=== PATIENT | male | born 1955 | race Caucasian/White ===

== ENCOUNTER 2018-09-11 16:32 | Inpatient (IN) ==
--- NOTE | 2018-09-11 20:21 | ED ---
HPI General Chief complaint: Weakness Stated complaint: weakness Time Seen by Provider: 09/11/18 19:46 Source: patient Mode of arrival: ambulatory Limitations: no limitations History of Present Illness HPI narrative: 63yo M with PMH of COPD and schizophrenia was brought in by his for worsening weakness. Pt has been having generalized weakness for 2 weeks but his bilateral legs is weaker than arms. Said today he is unable to get up. Pt also with decreased sensations bilateral legs from knees down for a few days. Also with neck pain and upper back pain. said he has been having intermittent low grade fever and night sweats. Went to [facility] when it first started and had negative CT brain, UA, CXR and labs. Pt denies any chest pain, sob, n/v, abdominal pain. Able to urinate normally. Had colonoscopy this past Saturday. Related Data Home Medications Medication Instructions Recorded Confirmed aripiprazole 20 mg PO DAILY 08/31/18 09/11/18 clonazepam 0.5 mg PO TID 08/31/18 09/11/18 donepezil [Aricept] 10 mg PO DAILY 08/31/18 09/11/18 duloxetine 60 mg PO DAILY 08/31/18 09/11/18 omeprazole 20 mg PO DAILY 08/31/18 09/11/18 propranolol 10 mg PO BID 08/31/18 09/11/18 quetiapine 600 mg PO QPM 08/31/18 09/11/18 trazodone 50 mg PO DAILY 08/31/18 09/11/18 clonazepam PO DAILY 09/12/18 simvastatin PO DAILY 09/12/18 Allergies Allergy/AdvReac Type Severity Reaction Status Date / Time No Known Allergies Allergy Verified 09/11/18 16:49 Review of Systems ROS: all other systems reviewed are negative [facility] Social History Social History Substance History: No History of Abuse Second Hand Smoke Exposure: No Smoking Status: Former smoker Tobacco Type: Cigarettes How Often Do You Have a Drink Containing Alcohol: Never Recent Travel in [place] within the Last 8 Weeks: No Recent Out of Country Travel within the Last 8 Weeks: No Immunization History Tetanus Immunization: Unsure Exam Narrative Exam Narrative: GENERAL: 63yo M in mild distress. SKIN: Focused skin assessment warm/dry. HEAD: Atraumatic. Normocephalic. EYES: Pupils equal and round. No scleral icterus. No injection or drainage. ENT: No nasal bleeding or discharge. Mucous membranes pink and moist. NECK: Diffuse ttp neck and sidebending to right. CARDIOVASCULAR: Regular rate and rhythm. No murmur appreciated. RESPIRATORY: No accessory muscle use. Clear to auscultation. Breath sounds equal bilaterally. BACK: +TTP mid upper thoracic spine. GASTROINTESTINAL: Abdomen soft, non-tender, nondistended. MUSCULOSKELETAL: No obvious deformities. No clubbing. No cyanosis. No edema. NEUROLOGICAL: Awake and alert. No obvious cranial nerve deficits. Equal sensation bilateral upper extremities. Pt has decreased sensation in bilateral lower extremity knees down although pt is able to feel my touch equally bilaterally. Muscle strength 4/5 bilateral lower extremity. 5/5 in bilateral upper extremity. Course Initial Documented Vital Signs Temperature 100.2 F H 09/11/18 16:44 Pulse Rate 94 H 09/11/18 16:44 Blood Pressure 137/64 09/11/18 16:44 Pulse Oximetry 96 09/11/18 16:44 Last Documented Vital Signs Temperature 98.7 F 09/12/18 00:00 Pulse Rate 86 09/12/18 00:00 Respiratory Rate 14 09/12/18 00:00 Blood Pressure 128/73 09/12/18 00:00 Pulse Oximetry 94 L 09/12/18 00:00 Critical Care Time Critical Care Time: Yes Total Critical Care Time: 45 Attestation: Aggregate critical care time was 45 minutes. Time to perform other separately billable procedures was not included in the critical care time. My time did not include minutes spent treating any other patients simultaneously or on activities that did not directly contribute to the patient's treatment. The services I provided to this patient were to treat and/or prevent clinically significant deterioration that could result in: cardiovascular collapse or . I provided critical care services requiring my management, as noted below: Chart data review, documentation time, medication orders and management, vital sign assessments/reviewing monitor data, ordering and reviewing lab tests, ordering and interpreting/reviewing x-rays and diagnostic studies, care of the patient and discussion of the patient with the admitting physicians. Medical Decision Making MDM Narrative Medical decision making narrative: 63yo M with intermittent fever, sweating and generalized weakness for 2 weeks. However, pt has worsening lower extremity weakness and numbness. Said his neck is also hurting a lot in the last few days. Pt's neck is very tender and side bend to the right. Since pt take psych medications, will give diphenhydramine to see if it is dystonic reaction. Pt has no neurologic complaint and could not even get up today so will do MRI cervical spine, thoracic spine and lumbar spine. Labs reviewed, no leukocytosis. H/H normal. BMP. Lactic acid 1.4. CT TS showed no fracture or subluxation of thoracic spine. MRI LS showed no acute compression fracture. MRI cspine showed acute discitis at C4/C5 with an anterior subligamentous abscess and elongated retropharyngeal abscess. Pt was empirically given vancomycin and zosyn. I discussed case with Dr. Pereira who recommends admission to medicine, vancomycin and NPO after midnight for possible surgery, with neurosurgery consult. Discussed with Dr. Penaloza and accepted to his service. Medical Screen Exam Complete: Yes Emergency Medical Condition: Yes Differential Diagnosis Differential Diagnosis: Osteomyelitis vs. cord compression vs. torticollis vs. dehydration Lab Data Result diagrams: 09/11/18 20:10 09/11/18 20:10 Lab Results 09/11/18 09/11/18 09/11/18 Range/Units 20:10 20:10 20:10 WBC 10.7 (4.0-11.0) th/mm3 RBC 4.29 L (4.50-5.90) mil/mm3 Hgb 13.6 (13.0-17.0) gm/dL Hct 41.1 (39.0-51.0) % MCV 95.9 (80.0-100.0) fL MCH 31.8 (27.0-34.0) pg MCHC 33.2 (32.0-36.0) % RDW 14.1 (11.6-17.2) % Plt Count 236 D (150-450) th/mm3 MPV 9.1 (7.0-11.0) fL Neut % (Auto) 82.0 H (16.0-70.0) % Lymph % (Auto) 6.6 L (9.0-44.0) % [place] % (Auto) 10.8 H (0.0-8.0) % Eos % (Auto) 0.2 (0.0-4.0) % Baso % (Auto) 0.4 (0.0-2.0) % Neut # (Auto) 8.8 H (1.8-7.7) th/mm3 Lymph # (Auto) 0.7 L (1.0-4.8) th/mm3 [place] # (Auto) 1.2 H (0.0-0.9) th/mm3 Eos # (Auto) 0.0 (0.0-0.4) th/mm3 Baso # (Auto) 0.0 (0.0-0.2) th/mm3 WBC Differential . Differential Comment Auto diff final PT 10.0 (9.8-11.6) sec INR 1.0 Ratio APTT 27.6 (23.4-31.7) sec Sodium 136 (136-145) meq/L Potassium 4.7 (3.5-5.1) meq/L Chloride 100 (98-107) meq/L Carbon Dioxide 29.8 (21.0-32.0) meq/L Anion Gap 6 (5-15) meq/L BUN 15 (7-18) mg/dL Creatinine 0.85 (0.60-1.30) mg/dL Estimated GFR Greater than 89 (>89) mL/min Random Glucose 115 H (74-106) mg/dL Lactic Acid (0.4-2.0) mmol/L Calcium 8.6 (8.5-10.1) mg/dL Magnesium 2.3 (1.5-2.5) mg/dL 09/11/18 Range/Units 20:25 WBC (4.0-11.0) th/mm3 RBC (4.50-5.90) mil/mm3 Hgb (13.0-17.0) gm/dL Hct (39.0-51.0) % MCV (80.0-100.0) fL MCH (27.0-34.0) pg MCHC (32.0-36.0) % RDW (11.6-17.2) % Plt Count (150-450) th/mm3 MPV (7.0-11.0) fL Neut % (Auto) (16.0-70.0) % Lymph % (Auto) (9.0-44.0) % [place] % (Auto) (0.0-8.0) % Eos % (Auto) (0.0-4.0) % Baso % (Auto) (0.0-2.0) % Neut # (Auto) (1.8-7.7) th/mm3 Lymph # (Auto) (1.0-4.8) th/mm3 [place] # (Auto) (0.0-0.9) th/mm3 Eos # (Auto) (0.0-0.4) th/mm3 Baso # (Auto) (0.0-0.2) th/mm3 WBC Differential Differential Comment PT (9.8-11.6) sec INR Ratio APTT (23.4-31.7) sec Sodium (136-145) meq/L Potassium (3.5-5.1) meq/L Chloride (98-107) meq/L Carbon Dioxide (21.0-32.0) meq/L Anion Gap (5-15) meq/L BUN (7-18) mg/dL Creatinine (0.60-1.30) mg/dL Estimated GFR (>89) mL/min Random Glucose (74-106) mg/dL Lactic Acid 1.4 (0.4-2.0) mmol/L Calcium (8.5-10.1) mg/dL Magnesium (1.5-2.5) mg/dL Imaging Data Radiologist's impression: Cervical Spine MRI 09/11/18 20:09 CONCLUSION: 1. MRI findings are worrisome for acute discitis at C4/C5 with a anterior subligamentous abscess and an elongated retropharyngeal abscess. A posttraumatic etiology would be conceivable and please correlate clinically. Otherwise, infection should be included high in the differential. 2. The findings at C4/C5, in conjunction with degenerative appearing retrolisthesis and degenerative changes contribute to moderate to severe spinal stenosis with cord compression and severe bilateral foraminal stenosis. No cord signal abnormality demonstrated. 3. Substantial but fairly typical-appearing degenerative changes at other levels as described above. Lumbar Spine MRI 09/11/18 20:09 CONCLUSION: 1. Moderate bilateral foraminal narrowing at L5-S1. 2. Grade I retrolisthesis of L5 in relation to S1. 3. Minimal bilateral foraminal narrowing at L2-3, L3-4 and L4-5. 4. Hemangiomas at L2 and L3. 5. Severe degenerative disc disease at L5-S1. Thoracic Spine MRI 09/11/18 20:09 CONCLUSION: 1. No fracture or subluxation of the thoracic spine. 2. Mild diffuse degenerative changes as described. These findings all appear chronic but there is a less age determinate Schmorl's node of the T8/T9 disc. Discharge Plan Discharge Disposition Patient Disposition: 30 Still Patient Discharge Details Diagnosis: Cervical discitis Physicians Team ED Provider: Pooja Hamilton Primary Care Provider: Zachery Paris Attending Provider: Alejandro Penaloza Other Providers: Kit Pereira ; Miguelina Hanson Status ED Status: Left Department Discharge Information Discharge Date/Time: 09/12/18 00:14
[2018-09-11 20:54] LABS: Baso % (Auto) 0.4 % (0.0-2.0); Eos % (Auto) 0.2 % (0.0-4.0); Hematocrit 41.1 % (39.0-51.0); Hemoglobin 13.6 gm/dL (13.0-17.0); Lymph # (Auto) 0.7 th/mm3 (1.0-4.8); Lymph % (Auto) 6.6 % (9.0-44.0); Mean Corpuscular HGB Conc 33.2 % (32.0-36.0); Mean Corpuscular Hemoglobin 31.8 pg (27.0-34.0); Mean Corpuscular Volume 95.9 fL (80.0-100.0); Mean Platelet Volume 9.1 fL (7.0-11.0); Mono # (Auto) 1.2 th/mm3 (0.0-0.9); Mono % (Auto) 10.8 % (0.0-8.0); Neut # (Auto) 8.8 th/mm3 (1.8-7.7); Platelet Count 236 th/mm3 (150-450); Red Blood Count 4.29 mil/mm3 (4.50-5.90); Red Cell Distribution Width 14.1 % (11.6-17.2); White Blood Count 10.7 th/mm3 (4.0-11.0)
[2018-09-11 21:05] LABS: Activated Partial Thrombo Time 27.6 sec (23.4-31.7)
[2018-09-11 21:25] LABS: Anion Gap 6 meq/L (5-15); Blood Urea Nitrogen 15 mg/dL (7-18); Calcium 8.6 mg/dL (8.5-10.1); Carbon Dioxide 29.8 meq/L (21.0-32.0); Chloride 100 meq/L (98-107); Glomerular Filtration Rate Greater Than 89 mL/min (>89); Glucose,Random 115 mg/dL (74-106); Magnesium 2.3 mg/dL (1.5-2.5); Potassium 4.7 meq/L (3.5-5.1); Sodium 136 meq/L (136-145)
--- NOTE | 2018-09-11 21:32 | MR ---
EXAM DATE: 09/11/2018 9:21 PM EST AGE/SEX: 63 years / Male INDICATIONS: Pain. CLINICAL DATA: This is the patient's initial encounter. Patient reports that signs and symptoms have been present for 1 week and indicates a pain score of Nonresponsive. MEDICAL/SURGICAL HISTORY: Hypertension. Tonsillectomy. Left hip replacment, Eye sx. COMPARISON: No prior exams available for comparison. TECHNIQUE: Multiplanar, multisequence MRI of the thoracic spine was performed. FINDINGS: There is no fracture or subluxation of the thoracic spine. Mild degenerative-related exaggeration of the thoracic kyphosis. All the thoracic intervertebral discs are mildly desiccated. No significant loss of height. No signif icant bulges or protrusions. A small Schmorl's node involves the inferior endplate of T8 which may be acute or subacute. There is mild bilateral costovertebral and facet osteoarthritis throughout. There is no foraminal or spinal stenosis of the thoracic spine. CONCLUSION: 1. No fracture or subluxation of the thoracic spine. 2. Mild diffuse degenerative changes as described. These findings all appear chronic but there is a less age determinate Schmorl's node of the T8/T9 disc. Electronically signed by: Kane Cooper MD 09/11/2018 9:31 PM EST
--- NOTE | 2018-09-11 21:40 | MR ---
EXAM DATE: 09/11/2018 9:30 PM EST AGE/SEX: 63 years / Male INDICATIONS: Pain. Bilateral numbness and pain for one week. CLINICAL DATA: This is the patient's initial encounter. Patient reports that signs and symptoms have been present for 1 week and indicates a pain score of Nonresponsive. MEDICAL/SURGICAL HISTORY: Hypertension. Tonsillectomy. Left hip sx, Eye sx. COMPARISON: No prior exams available for comparison. TECHNIQUE: Multiplanar, multisequence MRI of the lumbar spine was performed without contrast. Patie nt was scanned in a sitting position; neutral, flexion, and extension scans were performed in the sa gittal plane. FINDINGS: There is no acute compression fracture. Grade I retrolisthesis of L5 in relation to S1 is noted. Sign ificant disc space narrowing and loss of disc signal is noted at L5-S1 consistent with degenerative d isc disease. Hemangiomas are noted involving L2 and L3. T12-L1: The thecal sac has a normal diameter. No evidence of disc bulge or protrusion. The neural foramina are patent bilaterally. L1-L2: The thecal sac has a normal diameter. No evidence of disc bulge or protrusion. The neural foramina are patent bilaterally. L2-L3: Minimal diffuse disc osteophyte complex, facet joint hypertrophy and ligamentous laxity are noted resulting in minimal bilateral foraminal narrowing but no spinal stenosis. L3-L4: Minimal diffuse disc osteophyte complex, facet joint hypertrophy and ligamentous laxity are noted resulting in minimal bilateral foraminal narrowing but no spinal stenosis. L4-L5: Minimal diffuse disc osteophyte complex, facet joint hypertrophy and ligamentous laxity are noted resulting in minimal bilateral foraminal narrowing but no spinal stenosis. L5-S1: Diffuse disc osteophyte complex, grade I retrolisthesis of L5 in relation to S1 and facet david int hypertrophy bilaterally result in moderate bilateral foraminal narrowing. No spinal stenosis is n oted. CONCLUSION: 1. Moderate bilateral foraminal narrowing at L5-S1. 2. Grade I retrolisthesis of L5 in relation to S1. 3. Minimal bilateral foraminal narrowing at L2-3, L3-4 and L4-5. 4. Hemangiomas at L2 and L3. 5. Severe degenerative disc disease at L5-S1. Electronically signed by: Cliff Christian MD 09/11/2018 9:39 PM EST
[2018-09-11] MEDS ORDERED: Acetaminophen 325 MG Tablet PO ONE (21:48)
--- NOTE | 2018-09-11 22:03 | MR ---
EXAM DATE: 09/11/2018 9:49 PM EST AGE/SEX: 63 years / Male INDICATIONS: Pain. Bilateral numbness and pain for one week. CLINICAL DATA: This is the patient's initial encounter. Patient reports that signs and symptoms have been present for 1 week and indicates a pain score of Nonresponsive. MEDICAL/SURGICAL HISTORY: Hypertension. Tonsillectomy. Left hip sx, Eye sx. COMPARISON: No prior exams available for comparison. TECHNIQUE: Multiplanar, multisequence MRI examination of the cervical spine was performed without co ntrast. FINDINGS: 2 to 3 mm of degenerative-appearing retrolisthesis seen at C3/C4 and C4/C5. No fracture or acute appe aring malalignment. Vertebral bodies have normal height. Visualized portions of the posterior fossa a re grossly unremarkable. C2-C3: The disc is desiccated. Very small, broad central to right paracentral disc protrusion withou t significant foraminal or spinal stenosis. C3-C4: The disc is desiccated and has moderate loss of height. Grade 1 retrolisthesis. Small, broad/ diffuse posterior disc osteophyte complex and moderate bilateral uncovertebral and facet osteoarthrit is. There is moderate spinal stenosis with short segment cord compression. No cord signal abnormality . There is moderate to severe right and [id number] left foraminal stenosis. C4-C5: The disc has mild to moderate loss of height. There is fluid in the intervertebral disc space and extends into the preligamentous space as a anterior bilobed fluid collection measuring approxima tely 0.6 x 1.9 x 1.7 cm, series 9 image 15 and series 7 image 6. There is a millimeter thick fluid in the retropharyngeal space that extends from C1 to C7. Grade 1 retrolisthesis. Small, broad posterior disc osteophyte complex and moderate to severe bilateral uncovertebral and facet osteoarthritis pres ent. There is short segment moderate to severe spinal stenosis without cord compression. No cord sign al abnormality seen. There is severe, bilateral foraminal stenosis. Mild marrow edema of C4 and C5 ve rtebral bodies. C5-C6: The disc is desiccated and has mild loss of height. Very small, broad posterior disc osteophy te complex and severe right, moderate left uncovertebral and facet osteoarthritis present. There is m ild spinal stenosis without cord compression or cord signal abnormality. There is severe right and mi [id number] left foraminal stenosis. C6-C7: The disc is desiccated and has moderate to severe loss of height. There is a small, broad pos terior disc osteophyte complex and moderate bilateral uncovertebral and facet osteoarthritis. There i s mild spinal stenosis without cord compression or cord signal abnormality. There is moderate to kushal re bilateral foraminal stenosis. C7-T1: The disc is desiccated but otherwise within normal limits. Mild bilateral facet osteoarthriti s. No foraminal or spinal stenosis. CONCLUSION: 1. MRI findings are worrisome for acute discitis at C4/C5 with a anterior subligamentous abscess and an elongated retropharyngeal abscess. A posttraumatic etiology would be conceivable and please corre late clinically. Otherwise, infection should be included high in the differential. 2. The findings at C4/C5, in conjunction with degenerative appearing retrolisthesis and degenerative changes contribute to moderate to severe spinal stenosis with cord compression and severe bilateral foraminal stenosis. No cord signal abnormality demonstrated. 3. Substantial but fairly typical-appearing degenerative changes at other levels as described above. Electronically signed by: Kane Cooper MD 09/11/2018 10:02 PM EST
[2018-09-11] MEDS ORDERED: Piperacil/Tazo 4.5 GM Premix 4.5 GM/100 ML BAG IV.SIG ONE (22:17)
[2018-09-11] MEDS ORDERED: Morphine Inj 4 MG/ML Vial IV.PUSH ONE (22:37)
[2018-09-11] MEDS ORDERED: Vancomycin Consult Pharmacy OTHER PRN (22:37)
[2018-09-11] MEDS ORDERED: Bisacodyl 10 MG Supp RECTAL PRN (22:40)
[2018-09-11] MEDS ORDERED: Vancomycin Inj 1,000 MG in Sodium Chlor 0.9% Inj 250 ML IV.SIG SCH (23:00)
[2018-09-11] MEDS: Sod Chloride 0.9% Inj 1,000 ML IV.CONT SCH (23:34)
[2018-09-12] MEDS ORDERED: Vancomycin Inj 1,500 MG in Sodium Chlor 0.9% Inj 500 ML IV.SIG ONE ×2
[2018-09-12] MEDS: traZODone 50 MG Tablet PO SCH ×2 (01:00→21:41)
[2018-09-12 03:00] LABS: Amphetamine Screen,Urine Neg (Neg); Barbiturate Screen,Urine Neg (Neg); Cannabinoid Screen,Urine Neg (Neg); Cocaine Screen,Urine Neg (Neg)
[2018-09-12 03:01] LABS: Bilirubin,Urine Negative (Negative); Clarity,Urine Clear (Clear); Color,Urine Yellow (Yellw/Straw); Glucose,Urine (UA) Negative (Negative); Leukocyte Esterase,Urine Negative (Negative); Mucus,Urine Few /lpf (Occasional); Nitrite,Urine Negative (Negative); Specific Gravity,Urine 1.014 (1.002-1.035)
[2018-09-12 03:04] LABS: Opiate Screen,Urine Neg (Neg)
[2018-09-12] MEDS: Piperacil/Tazo 4.5 GM Premix 4.5 GM/100 ML BAG IV.SIG SCH ×2 (04:12→09:48)
--- NOTE | 2018-09-12 06:14 | P.HPIM ---
History of Present Illness Primary Care Physician: Zachery Paris MD History of Present Illness: 63-year-old male with a history of COPD, schizophrenia who was brought in by his sister (who is a nurse, and identifies herself as power of trade mark attorney) due to a 2-week history of progressively worsening intense posterior neck and back pain , low-grade fevers, diaphoresis, as well as progressively worsening bilateral lower extremity weakness, numbness and tingling in the feet, to the point where he was unable to walk yesterday 09/11.. A week ago patient was noted to have some blood in the urine, however no dysuria or urinary hesitancy, and this hematuria has resolved. Patient reportedly had a colonoscopy on Saturday. Uncertain if he had an EGD Inpatient Certification: I certify that the inpatient services were ordered in accordance with Medicare regulations governing the order. This includes certification that hospital inpatient services are reasonable and necessary and in the case of services not specified as inpatient-only under 42 CFR 419.22(n), that they are appropriately provided as inpatient services in accordance to with the 2-midnight benchmark under 43 CFR 412.3(e) Estimated Total Length of Stay (Days): 9 Plans for Post Hospital Care: Not yet determined Review of Systems All other systems reviewed negative except as stated in HPI PMFSH - History History Provided By: Patient, Family Member - Medical History Medical History: Medical History (Last Reviewed 09/12/18 @ 06:01 by Alejandro Penaloza MD) COPD (chronic obstructive pulmonary disease) Dementia History of fractured pelvis Schizo affective schizophrenia - Surgical History Surgical History: Surgical History (Last Reviewed 09/12/18 @ 06:01 by Alejandro Penaloza MD) History of eye surgery History of hip replacement - Family History Family History: Family History (Last Updated 09/12/18 @ 06:02 by Alejandro Penaloza MD) Father CAD (coronary artery disease) Mother Diabetes mellitus Mother Stroke - Tobacco History Second Hand Smoke Exposure: No Tobacco Use In Past 30 Days: No Smoking Status: Former smoker Tobacco Type: Cigarettes - Alcohol History How Often Do You Have a Drink Containing Alcohol: Never - Substance Use History Substance History: No History of Abuse - Travel History Recent Travel in the [place] Within the Last 8 Weeks: No Recent Travel Out of the Country Within the Last 8 Weeks: No - Immunization History Tetanus Immunization: Unsure Hx Influenza Vaccine This Season: No Medications and Allergies Active Medications: Active Medications Al Hydroxide/Mg Hydroxide (Milk Of Magnesia Liq) 30 ml PO Q12H PRN PRN Reason: Mild Constipation Aripiprazole (Abilify) 20 mg PO DAILY [facility] Bisacodyl (Dulcolax Supp) 10 mg RECTAL DAILY PRN PRN Reason: SEVERE CONSITIPATION Clonazepam (Klonopin) 0.5 mg PO TID [facility] Clonazepam (Klonopin) 2 mg PO HS [facility] Donepezil HCl (Aricept) 10 mg PO DAILY [facility] Duloxetine HCl (Cymbalta) 60 mg PO DAILY [facility] Piperacillin/Tazobactam/Dextrose (Zosyn 4.5 Gm Premix) 4.5 gm in 100 mls @ 200 mls/hr IV.SIG Q6H [facility] Last Infusion: 09/12/18 04:50 Dose: Infused Sodium Chloride (Ns Inj) 1,000 mls @ 100 mls/hr IV.CONT .Q10H [facility] Last Admin: 09/11/18 23:34 Dose: 100 mls/hr Influenza Virus Vaccine (Fluarix (Quad) Vaccine Inj) 0.5 ml IM .ONCE ONE Stop: 09/12/18 09:01 Lactulose (Lactulose Liq) 30 ml PO DAILY PRN PRN Reason: SEVERE CONSITIPATION Pantoprazole Sodium (Protonix) 20 mg PO DAILY [facility] Pharmacy Profile Note (Vancomycin Consult Pharmacy) 1 each OTHER UNSCH PRN PRN Reason: Pharmacy to dose Pravastatin Sodium (Pravachol) 40 mg PO [facility] Last Admin: 09/12/18 01:00 Dose: 40 mg Propranolol HCl (Inderal) 10 mg PO BID [facility] Quetiapine Fumarate (Seroquel) 150 mg PO BID [facility] Sennosides (Senokot) 17.2 mg PO Q12H PRN PRN Reason: Moderate Constipation Trazodone HCl (Desyrel) 50 mg PO [facility] Last Admin: 09/12/18 01:00 Dose: 50 mg Allergies Allergy/AdvReac Type Severity Reaction Status Date / Time No Known Allergies Allergy Verified 09/11/18 16:49 Home Medications Medication Instructions Recorded Confirmed Type aripiprazole 20 mg PO DAILY 08/31/18 09/11/18 History clonazepam 0.5 mg PO TID 08/31/18 09/11/18 History donepezil [Aricept] 10 mg PO DAILY 08/31/18 09/11/18 History duloxetine 60 mg PO DAILY 08/31/18 09/11/18 History omeprazole 20 mg PO DAILY 08/31/18 09/11/18 History propranolol 10 mg PO BID 08/31/18 09/11/18 History quetiapine 600 mg PO QPM 08/31/18 09/11/18 History trazodone 50 mg PO DAILY 08/31/18 09/11/18 History clonazepam PO DAILY 09/12/18 History simvastatin PO DAILY 09/12/18 History Exam Vital signs: Vital Signs 09/11/18 16:44 09/11/18 19:36 09/12/18 00:00 Temperature 100.2 F H 98.7 F Pulse Rate 94 H 98 H 86 Respiratory Rate 18 14 Blood Pressure 137/64 156/83 H 128/73 Pulse Oximetry 96 96 94 L 09/12/18 00:30 09/12/18 01:24 09/12/18 04:00 Temperature 98.4 F Pulse Rate 89 Respiratory Rate 18 18 16 Blood Pressure 142/79 H Pulse Oximetry 94 L Intake & Output 09/11/18 09/11/18 09/12/18 06:59 18:59 06:59 Intake Total 715 / 715 Balance 715 / 715 Weight 88.451 kg Intake: IV 715 / 715 Zosyn 4.5 GM Premix 4.5 gm In 200 / 200 100 ml @ 200 mls/hr IV.SIG Q6H [facility] Rx#:[id number] Vancomycin Inj 1,500 MG In NS 515 / 515 Inj 500 ML @ 250 mls/hr IV.SIG ONCE ONE Rx#:[id number] Narrative: GENERAL: Patient sleeping, somnolent, wakes up for exam. SKIN: Warm and dry. HEAD: Atraumatic. Normocephalic. EYES: Pupils equal and round. No scleral icterus. No injection or drainage. ENT: No nasal bleeding or discharge. Mucous membranes pink and moist. NECK: Trachea midline. No JVD. CARDIOVASCULAR: Regular rate and rhythm. RESPIRATORY: No accessory muscle use. Clear to auscultation. Breath sounds equal bilaterally. GASTROINTESTINAL: Abdomen soft, non-tender, nondistended. Hepatic and splenic margins not palpable. MUSCULOSKELETAL: Extremities without clubbing, cyanosis, or edema. No obvious deformities. NEUROLOGICAL: Awake and alert. No obvious cranial nerve deficits. Motor grossly within normal limits. Five out of 5 muscle strength in the arms. 4 out of 5 strength in bilateral legs. Sensation is intact normal speech. PSYCHIATRIC: Appropriate mood and affect; insight and judgment normal. Results - Labs CBC & Chem 7: 09/11/18 20:10 09/11/18 20:10 Labs: Short CBC 09/11/18 Range/Units 20:10 WBC 10.7 (4.0-11.0) th/mm3 Hgb 13.6 (13.0-17.0) gm/dL Hct 41.1 (39.0-51.0) % Plt Count 236 D (150-450) th/mm3 BMP 09/11/18 20:10 Sodium 136 Potassium 4.7 Chloride 100 Carbon Dioxide 29.8 BUN 15 Creatinine 0.85 Calcium 8.6 Urine 09/12/18 Range/Units 02:20 Urine Color Yellow (Yellw/Straw) Urine Clarity Clear (Clear) Urine pH 5.0 (5.0-8.5) Ur Specific [place] 1.014 (1.002-1.035) Urine Protein Negative (Neg-Trace) mg/dL Urine Glucose (UA) Negative (Negative) mg/dL - Imaging Impressions Cervical Spine MRI 09/11/18 20:09 CONCLUSION: 1. MRI findings are worrisome for acute discitis at C4/C5 with a anterior subligamentous abscess and an elongated retropharyngeal abscess. A posttraumatic etiology would be conceivable and please correlate clinically. Otherwise, infection should be included high in the differential. 2. The findings at C4/C5, in conjunction with degenerative appearing retrolisthesis and degenerative changes contribute to moderate to severe spinal stenosis with cord compression and severe bilateral foraminal stenosis. No cord signal abnormality demonstrated. 3. Substantial but fairly typical-appearing degenerative changes at other levels as described above. Lumbar Spine MRI 09/11/18 20:09 CONCLUSION: 1. Moderate bilateral foraminal narrowing at L5-S1. 2. Grade I retrolisthesis of L5 in relation to S1. 3. Minimal bilateral foraminal narrowing at L2-3, L3-4 and L4-5. 4. Hemangiomas at L2 and L3. 5. Severe degenerative disc disease at L5-S1. Thoracic Spine MRI 09/11/18 20:09 CONCLUSION: 1. No fracture or subluxation of the thoracic spine. 2. Mild diffuse degenerative changes as described. These findings all appear chronic but there is a less age determinate Schmorl's node of the T8/T9 disc. Caprini VTE Risk Assessment Caprini VTE Risk Assessment: Moderate/High Risk (score >= 2) Caprini Risk Assessment Model: Point Value = 1 Point Value = 2 Point Value = 3 Point Value = 5 Age 41-60 Minor surgery BMI > 25 kg/m2 Swollen legs Varicose veins or History of unexplained or recurrent spontaneous Oral contraceptives or hormone replacement Sepsis (< 1 month) Serious lung disease, including pneumonia (< 1 month) Abnormal pulmonary function Acute myocardial infarction Congestive heart failure (< 1 month) History of inflammatory bowel disease Medical patient at bed rest Age 61-74 Arthroscopic surgery Major open surgery (> 45 min) Laparoscopic surgery (> 45 min) Malignancy Confined to bed (> 72 hours) Immobilizing plaster cast Central venous access Age >= 75 History of VTE Family history of VTE Factor V Leiden Prothrombin [id number] Lupus anticoagulant Anticardiolipin antibodies Elevated serum homocysteine Heparin-induced thrombocytopenia Other congenital or acquired thrombophilia Stroke (< 1 month) Elective arthroplasty Hip, pelvis, or leg fracture Acute spinal cord injury (< 1 month) Prophylaxis Regimen: Total Risk Factor Score Risk Level Prophylaxis Regimen 0-1 Low Early ambulation 2 Moderate Order ONE of the following: *Sequential Compression Device (SCD) *Heparin 5000 units SQ BID 3-4 Higher Order ONE of the following medications: *Heparin 5000 units SQ TID *Enoxaparin/Lovenox 40 mg SQ daily (WT < 150 kg, CrCl > 30 mL/min) *Enoxaparin/Lovenox 30 mg SQ daily (WT < 150 kg, CrCl > 10-29 mL/min) *Enoxaparin/Lovenox 30 mg SQ BID (WT < 150 kg, CrCl > 30 mL/min) AND/OR *Sequential Compression Device (SCD) 5 or more Highest Order ONE of the following medications: *Heparin 5000 units SQ TID (Preferred with Epidurals) *Enoxaparin/Lovenox 40 mg SQ daily (WT < 150 kg, CrCl > 30 mL/min) *Enoxaparin/Lovenox 30 mg SQ daily (WT < 150 kg, CrCl > 10-29 mL/min) *Enoxaparin/Lovenox 30 mg SQ BID (WT < 150 kg, CrCl > 30 mL/min) AND *Sequential Compression Device (SCD) Assessment and Plan - Plan //Acute discitis at C4/C5, with anterior subligamentous abscess and elongated retropharyngeal abscess, // moderate to severe spinal stenosis at C4-C5, severe bilateral foraminal stenosis //Possible sepsis. -Temperature 100.2 on admission -Consult infectious disease. -Neurochecks, broad-spectrum antibiotics. Neurosurgery consulted. Appreciate assistance. //Dementia. Chronic. Continue home medication //Schizophrenia. Chronic. Continue home medication //Hyperlipidemia. Chronic. Continue home medication //GERD. Chronic. Continue home medication. //History of COPD without exacerbation. Duo nebs as needed. Discussed Condition With: Patient, nurse, ED physician, sister at bedside. H&P: Quality - VTE Deep Vein Thrombosis/Pulmonary Embolism Present on Admission: No
--- NOTE | 2018-09-12 08:51 | P.CONNS ---
History of Present Illness Service: neurosurgery Consult date: 09/12/18 Requesting Physician: Alejandro Penaloza Reason for Consult: epidural abscess Primary Care Provider: Zachery Paris MD Chief Complaint: weakness, difficulty swallowing History of Present Illness: This is [id number] male with a history of COPD, schizophrenia, who was brought in by his sister who is a nurse, and identifies herself as power of claims attorney with a 2-week history of progressively worsening intense posterior neck and back pain, low-grade fevers, diaphoresis, as well as progressively worsening bilateral lower extremity weakness, numbness and tingling in the feet. His arms are also weak. he has been was unable to walk yesterday. there is no history of intravenous drug use. he had very bad dentition, and his teeth had to be removed due to their poor condition. A week ago patient was noted to have some blood in the urine, however no dysuria or urinary hesitancy, and this hematuria has resolved. Patient reportedly had a colonoscopy on Saturday and a colon biopsy. MRI C spine showed discitis at C4/C5 with a anterior subligamentous abscess and an elongated retropharyngeal abscess and an epidural abscess and spinal cord ocmpression. neurosurgery consultation was requested Review of Systems unobtainable due to mental status PMFSH - History History Provided By: Patient, Family Member - Medical History Medical History: Medical History (Last Reviewed 09/12/18 @ 09:45 by Kit Pereira MD) COPD (chronic obstructive pulmonary disease) Dementia History of fractured pelvis Schizo affective schizophrenia - Surgical History Surgical History: Surgical History (Last Reviewed 09/12/18 @ 09:45 by Kit Pereira MD) History of eye surgery History of hip replacement - Family History Family History: Family History (Last Reviewed 09/12/18 @ 09:45 by Kit Pereira MD) Father CAD (coronary artery disease) Mother Diabetes mellitus Mother Stroke - Tobacco History Second Hand Smoke Exposure: No Tobacco Use In Past 30 Days: No Smoking Status: Former smoker Tobacco Type: Cigarettes - Alcohol History How Often Do You Have a Drink Containing Alcohol: Never - Substance Use History Substance History: No History of Abuse - Travel History Recent Travel in the [place] Within the Last 8 Weeks: No Recent Travel Out of the Country Within the Last 8 Weeks: No - Immunization History Tetanus Immunization: Unsure Hx Influenza Vaccine This Season: No Medications and Allergies Active Medications: Active Medications Al Hydroxide/Mg Hydroxide (Milk Of Magnesia Liq) 30 ml PO Q12H PRN PRN Reason: Mild Constipation Albuterol (Duoneb Neb (Prn)) 1 ampul NEB Q4HR NEB PRN PRN Reason: SHORTNESS OF BREATH/WHEEZING Aripiprazole (Abilify) 20 mg PO DAILY [facility] Bisacodyl (Dulcolax Supp) 10 mg RECTAL DAILY PRN PRN Reason: SEVERE CONSITIPATION Clonazepam (Klonopin) 0.5 mg PO TID [facility] Clonazepam (Klonopin) 2 mg PO HS [facility] Donepezil HCl (Aricept) 10 mg PO DAILY [facility] Duloxetine HCl (Cymbalta) 60 mg PO DAILY [facility] Piperacillin/Tazobactam/Dextrose (Zosyn 4.5 Gm Premix) 4.5 gm in 100 mls @ 200 mls/hr IV.SIG Q6H [facility] Last Infusion: 09/12/18 04:50 Dose: Infused Sodium Chloride (Ns Inj) 1,000 mls @ 100 mls/hr IV.CONT .Q10H [facility] Last Admin: 09/11/18 23:34 Dose: 100 mls/hr Vancomycin HCl 1,500 mg/ (Sodium Chloride) 515 mls @ 250 mls/hr IV.SIG Q12H [facility] Influenza Virus Vaccine (Fluarix (Quad) Vaccine Inj) 0.5 ml IM .ONCE ONE Stop: 09/12/18 09:01 Lactulose (Lactulose Liq) 30 ml PO DAILY PRN PRN Reason: SEVERE CONSITIPATION Pantoprazole Sodium (Protonix) 20 mg PO DAILY [facility] Pharmacy Profile Note (Vancomycin Consult Pharmacy) 1 each OTHER UNSCH PRN PRN Reason: Pharmacy to dose Pravastatin Sodium (Pravachol) 40 mg PO [facility] Last Admin: 09/12/18 01:00 Dose: 40 mg Propranolol HCl (Inderal) 10 mg PO BID [facility] Quetiapine Fumarate (Seroquel) 150 mg PO BID [facility] Sennosides (Senokot) 17.2 mg PO Q12H PRN PRN Reason: Moderate Constipation Trazodone HCl (Desyrel) 50 mg PO HS [facility] Last Admin: 09/12/18 01:00 Dose: 50 mg Allergies Allergy/AdvReac Type Severity Reaction Status Date / Time No Known Allergies Allergy Verified 09/11/18 16:49 Home Medications Medication Instructions Recorded Confirmed Type aripiprazole 20 mg PO DAILY 08/31/18 09/11/18 History clonazepam 0.5 mg PO TID 08/31/18 09/11/18 History donepezil [Aricept] 10 mg PO DAILY 08/31/18 09/11/18 History duloxetine 60 mg PO DAILY 08/31/18 09/11/18 History omeprazole 20 mg PO DAILY 08/31/18 09/11/18 History propranolol 10 mg PO BID 08/31/18 09/11/18 History quetiapine 600 mg PO QPM 08/31/18 09/11/18 History trazodone 50 mg PO DAILY 08/31/18 09/11/18 History clonazepam PO DAILY 09/12/18 History simvastatin PO DAILY 09/12/18 History Exam Vital signs: Vital Signs 09/11/18 16:44 09/11/18 19:36 09/12/18 00:00 Temperature 100.2 F H 98.7 F Pulse Rate 94 H 98 H 86 Respiratory Rate 18 14 Blood Pressure 137/64 156/83 H 128/73 Pulse Oximetry 96 96 94 L 09/12/18 00:30 09/12/18 01:24 09/12/18 04:00 Temperature 98.4 F Pulse Rate 89 Respiratory Rate 18 18 16 Blood Pressure 142/79 H Pulse Oximetry 94 L 09/12/18 07:25 Temperature 97.5 F L Pulse Rate 95 H Respiratory Rate 20 Blood Pressure 143/79 H Pulse Oximetry 97 Intake & Output 09/11/18 09/12/18 09/12/18 18:59 06:59 18:59 Intake Total 715 / 715 Balance 715 / 715 Weight 88.451 kg Intake: IV 715 / 715 Zosyn 4.5 GM Premix 4.5 gm In 200 / 200 100 ml @ 200 mls/hr IV.SIG Q6H [facility] Rx#:[id number] Vancomycin Inj 1,500 MG In NS 515 / 515 Inj 500 ML @ 250 mls/hr IV.SIG ONCE ONE Rx#:[id number] Other: # Voids 1 Narrative: GENERAL: Patient sleeping, somnolent, wakes up for exam. SKIN: Warm and dry. HEAD: Atraumatic. Normocephalic. EYES: Pupils equal and round. No scleral icterus. No injection or drainage. ENT: No nasal bleeding or discharge. Mucous membranes pink and moist. NECK: Trachea midline. No JVD. CARDIOVASCULAR: Regular rate and rhythm. RESPIRATORY: No accessory muscle use. Clear to auscultation. Breath sounds equal bilaterally. GASTROINTESTINAL: Abdomen soft, non-tender, nondistended. Hepatic and splenic margins not palpable. MUSCULOSKELETAL: Extremities without clubbing, cyanosis, or edema. No obvious deformities. NEUROLOGICAL: Awake and alert. No obvious cranial nerve deficits. Motor grossly within normal limits. Five out of 5 muscle strength in the arms. 4 out of 5 strength in bilateral legs. Sensation is intact normal speech. Results - Laboratory Findings CBC and BMP: 09/11/18 20:10 09/11/18 20:10 Abnormal lab findings: Abnormal Labs 09/11/18 09/11/18 09/12/18 20:10 20:10 02:20 RBC 4.29 L Neut % (Auto) 82.0 H Lymph % (Auto) 6.6 L [place] % (Auto) 10.8 H Neut # (Auto) 8.8 H Lymph # (Auto) 0.7 L [place] # (Auto) 1.2 H Random Glucose 115 H Urine Mucus Few H Assessment and Plan - Plan 63 year old male Acute discitis at C4/C5, with anterior subligamentous abscess and elongated retropharyngeal abscess, moderate to severe spinal stenosis at C4-C5, severe bilateral foraminal stenosis C4-5 instability and cord compression Possible sepsis. Discussed Condition With: Cervical Spine MRI 09/11/18 20:09 CONCLUSION: 1. MRI findings are worrisome for acute discitis at C4/C5 with a anterior subligamentous abscess and an elongated retropharyngeal abscess. A posttraumatic etiology would be conceivable and please correlate clinically. Otherwise, infection should be included high in the differential. 2. The findings at C4/C5, in conjunction with degenerative appearing retrolisthesis and degenerative changes contribute to moderate to severe spinal stenosis with cord compression and severe bilateral foraminal stenosis. No cord signal abnormality demonstrated. 3. Substantial but fairly typical-appearing degenerative changes at other levels as described above. Lumbar Spine MRI 09/11/18 20:09 CONCLUSION: 1. Moderate bilateral foraminal narrowing at L5-S1. 2. Grade I retrolisthesis of L5 in relation to S1. 3. Minimal bilateral foraminal narrowing at L2-3, L3-4 and L4-5. 4. Hemangiomas at L2 and L3. 5. Severe degenerative disc disease at L5-S1. Thoracic Spine MRI 09/11/18 20:09 CONCLUSION: 1. No fracture or subluxation of the thoracic spine. 2. Mild diffuse degenerative changes as described. These findings all appear chronic but there is a less age determinate Schmorl's node of the T8/T9 disc. Neuro: neuro checks in a serial fashion. Discitis, abscess, instability and cord compression. I recommend a surgical decompression with a C4-5 anterior cervical discectomy and interbody arthrodesis using peek cage versus autologous bone graft, simplicity plate ans screws Pulmonary: aggressive pulmonary toilette, nasotracheal suction, and breathing treatments with nebulizers. Daily PT and OT Renal: Continue to monitor closely urine output, BUN and creatinine Endocrine: Continue to Monitor serial Acu checks and SSI as needed in detail ID continue to monitor for signs of infection Continue Protonix for stress ulcer prophylaxis Continue Vadim hose and SCD's for DVT prophylaxis Caprini VTE Risk Assessment Caprini VTE Risk Assessment: Moderate/High Risk (score >= 2) Caprini Risk Assessment Model: Point Value = 1 Point Value = 2 Point Value = 3 Point Value = 5 Age 41-60 Minor surgery BMI > 25 kg/m2 Swollen legs Varicose veins or History of unexplained or recurrent spontaneous Oral contraceptives or hormone replacement Sepsis (< 1 month) Serious lung disease, including pneumonia (< 1 month) Abnormal pulmonary function Acute myocardial infarction Congestive heart failure (< 1 month) History of inflammatory bowel disease Medical patient at bed rest Age 61-74 Arthroscopic surgery Major open surgery (> 45 min) Laparoscopic surgery (> 45 min) Malignancy Confined to bed (> 72 hours) Immobilizing plaster cast Central venous access Age >= 75 History of VTE Family history of VTE Factor V Leiden Prothrombin [id number] Lupus anticoagulant Anticardiolipin antibodies Elevated serum homocysteine Heparin-induced thrombocytopenia Other congenital or acquired thrombophilia Stroke (< 1 month) Elective arthroplasty Hip, pelvis, or leg fracture Acute spinal cord injury (< 1 month) Prophylaxis Regimen: Total Risk Factor Score Risk Level Prophylaxis Regimen 0-1 Low Early ambulation 2 Moderate Order ONE of the following: *Sequential Compression Device (SCD) *Heparin 5000 units SQ BID 3-4 Higher Order ONE of the following medications: *Heparin 5000 units SQ TID *Enoxaparin/Lovenox 40 mg SQ daily (WT < 150 kg, CrCl > 30 mL/min) *Enoxaparin/Lovenox 30 mg SQ daily (WT < 150 kg, CrCl > 10-29 mL/min) *Enoxaparin/Lovenox 30 mg SQ BID (WT < 150 kg, CrCl > 30 mL/min) AND/OR *Sequential Compression Device (SCD) 5 or more Highest Order ONE of the following medications: *Heparin 5000 units SQ TID (Preferred with Epidurals) *Enoxaparin/Lovenox 40 mg SQ daily (WT < 150 kg, CrCl > 30 mL/min) *Enoxaparin/Lovenox 30 mg SQ daily (WT < 150 kg, CrCl > 10-29 mL/min) *Enoxaparin/Lovenox 30 mg SQ BID (WT < 150 kg, CrCl > 30 mL/min) AND *Sequential Compression Device (SCD) Further recommendations will be provided depending on the patient's clinical evaluation and follow up studies.
[2018-09-12] MEDS ORDERED: traZODone 50 MG Tablet PO SCH (09:00)
[2018-09-12] MEDS ORDERED: Pantoprazole Sodium 20 MG DR Tablet PO SCH (09:00)
[2018-09-12] MEDS ORDERED: Vancomycin Inj 1,500 MG in Sodium Chlor 0.9% Inj 500 ML IV.SIG SCH (09:00)
[2018-09-12] MEDS ORDERED: Influenza (Quadrivalent) Vaccine 0.5 ML Syringe IM ONE (09:00)
[2018-09-12] MEDS: Duloxetine 60 MG DR Capsule PO SCH (09:42)
[2018-09-12] MEDS: Propranolol 10 MG Tablet PO SCH ×2 (09:42→21:41)
[2018-09-12] MEDS: clonazePAM 0.5 MG Tablet PO SCH ×3 (09:42→21:28)
[2018-09-12] MEDS: QUEtiapine 100 MG Tablet PO SCH ×2 (09:46→21:40)
[2018-09-12 09:48] LABS: Baso % (Auto) 0.6 % (0.0-2.0); Eos # (Auto) 0.1 th/mm3 (0.0-0.4); Eos % (Auto) 0.8 % (0.0-4.0); Hemoglobin 12.9 gm/dL (13.0-17.0); Lymph # (Auto) 0.5 th/mm3 (1.0-4.8); Lymph % (Auto) 6.2 % (9.0-44.0); Mean Corpuscular Hemoglobin 32.8 pg (27.0-34.0); Mean Corpuscular Volume 96.5 fL (80.0-100.0); Mean Platelet Volume 8.3 fL (7.0-11.0); Mono % (Auto) 13.1 % (0.0-8.0); Neut # (Auto) 6.3 th/mm3 (1.8-7.7); Neut % (Auto) 79.3 % (16.0-70.0); Platelet Count 224 th/mm3 (150-450); Red Blood Count 3.94 mil/mm3 (4.50-5.90)
[2018-09-12 10:16] LABS: Glucose,Random 98 mg/dL (74-106)
[2018-09-12 10:20] LABS: Albumin 2.4 g/dL (3.4-5.0); Anion Gap 8 meq/L (5-15); Aspartate Aminotransferase 25 U/L (15-37); Blood Urea Nitrogen 15 mg/dL (7-18); Calcium 8.1 mg/dL (8.5-10.1); Carbon Dioxide 29.4 meq/L (21.0-32.0); Chloride 102 meq/L (98-107); Glomerular Filtration Rate 82 mL/min (>89); Sodium 139 meq/L (136-145)
[2018-09-12 10:22] LABS: Alanine Aminotransferase 38 U/L (12-78); Alkaline Phosphatase 75 U/L (45-117)
[2018-09-12 10:41] LABS: Potassium 4.4 meq/L (3.5-5.1)
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
[2018-09-12] MEDS: Sod Chloride 0.9% Inj 1,000 ML IV.CONT SCH (13:19)
[2018-09-12] MEDS ORDERED: ceFAZolin 2 GM Premix Inj 0 GM/0 ML PIGGYBACK IV.SIG ONE (14:16)
[2018-09-12] MEDS ORDERED: Thrombin Topical Soln 5,000 UNIT Vial TOPICAL ONE (14:16)
[2018-09-12] MEDS ORDERED: Gelatin Size 100 Topical Foam ONE (14:16)
[2018-09-12] MEDS ORDERED: Propofol Inj 500 MG/50 ML Vial ONE (15:36)
[2018-09-12] MEDS ORDERED: Lidocaine PF 1% Inj 5 ML Syringe OTHER ONE (15:41)
[2018-09-12] MEDS ORDERED: Chlorhexidine Gluconate 2% 1 Pack (2 Cloths) TOPICAL SCH (15:41)
[2018-09-12] MEDS ORDERED: Metoprolol Tartrate 25 MG Tablet PO SCH (15:41)
[2018-09-12] MEDS ORDERED: Phenylephrine/NS 1000 MCG/10ML Syringe IV.PUSH ONE (15:41)
[2018-09-12] MEDS ORDERED: Neostigmine Inj 5 MG/5 ML Syringe IV.PUSH ONE (15:41)
[2018-09-12] MEDS ORDERED: Glycopyrrolate Inj 1 MG/5 ML Syringe IV.PUSH ONE (15:41)
[2018-09-12] MEDS ORDERED: Sodium Chlor 0.9% Inj 500 ML IV.SIG SCH (16:00)
[2018-09-12] MEDS: Vancomycin Inj 1,250 MG in Sodium Chlor 0.9% Inj 250 ML IV.SIG SCH (16:14)
[2018-09-12] MEDS ORDERED: Bisacodyl 10 MG Supp RECTAL PRN (16:19)
--- NOTE | 2018-09-12 16:45 | ECG ---
Date Performed: 09/12/2018 Time Performed: 07:56:36 PTAGE: 63 years EKG: Sinus rhythm Since the previous tracing, no significant change noted NORMAL ECG NO PREVIOUS TRACING DOCTOR: Rashid Roque Interpretating Date/Time 09/12/2018 16:41:24
--- NOTE | 2018-09-12 16:45 | ECG ---
Date Performed: 09/11/2018 Time Performed: 19:51:28 PTAGE: 63 years EKG: Sinus rhythm Since the previous tracing, no significant change noted NORMAL ECG NO PREVIOUS TRACING DOCTOR: Rashid Roque Interpretating Date/Time 09/12/2018 16:41:16
[2018-09-12] MEDS ORDERED: Sugammadex Inj 200 MG/2 ML Vial IV.PUSH ONE (18:28)
[2018-09-12] MEDS ORDERED: fentaNYL Citrate Inj 100 MCG/2 ML Ampul ONE (18:43)
--- NOTE | 2018-09-12 18:49 | P.OP ---
Preoperative Diagnosis: Retropharingeal abscess, C4-5 discitis, epidural abscess Postoperative Diagnosis: Retropharingeal abscess, C4-5 discitis, epidural abscess Date of procedure: 09/12/18 Procedure: C4-5 anterior cervical discectomy with evacuation of epidural abscess, interbody arthrodesis using PEEK cage filled with autologous bone graft, Simplicity plate and screws Anesthesia: ELLEN Surgeon: Kit Pereira MD Master Yacht: Hussein Pathology: other (Cultures and pathology) Operation and Findings: INDICATIONS FOR THE PROCEDURE Mr Anderson is a 63 year old male who presented a with weakness and a cervical myelopathy. He was found to have a retropharingeal abscess with C4-5 discitis and severe stenosis at C4-5 with compression of the spinal cord. A surgical decompression and arthrodesis were indicated. The [id number] details of the procedure, indications, alternatives, risks and potential complications were fully discussed with the patient. The patient fully understood. All The questions were answered. No guarantees were given. The patient voiced requesting the procedure and provided informed consents. The patient was offered the alternative of delaying the procedure and continuing with nonsurgical management. DETAILS OF THE SURGICAL PROCEDURE After the induction of general anesthesia, endotracheal intubation was performed. A Guido catheter, bilateral MALIK hose, and sequential compression devices were placed and kept throughout the procedure. The patient was positioned supine on a Alan table with the head over a gel doughnut. All pressure points were carefully padded with egg crate mattress. The eyes were tapped shut after ointment was applied by the anesthesiologist to prevent corneal abrasion. A Fabrizio hugger was placed over the exposed lower body to maintain control of the core body temperature. The electrophysiological team placed the needles and electrodes in their proper location and baseline SSEP's and motor evoked potentials were registered. The anterior cervical region was prepped and draped in the usual sterile fashion. A localizing x-ray was performed with a C-arm. The surgical procedure was performed in several steps as follow: SURGICAL APPROACH A skin incision was made along the middle cervical crease with a #10 blade. The dissection was carried out through the platysma exposing the sternocleidomastoid muscle. The cervical spine was approached following the fascial layers of the neck just medial to the anterior border of the sternocleidomastoid and carotid sheath by a combination of sharp and dull dissection. The omohyoid muscle was identified and carefully dissected laterally and the deep cervical fascia was carefully opened. There was a retropharingeal abscess. The capsule was opened and cultures were sent for aerobic, anaerobic, AFB and fungus cultures. The longus colli muscles were retracted to each side of the midline. A marker was placed at the disc space C4- 5 and a cross-table lateral x-ray performed with a C-arm. SURGICAL DECOMPRESSION In order to decompress the anterior surface of the spinal cord it was necessary to preform a microsurgical resection of the disk. At this point in the procedure the operating microscope was draped in the usual sterile fashion and brought to the field. The rest of the surgical procedure was performed using microdissection technique with the exception of the closure. Under the operative microscopic, an anterior osteophytic spur was carefully removed using the leksell, and a self-retaining retractor was placed underneath the longus colli muscle. The annulus at C4-5 was incised with a #15 blade and microdiscectomy was then carefully carried out using angled curets and pituitary forceps. The patient had a posterior disk extrusion which was producing mass affect on the anterior surface of the dural sac and spinal cord compression. This was carefully drilled with a TPS drill and resected with a think foot plate 2mm kerrison under high magnification. The posterior longitudinal ligament was then elevated with an angled curet and incised with a 15 bladed knife. The disk was of abnormal consistency and cultures were sent for aerobic, anaerobic, AFB and fungus cultures. Pathology was sent as well. A careful resection of the posterior longitudinal ligament was carried out using a thin footplate 2 mm Kerrison. The decompression was then carried out laterally, and a bilateral foraminotomy was performed with a 2mm thin foot Kerrison. Then the vertebral bodies above and below the disk space were undercut using a 2 mm thin foot Kerrison. The epidural space was the systematically assessed with a nerve hook in search for disk fragments. An excellent decompression was achieved in both, the dural sac and bilateral exiting nerve roots. The incision was then irrigated with a large amount of antibiotic solution INTERBODY ARTHRODHESIS In order to avoid collapse of the disk space which would result in bilateral foraminal stenosis, and to increase the chances of a successful fusion, it was necessary to place an interbody cage filled with autologous bone. At this point of the procedure, the superior and inferior endplates were then evenly decorticated with a TPS drill. The use of a drill in combination with a curette allowed me to systematically remove the cartilaginous endplates, exposing healthy bone for the interbody arthrodesis. fourteen millimeters distraction pins were then placed at the vertebral bodies adjacent to the disk space, and gentle distraction was applied. The size of the interbody cage was then assessed using different size spacers, and a rasp was used to ensure no residual cartilage. A PEEK cage of the appropriate size was selected, and the interbody arthrodesis was then preformed by carefully impacting a PEEK cage filled with autologous bone graft to the disc space C4-5. An excellent position of the cage was achieved. This was was confirmed anatomically by feelling the space posterior to the implant and distance to the anterior surface of the dural sac. Radiological confirmation of the position was performed with a cross lateral xray performed with the C-arm. INTERNAL INSTRUMENTAL FIXATION Once that the interbody device was in an appropriate position, it was necessary to stabilize the spine with anterior instrumentation. Anterior instrumentation has demonstrated to increase the rate of fusion, accelerate the patient's recovery, and decrease the rate of failed interbody grafts. At this point of the procedure, the distance between the vertebral bodies was carefully measures, and a Simplicity plate was brought to the field and presented in front of the C4 and C5 vertebral bodies. Support Group Manager holes were then drilled using the TPS drill, and the plate was then secured to the spine using self-drilling, self-tapping screws. Initially, the inferior right screw was inserted, followed by placement of the contra lateral upper screw. The remaining screws were sequentially placed in a contra-lateral fashion. A proper purchase was achieved with all screws and the position of the cage, plate and screws, and alignment of the spine was assessed anatomically by direct visualization, and radiologically by performing a cross lateral xray of the cervical spine with the C-arm. CLOSURE The incision was irrigated with several liters of antibiotic solution. Hemostasis was achieved with a bipolar. The screws were locked to prevent backing out. A 7 mm Alan-Carter drain was left in the prevertebral space and externalized through a separate stab incision. The incision was then closed in layers. 3-0 Vicryl with interrupted sutures was used to close the platysma and subcutaneous tissue. The skin was closed with 4-0 running subcuticular Vicryl and Dermabond was applied to the skin. The drain was secured with a 3-0 nylon. At the end of the procedure the sponge, needle and instrument counts were all correct. The estimated blood loss was less than 50 cc. No blood transfusion was given. No intraoperative complications occurred. The patient received prophylactic antibiotics. The patient was then extubated and transferred to the recovery room in stable condition.
[2018-09-12] MEDS ORDERED: *morphine SULFATE 4 MG/ML PERIprocedure ONLY ONE (19:18)
--- NOTE | 2018-09-12 19:55 | XR ---
EXAM DATE: 09/12/2018 7:38 PM EST AGE/SEX: 63 years / Male INDICATIONS: Fusion C4,C5. CLINICAL DATA: This is the patient's subsequent encounter. Patient reports that signs and symptoms h ave been present for 3 days and indicates a pain score of Nonresponsive. MEDICAL/SURGICAL HISTORY: None. None. COMPARISON: No prior exams available for comparison. FINDINGS: 2 views in the operating room show discectomy and fusion procedure with interbody and anterior instru mentation at C4/C5. Alignment is normal. No acute complication demonstrated. CONCLUSION: Expected intraoperative appearance of discectomy and fusion procedure at C4/C5. Electronically signed by: Kane Cooper MD 09/12/2018 7:53 PM EST
[2018-09-12] MEDS: Morphine Sulfate Inj 2 MG/ML Vial IV.PUSH PRN (21:33)
[2018-09-12] MEDS: Senna/Docusate Sodium 8.6/50 MG Tablet PO SCH (21:40)
[2018-09-12] MEDS: clonazePAM 1 MG Tablet PO SCH (21:40)
[2018-09-12 22:06] LABS: Baso % (Auto) 0.4 % (0.0-2.0); Eos % (Auto) 0.1 % (0.0-4.0); Hematocrit 37.7 % (39.0-51.0); Hemoglobin 12.3 gm/dL (13.0-17.0); Lymph # (Auto) 0.3 th/mm3 (1.0-4.8); Lymph % (Auto) 3.8 % (9.0-44.0); Mean Corpuscular HGB Conc 32.7 % (32.0-36.0); Mean Corpuscular Hemoglobin 31.9 pg (27.0-34.0); Mean Corpuscular Volume 97.4 fL (80.0-100.0); Mean Platelet Volume 8.6 fL (7.0-11.0); Mono # (Auto) 0.2 th/mm3 (0.0-0.9); Mono % (Auto) 2.6 % (0.0-8.0); Neut % (Auto) 93.1 % (16.0-70.0); Platelet Count 205 th/mm3 (150-450); Red Blood Count 3.87 mil/mm3 (4.50-5.90); Red Cell Distribution Width 13.8 % (11.6-17.2); White Blood Count 7.6 th/mm3 (4.0-11.0)
[2018-09-13] MEDS: Vancomycin Inj 1,250 MG in Sodium Chlor 0.9% Inj 250 ML IV.SIG SCH ×2 (02:44→16:23)
[2018-09-13 05:20] LABS: Calcium 7.9 mg/dL (8.5-10.1); Carbon Dioxide 28.9 meq/L (21.0-32.0); Magnesium 2.2 mg/dL (1.5-2.5); Potassium 5.1 meq/L (3.5-5.1)
[2018-09-13] MEDS: Duloxetine 60 MG DR Capsule PO SCH (08:46)
[2018-09-13] MEDS: Propranolol 10 MG Tablet PO SCH ×2 (08:46→20:45)
[2018-09-13] MEDS: Senna/Docusate Sodium 8.6/50 MG Tablet PO SCH ×2 (08:46→20:46)
[2018-09-13] MEDS: clonazePAM 0.5 MG Tablet PO SCH ×3 (08:47→18:38)
[2018-09-13] MEDS: QUEtiapine 100 MG Tablet PO SCH ×2 (08:47→20:44)
--- NOTE | 2018-09-13 11:08 | P.PNNS ---
Subjective Interval history: Doing well. Trouble swallowing as expected with retropharyngeal abscess. Physical Exam Vital signs: Vital Signs 09/12/18 11:54 09/12/18 18:35 09/12/18 18:45 Temperature 97.7 F 98.5 F Pulse Rate 83 98 H 106 H Respiratory Rate 16 18 17 Blood Pressure 134/82 139/83 135/87 Pulse Oximetry 95 100 96 09/12/18 19:00 09/12/18 19:15 09/12/18 19:30 Temperature Pulse Rate 111 H 107 H 110 H Respiratory Rate 17 16 16 Blood Pressure 141/80 H 150/88 H 148/85 H Pulse Oximetry 97 97 97 09/12/18 19:45 09/12/18 19:50 09/12/18 20:00 Temperature 98.2 F 98.4 F Pulse Rate 109 H 103 H Respiratory Rate 16 18 Blood Pressure 143/86 H 125/84 Pulse Oximetry 96 95 94 L 09/12/18 23:00 09/13/18 00:00 09/13/18 01:00 Temperature 98.5 F Pulse Rate 92 H 91 H 95 H Respiratory Rate 13 21 18 Blood Pressure 149/79 H 144/79 H 142/78 H Pulse Oximetry 95 97 98 09/13/18 02:00 09/13/18 03:00 09/13/18 04:00 Temperature 98.6 F Pulse Rate 95 H 95 H 94 H Respiratory Rate 18 22 16 Blood Pressure 149/80 H 141/81 H 143/75 H Pulse Oximetry 96 96 97 09/13/18 05:00 09/13/18 06:00 09/13/18 07:00 Temperature Pulse Rate 96 H 93 H 92 H Respiratory Rate 22 22 20 Blood Pressure 143/75 H 129/76 Pulse Oximetry 102 H 96 97 09/13/18 07:10 09/13/18 08:00 09/13/18 08:10 Temperature 98.6 F Pulse Rate 93 H 94 H 85 Respiratory Rate 21 22 14 Blood Pressure 134/73 149/78 H Pulse Oximetry 95 96 97 09/13/18 09:00 Temperature Pulse Rate 93 H Respiratory Rate 22 Blood Pressure Pulse Oximetry 98 Intake & Output 09/12/18 09/13/18 09/13/18 18:59 06:59 18:59 Intake Total 0 / 205 1762.5 / 1762.5 Output Total 1500 / 1500 2465 / 2465 Balance 550 / 550 -702.5 / -702.5 Weight 89.1 kg Intake: IV 1050 / 1050 1662.5 / 1662.5 NS + KCl 20 mEq Inj 1,000 ML @ 1000 / 1000 100 mls/hr IV.CONT .Q10H JAZ Rx #:[id number] NS Inj 1,000 ML @ 100 mls/hr IV 500 / 500 .CONT .Q10H JAZ Rx#:[id number] Maxipime Inj 2,000 MG In NS Inj 100 / 100 200 / 200 100 ML @ 200 mls/hr IV.SIG Q8H JAZ Rx#:[id number] Zosyn 4.5 GM Premix 4.5 gm In 100 / 100 100 ml @ 200 mls/hr IV.SIG Q6H JAZ Rx#:[id number] Vancomycin Inj 1,250 MG In NS 250 / 250 262.5 / 262.5 Inj 250 ML @ 262.5 mls/hr IV. SIG Q12H JAZ Rx#:[id number] Flagyl 500 MG Inj 100 ML @ 100 100 / 100 200 / 200 mls/hr IV.SIG Q6H JAZ Rx#: [id number] Oral 100 / 100 Anesthesia Amount 1000 / 1000 Output: Estimated Blood Loss 50 / 50 50 / 50 Urine Amount (Catheter) 1450 / 1450 2400 / 2400 Indwelling Urethral Catheter 1450 / 1450 2400 / 2400 Wound Drainage Neck Other: Date of Last Bowel Movement 09/11/18 09/11/18 Weight On Admission 90.4 kg Narrative: GENERAL: Patient sleeping, somnolent, wakes up for exam. SKIN: Warm and dry. HEAD: Atraumatic. Normocephalic. EYES: Pupils equal and round. No scleral icterus. No injection or drainage. ENT: No nasal bleeding or discharge. Mucous membranes pink and moist. NECK: Trachea midline. No JVD. CARDIOVASCULAR: Regular rate and rhythm. RESPIRATORY: No accessory muscle use. Clear to auscultation. Breath sounds equal bilaterally. GASTROINTESTINAL: Abdomen soft, non-tender, nondistended. Hepatic and splenic margins not palpable. MUSCULOSKELETAL: Extremities without clubbing, cyanosis, or edema. No obvious deformities. NEUROLOGICAL: Awake and alert. No obvious cranial nerve deficits. Motor grossly within normal limits. Five out of 5 muscle strength in the arms. 4 out of 5 strength in bilateral legs. Sensation is intact normal speech. - Urinary Catheter Management Indwelling Urethral Catheter Cath placed during this visit: yes Reason for continuing: Hourly intake/output Insertion date: 09/12/18 Insertion time: 10:40 Assessment and Plan - Plan 63 year old male Acute discitis at C4/C5, with anterior subligamentous abscess and elongated retropharyngeal abscess, moderate to severe spinal stenosis at C4-C5, severe bilateral foraminal stenosis C4-5 instability and cord compression Possible sepsis. Discussed Condition With: Cervical Spine MRI 09/11/18 20:09 CONCLUSION: 1. MRI findings are worrisome for acute discitis at C4/C5 with a anterior subligamentous abscess and an elongated retropharyngeal abscess. A posttraumatic etiology would be conceivable and please correlate clinically. Otherwise, infection should be included high in the differential. 2. The findings at C4/C5, in conjunction with degenerative appearing retrolisthesis and degenerative changes contribute to moderate to severe spinal stenosis with cord compression and severe bilateral foraminal stenosis. No cord signal abnormality demonstrated. 3. Substantial but fairly typical-appearing degenerative changes at other levels as described above. Lumbar Spine MRI 09/11/18 20:09 CONCLUSION: 1. Moderate bilateral foraminal narrowing at L5-S1. 2. Grade I retrolisthesis of L5 in relation to S1. 3. Minimal bilateral foraminal narrowing at L2-3, L3-4 and L4-5. 4. Hemangiomas at L2 and L3. 5. Severe degenerative disc disease at L5-S1. Thoracic Spine MRI 09/11/18 20:09 CONCLUSION: 1. No fracture or subluxation of the thoracic spine. 2. Mild diffuse degenerative changes as described. These findings all appear chronic but there is a less age determinate Schmorl's node of the T8/T9 disc. Neuro: neuro checks in a serial fashion. Discitis, abscess, instability and cord compression. I recommend a surgical decompression with a C4-5 anterior cervical discectomy and interbody arthrodesis using peek cage versus autologous bone graft, simplicity plate ans screws Pulmonary: aggressive pulmonary toilette, nasotracheal suction, and breathing treatments with nebulizers. Daily PT and OT Renal: Continue to monitor closely urine output, BUN and creatinine Endocrine: Continue to Monitor serial Acu checks and SSI as needed in detail ID continue to monitor for signs of infection Continue Protonix for stress ulcer prophylaxis Continue Vadim hose and SCD's for DVT prophylaxis Caprini VTE Risk Assessment Caprini VTE Risk Assessment: Moderate/High Risk (score >= 2) Caprini Risk Assessment Model: Point Value = 1 Point Value = 2 Point Value = 3 Point Value = 5 Age 41-60 Minor surgery BMI > 25 kg/m2 Swollen legs Varicose veins or History of unexplained or recurrent spontaneous Oral contraceptives or hormone replacement Sepsis (< 1 month) Serious lung disease, including pneumonia (< 1 month) Abnormal pulmonary function Acute myocardial infarction Congestive heart failure (< 1 month) History of inflammatory bowel disease Medical patient at bed rest Age 61-74 Arthroscopic surgery Major open surgery (> 45 min) Laparoscopic surgery (> 45 min) Malignancy Confined to bed (> 72 hours) Immobilizing plaster cast Central venous access Age >= 75 History of VTE Family history of VTE Factor V Leiden Prothrombin [id number] Lupus anticoagulant Anticardiolipin antibodies Elevated serum homocysteine Heparin-induced thrombocytopenia Other congenital or acquired thrombophilia Stroke (< 1 month) Elective arthroplasty Hip, pelvis, or leg fracture Acute spinal cord injury (< 1 month) Prophylaxis Regimen: Total Risk Factor Score Risk Level Prophylaxis Regimen 0-1 Low Early ambulation 2 Moderate Order ONE of the following: *Sequential Compression Device (SCD) *Heparin 5000 units SQ BID 3-4 Higher Order ONE of the following medications: *Heparin 5000 units SQ TID *Enoxaparin/Lovenox 40 mg SQ daily (WT < 150 kg, CrCl > 30 mL/min) *Enoxaparin/Lovenox 30 mg SQ daily (WT < 150 kg, CrCl > 10-29 mL/min) *Enoxaparin/Lovenox 30 mg SQ BID (WT < 150 kg, CrCl > 30 mL/min) AND/OR *Sequential Compression Device (SCD) 5 or more Highest Order ONE of the following medications: *Heparin 5000 units SQ TID (Preferred with Epidurals) *Enoxaparin/Lovenox 40 mg SQ daily (WT < 150 kg, CrCl > 30 mL/min) *Enoxaparin/Lovenox 30 mg SQ daily (WT < 150 kg, CrCl > 10-29 mL/min) *Enoxaparin/Lovenox 30 mg SQ BID (WT < 150 kg, CrCl > 30 mL/min) AND *Sequential Compression Device (SCD) 09/13/18 postop care keep drain in get speech/swallow consult to assist with swallowing and advance slowly
--- NOTE | 2018-09-13 11:36 | P.PNIM ---
Subjective Interval history: no complaints. nurse reports patient was coughing after meal last night, and had rhonchi. concern for aspiration, aging box hand eval was ordered. Physical Exam Vital signs: Last Vital Signs Temp 98.6 F 09/13/18 08:00 Pulse 75 09/13/18 11:00 Resp 17 09/13/18 11:00 BP 114/71 09/13/18 10:10 Pulse Ox 93 L 09/13/18 11:00 Intake & Output 09/11/18 09/12/18 09/13/18 09/14/18 06:59 06:59 06:59 06:59 Intake Total 715 / 715 3812.5 / 3812.5 Output Total 3965 / 3965 Balance 715 / 715 -152.5 / -152.5 Weight 88.451 kg 89.1 kg Narrative: GENERAL: Patient sleeping, somnolent, wakes up for exam. SKIN: Warm and dry. HEENT: not pale, anicteric. NECK: collar in situ, drain noted. CARDIOVASCULAR: Regular rate and rhythm. RESPIRATORY: No accessory muscle use. scattered rhonchi, no rales. GASTROINTESTINAL: Abdomen soft, non-tender, nondistended. Hepatic and splenic margins not palpable. MUSCULOSKELETAL: Extremities without clubbing, cyanosis, or edema. No obvious deformities. NEUROLOGICAL: Awake and alert. No obvious cranial nerve deficits. Motor grossly within normal limits. Five out of 5 muscle strength in the arms. 4 out of 5 strength in bilateral legs. Sensation is intact normal speech. Urinary Catheter Management Indwelling Urethral Catheter: Cath placed during this visit: yes Urethral indwelling: Yes Reason for continuing: Acute urinary retention Insertion date: 09/12/18 Insertion time: 10:40 Results Labs CBC & Chem 7: 09/12/18 21:30 09/13/18 04:42 Labs: Microbiology 09/12/18 17:30 Abscess - Other Fungal Smear - Final No fungal elements seen 09/12/18 17:18 Abscess - Other Fungal Smear - Final No fungal elements seen 09/12/18 17:06 Abscess - Other Fungal Smear - Final No fungal elements seen 09/11/18 20:05 Blood - Peripheral Aerobic Blood Culture - Preliminary No growth in 2 days 09/11/18 20:05 Blood - Peripheral Anaerobic Blood Culture - Preliminary gram positive cocci 09/12/18 17:30 Abscess - Other Gram Stain - Final 09/12/18 17:18 Abscess - Other Gram Stain - Final 09/12/18 17:06 Abscess - Other Gram Stain - Final 09/11/18 20:10 Blood - Peripheral Aerobic Blood Culture - Preliminary gram positive cocci 09/11/18 20:10 Blood - Peripheral Anaerobic Blood Culture - Preliminary gram positive cocci Imaging Imaging: Impressions Cervical Spine X-Ray 09/12/18 00:00 CONCLUSION: Expected intraoperative appearance of discectomy and fusion procedure at C4/C5. Assessment and Plan Plan Acute problems: 1.Acute discitis at C4/C5, with anterior subligamentous abscess and elongated retropharyngeal abscess--s/p decompression surgery, has drain in situ, cervical collar in situ. blood cultures noted, growing G+ cocci continue IV Vanc/Cefepime/Flagyl for now. Appreciate neurosurg and ID recs. 2.Suspected aspiration--NPO except meds for now, keep aspiration precautions. TRAVEL INSURANCE AGENT eval. Stable chronic conditions: #Dementia-continue home medication #Schizophrenia.Continue home medication #Hyperlipidemia. Continue home medication #GERD. Chronic.Continue home medication. #COPD without exacerbation. Duo nebs as needed. Progress Note: Quality VTE Deep Vein Thrombosis/Pulmonary Embolism Present on Admission: No
[2018-09-13] MEDS ORDERED: Pharmacy Ordered Lab Info OTHER ONE (13:45)
[2018-09-13] MEDS: clonazePAM 1 MG Tablet PO SCH (20:45)
[2018-09-13] MEDS: traZODone 50 MG Tablet PO SCH (20:45)
[2018-09-14] MEDS ORDERED: Pharmacy Ordered Lab Info OTHER ONE (01:45)
[2018-09-14] MEDS: Vancomycin Inj 1,250 MG in Sodium Chlor 0.9% Inj 250 ML IV.SIG SCH ×2 (01:53→16:17)
--- NOTE | 2018-09-14 09:24 | XR ---
EXAM DATE: 09/14/2018 9:21 AM EST AGE/SEX: 63 years / Male INDICATIONS: Congestion CLINICAL DATA: This is the patient's subsequent encounter. Patient reports that signs and symptoms h ave been present for 2 weeks and indicates a pain score of Nonresponsive. MEDICAL/SURGICAL HISTORY: . Hypertension. . Tonsillectomy. Left hip sx, Eye sx. COMPARISON: [facility], CHEST 1V SINGLE AP, 08/31/2018. . FINDINGS: Left lower lobe consolidation. Cardiomegaly. Right lung is clear. Osseous structures are intact. CONCLUSION: Left lower lobe consolidation. Electronically signed by: Dre Taylor MD 09/14/2018 9:23 AM EST
[2018-09-14] MEDS: QUEtiapine 100 MG Tablet PO SCH ×2 (09:36→21:16)
[2018-09-14] MEDS: Propranolol 10 MG Tablet PO SCH ×2 (09:36→21:16)
[2018-09-14] MEDS: Duloxetine 60 MG DR Capsule PO SCH (09:36)
[2018-09-14] MEDS: clonazePAM 0.5 MG Tablet PO SCH (09:36)
[2018-09-14] MEDS: Senna/Docusate Sodium 8.6/50 MG Tablet PO SCH ×2 (09:37→21:16)
[2018-09-14] MEDS ORDERED: Etomidate Inj 40 MG/20 ML Vial IV.PUSH ONE ×2 (11:20→11:45)
[2018-09-14] MEDS ORDERED: Midazolam Inj 5 MG/ML 1 ML Vial ONE (11:21)
--- NOTE | 2018-09-14 11:28 | P.PNIM ---
Subjective Interval history: Notified by nursing of worsening respiratory status, requiring more oxygen. He is not able to clear his secretions. Patient evaluated in his room. He has a lot of gurgling sounds. He is alert sitting upright. Chest x-ray today shows left lower lobe consolidations. Physical Exam Vital signs: Vital Signs 09/13/18 12:00 09/13/18 12:10 09/13/18 13:00 Temperature 97.8 F Pulse Rate 82 81 88 Respiratory Rate 14 13 16 Blood Pressure 121/72 Pulse Oximetry 97 97 97 09/13/18 13:10 09/13/18 14:00 09/13/18 14:10 Temperature Pulse Rate 82 84 92 H Respiratory Rate 13 14 18 Blood Pressure 124/67 145/70 H Pulse Oximetry 97 97 98 09/13/18 15:00 09/13/18 15:10 09/13/18 16:00 Temperature Pulse Rate 86 88 84 Respiratory Rate 14 17 17 Blood Pressure 124/72 Pulse Oximetry 98 98 98 09/13/18 16:10 09/13/18 17:00 09/13/18 17:10 Temperature Pulse Rate 81 90 86 Respiratory Rate 18 21 17 Blood Pressure 128/73 131/79 Pulse Oximetry 99 99 99 09/13/18 18:00 09/13/18 18:10 09/13/18 19:00 Temperature Pulse Rate 81 85 95 H Respiratory Rate 10 L 10 L 21 Blood Pressure 129/74 118/77 Pulse Oximetry 99 99 99 09/13/18 19:10 09/13/18 20:00 09/13/18 20:10 Temperature Pulse Rate 90 89 86 Respiratory Rate 19 22 16 Blood Pressure 118/77 124/75 Pulse Oximetry 99 98 98 09/13/18 21:00 09/13/18 21:10 09/13/18 22:00 Temperature Pulse Rate 92 H 88 90 Respiratory Rate 17 16 15 Blood Pressure 127/68 Pulse Oximetry 98 97 94 L 09/13/18 22:10 09/13/18 23:00 09/13/18 23:10 Temperature Pulse Rate 100 H 95 H 92 H Respiratory Rate 20 22 19 Blood Pressure 124/62 121/60 Pulse Oximetry 95 95 95 09/14/18 00:00 09/14/18 00:10 09/14/18 01:00 Temperature Pulse Rate 87 90 88 Respiratory Rate 16 18 18 Blood Pressure 119/67 Pulse Oximetry 93 L 94 L 96 09/14/18 01:10 09/14/18 02:00 09/14/18 02:10 Temperature Pulse Rate 88 89 86 Respiratory Rate 20 17 16 Blood Pressure 110/73 108/70 Pulse Oximetry 96 96 95 09/14/18 03:00 09/14/18 03:10 09/14/18 04:00 Temperature Pulse Rate 92 H 96 H 90 Respiratory Rate 17 24 17 Blood Pressure 124/69 Pulse Oximetry 96 95 94 L 09/14/18 07:00 09/14/18 07:10 09/14/18 08:00 Temperature 97.8 F Pulse Rate 94 H 81 87 Respiratory Rate 20 13 16 Blood Pressure 128/67 Pulse Oximetry 96 95 96 09/14/18 08:10 09/14/18 09:00 Temperature Pulse Rate 92 H 93 H Respiratory Rate 19 21 Blood Pressure 127/79 Pulse Oximetry 96 96 Intake & Output 09/13/18 09/14/18 09/14/18 18:59 06:59 18:59 Intake Total 1462.5 / 1462.5 1762.5 / 1762.5 1000 / 1000 Output Total 1030 / 1030 855 / 855 Balance 432.5 / 432.5 907.5 / 907.5 1000 / 1000 Weight 87.5 kg Intake: IV 1462.5 / 1462.5 1762.5 / 1762.5 1000 / 1000 NS + KCl 20 mEq Inj 1,000 ML @ 1000 / 1000 1000 / 1000 1000 / 1000 100 mls/hr IV.CONT .Q10H JAZ Rx #:[id number] Maxipime Inj 2,000 MG In NS Inj 100 / 100 200 / 200 100 ML @ 200 mls/hr IV.SIG Q8H JAZ Rx#:[id number] Vancomycin Inj 1,250 MG In NS 262.5 / 262.5 262.5 / 262.5 Inj 250 ML @ 262.5 mls/hr IV. SIG Q12H JAZ Rx#:[id number] Flagyl 500 MG Inj 100 ML @ 100 100 / 100 300 / 300 mls/hr IV.SIG Q6H JAZ Rx#: [id number] Oral 0 / 0 0 / 0 Output: Urine 1000 / 1000 Urine Amount (Catheter) 850 / 850 Condom 850 / 850 Wound Drainage # 1 Left BONG Drain Other: Date of Last Bowel Movement 09/11/18 09/11/18 09/11/18 Narrative: GENERAL: Patient is awake, a lot of gurgling sounds and is obviously unable to clear his secretions. NECK: Cervical collar and a drain in place. CARDIOVASCULAR: Regular rate and rhythm. RESPIRATORY: Loud gurgling sounds. Tachypneic. Diffuse rales. GASTROINTESTINAL: Abdomen soft, non-tender, nondistended. MUSCULOSKELETAL: Extremities without clubbing, cyanosis, or edema. No obvious deformities. NEUROLOGICAL: Awake and alert. - Urinary Catheter Management Indwelling Urethral Catheter Cath placed during this visit: yes, but has since been removed by the nurse Urethral indwelling: Yes Reason for continuing: Acute urinary retention Insertion date: 09/12/18 Insertion time: 10:40 Removal date: 09/13/18 Removal time: 11:00 Condom Cath placed during this visit: no Results - Labs CBC & Chem 7: 09/12/18 21:30 09/13/18 04:42 Laboratory Results - last 24 hr 09/14/18 01:45 Random Vancomycin 12.5 Microbiology 09/11/18 20:05 Blood - Peripheral Aerobic Blood Culture - Preliminary No growth in 3 days 09/11/18 20:05 Blood - Peripheral Anaerobic Blood Culture - Preliminary gram positive cocci 09/12/18 17:30 Abscess - Other Gram Stain - Final 09/12/18 17:30 Abscess - Other Wound Culture - Final Group B beta Strep 09/12/18 17:18 Abscess - Other Gram Stain - Final 09/12/18 17:18 Abscess - Other Wound Culture - Final Group B beta Strep 09/12/18 17:06 Abscess - Other Gram Stain - Final 09/12/18 17:06 Abscess - Other Wound Culture - Preliminary No growth in 48 hours 09/12/18 17:18 Abscess - Other Fungal Smear - Final No fungal elements seen 09/11/18 20:10 Blood - Peripheral Aerobic Blood Culture - Preliminary Group B beta Strep 09/11/18 20:10 Blood - Peripheral Anaerobic Blood Culture - Preliminary gram positive cocci 09/12/18 17:30 Abscess - Other Fungal Smear - Final No fungal elements seen 09/12/18 17:06 Abscess - Other Fungal Smear - Final No fungal elements seen - Imaging Impressions Chest X-Ray 09/14/18 11:20 CONCLUSION: Left lower lobe consolidation. Assessment and Plan - Plan 63-year-old male admitted with acute discitis at C4/C5 and retropharyngeal abscess status post decompression by neurosurgery. Patient went into acute respiratory failure on 09/14/18. I discussed the case with Dr. Middleton who will evaluate the patient immediately. He may require intubation. Acute respiratory failure: He has been having issues with aspiration, has been made NPO. He is not able to clear his secretions and I am concerned he will not be able to protect his airway. S/P decompression of retropharyngeal abscess, still has neck swelling. - CHest x-ray this AM shows left lower lobe consolidation. - DW corporate controller Dr. Middleton. Consult placed to assume care. Acute discitis at C4/C5, with anterior subligamentous abscess and elongated retropharyngeal abscess--s/p decompression surgery, has drain in situ, cervical collar in situ. blood cultures noted, growing G+ cocci Appreciate ID and Neurosurgery input. continue IV Vanc/Cefepime/Flagyl for now. Suspected aspiration--NPO except meds for now, keep aspiration precautions. - Speech to continue to follow Stable chronic conditions: #Dementia-continue home medication #Schizophrenia.Continue home medication #Hyperlipidemia. Continue home medication #GERD. Chronic.Continue home medication. Discharge Planning: Transfer care to Web Site Administrator service.
[2018-09-14] MEDS: fentaNYL 10 mcg/mL Premix Drip 2,500 MCG/250 ML BAG IV.SIG PRN (11:30)
[2018-09-14] MEDS: Propofol 1000 mg/100 ml Inj 1,000 MG/100 ML BOTTLE IV.CONT PRN (11:30)
--- NOTE | 2018-09-14 11:43 | P.CONCC ---
History of Present Illness Service: Critical care Consult date: 09/14/18 Requesting Physician: Tsering Shin Reason for Consult: Acute hypoxemic respiratory failure, aspiration Primary Care Provider: Zachery Paris MD Chief Complaint: Severe hypoxia aspiration History of Present Illness: Patient is a 63-year-old male with past medical history significant for COPD, dementia, schizophrenia, who was admitted to the hospitalist service on 09/11/2018 with neck pain and extremity weakness and MRI showing acute discitis at C4/C5 with epidural abscess retropharyngeal abscess. Dr Pereira was consulted and on 09/12/18 underwent cervical decompression and evacuation of abscess (C4-5 anterior cervical discectomy with evacuation of epidural abscess, interbody arthrodesis using PEEK cage filled with autologous bone graft, Simplicity plate and screws). Patient was ready on IV cefepime Flagyl and vancomycin per ID Dr. Hanson. Patient was moved to the ICU by the hospitalist for concern of aspiration and increasing oxygen requirement. Today a.m. patient was noted to be on 50% Ventimask and chest x-ray showed a left lower lobe infiltrate. I was consulted emergently around 11:30 AM today as the patient was acutely desaturating, clearly aspirated. On my arrival to the bedside patient had an oxygen saturation of 75-76% on 100% nonrebreather. Significant gurgling sounds heard. Patient was more or less unresponsive struggling to breathe. I suctioned out a large amount of secretion from the oropharynx, which improved the saturation to 85%. Patient was emergently intubated with direct laryngoscopy and was placed on mechanical ventilation. Stat chest x-ray is pending. I will place him on scheduled Decadron for any airway edema. Stat MRI of the C-spine ordered with and without contrast to evaluate for retropharyngeal abscess expansion and also airway edema and C-spine injury. Discussed with Dr. Conway neurosurgery Review of Systems unobtainable due to mental condition PMFSH - History History Provided By: Patient, Family Member - Medical History Medical History: Medical History (Last Reviewed 09/14/18 @ 11:59 by Caryl Middleton MD) COPD (chronic obstructive pulmonary disease) Dementia History of fractured pelvis Schizo affective schizophrenia - Surgical History Surgical History: Surgical History (Last Reviewed 09/14/18 @ 11:59 by Caryl Middleton MD) History of eye surgery History of hip replacement - Family History Family History: Family History (Last Reviewed 09/12/18 @ 12:43 by Miguelina Hanson MD) Father CAD (coronary artery disease) Mother Diabetes mellitus Mother Stroke - Tobacco History Second Hand Smoke Exposure: No Tobacco Use In Past 30 Days: No Smoking Status: Former smoker Tobacco Type: Cigarettes - Alcohol History How Often Do You Have a Drink Containing Alcohol: Never - Substance Use History Substance History: No History of Abuse - Travel History Recent Travel in the [place] Within the Last 8 Weeks: No Recent Travel Out of the Country Within the Last 8 Weeks: No - Immunization History Tetanus Immunization: Unsure Hx Influenza Vaccine This Season: No Medications and Allergies Active Medications: Active Medications Hydrocodone Bitart/Acetaminophen ([place] 10/325) 2 tab PO Q4H PRN PRN Reason: PAIN SCALE 6 TO 10 Last Admin: 09/13/18 11:29 Dose: 2 tab Al Hydroxide/Mg Hydroxide (Milk Of [place] Liq) 30 ml PO Q12H PRN PRN Reason: Mild Constipation Albuterol (Duoneb Neb (Prn)) 1 ampul NEB Q4HR NEB PRN PRN Reason: SHORTNESS OF BREATH/WHEEZING Albuterol (Duoneb Neb (Shari)) 1 ampul NEB Q4HR NEB SHARI Aripiprazole (Abilify) 20 mg PO DAILY SHARI Last Admin: 09/14/18 09:36 Dose: 20 mg Bisacodyl (Dulcolax Supp) 10 mg RECTAL DAILY PRN PRN Reason: SEVERE CONSITIPATION Chlorhexidine Gluconate (Peridex 0.12% Oral Kit) 15 ml OROPHARYNG BID@0800, 2000 SHARI Clonazepam (Klonopin) 0.5 mg PO TID SHARI Last Admin: 09/14/18 09:36 Dose: 0.5 mg Clonazepam (Klonopin) 2 mg PO HS SHARI Last Admin: 09/13/18 20:45 Dose: 2 mg Donepezil HCl (Aricept) 10 mg PO DAILY SHARI Last Admin: 09/14/18 09:37 Dose: 10 mg Duloxetine HCl (Cymbalta) 60 mg PO DAILY SHARI Last Admin: 09/14/18 09:36 Dose: 60 mg Famotidine (Pepcid Pf Inj) 20 mg IV.PUSH Q12HR SHARI Hyoscyamine (Levsin) 0.125 mg PO Q4H PRN PRN Reason: SECRETIONS Vancomycin HCl 1,250 mg/ (Sodium Chloride) 262.5 mls @ 262.5 mls/hr IV.SIG Q12H [facility] Last Infusion: 09/14/18 02:56 Dose: Infused Metronidazole/Sodium Chloride (Flagyl 500 Mg Inj) 100 mls @ 100 mls/hr IV.SIG Q6H [facility] Last Admin: 09/14/18 10:22 Dose: 100 mls/hr Cefepime HCl 2,000 mg/ Sodium (Chloride) 100 mls @ 200 mls/hr IV.SIG Q8H [facility] Last Infusion: 09/14/18 04:50 Dose: Infused Potassium Chloride/Sodium Chloride (Ns + Kcl 20 Meq Inj) 1,000 mls @ 100 mls/ hr IV.CONT .Q10H [facility] Last Admin: 09/14/18 09:35 Dose: 100 mls/hr Lactulose (Lactulose Liq) 30 ml PO DAILY PRN PRN Reason: SEVERE CONSITIPATION Miscellaneous Medication () 1 each OROPHARYNG 0000,0400,1200,1600 [facility] Morphine Sulfate (Morphine Inj) 2 mg IV.PUSH Q2H PRN PRN Reason: Pain Scale 1 to 5 Last Admin: 09/12/18 21:33 Dose: 2 mg Pantoprazole Sodium (Protonix) 40 mg PO DAILY [facility] Last Admin: 09/14/18 09:36 Dose: 40 mg Pharmacy Profile Note (Vancomycin Consult Pharmacy) 1 each OTHER UNSCH PRN PRN Reason: Pharmacy to dose Pravastatin Sodium (Pravachol) 40 mg PO [facility] Last Admin: 09/13/18 20:45 Dose: 40 mg Propranolol HCl (Inderal) 10 mg PO BID [facility] Last Admin: 09/14/18 09:36 Dose: 10 mg Quetiapine Fumarate (Seroquel) 150 mg PO BID [facility] Last Admin: 09/14/18 09:36 Dose: 150 mg Senna/Docusate Sodium (Jodie-Colace) 1 tab PO BID [facility] Last Admin: 09/14/18 09:37 Dose: 1 tab Sennosides (Senokot) 17.2 mg PO Q12H PRN PRN Reason: Moderate Constipation Trazodone HCl (Desyrel) 50 mg PO [facility] Last Admin: 09/13/18 20:45 Dose: 50 mg Allergies Allergy/AdvReac Type Severity Reaction Status Date / Time No Known Allergies Allergy Verified 09/11/18 16:49 Home Medications Medication Instructions Recorded Confirmed Type aripiprazole 20 mg PO DAILY 08/31/18 09/11/18 History clonazepam 0.5 mg PO TID 08/31/18 09/11/18 History donepezil [Aricept] 10 mg PO DAILY 08/31/18 09/11/18 History duloxetine 60 mg PO DAILY 08/31/18 09/11/18 History omeprazole 20 mg PO DAILY 08/31/18 09/11/18 History propranolol 10 mg PO BID 08/31/18 09/11/18 History quetiapine 600 mg PO QPM 08/31/18 09/11/18 History trazodone 50 mg PO DAILY 08/31/18 09/11/18 History clonazepam PO DAILY 09/12/18 History simvastatin PO DAILY 09/12/18 History Physical Exam Vital signs: Vital Signs 09/13/18 12:00 09/13/18 12:10 09/13/18 13:00 Temperature 97.8 F Pulse Rate 82 81 88 Respiratory Rate 14 13 16 Blood Pressure 121/72 Pulse Oximetry 97 97 97 09/13/18 13:10 09/13/18 14:00 09/13/18 14:10 Temperature Pulse Rate 82 84 92 H Respiratory Rate 13 14 18 Blood Pressure 124/67 145/70 H Pulse Oximetry 97 97 98 09/13/18 15:00 09/13/18 15:10 09/13/18 16:00 Temperature Pulse Rate 86 88 84 Respiratory Rate 14 17 17 Blood Pressure 124/72 Pulse Oximetry 98 98 98 09/13/18 16:10 09/13/18 17:00 09/13/18 17:10 Temperature Pulse Rate 81 90 86 Respiratory Rate 18 21 17 Blood Pressure 128/73 131/79 Pulse Oximetry 99 99 99 09/13/18 18:00 09/13/18 18:10 09/13/18 19:00 Temperature Pulse Rate 81 85 95 H Respiratory Rate 10 L 10 L 21 Blood Pressure 129/74 118/77 Pulse Oximetry 99 99 99 09/13/18 19:10 09/13/18 20:00 09/13/18 20:10 Temperature Pulse Rate 90 89 86 Respiratory Rate 19 22 16 Blood Pressure 118/77 124/75 Pulse Oximetry 99 98 98 09/13/18 21:00 09/13/18 21:10 09/13/18 22:00 Temperature Pulse Rate 92 H 88 90 Respiratory Rate 17 16 15 Blood Pressure 127/68 Pulse Oximetry 98 97 94 L 09/13/18 22:10 09/13/18 23:00 09/13/18 23:10 Temperature Pulse Rate 100 H 95 H 92 H Respiratory Rate 20 22 19 Blood Pressure 124/62 121/60 Pulse Oximetry 95 95 95 09/14/18 00:00 09/14/18 00:10 09/14/18 01:00 Temperature Pulse Rate 87 90 88 Respiratory Rate 16 18 18 Blood Pressure 119/67 Pulse Oximetry 93 L 94 L 96 09/14/18 01:10 09/14/18 02:00 09/14/18 02:10 Temperature Pulse Rate 88 89 86 Respiratory Rate 20 17 16 Blood Pressure 110/73 108/70 Pulse Oximetry 96 96 95 09/14/18 03:00 09/14/18 03:10 09/14/18 04:00 Temperature Pulse Rate 92 H 96 H 90 Respiratory Rate 17 24 17 Blood Pressure 124/69 Pulse Oximetry 96 95 94 L 09/14/18 07:00 09/14/18 07:10 09/14/18 08:00 Temperature 97.8 F Pulse Rate 94 H 81 87 Respiratory Rate 20 13 16 Blood Pressure 128/67 Pulse Oximetry 96 95 96 09/14/18 08:10 09/14/18 09:00 Temperature Pulse Rate 92 H 93 H Respiratory Rate 19 21 Blood Pressure 127/79 Pulse Oximetry 96 96 Intake & Output 09/13/18 09/14/18 09/14/18 18:59 06:59 18:59 Intake Total 1462.5 / 1462.5 1762.5 / 1762.5 1000 / 1000 Output Total 1030 / 1030 855 / 855 Balance 432.5 / 432.5 907.5 / 907.5 1000 / 1000 Weight 87.5 kg Intake: IV 1462.5 / 1462.5 1762.5 / 1762.5 1000 / 1000 NS + KCl 20 mEq Inj 1,000 ML @ 1000 / 1000 1000 / 1000 1000 / 1000 100 mls/hr IV.CONT .Q10H [facility] Rx #:[id number] Maxipime Inj 2,000 MG In NS Inj 100 / 100 200 / 200 100 ML @ 200 mls/hr IV.SIG Q8H [facility] Rx#:[id number] Vancomycin Inj 1,250 MG In NS 262.5 / 262.5 262.5 / 262.5 Inj 250 ML @ 262.5 mls/hr IV. SIG Q12H [facility] Rx#:[id number] Flagyl 500 MG Inj 100 ML @ 100 100 / 100 300 / 300 mls/hr IV.SIG Q6H [facility] Rx#: [id number] Oral 0 / 0 0 / 0 Output: Urine 1000 / 1000 Urine Amount (Catheter) 850 / 850 Condom 850 / 850 Wound Drainage # 1 Left BONG Drain Other: Date of Last Bowel Movement 09/11/18 09/11/18 09/11/18 Narrative: GENERAL: 63-year-old male barely responsive gurgling breath sounds severely hypoxemic NECK: Cervical collar and a drain in place. CARDIOVASCULAR: Regular rate and rhythm. Normotensive RESPIRATORY: Loud gurgling sounds, not protecting airway. Tachypneic. Diffuse rales. Oxygen saturation 75% on 100% nonrebreather GASTROINTESTINAL: Abdomen soft, non-tender, nondistended. MUSCULOSKELETAL: Extremities without clubbing, cyanosis, or edema. No obvious deformities. NEUROLOGICAL: Patient is barely responsive involuntarily moving extremities - Urinary Catheter Management Indwelling Urethral Catheter Cath placed during this visit: yes, but has since been removed by the nurse Urethral indwelling: Yes Reason for continuing: Acute urinary retention Insertion date: 09/12/18 Insertion time: 10:40 Removal date: 09/13/18 Removal time: 11:00 Condom Cath placed during this visit: no Septic Shock Reassessment Septic shock perfusion: reassessment completed Assessment and Plan - Assessment and Plan Plan: ASSESSMENT: Acute hypoxemic respiratory failure Aspiration pneumonia Inability to protect airway Acute metabolic encephalopathy Severe sepsis Acute discitis at C4/C5, epidural and retropharyngeal abscess s/p decompression and stabilization. History of COPD Underlying dementia PLAN: NEURO: -Propofol, Versed and fentanyl for sedation and ventilator synchrony -Stat MRI of the C-spine to evaluate the retropharyngeal abscess evaluate for spinal cord edema and airway edema -Decadron 4 mg IV every 6 hours RESP: -Emergently intubated and placed on mechanical ventilation -PRVC/AC, Ventilator bundle -DuoNeb every 6 hours scheduled and as needed -Postintubation chest x-ray pending at this time -IV Decadron as above CV: -Normal saline IV fluids 1 L normal saline bolus and 75 ml per hour GI: -N.p.o., IV famotidine : -Monitor renal function closely. Place Guido catheter. ID: -Antibiotics vancomycin cefepime and Flagyl -Repeat blood and sputum culture -ID Dr. Hanson is following HEME: -Monitor CBC, coags ENDO: -Electrolyte replacement per protocol -Sliding scale insulin if needed PROPH: -Bilateral lower extremity SCDs. IV famotidine. Hold off chemical DVT prophylaxis until MRI is completed, and cleared by neurosurgery LINES: -Utilize peripheral IVs, central line if needed CC time 77 min Code Status: Full Discussed Condition With: Isacc
[2018-09-14] MEDS ORDERED: Midazolam Inj 5 MG/ML 1 ML Vial IV.PUSH ONE (11:45)
[2018-09-14] MEDS ORDERED: Midazolam 50 MG/50 ML Inj 50 MG/50 ML BAG IV.CONT PRN (12:08)
--- NOTE | 2018-09-14 12:14 | P.PCN ---
Date of procedure: 09/14/18 Pre-op diagnosis: Acute hypoxemic respiratory failure Post-op diagnosis: same Procedure: Endotracheal intubation Rapid Sequence Intubation was conducted. The patient received 20 mg etomidate IV , 10 mg of Versed IV, rocuronium 50 mg IV. Cricoid pressure was maintained from time induction agent was given to time of cuff balloon inflation. Large amount of secretions were pooling in the oropharynx. Using a direct laryngoscope MAC 4 blade a grade 1 view was obtained, and a size 8.0 endotracheal tube with stylet, the patient was intubated on the first attempt. The stylet was removed and cuff balloon was inflated. Appropriate endotracheal tube position was confirmed by direct visualization of vocal cord passage, fogging of the tube, CO2 colometric indicator and symmetric breath sounds. The tube was secured at 24 cm at the lips. Anesthesia: ELLEN Surgeon: Caryl Middleton Pathology: none sent Condition: critical Disposition: ICU
[2018-09-14 12:29] LABS: ABG Base Excess 6.3 mmol/L (-2-2); ABG PCO2 51 mmHg (38-42); ABG PO2 326 mmHg (61-120)
--- NOTE | 2018-09-14 12:45 | XR ---
EXAM DATE: 09/14/2018 12:34 PM EST AGE/SEX: 63 years / Male INDICATIONS: Respiratory status. CLINICAL DATA: This is the patient's subsequent encounter. Patient reports that signs and symptoms h ave been present for 3 days and indicates a pain score of Nonresponsive. MEDICAL/SURGICAL HISTORY: Non-responsive. Non-responsive. COMPARISON: [facility], CHEST 1V SINGLE AP, 09/14/2018. . FINDINGS: There is basilar airspace disease and small left effusion. Endotracheal tube in good position. NG ent ers stomach. No pneumothorax. CONCLUSION: Placement of endotracheal tube in good position. NG enters stomach. Basilar airspace disease and smal l left effusion. Electronically signed by: Lauri Escobar MD 09/14/2018 12:44 PM EST
[2018-09-14] MEDS ORDERED: Sod Chloride 0.9% Inj 1,000 ML IV.SIG SCH (13:30)
[2018-09-14] MEDS ORDERED: Gadobutrol PF 10 MMOL/10 ML Vial (for RAD) IV.SIG ONE (13:37)
--- NOTE | 2018-09-14 13:42 | P.PNNS ---
Subjective Interval history: Gurgly this morning, required intubation Physical Exam Vital signs: Vital Signs 09/13/18 14:00 09/13/18 14:10 09/13/18 15:00 Temperature Pulse Rate 84 92 H 86 Respiratory Rate 14 18 14 Blood Pressure 145/70 H Pulse Oximetry 97 98 98 09/13/18 15:10 09/13/18 16:00 09/13/18 16:10 Temperature Pulse Rate 88 84 81 Respiratory Rate 17 17 18 Blood Pressure 124/72 128/73 Pulse Oximetry 98 98 99 09/13/18 17:00 09/13/18 17:10 09/13/18 18:00 Temperature Pulse Rate 90 86 81 Respiratory Rate 21 17 10 L Blood Pressure 131/79 Pulse Oximetry 99 99 99 09/13/18 18:10 09/13/18 19:00 09/13/18 19:10 Temperature Pulse Rate 85 95 H 90 Respiratory Rate 10 L 21 19 Blood Pressure 129/74 118/77 118/77 Pulse Oximetry 99 99 99 09/13/18 20:00 09/13/18 20:10 09/13/18 21:00 Temperature Pulse Rate 89 86 92 H Respiratory Rate 22 16 17 Blood Pressure 124/75 Pulse Oximetry 98 98 98 09/13/18 21:10 09/13/18 22:00 09/13/18 22:10 Temperature Pulse Rate 88 90 100 H Respiratory Rate 16 15 20 Blood Pressure 127/68 124/62 Pulse Oximetry 97 94 L 95 09/13/18 23:00 09/13/18 23:10 09/14/18 00:00 Temperature Pulse Rate 95 H 92 H 87 Respiratory Rate 22 19 16 Blood Pressure 121/60 Pulse Oximetry 95 95 93 L 09/14/18 00:10 09/14/18 01:00 09/14/18 01:10 Temperature Pulse Rate 90 88 88 Respiratory Rate 18 18 20 Blood Pressure 119/67 110/73 Pulse Oximetry 94 L 96 96 09/14/18 02:00 09/14/18 02:10 09/14/18 03:00 Temperature Pulse Rate 89 86 92 H Respiratory Rate 17 16 17 Blood Pressure 108/70 Pulse Oximetry 96 95 96 09/14/18 03:10 09/14/18 04:00 09/14/18 07:00 Temperature Pulse Rate 96 H 90 94 H Respiratory Rate 24 17 20 Blood Pressure 124/69 Pulse Oximetry 95 94 L 96 09/14/18 07:10 09/14/18 08:00 09/14/18 08:10 Temperature 97.8 F Pulse Rate 81 87 92 H Respiratory Rate 13 16 19 Blood Pressure 128/67 127/79 Pulse Oximetry 95 96 96 09/14/18 09:00 09/14/18 12:45 09/14/18 13:24 Temperature Pulse Rate 93 H Respiratory Rate 21 12 Blood Pressure Pulse Oximetry 96 100 96 Intake & Output 09/13/18 09/14/18 09/14/18 18:59 06:59 18:59 Intake Total 1462.5 / 1462.5 1762.5 / 1762.5 1000 / 1000 Output Total 1030 / 1030 855 / 855 Balance 432.5 / 432.5 907.5 / 907.5 1000 / 1000 Weight 87.5 kg Intake: IV 1462.5 / 1462.5 1762.5 / 1762.5 1000 / 1000 NS + KCl 20 mEq Inj 1,000 ML @ 1000 / 1000 1000 / 1000 1000 / 1000 100 mls/hr IV.CONT .Q10H [facility] Rx #:[id number] Maxipime Inj 2,000 MG In NS Inj 100 / 100 200 / 200 100 ML @ 200 mls/hr IV.SIG Q8H [facility] Rx#:[id number] Vancomycin Inj 1,250 MG In NS 262.5 / 262.5 262.5 / 262.5 Inj 250 ML @ 262.5 mls/hr IV. SIG Q12H [facility] Rx#:[id number] Flagyl 500 MG Inj 100 ML @ 100 100 / 100 300 / 300 mls/hr IV.SIG Q6H [facility] Rx#: [id number] Oral 0 / 0 0 / 0 Output: Urine 1000 / 1000 Urine Amount (Catheter) 850 / 850 Condom 850 / 850 Wound Drainage 5 # 1 Left BONG Drain Other: Date of Last Bowel Movement 09/11/18 09/11/18 09/11/18 Narrative: rhonchorous breathing drain in place incision c/d/i moves all extremities: lowers grade 4, uppers grade 5- - Urinary Catheter Management Indwelling Urethral Catheter Cath placed during this visit: yes, but has since been removed by the nurse Urethral indwelling: Yes Reason for continuing: Acute urinary retention Insertion date: 09/12/18 Insertion time: 10:40 Removal date: 09/13/18 Removal time: 11:00 Condom Cath placed during this visit: no Assessment and Plan - Plan 63 year old male Acute discitis at C4/C5, with anterior subligamentous abscess and elongated retropharyngeal abscess, moderate to severe spinal stenosis at C4-C5, severe bilateral foraminal stenosis C4-5 instability and cord compression Possible sepsis. Discussed Condition With: Cervical Spine MRI 09/11/18 20:09 CONCLUSION: 1. MRI findings are worrisome for acute discitis at C4/C5 with a anterior subligamentous abscess and an elongated retropharyngeal abscess. A posttraumatic etiology would be conceivable and please correlate clinically. Otherwise, infection should be included high in the differential. 2. The findings at C4/C5, in conjunction with degenerative appearing retrolisthesis and degenerative changes contribute to moderate to severe spinal stenosis with cord compression and severe bilateral foraminal stenosis. No cord signal abnormality demonstrated. 3. Substantial but fairly typical-appearing degenerative changes at other levels as described above. Lumbar Spine MRI 09/11/18 20:09 CONCLUSION: 1. Moderate bilateral foraminal narrowing at L5-S1. 2. Grade I retrolisthesis of L5 in relation to S1. 3. Minimal bilateral foraminal narrowing at L2-3, L3-4 and L4-5. 4. Hemangiomas at L2 and L3. 5. Severe degenerative disc disease at L5-S1. Thoracic Spine MRI 09/11/18 20:09 CONCLUSION: 1. No fracture or subluxation of the thoracic spine. 2. Mild diffuse degenerative changes as described. These findings all appear chronic but there is a less age determinate Schmorl's node of the T8/T9 disc. Neuro: neuro checks in a serial fashion. Discitis, abscess, instability and cord compression. I recommend a surgical decompression with a C4-5 anterior cervical discectomy and interbody arthrodesis using peek cage versus autologous bone graft, simplicity plate ans screws Pulmonary: aggressive pulmonary toilette, nasotracheal suction, and breathing treatments with nebulizers. Daily PT and OT Renal: Continue to monitor closely urine output, BUN and creatinine Endocrine: Continue to Monitor serial Acu checks and SSI as needed in detail ID continue to monitor for signs of infection Continue Protonix for stress ulcer prophylaxis Continue Vadim hose and SCD's for DVT prophylaxis Caprini VTE Risk Assessment Caprini VTE Risk Assessment: Moderate/High Risk (score >= 2) Caprini Risk Assessment Model: Point Value = 1 Point Value = 2 Point Value = 3 Point Value = 5 Age 41-60 Minor surgery BMI > 25 kg/m2 Swollen legs Varicose veins or History of unexplained or recurrent spontaneous Oral contraceptives or hormone replacement Sepsis (< 1 month) Serious lung disease, including pneumonia (< 1 month) Abnormal pulmonary function Acute myocardial infarction Congestive heart failure (< 1 month) History of inflammatory bowel disease Medical patient at bed rest Age 61-74 Arthroscopic surgery Major open surgery (> 45 min) Laparoscopic surgery (> 45 min) Malignancy Confined to bed (> 72 hours) Immobilizing plaster cast Central venous access Age >= 75 History of VTE Family history of VTE Factor V Leiden Prothrombin [id number] Lupus anticoagulant Anticardiolipin antibodies Elevated serum homocysteine Heparin-induced thrombocytopenia Other congenital or acquired thrombophilia Stroke (< 1 month) Elective arthroplasty Hip, pelvis, or leg fracture Acute spinal cord injury (< 1 month) Prophylaxis Regimen: Total Risk Factor Score Risk Level Prophylaxis Regimen 0-1 Low Early ambulation 2 Moderate Order ONE of the following: *Sequential Compression Device (SCD) *Heparin 5000 units SQ BID 3-4 Higher Order ONE of the following medications: *Heparin 5000 units SQ TID *Enoxaparin/Lovenox 40 mg SQ daily (WT < 150 kg, CrCl > 30 mL/min) *Enoxaparin/Lovenox 30 mg SQ daily (WT < 150 kg, CrCl > 10-29 mL/min) *Enoxaparin/Lovenox 30 mg SQ BID (WT < 150 kg, CrCl > 30 mL/min) AND/OR *Sequential Compression Device (SCD) 5 or more Highest Order ONE of the following medications: *Heparin 5000 units SQ TID (Preferred with Epidurals) *Enoxaparin/Lovenox 40 mg SQ daily (WT < 150 kg, CrCl > 30 mL/min) *Enoxaparin/Lovenox 30 mg SQ daily (WT < 150 kg, CrCl > 10-29 mL/min) *Enoxaparin/Lovenox 30 mg SQ BID (WT < 150 kg, CrCl > 30 mL/min) AND *Sequential Compression Device (SCD) 11/10/18 postop care keep drain in get speech/swallow consult to assist with swallowing and advance slowly 09/14/18 speech made him npo intubation per ICU MRI C-spine to assess prevertebral, retropharyngeal abscess as well as follow up C-spine abx per ID decadron to assist w/ swelling
[2018-09-14] MEDS: Oral Hygiene Kit OROPHARYNG SCH ×2 (14:14→16:17)
--- NOTE | 2018-09-14 14:19 | MR ---
EXAM DATE: 09/14/2018 1:56 PM EST AGE/SEX: 63 years / Male INDICATIONS: Extremity weakness. Post fusion. CLINICAL DATA: This is the patient's subsequent encounter. Patient reports that signs and symptoms h ave been present for 1 week and indicates a pain score of 0/10. MEDICAL/SURGICAL HISTORY: Hypertension. Fusion, cervical. Hip replacement. COMPARISON: [facility] [place], CERVICAL SPINE W/O CONTRAST, 09/11/2018. . TECHNIQUE: Multiplanar, multisequence MRI examination of the cervical spine was performed without an d with 9cc ml Gadavist (gadobutrol) contrast as a single exam dose. FINDINGS: At C2-3 there is no significant abnormality. At C3-4 there is a grade 1 retrolisthesis and a posterior disc osteophyte complex resulting in a mild to moderate AP canal stenosis and mild cord compression. This is similar to prior exam from September 11. At C4-5 there is interval fusion with anterior plate and screw fixation. There is some focal residual soft tissue and/or complex fluid posterior to the C4-5 disc interspace resulting in a focal moderate to severe central canal stenosis and cord compression at this level. At C5-6-7-T1 posterior disc osteophyte complex is stable with mild canal stenosis. There is extensive edema in the prevertebral soft tissues with swelling. Prevertebral edema has incre ased since September 11. Cannot exclude infection. CONCLUSION: 1. There is interval fusion across C4-5 with some residual soft tissue or complex fluid posterior to the disc interspace resulting in persistent moderate to severe focal canal stenosis and cord stiven jose roberto. Minimal cord signal abnormality at the area of compression. 2. Stable retrolisthesis of C3 on C4 with moderate stenosis and mild cord compression. 3. Worsening prevertebral soft tissue edema and swelling. Postcontrast images reveal enhancement in the anterior epidural space between C3 and C7, nonspecific but possibly related to postsurgical briones es. No loculated enhancing fluid collection is seen within the spinal canal. There is also abnormal e justina and enhancement in the prevertebral soft tissues. Differential diagnosis includes postoperative change. Cannot exclude infection. Electronically signed by: Lauri Escobar MD 09/14/2018 2:17 PM EST
--- NOTE | 2018-09-14 15:27 | P.PCN ---
Date of procedure: 09/14/18 Pre-op diagnosis: Respiratory failure, hypotension Post-op diagnosis: same Procedure: US guided left IJ central line Central line checklist completed, timeout completed. I wore a surgical cap, mask with protective eyewear, full gown and sterile gloves throughout the procedure. LIJ region was prepped using chlorhexidine scrub and draped in sterile fashion. The LIJ was identified using the ultrasound. Anesthesia was achieved over the vein using 1% lidocaine. The introducer needle was inserted into the LIJ under direct ultrasound visualization. Venous blood was withdrawn. The syringe was removed and a guidewire was advanced into the introducer needle. A small incision was made at the skin surface with a scalpel and the introducer needle was exchanged for a dilator over the guidewire. After appropriate dilation was obtained, the dilator was exchanged over the wire for a triple lumen, 7F, antibiotic coated central venous catheter. The wire was removed and the catheter was sutured in place at 19 cm. A sterile central line dressing was placed over the catheter at the insertion site. The patient tolerated the procedure without any hemodynamic compromise. At time of procedure completion, all ports aspirated and flushed properly. Post-procedure chest x-ray is pending at this time. Anesthesia: local Surgeon: Caryl Middleton Estimated blood loss (mL): 1 Pathology: none sent Condition: critical Disposition: ICU
--- NOTE | 2018-09-14 16:03 | XR ---
EXAM DATE: 09/14/2018 3:39 PM EST AGE/SEX: 63 years / Male INDICATIONS: Central line placement. CLINICAL DATA: This is the patient's initial encounter. Patient reports that signs and symptoms have been present for 1 day and indicates a pain score of Nonresponsive. MEDICAL/SURGICAL HISTORY: Non-responsive. Non-responsive. COMPARISON: C, CHEST 1V SINGLE AP, 09/14/2018. . FINDINGS: Endotracheal tube in good position. NG enters stomach. Left central line tip in right atrium. No pneu mothorax. Mild basilar airspace disease, stable. Small effusions. CONCLUSION: Support apparatus in good position. Left central line tip in right atrium without pneumothorax. Electronically signed by: Lauri Escobar MD 09/14/2018 4:02 PM EST
[2018-09-14 16:23] LABS: Hematocrit 32.4 % (39.0-51.0); Hemoglobin 11.1 gm/dL (13.0-17.0); Mean Corpuscular HGB Conc 34.4 % (32.0-36.0); Mean Corpuscular Hemoglobin 33.1 pg (27.0-34.0); Mean Corpuscular Volume 96.4 fL (80.0-100.0); Mean Platelet Volume 7.5 fL (7.0-11.0); Platelet Count 212 th/mm3 (150-450); Red Blood Count 3.36 mil/mm3 (4.50-5.90); Red Cell Distribution Width 13.5 % (11.6-17.2); White Blood Count 8.6 th/mm3 (4.0-11.0)
[2018-09-14 16:43] LABS: Albumin 1.9 g/dL (3.4-5.0); Anion Gap 6 meq/L (5-15); Aspartate Aminotransferase 16 U/L (15-37); Blood Urea Nitrogen 19 mg/dL (7-18); Calcium 7.5 mg/dL (8.5-10.1); Carbon Dioxide 31.4 meq/L (21.0-32.0); Chloride 102 meq/L (98-107); Glomerular Filtration Rate Greater Than 89 mL/min (>89); Glucose,Random 118 mg/dL (74-106); Potassium 4.5 meq/L (3.5-5.1); Sodium 139 meq/L (136-145)
[2018-09-14 16:44] LABS: Alanine Aminotransferase 24 U/L (12-78)
[2018-09-14 16:46] LABS: Alkaline Phosphatase 62 U/L (45-117); Total Protein 5.7 g/dL (6.4-8.2)
[2018-09-14] MEDS: traZODone 50 MG Tablet PO SCH (21:16)
[2018-09-14] MEDS: Chlorhexidine 0.12% Oral Kit 15 ML UDC OROPHARYNG SCH (21:16)
[2018-09-14] MEDS: Famotidine PF Inj 20 MG/2 ML Vial IV.PUSH SCH (21:19)
[2018-09-15] MEDS: Oral Hygiene Kit OROPHARYNG SCH ×4 (00:01→16:13)
[2018-09-15] MEDS: Vancomycin Inj 1,250 MG in Sodium Chlor 0.9% Inj 250 ML IV.SIG SCH (02:22)
[2018-09-15] MEDS: Chlorhexidine 0.12% Oral Kit 15 ML UDC OROPHARYNG SCH ×2 (08:37→21:20)
--- NOTE | 2018-09-15 08:50 | XR ---
EXAM DATE: 09/15/2018 8:44 AM EST AGE/SEX: 63 years / Male INDICATIONS: Shortness of breath. CLINICAL DATA: This is the patient's subsequent encounter. Patient reports that signs and symptoms h ave been present for 2 days and indicates a pain score of Nonresponsive. MEDICAL/SURGICAL HISTORY: Non-responsive. Non-responsive. COMPARISON: C, CHEST 1V SINGLE AP, 09/14/2018. . FINDINGS: The endotracheal tubes in good position. There is a left subclavian central line which appears in sat isfactory position as well. There is a nasogastric tube present. The right lung is clear. There is a small basilar effusion on the left with some dependent atelectasis. The heart is normal in size. CONCLUSION: Support equipment in satisfactory position. Left basilar effusion and atelectasis. Stable compared to previous exam. Electronically signed by: Yossi Dumont MD 09/15/2018 8:48 AM EST
--- NOTE | 2018-09-15 09:39 | P.PNCC ---
Subjective Subjective Remarks/Hospital Course: Patient is a 63-year-old male with past medical history significant for COPD, dementia, schizophrenia, who was admitted to the hospitalist service on 09/11/2018 with neck pain and extremity weakness and MRI showing acute discitis at C4/C5 with epidural abscess retropharyngeal abscess. Dr Pereira was consulted and on 09/12/18 underwent cervical decompression and evacuation of abscess (C4-5 anterior cervical discectomy with evacuation of epidural abscess, interbody arthrodesis using PEEK cage filled with autologous bone graft, Simplicity plate and screws). Patient was ready on IV cefepime Flagyl and vancomycin per ID Dr. Hanson. Patient was moved to the ICU by the hospitalist for concern of aspiration and increasing oxygen requirement. Today a.m. patient was noted to be on 50% Ventimask and chest x-ray showed a left lower lobe infiltrate. I was consulted emergently around 11:30 AM today as the patient was acutely desaturating, clearly aspirated. On my arrival to the bedside patient had an oxygen saturation of 75-76% on 100% nonrebreather. Significant gurgling sounds heard. Patient was more or less unresponsive struggling to breathe. I suctioned out a large amount of secretion from the oropharynx, which improved the saturation to 85%. Patient was emergently intubated with direct laryngoscopy and was placed on mechanical ventilation. Stat chest x-ray is pending. I will place him on scheduled Decadron for any airway edema. Stat MRI of the C-spine ordered with and without contrast to evaluate for retropharyngeal abscess expansion and also airway edema and C-spine injury. Discussed with Dr. Conway neurosurgery 09/15/18: Patient remains intubated sedation held good neuro exam. Follows commands good strength of the lower extremities and upper extremities. MRI yesterday showed there is interval fusion across C4-5 with some residual soft tissue or complex fluid posterior to the disc interspace resulting in persistent moderate to severe focal canal stenosis and cord compression. Minimal cord signal abnormality at the area of compression. Discussed with Dr. Pereira is no surgical indication at this time. Continue Decadron for possible upper airway swelling Objective Vital Signs / I&O: Vital Signs 09/14/18 10:00 09/14/18 10:10 09/14/18 11:00 Temperature Pulse Rate 94 H 82 99 H Respiratory Rate 21 15 23 Blood Pressure 136/74 Pulse Oximetry 96 93 L 93 L 09/14/18 11:10 09/14/18 12:00 09/14/18 12:10 Temperature 97.8 F Pulse Rate 104 H 82 85 Respiratory Rate 32 H 19 19 Blood Pressure 142/80 H 114/73 Pulse Oximetry 81 L 98 98 09/14/18 12:45 09/14/18 13:00 09/14/18 13:03 Temperature Pulse Rate 74 81 Respiratory Rate 12 0 L 0 L Blood Pressure Pulse Oximetry 100 98 99 09/14/18 13:24 09/14/18 13:48 09/14/18 14:00 Temperature Pulse Rate 68 Respiratory Rate 11 L Blood Pressure 96/60 L Pulse Oximetry 96 100 09/14/18 15:00 09/14/18 15:13 09/14/18 15:23 Temperature Pulse Rate 65 61 Respiratory Rate 12 12 18 Blood Pressure 80/53 L 83/51 L Pulse Oximetry 100 100 100 09/14/18 15:33 09/14/18 15:40 09/14/18 15:45 Temperature Pulse Rate 55 L 54 L Respiratory Rate 12 12 16 Blood Pressure 96/57 L 101/62 102/64 Pulse Oximetry 100 100 98 09/14/18 16:00 09/14/18 16:15 09/14/18 16:30 Temperature 98.7 F Pulse Rate 58 L 56 L 55 L Respiratory Rate 16 16 16 Blood Pressure 127/73 129/76 120/71 Pulse Oximetry 98 99 99 09/14/18 16:45 09/14/18 17:00 09/14/18 17:15 Temperature Pulse Rate 57 L 60 60 Respiratory Rate 16 16 16 Blood Pressure 120/73 128/77 120/71 Pulse Oximetry 100 99 98 09/14/18 17:30 09/14/18 17:43 09/14/18 17:45 Temperature Pulse Rate 71 64 65 Respiratory Rate 16 16 16 Blood Pressure 136/84 114/72 Pulse Oximetry 99 100 100 09/14/18 18:00 09/14/18 18:15 09/14/18 18:30 Temperature Pulse Rate 70 67 79 Respiratory Rate 16 16 17 Blood Pressure 117/65 112/71 128/73 Pulse Oximetry 99 98 99 09/14/18 18:45 09/14/18 19:00 09/14/18 19:15 Temperature Pulse Rate 74 62 70 Respiratory Rate 16 16 16 Blood Pressure 116/69 117/66 129/70 Pulse Oximetry 98 98 97 09/14/18 19:30 09/14/18 19:45 09/14/18 20:00 Temperature Pulse Rate 70 84 79 Respiratory Rate 16 16 16 Blood Pressure 113/69 124/72 136/82 Pulse Oximetry 97 98 98 09/14/18 20:15 09/14/18 20:30 09/14/18 20:45 Temperature Pulse Rate 74 75 79 Respiratory Rate 16 16 16 Blood Pressure 141/83 H 128/71 135/78 Pulse Oximetry 97 96 96 09/14/18 21:00 09/14/18 21:15 09/14/18 21:23 Temperature Pulse Rate 74 85 81 Respiratory Rate 16 16 16 Blood Pressure 136/79 143/81 H Pulse Oximetry 96 96 96 09/14/18 21:30 09/14/18 21:45 09/14/18 22:00 Temperature Pulse Rate 83 85 86 Respiratory Rate 18 16 16 Blood Pressure 132/74 143/80 H 136/78 Pulse Oximetry 99 97 96 09/14/18 22:15 09/14/18 22:30 09/14/18 22:45 Temperature Pulse Rate 84 84 80 Respiratory Rate 16 17 16 Blood Pressure 131/78 135/77 130/76 Pulse Oximetry 96 96 96 09/14/18 23:00 09/14/18 23:15 09/14/18 23:30 Temperature Pulse Rate 83 80 83 Respiratory Rate 17 16 16 Blood Pressure 136/77 133/78 136/78 Pulse Oximetry 96 96 96 09/14/18 23:45 09/15/18 00:00 09/15/18 00:15 Temperature Pulse Rate 79 67 81 Respiratory Rate 16 16 17 Blood Pressure 133/78 127/75 133/80 Pulse Oximetry 96 97 96 09/15/18 00:30 09/15/18 00:41 09/15/18 00:45 Temperature Pulse Rate 69 75 80 Respiratory Rate 16 16 18 Blood Pressure 131/78 133/78 Pulse Oximetry 97 96 96 09/15/18 01:00 09/15/18 01:15 09/15/18 01:30 Temperature Pulse Rate 84 69 70 Respiratory Rate 19 13 16 Blood Pressure 138/79 127/73 123/71 Pulse Oximetry 97 97 97 09/15/18 01:45 09/15/18 02:00 09/15/18 02:15 Temperature Pulse Rate 70 65 67 Respiratory Rate 16 16 16 Blood Pressure 128/72 120/74 115/71 Pulse Oximetry 97 96 97 09/15/18 02:30 09/15/18 02:45 09/15/18 03:00 Temperature Pulse Rate 83 79 71 Respiratory Rate 17 17 16 Blood Pressure 133/75 129/75 128/75 Pulse Oximetry 97 96 96 09/15/18 03:15 09/15/18 03:30 09/15/18 03:45 Temperature Pulse Rate 63 62 63 Respiratory Rate 16 16 16 Blood Pressure 105/56 L 110/62 101/60 Pulse Oximetry 95 95 96 09/15/18 04:00 09/15/18 04:01 09/15/18 04:15 Temperature Pulse Rate 59 L 61 59 L Respiratory Rate 16 16 3 L Blood Pressure 109/66 105/64 Pulse Oximetry 96 96 98 09/15/18 04:30 09/15/18 04:45 09/15/18 05:00 Temperature Pulse Rate 60 61 59 L Respiratory Rate 0 L 1 L 0 L Blood Pressure 103/62 103/61 104/61 Pulse Oximetry 98 97 97 09/15/18 05:15 09/15/18 05:30 09/15/18 05:45 Temperature Pulse Rate 59 L 58 L 58 L Respiratory Rate 0 L 7 L 2 L Blood Pressure 114/66 103/63 118/68 Pulse Oximetry 98 97 98 09/15/18 06:00 09/15/18 06:15 09/15/18 08:00 Temperature 98.4 F Pulse Rate 56 L 57 L 99 H Respiratory Rate 0 L 0 L Blood Pressure 118/70 129/77 136/71 Pulse Oximetry 98 97 09/15/18 08:23 Temperature Pulse Rate 82 Respiratory Rate 17 Blood Pressure Pulse Oximetry 96 Intake & Output 09/14/18 09/15/18 09/15/18 18:59 06:59 18:59 Intake Total 3682.5 / 3682.5 1782.5 / 1782.5 Output Total 1230 / 1230 1125 / 1125 Balance 2452.5 / 2452.5 657.5 / 657.5 Weight 87.8 kg Intake: IV 3562.5 / 3562.5 1662.5 / 1662.5 NS + KCl 20 mEq Inj 1,000 ML @ 2000 / 2000 1000 / 1000 75 mls/hr IV.CONT .[id number] JAZ Rx#:[id number] Maxipime Inj 2,000 MG In NS Inj 100 / 100 200 / 200 100 ML @ 200 mls/hr IV.SIG Q8H [facility] Rx#:[id number] NS Inj 1,000 ML @ 1000 mls/hr 1000 / 1000 IV.SIG BOLUS [facility] Rx#:[id number] Vancomycin Inj 1,250 MG In NS 262.5 / 262.5 262.5 / 262.5 Inj 250 ML @ 262.5 mls/hr IV. SIG Q12H [facility] Rx#:[id number] Flagyl 500 MG Inj 100 ML @ 100 200 / 200 200 / 200 mls/hr IV.SIG Q6H JAZ Rx#: [id number] Oral 0 / 0 0 / 0 Water Bolus Amount 120 / 120 120 / 120 Output: Urine 600 / 600 Urine Amount (Catheter) 600 / 600 1100 / 1100 Condom 600 / 600 1100 / 1100 Gastric Drainage 25 / 25 20 / 20 Orogastric Tube 25 / 25 20 / 20 Wound Drainage 5 / 5 5 / 5 # 1 Left BONG Drain 5 / 5 5 / 5 Other: Date of Last Bowel Movement 09/11/18 09/11/18 Result Diagrams: 09/14/18 15:27 09/14/18 15:27 Objective Remarks: GENERAL: 63-year-old male intubated sedated but wakes up easily NECK: Cervical collar and a drain in place. CARDIOVASCULAR: Regular rate and rhythm. Normotensive RESPIRATORY: PRVC. Air entry equal bilaterally no wheezes or crackles GASTROINTESTINAL: Abdomen soft, non-tender, nondistended. MUSCULOSKELETAL: Extremities without clubbing, cyanosis, or edema. No obvious deformities. R upper extremity more swollen than left NEUROLOGICAL: Patient wakes up easily follows commands x4. No significant weakness of the lower extremity by limited exam Assessment and Plan - Assessment and Plan Plan: ASSESSMENT: Acute hypoxemic respiratory failure Aspiration pneumonia Inability to protect airway Metabolic encephalopathy Sepsis Acute discitis at C4/C5, epidural and retropharyngeal abscess s/p decompression and stabilization. History of COPD Underlying dementia PLAN: NEURO: -Propofol, Versed and fentanyl for sedation and ventilator synchrony -Neuro exam improved today no focal deficits observed on sedation hold -Stat MRI of the C-spine 09/14- C4-5 with some residual soft tissue or complex fluid posterior to the disc interspace resulting in persistent moderate to severe focal canal stenosis and cord compression. No surgical intervention needed per Dr. Pereira -Decadron 4 mg IV every 6 hours RESP: -Emergently intubated and placed on mechanical ventilation -PRVC/AC, Ventilator bundle -DuoNeb every 6 hours scheduled and as needed -Postintubation chest x-ray pending at this time -IV Decadron as above -Start weaning trials in 24 hours -On postop MRI cannot rule out residual retropharyngeal abscess -No vocal cord edema on intubation, no difficulty of passing NG tube CV: -Received normal saline IV fluids 1 L normal saline bolus and 75 ml per hour GI: -N.p.o., IV famotidine -Start tube feeds with Jevity : -Monitor renal function closely. Guido catheter. ID: -Antibiotics vancomycin cefepime and Flagyl -Repeat blood and sputum culture follow-up -ID Dr. Hanson is following HEME: -Monitor CBC, coags -Right upper extremity is more swollen compared to left, venous duplex ordered stat ENDO: -Electrolyte replacement per protocol -Sliding scale insulin if needed PROPH: -Bilateral lower extremity SCDs. IV famotidine. Start Lovenox 40 mg sq if cleared by Dr. Pereira. DVT study pending at this time LINES: -Utilize peripheral IVs, central line if needed CC time 35 min
[2018-09-15] MEDS: Famotidine PF Inj 20 MG/2 ML Vial IV.PUSH SCH ×2 (09:52→21:22)
[2018-09-15] MEDS: QUEtiapine 100 MG Tablet PO SCH ×2 (09:52→21:20)
[2018-09-15] MEDS: Propranolol 10 MG Tablet PO SCH ×2 (09:52→21:51)
[2018-09-15] MEDS: Senna/Docusate Sodium 8.6/50 MG Tablet PO SCH ×2 (09:52→21:20)
[2018-09-15] MEDS: Duloxetine 60 MG DR Capsule PO SCH (09:57)
[2018-09-15] MEDS: Propofol 1000 mg/100 ml Inj 1,000 MG/100 ML BOTTLE IV.CONT PRN (10:21)
[2018-09-15] MEDS: fentaNYL 10 mcg/mL Premix Drip 2,500 MCG/250 ML BAG IV.SIG PRN (11:12)
--- NOTE | 2018-09-15 11:34 | US ---
EXAM DATE: 09/15/2018 11:27 AM EST AGE/SEX: 63 years / Male INDICATIONS: Swelling. CLINICAL DATA: This is the patient's initial encounter. Patient reports that signs and symptoms have been present for 1 day and indicates a pain score of 1/10. MEDICAL/SURGICAL HISTORY: . Hypertension. . Fusion, cervical. Hip replacement. COMPARISON: No prior exams available for comparison. FINDINGS: The vessels are compressible and augmentation response is documented. No filling defects a re seen. The flow is phasic with respiration. Other: The right IJ cannot be visualized due to the patient's c-collar. CONCLUSION: 1. No DVT identified. Electronically signed by: Yossi Dumont MD 09/15/2018 11:33 AM EST
--- NOTE | 2018-09-15 12:07 | P.PNID ---
Subjective Remarks: pt is now intubated Probably aspiration He is growig GBS from muiltiple wound clx and both sets of blood clx afebrile NL WBC Antibiotics: cefepime flagyl vancomycin Allergies/Adverse Reactions: Allergies No Known Allergies Allergy (Verified 09/11/18 16:49) Objective Vital Signs 09/14/18 12:00 09/14/18 12:10 09/14/18 12:45 Temperature 97.8 F Pulse Rate 82 85 Respiratory Rate 19 19 12 Blood Pressure 114/73 Pulse Oximetry 98 98 100 09/14/18 13:00 09/14/18 13:03 09/14/18 13:24 Temperature Pulse Rate 74 81 Respiratory Rate 0 L 0 L Blood Pressure Pulse Oximetry 98 99 96 09/14/18 13:48 09/14/18 14:00 09/14/18 15:00 Temperature Pulse Rate 68 65 Respiratory Rate 11 L 12 Blood Pressure 96/60 L Pulse Oximetry 100 100 09/14/18 15:13 09/14/18 15:23 09/14/18 15:33 Temperature Pulse Rate 61 Respiratory Rate 12 18 12 Blood Pressure 80/53 L 83/51 L 96/57 L Pulse Oximetry 100 100 100 09/14/18 15:40 09/14/18 15:45 09/14/18 16:00 Temperature 98.7 F Pulse Rate 55 L 54 L 58 L Respiratory Rate 12 16 16 Blood Pressure 101/62 102/64 127/73 Pulse Oximetry 100 98 98 09/14/18 16:15 09/14/18 16:30 09/14/18 16:45 Temperature Pulse Rate 56 L 55 L 57 L Respiratory Rate 16 16 16 Blood Pressure 129/76 120/71 120/73 Pulse Oximetry 99 99 100 09/14/18 17:00 09/14/18 17:15 09/14/18 17:30 Temperature Pulse Rate 60 60 71 Respiratory Rate 16 16 16 Blood Pressure 128/77 120/71 136/84 Pulse Oximetry 99 98 99 09/14/18 17:43 09/14/18 17:45 09/14/18 18:00 Temperature Pulse Rate 64 65 70 Respiratory Rate 16 16 16 Blood Pressure 114/72 117/65 Pulse Oximetry 100 100 99 09/14/18 18:15 09/14/18 18:30 09/14/18 18:45 Temperature Pulse Rate 67 79 74 Respiratory Rate 16 17 16 Blood Pressure 112/71 128/73 116/69 Pulse Oximetry 98 99 98 09/14/18 19:00 09/14/18 19:15 09/14/18 19:30 Temperature Pulse Rate 62 70 70 Respiratory Rate 16 16 16 Blood Pressure 117/66 129/70 113/69 Pulse Oximetry 98 97 97 09/14/18 19:45 09/14/18 20:00 09/14/18 20:15 Temperature Pulse Rate 84 79 74 Respiratory Rate 16 16 16 Blood Pressure 124/72 136/82 141/83 H Pulse Oximetry 98 98 97 09/14/18 20:30 09/14/18 20:45 09/14/18 21:00 Temperature Pulse Rate 75 79 74 Respiratory Rate 16 16 16 Blood Pressure 128/71 135/78 136/79 Pulse Oximetry 96 96 96 09/14/18 21:15 09/14/18 21:23 09/14/18 21:30 Temperature Pulse Rate 85 81 83 Respiratory Rate 16 16 18 Blood Pressure 143/81 H 132/74 Pulse Oximetry 96 96 99 09/14/18 21:45 09/14/18 22:00 09/14/18 22:15 Temperature Pulse Rate 85 86 84 Respiratory Rate 16 16 16 Blood Pressure 143/80 H 136/78 131/78 Pulse Oximetry 97 96 96 09/14/18 22:30 09/14/18 22:45 09/14/18 23:00 Temperature Pulse Rate 84 80 83 Respiratory Rate 17 16 17 Blood Pressure 135/77 130/76 136/77 Pulse Oximetry 96 96 96 09/14/18 23:15 09/14/18 23:30 09/14/18 23:45 Temperature Pulse Rate 80 83 79 Respiratory Rate 16 16 16 Blood Pressure 133/78 136/78 133/78 Pulse Oximetry 96 96 96 09/15/18 00:00 09/15/18 00:15 09/15/18 00:30 Temperature Pulse Rate 67 81 69 Respiratory Rate 16 17 16 Blood Pressure 127/75 133/80 131/78 Pulse Oximetry 97 96 97 09/15/18 00:41 09/15/18 00:45 09/15/18 01:00 Temperature Pulse Rate 75 80 84 Respiratory Rate 16 18 19 Blood Pressure 133/78 138/79 Pulse Oximetry 96 96 97 09/15/18 01:15 09/15/18 01:30 09/15/18 01:45 Temperature Pulse Rate 69 70 70 Respiratory Rate 13 16 16 Blood Pressure 127/73 123/71 128/72 Pulse Oximetry 97 97 97 09/15/18 02:00 09/15/18 02:15 09/15/18 02:30 Temperature Pulse Rate 65 67 83 Respiratory Rate 16 16 17 Blood Pressure 120/74 115/71 133/75 Pulse Oximetry 96 97 97 09/15/18 02:45 09/15/18 03:00 09/15/18 03:15 Temperature Pulse Rate 79 71 63 Respiratory Rate 17 16 16 Blood Pressure 129/75 128/75 105/56 L Pulse Oximetry 96 96 95 09/15/18 03:30 09/15/18 03:45 09/15/18 04:00 Temperature Pulse Rate 62 63 59 L Respiratory Rate 16 16 16 Blood Pressure 110/62 101/60 109/66 Pulse Oximetry 95 96 96 09/15/18 04:01 09/15/18 04:15 09/15/18 04:30 Temperature Pulse Rate 61 59 L 60 Respiratory Rate 16 3 L 0 L Blood Pressure 105/64 103/62 Pulse Oximetry 96 98 98 09/15/18 04:45 09/15/18 05:00 09/15/18 05:15 Temperature Pulse Rate 61 59 L 59 L Respiratory Rate 1 L 0 L 0 L Blood Pressure 103/61 104/61 114/66 Pulse Oximetry 97 97 98 09/15/18 05:30 09/15/18 05:45 09/15/18 06:00 Temperature 98.4 F Pulse Rate 58 L 58 L 56 L Respiratory Rate 7 L 2 L 0 L Blood Pressure 103/63 118/68 118/70 Pulse Oximetry 97 98 98 09/15/18 06:15 09/15/18 06:30 09/15/18 06:45 Temperature Pulse Rate 57 L 59 L 58 L Respiratory Rate 0 L Blood Pressure 129/77 125/70 122/71 Pulse Oximetry 97 98 98 09/15/18 07:00 09/15/18 07:15 09/15/18 07:30 Temperature Pulse Rate 55 L 55 L 56 L Respiratory Rate Blood Pressure 121/71 109/69 135/82 Pulse Oximetry 98 98 99 09/15/18 07:45 09/15/18 08:00 09/15/18 08:15 Temperature 98.3 F Pulse Rate 69 83 82 Respiratory Rate 16 23 23 Blood Pressure 141/86 H 145/78 H 145/72 H Pulse Oximetry 99 98 97 09/15/18 08:23 09/15/18 08:30 09/15/18 08:45 Temperature Pulse Rate 82 64 64 Respiratory Rate 17 16 16 Blood Pressure 136/71 136/71 Pulse Oximetry 96 98 97 09/15/18 09:00 09/15/18 09:15 09/15/18 09:30 Temperature Pulse Rate 83 74 70 Respiratory Rate 20 16 16 Blood Pressure 143/77 H 134/77 139/78 Pulse Oximetry 97 96 96 09/15/18 09:45 09/15/18 10:00 09/15/18 10:15 Temperature Pulse Rate 71 75 90 Respiratory Rate 16 16 23 Blood Pressure 131/70 139/74 140/76 Pulse Oximetry 96 97 97 09/15/18 10:30 09/15/18 10:45 09/15/18 11:00 Temperature Pulse Rate 81 64 69 Respiratory Rate 16 16 17 Blood Pressure 132/74 112/59 L 116/61 Pulse Oximetry 97 95 96 09/15/18 11:15 09/15/18 11:17 Temperature Pulse Rate 60 62 Respiratory Rate 16 16 Blood Pressure 115/65 Pulse Oximetry 96 Intake & Output 09/14/18 09/15/18 09/15/18 18:59 06:59 18:59 Intake Total 3682.5 / 3682.5 1782.5 / 1782.5 285 / 285 Output Total 1230 / 1230 1125 / 1125 Balance 2452.5 / 2452.5 657.5 / 657.5 285 / 285 Weight 87.8 kg Intake: IV 3562.5 / 3562.5 1662.5 / 1662.5 285 / 285 NS + KCl 20 mEq Inj 1,000 ML @ 2000 / 2000 1000 / 1000 75 mls/hr IV.CONT .[id number] [facility] Rx#:[id number] Diprivan 1000 mg/100 ml Inj 1, 35 / 35 000 mg In 100 ml @ 5 MCG/KG/MIN 2.625 mls/hr IV.CONT TITRATE PRN Rx#:[id number] Maxipime Inj 2,000 MG In NS Inj 100 / 100 200 / 200 100 ML @ 200 mls/hr IV.SIG Q8H JAZ Rx#:[id number] NS Inj 1,000 ML @ 1000 mls/hr 1000 / 1000 IV.SIG BOLUS JAZ Rx#:[id number] Vancomycin Inj 1,250 MG In NS 262.5 / 262.5 262.5 / 262.5 Inj 250 ML @ 262.5 mls/hr IV. SIG Q12H [facility] Rx#:[id number] fentaNYL 10 mcg/mL Premix Drip 250 / 250 2,500 mcg In 250 ml @ 50 MCG/HR 5 mls/hr IV.SIG TITRATE PRN Rx #:[id number] Flagyl 500 MG Inj 100 ML @ 100 200 / 200 200 / 200 mls/hr IV.SIG Q6H JAZ Rx#: [id number] Oral 0 / 0 0 / 0 Water Bolus Amount 120 / 120 120 / 120 Output: Urine 600 / 600 Urine Amount (Catheter) 600 / 600 1100 / 1100 Condom 600 / 600 1100 / 1100 Gastric Drainage 25 / 25 20 / 20 Orogastric Tube 25 / 25 20 / 20 Wound Drainage 5 / 5 5 / 5 # 1 Left BONG Drain / 5 / Other: Date of Last Bowel Movement 09/11/18 09/11/18 09/14/18 17:35 Sputum - Endotracheal Gram Stain - Final 09/14/18 17:35 Sputum - Endotracheal Sputum Culture - Pending 09/14/18 15:27 Blood - Peripheral Aerobic Blood Culture - Preliminary No growth in 1 day 09/14/18 15:27 Blood - Peripheral Anaerobic Blood Culture - Preliminary No growth in 1 day 09/14/18 15:27 Blood - Peripheral Aerobic Blood Culture - Preliminary No growth in 1 day 09/14/18 15:27 Blood - Peripheral Anaerobic Blood Culture - Preliminary No growth in 1 day 09/11/18 20:05 Blood - Peripheral Aerobic Blood Culture - Preliminary No growth in 4 days 09/11/18 20:05 Blood - Peripheral Anaerobic Blood Culture - Final Group B beta Strep 09/11/18 20:10 Blood - Peripheral Aerobic Blood Culture - Preliminary Group B beta Strep 09/11/18 20:10 Blood - Peripheral Anaerobic Blood Culture - Preliminary gram positive cocci 09/12/18 17:30 Abscess - Other Gram Stain - Final 09/12/18 17:30 Abscess - Other Wound Culture - Final Group B beta Strep 09/12/18 17:18 Abscess - Other Gram Stain - Final 09/12/18 17:18 Abscess - Other Wound Culture - Final Group B beta Strep 09/12/18 17:06 Abscess - Other Gram Stain - Final 09/12/18 17:06 Abscess - Other Wound Culture - Preliminary No growth in 48 hours 09/12/18 17:18 Abscess - Other Fungal Smear - Final No fungal elements seen 09/12/18 17:18 Abscess - Other Fungal Culture - Pending 09/12/18 17:18 Abscess - Other Acid Fast Bacilli Smear - Pending 09/12/18 17:18 Abscess - Other Mycobacterial Culture - Pending 09/12/18 17:30 Abscess - Other Fungal Smear - Final No fungal elements seen 09/12/18 17:30 Abscess - Other Fungal Culture - Pending 09/12/18 17:06 Abscess - Other Fungal Smear - Final No fungal elements seen 09/12/18 17:06 Abscess - Other Fungal Culture - Pending 09/12/18 17:30 Abscess - Other Acid Fast Bacilli Smear - Pending 09/12/18 17:30 Abscess - Other Mycobacterial Culture - Pending 09/12/18 17:06 Abscess - Other Acid Fast Bacilli Smear - Pending 09/12/18 17:06 Abscess - Other Mycobacterial Culture - Pending Lab - Hematology Results 09/14/18 15:27 WBC 8.6 RBC 3.36 L Hgb 11.1 L Hct 32.4 L MCV 96.4 MCH 33.1 MCHC 34.4 RDW 13.5 Plt Count 212 MPV 7.5 Lab - Chemistry Results 09/14/18 09/14/18 15:27 15:27 Sodium 139 Potassium 4.5 Chloride 102 Carbon Dioxide 31.4 Anion Gap 6 BUN 19 H Creatinine 0.80 Estimated GFR Greater than 89 Random Glucose 118 H Lactic Acid 1.2 Calcium 7.5 L Total Bilirubin 0.6 AST 16 ALT 24 Alkaline Phosphatase 62 Total Protein 5.7 L D Albumin 1.9 L Imaging: ITS Impressions Lumbar Spine MRI 09/11/18 20:09 CONCLUSION: 1. Moderate bilateral foraminal narrowing at L5-S1. 2. Grade I retrolisthesis of L5 in relation to S1. 3. Minimal bilateral foraminal narrowing at L2-3, L3-4 and L4-5. 4. Hemangiomas at L2 and L3. 5. Severe degenerative disc disease at L5-S1. Thoracic Spine MRI 09/11/18 20:09 CONCLUSION: 1. No fracture or subluxation of the thoracic spine. 2. Mild diffuse degenerative changes as described. These findings all appear chronic but there is a less age determinate Schmorl's node of the T8/T9 disc. Cervical Spine X-Ray 09/12/18 00:00 CONCLUSION: Expected intraoperative appearance of discectomy and fusion procedure at C4/C5. Cervical Spine MRI 09/14/18 00:00 CONCLUSION: 1. There is interval fusion across C4-5 with some residual soft tissue or complex fluid posterior to the disc interspace resulting in persistent moderate to severe focal canal stenosis and cord compression. Minimal cord signal abnormality at the area of compression. 2. Stable retrolisthesis of C3 on C4 with moderate stenosis and mild cord compression. 3. Worsening prevertebral soft tissue edema and swelling. Postcontrast images reveal enhancement in the anterior epidural space between C3 and C7, nonspecific but possibly related to postsurgical changes. No loculated enhancing fluid collection is seen within the spinal canal. There is also abnormal edema and enhancement in the prevertebral soft tissues. Differential diagnosis includes postoperative change. Cannot exclude infection. Chest X-Ray 09/15/18 00:00 CONCLUSION: Support equipment in satisfactory position. Left basilar effusion and atelectasis. Stable compared to previous exam. Venous Doppler Study 09/15/18 10:09 CONCLUSION: 1. No DVT identified. Physical Exam: GENERAL: sedated int'd on mech vent'n SKIN: Warm and dry. no rash HEAD: Atraumatic. Normocephalic. EYES: Pupils equal and round. No scleral icterus. No injection or drainage. ENT: No nasal bleeding or discharge. Mucous membranes pink and moist. NECK: c collar in place. CARDIOVASCULAR: Regular rate and rhythm. NO murmurs RESPIRATORY: No accessory muscle use. Clear to auscultation. Breath sounds equal bilaterally. GASTROINTESTINAL: Abdomen soft, non-tender, nmoderately distended. Hepatic and splenic margins not palpable. MUSCULOSKELETAL: Extremities without clubbing, cyanosis, + some edema. No obvious deformities. 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 aspiration PNA will follow sputum cultures la tovar sister @ b/s la RN
[2018-09-15] MEDS: PENICILLIN SODIUM IV.SIG SCH ×3 (12:55→21:20)
[2018-09-15] MEDS: SODIUM CHLOR 0.9% IV.SIG SCH ×3 (12:55→21:20)
--- NOTE | 2018-09-15 13:41 | P.PNNS ---
Subjective Interval history: pt intubated overnight, repeat stat MRI of the cervical spine done. Physical Exam Vital signs: Vital Signs 09/14/18 13:48 09/14/18 14:00 09/14/18 15:00 Temperature Pulse Rate 68 65 Respiratory Rate 11 L 12 Blood Pressure 96/60 L Pulse Oximetry 100 100 09/14/18 15:13 09/14/18 15:23 09/14/18 15:33 Temperature Pulse Rate 61 Respiratory Rate 12 18 12 Blood Pressure 80/53 L 83/51 L 96/57 L Pulse Oximetry 100 100 100 09/14/18 15:40 09/14/18 15:45 09/14/18 16:00 Temperature 98.7 F Pulse Rate 55 L 54 L 58 L Respiratory Rate 12 16 16 Blood Pressure 101/62 102/64 127/73 Pulse Oximetry 100 98 98 09/14/18 16:15 09/14/18 16:30 09/14/18 16:45 Temperature Pulse Rate 56 L 55 L 57 L Respiratory Rate 16 16 16 Blood Pressure 129/76 120/71 120/73 Pulse Oximetry 99 99 100 09/14/18 17:00 09/14/18 17:15 09/14/18 17:30 Temperature Pulse Rate 60 60 71 Respiratory Rate 16 16 16 Blood Pressure 128/77 120/71 136/84 Pulse Oximetry 99 98 99 09/14/18 17:43 09/14/18 17:45 09/14/18 18:00 Temperature Pulse Rate 64 65 70 Respiratory Rate 16 16 16 Blood Pressure 114/72 117/65 Pulse Oximetry 100 100 99 09/14/18 18:15 09/14/18 18:30 09/14/18 18:45 Temperature Pulse Rate 67 79 74 Respiratory Rate 16 17 16 Blood Pressure 112/71 128/73 116/69 Pulse Oximetry 98 99 98 09/14/18 19:00 09/14/18 19:15 09/14/18 19:30 Temperature Pulse Rate 62 70 70 Respiratory Rate 16 16 16 Blood Pressure 117/66 129/70 113/69 Pulse Oximetry 98 97 97 09/14/18 19:45 09/14/18 20:00 09/14/18 20:15 Temperature Pulse Rate 84 79 74 Respiratory Rate 16 16 16 Blood Pressure 124/72 136/82 141/83 H Pulse Oximetry 98 98 97 09/14/18 20:30 09/14/18 20:45 09/14/18 21:00 Temperature Pulse Rate 75 79 74 Respiratory Rate 16 16 16 Blood Pressure 128/71 135/78 136/79 Pulse Oximetry 96 96 96 09/14/18 21:15 09/14/18 21:23 09/14/18 21:30 Temperature Pulse Rate 85 81 83 Respiratory Rate 16 16 18 Blood Pressure 143/81 H 132/74 Pulse Oximetry 96 96 99 09/14/18 21:45 09/14/18 22:00 09/14/18 22:15 Temperature Pulse Rate 85 86 84 Respiratory Rate 16 16 16 Blood Pressure 143/80 H 136/78 131/78 Pulse Oximetry 97 96 96 09/14/18 22:30 09/14/18 22:45 09/14/18 23:00 Temperature Pulse Rate 84 80 83 Respiratory Rate 17 16 17 Blood Pressure 135/77 130/76 136/77 Pulse Oximetry 96 96 96 09/14/18 23:15 09/14/18 23:30 09/14/18 23:45 Temperature Pulse Rate 80 83 79 Respiratory Rate 16 16 16 Blood Pressure 133/78 136/78 133/78 Pulse Oximetry 96 96 96 09/15/18 00:00 09/15/18 00:15 09/15/18 00:30 Temperature Pulse Rate 67 81 69 Respiratory Rate 16 17 16 Blood Pressure 127/75 133/80 131/78 Pulse Oximetry 97 96 97 09/15/18 00:41 09/15/18 00:45 09/15/18 01:00 Temperature Pulse Rate 75 80 84 Respiratory Rate 16 18 19 Blood Pressure 133/78 138/79 Pulse Oximetry 96 96 97 09/15/18 01:15 09/15/18 01:30 09/15/18 01:45 Temperature Pulse Rate 69 70 70 Respiratory Rate 13 16 16 Blood Pressure 127/73 123/71 128/72 Pulse Oximetry 97 97 97 09/15/18 02:00 09/15/18 02:15 09/15/18 02:30 Temperature Pulse Rate 65 67 83 Respiratory Rate 16 16 17 Blood Pressure 120/74 115/71 133/75 Pulse Oximetry 96 97 97 09/15/18 02:45 09/15/18 03:00 09/15/18 03:15 Temperature Pulse Rate 79 71 63 Respiratory Rate 17 16 16 Blood Pressure 129/75 128/75 105/56 L Pulse Oximetry 96 96 95 09/15/18 03:30 09/15/18 03:45 09/15/18 04:00 Temperature Pulse Rate 62 63 59 L Respiratory Rate 16 16 16 Blood Pressure 110/62 101/60 109/66 Pulse Oximetry 95 96 96 09/15/18 04:01 09/15/18 04:15 09/15/18 04:30 Temperature Pulse Rate 61 59 L 60 Respiratory Rate 16 3 L 0 L Blood Pressure 105/64 103/62 Pulse Oximetry 96 98 98 09/15/18 04:45 09/15/18 05:00 09/15/18 05:15 Temperature Pulse Rate 61 59 L 59 L Respiratory Rate 1 L 0 L 0 L Blood Pressure 103/61 104/61 114/66 Pulse Oximetry 97 97 98 09/15/18 05:30 09/15/18 05:45 09/15/18 06:00 Temperature 98.4 F Pulse Rate 58 L 58 L 56 L Respiratory Rate 7 L 2 L 0 L Blood Pressure 103/63 118/68 118/70 Pulse Oximetry 97 98 98 09/15/18 06:15 09/15/18 06:30 09/15/18 06:45 Temperature Pulse Rate 57 L 59 L 58 L Respiratory Rate 0 L Blood Pressure 129/77 125/70 122/71 Pulse Oximetry 97 98 98 09/15/18 07:00 09/15/18 07:15 09/15/18 07:30 Temperature Pulse Rate 55 L 55 L 56 L Respiratory Rate Blood Pressure 121/71 109/69 135/82 Pulse Oximetry 98 98 99 09/15/18 07:45 09/15/18 08:00 09/15/18 08:15 Temperature 98.3 F Pulse Rate 69 83 82 Respiratory Rate 16 23 23 Blood Pressure 141/86 H 145/78 H 145/72 H Pulse Oximetry 99 98 97 09/15/18 08:23 09/15/18 08:30 09/15/18 08:45 Temperature Pulse Rate 82 64 64 Respiratory Rate 17 16 16 Blood Pressure 136/71 136/71 Pulse Oximetry 96 98 97 09/15/18 09:00 09/15/18 09:15 09/15/18 09:30 Temperature Pulse Rate 83 74 70 Respiratory Rate 20 16 16 Blood Pressure 143/77 H 134/77 139/78 Pulse Oximetry 97 96 96 09/15/18 09:45 09/15/18 10:00 09/15/18 10:15 Temperature Pulse Rate 71 75 90 Respiratory Rate 16 16 23 Blood Pressure 131/70 139/74 140/76 Pulse Oximetry 96 97 97 09/15/18 10:30 09/15/18 10:45 09/15/18 11:00 Temperature Pulse Rate 81 64 69 Respiratory Rate 16 16 17 Blood Pressure 132/74 112/59 L 116/61 Pulse Oximetry 97 95 96 09/15/18 11:15 09/15/18 11:17 09/15/18 11:30 Temperature Pulse Rate 60 62 60 Respiratory Rate 16 16 17 Blood Pressure 115/65 121/70 Pulse Oximetry 96 98 09/15/18 11:45 09/15/18 12:00 09/15/18 12:11 Temperature 98.7 F Pulse Rate 79 75 Respiratory Rate 23 18 17 Blood Pressure 126/76 134/79 Pulse Oximetry 98 98 98 Intake & Output 09/14/18 09/15/18 09/15/18 18:59 06:59 18:59 Intake Total 3682.5 / 3682.5 1782.5 / 1782.5 385 / 385 Output Total 1230 / 1230 1125 / 1125 Balance 2452.5 / 2452.5 657.5 / 657.5 385 / 385 Weight 87.8 kg Intake: IV 3562.5 / 3562.5 1662.5 / 1662.5 385 / 385 NS + KCl 20 mEq Inj 1,000 ML @ 2000 / 2000 1000 / 1000 75 mls/hr IV.CONT .[id number] [facility] Rx#:[id number] Diprivan 1000 mg/100 ml Inj 1, 35 / 35 000 mg In 100 ml @ 5 MCG/KG/MIN 2.625 mls/hr IV.CONT TITRATE PRN Rx#:[id number] Maxipime Inj 2,000 MG In NS Inj 100 / 100 200 / 200 100 ML @ 200 mls/hr IV.SIG Q8H [facility] Rx#:[id number] NS Inj 1,000 ML @ 1000 mls/hr 1000 / 1000 IV.SIG BOLUS [facility] Rx#:[id number] Vancomycin Inj 1,250 MG In NS 262.5 / 262.5 262.5 / 262.5 Inj 250 ML @ 262.5 mls/hr IV. SIG Q12H [facility] Rx#:[id number] fentaNYL 10 mcg/mL Premix Drip 250 / 250 2,500 mcg In 250 ml @ 50 MCG/HR 5 mls/hr IV.SIG TITRATE PRN Rx #:[id number] Flagyl 500 MG Inj 100 ML @ 100 200 / 200 200 / 200 100 / 100 mls/hr IV.SIG Q6H [facility] Rx#: [id number] Oral 0 / 0 0 / 0 Water Bolus Amount 120 / 120 120 / 120 Output: Urine 600 / 600 Urine Amount (Catheter) 600 / 600 1100 / 1100 Condom 600 / 600 1100 / 1100 Gastric Drainage 25 / 20 / 20 Orogastric Tube / 20 Wound Drainage 5 / 5 5 / 5 # 1 Left BONG Drain 5 / 5 5 / 5 Other: Date of Last Bowel Movement 09/11/18 09/11/18 09/11/18 Narrative: intubated, awake, follows commands drain in place incision c/d/i moves all extremities: lowers grade 4, uppers grade 5- - Urinary Catheter Management Indwelling Urethral Catheter Cath placed during this visit: yes, but has since been removed by the nurse Urethral indwelling: Yes Reason for continuing: Acute urinary retention Insertion date: 09/12/18 Insertion time: 10:40 Removal date: 09/13/18 Removal time: 11:00 Condom Cath placed during this visit: no Assessment and Plan - Plan 63 year old male Acute discitis at C4/C5, with anterior subligamentous abscess and elongated retropharyngeal abscess, moderate to severe spinal stenosis at C4-C5, severe bilateral foraminal stenosis C4-5 instability and cord compression Possible sepsis. Discussed Condition With: Cervical Spine MRI 09/11/18 20:09 CONCLUSION: 1. MRI findings are worrisome for acute discitis at C4/C5 with a anterior subligamentous abscess and an elongated retropharyngeal abscess. A posttraumatic etiology would be conceivable and please correlate clinically. Otherwise, infection should be included high in the differential. 2. The findings at C4/C5, in conjunction with degenerative appearing retrolisthesis and degenerative changes contribute to moderate to severe spinal stenosis with cord compression and severe bilateral foraminal stenosis. No cord signal abnormality demonstrated. 3. Substantial but fairly typical-appearing degenerative changes at other levels as described above. Lumbar Spine MRI 09/11/18 20:09 CONCLUSION: 1. Moderate bilateral foraminal narrowing at L5-S1. 2. Grade I retrolisthesis of L5 in relation to S1. 3. Minimal bilateral foraminal narrowing at L2-3, L3-4 and L4-5. 4. Hemangiomas at L2 and L3. 5. Severe degenerative disc disease at L5-S1. Thoracic Spine MRI 09/11/18 20:09 CONCLUSION: 1. No fracture or subluxation of the thoracic spine. 2. Mild diffuse degenerative changes as described. These findings all appear chronic but there is a less age determinate Schmorl's node of the T8/T9 disc. Neuro: neuro checks in a serial fashion. Discitis, abscess, instability and cord compression. I recommend a surgical decompression with a C4-5 anterior cervical discectomy and interbody arthrodesis using peek cage versus autologous bone graft, simplicity plate ans screws Pulmonary: aggressive pulmonary toilette, nasotracheal suction, and breathing treatments with nebulizers. Daily PT and OT Renal: Continue to monitor closely urine output, BUN and creatinine Endocrine: Continue to Monitor serial Acu checks and SSI as needed in detail ID continue to monitor for signs of infection Continue Protonix for stress ulcer prophylaxis Continue Vadim hose and SCD's for DVT prophylaxis Caprini VTE Risk Assessment Caprini VTE Risk Assessment: Moderate/High Risk (score >= 2) Caprini Risk Assessment Model: Point Value = 1 Point Value = 2 Point Value = 3 Point Value = 5 Age 41-60 Minor surgery BMI > 25 kg/m2 Swollen legs Varicose veins or History of unexplained or recurrent spontaneous Oral contraceptives or hormone replacement Sepsis (< 1 month) Serious lung disease, including pneumonia (< 1 month) Abnormal pulmonary function Acute myocardial infarction Congestive heart failure (< 1 month) History of inflammatory bowel disease Medical patient at bed rest Age 61-74 Arthroscopic surgery Major open surgery (> 45 min) Laparoscopic surgery (> 45 min) Malignancy Confined to bed (> 72 hours) Immobilizing plaster cast Central venous access Age >= 75 History of VTE Family history of VTE Factor V Leiden Prothrombin [id number] Lupus anticoagulant Anticardiolipin antibodies Elevated serum homocysteine Heparin-induced thrombocytopenia Other congenital or acquired thrombophilia Stroke (< 1 month) Elective arthroplasty Hip, pelvis, or leg fracture Acute spinal cord injury (< 1 month) Prophylaxis Regimen: Total Risk Factor Score Risk Level Prophylaxis Regimen 0-1 Low Early ambulation 2 Moderate Order ONE of the following: *Sequential Compression Device (SCD) *Heparin 5000 units SQ BID 3-4 Higher Order ONE of the following medications: *Heparin 5000 units SQ TID *Enoxaparin/Lovenox 40 mg SQ daily (WT < 150 kg, CrCl > 30 mL/min) *Enoxaparin/Lovenox 30 mg SQ daily (WT < 150 kg, CrCl > 10-29 mL/min) *Enoxaparin/Lovenox 30 mg SQ BID (WT < 150 kg, CrCl > 30 mL/min) AND/OR *Sequential Compression Device (SCD) 5 or more Highest Order ONE of the following medications: *Heparin 5000 units SQ TID (Preferred with Epidurals) *Enoxaparin/Lovenox 40 mg SQ daily (WT < 150 kg, CrCl > 30 mL/min) *Enoxaparin/Lovenox 30 mg SQ daily (WT < 150 kg, CrCl > 10-29 mL/min) *Enoxaparin/Lovenox 30 mg SQ BID (WT < 150 kg, CrCl > 30 mL/min) AND *Sequential Compression Device (SCD) 09/13/18 postop care keep drain in get speech/swallow consult to assist with swallowing and advance slowly 09/14/18 speech made him npo intubation per ICU MRI C-spine to assess prevertebral, retropharyngeal abscess as well as follow up C-spine abx per ID decadron to assist w/ swelling 09/15/18 Dr. Pereira reviewed repeat MRI - recommends cont nonoperative tx keep BONG drain in for now due to infection
[2018-09-15] MEDS: traZODone 50 MG Tablet PO SCH (21:20)
[2018-09-16] MEDS: SODIUM CHLOR 0.9% IV.SIG SCH ×6 (00:45→20:00)
[2018-09-16] MEDS: PENICILLIN SODIUM IV.SIG SCH ×6 (00:45→20:00)
[2018-09-16] MEDS: Oral Hygiene Kit OROPHARYNG SCH ×4 (01:37→18:40)
[2018-09-16] MEDS: fentaNYL 10 mcg/mL Premix Drip 2,500 MCG/250 ML BAG IV.SIG PRN (06:10)
[2018-09-16 06:40] LABS: Glomerular Filtration Rate Greater Than 89 mL/min (>89)
[2018-09-16] MEDS: Chlorhexidine 0.12% Oral Kit 15 ML UDC OROPHARYNG SCH ×2 (07:37→20:13)
[2018-09-16] MEDS: Propranolol 10 MG Tablet PO SCH ×2 (08:18→20:13)
[2018-09-16] MEDS: Duloxetine 60 MG DR Capsule PO SCH (08:38)
[2018-09-16] MEDS: Senna/Docusate Sodium 8.6/50 MG Tablet PO SCH ×2 (08:38→20:13)
[2018-09-16] MEDS: Famotidine PF Inj 20 MG/2 ML Vial IV.PUSH SCH ×2 (08:39→22:06)
[2018-09-16] MEDS: QUEtiapine 100 MG Tablet PO SCH ×2 (08:39→20:14)
[2018-09-16 11:09] LABS: Hematocrit 34.6 % (39.0-51.0); Hemoglobin 11.6 gm/dL (13.0-17.0); Mean Corpuscular HGB Conc 33.6 % (32.0-36.0); Mean Corpuscular Hemoglobin 32.3 pg (27.0-34.0); Mean Corpuscular Volume 96.3 fL (80.0-100.0); Mean Platelet Volume 7.9 fL (7.0-11.0); Platelet Count 226 th/mm3 (150-450); Red Blood Count 3.59 mil/mm3 (4.50-5.90); Red Cell Distribution Width 13.7 % (11.6-17.2); White Blood Count 6.7 th/mm3 (4.0-11.0)
[2018-09-16 11:32] LABS: Anion Gap 7 meq/L (5-15); Blood Urea Nitrogen 22 mg/dL (7-18); Calcium 7.5 mg/dL (8.5-10.1); Carbon Dioxide 28.1 meq/L (21.0-32.0); Chloride 107 meq/L (98-107); Glomerular Filtration Rate Greater Than 89 mL/min (>89); Glucose,Random 151 mg/dL (74-106); Potassium 4.5 meq/L (3.5-5.1); Sodium 142 meq/L (136-145)
--- NOTE | 2018-09-16 12:29 | P.PNCC ---
Subjective Subjective Remarks/Hospital Course: Patient is a 63-year-old male with past medical history significant for COPD, dementia, schizophrenia, who was admitted to the hospitalist service on 09/11/2018 with neck pain and extremity weakness and MRI showing acute discitis at C4/C5 with epidural abscess retropharyngeal abscess. Dr Pereira was consulted and on 09/12/18 underwent cervical decompression and evacuation of abscess (C4-5 anterior cervical discectomy with evacuation of epidural abscess, interbody arthrodesis using PEEK cage filled with autologous bone graft, Simplicity plate and screws). Patient was ready on IV cefepime Flagyl and vancomycin per ID Dr. Hanson. Patient was moved to the ICU by the hospitalist for concern of aspiration and increasing oxygen requirement. Today a.m. patient was noted to be on 50% Ventimask and chest x-ray showed a left lower lobe infiltrate. I was consulted emergently around 11:30 AM today as the patient was acutely desaturating, clearly aspirated. On my arrival to the bedside patient had an oxygen saturation of 75-76% on 100% nonrebreather. Significant gurgling sounds heard. Patient was more or less unresponsive struggling to breathe. I suctioned out a large amount of secretion from the oropharynx, which improved the saturation to 85%. Patient was emergently intubated with direct laryngoscopy and was placed on mechanical ventilation. Stat chest x-ray is pending. I will place him on scheduled Decadron for any airway edema. Stat MRI of the C-spine ordered with and without contrast to evaluate for retropharyngeal abscess expansion and also airway edema and C-spine injury. Discussed with Dr. Conway neurosurgery 09/15/18: Patient remains intubated sedation held good neuro exam. Follows commands good strength of the lower extremities and upper extremities. MRI yesterday showed there is interval fusion across C4-5 with some residual soft tissue or complex fluid posterior to the disc interspace resulting in persistent moderate to severe focal canal stenosis and cord compression. Minimal cord signal abnormality at the area of compression. Discussed with Dr. Pereira is no surgical indication at this time. Continue Decadron for possible upper airway swelling 09/16: Patient remains intubated but wakes up easily follows commands x4. Chest x-ray shows persistent small left effusion but sputum cultures negative to date. MRI reviewed with Dr. Randall no indication for surgery at this time adequately decompressed Objective Vital Signs / I&O: Vital Signs 09/15/18 12:30 09/15/18 12:45 09/15/18 13:00 Temperature Pulse Rate 59 L 67 70 Respiratory Rate 16 16 19 Blood Pressure 128/76 130/75 138/80 Pulse Oximetry 98 97 98 09/15/18 13:15 09/15/18 13:30 09/15/18 13:45 Temperature Pulse Rate 83 62 98 H Respiratory Rate 22 16 20 Blood Pressure 141/85 H 119/65 146/82 H Pulse Oximetry 98 97 98 09/15/18 14:00 09/15/18 14:15 09/15/18 14:30 Temperature Pulse Rate 76 64 61 Respiratory Rate 16 14 13 Blood Pressure 136/74 114/73 103/60 Pulse Oximetry 97 96 96 09/15/18 14:45 09/15/18 15:00 09/15/18 15:15 Temperature Pulse Rate 78 56 L 81 Respiratory Rate 15 13 19 Blood Pressure 137/70 110/58 L 134/78 Pulse Oximetry 99 97 98 09/15/18 15:30 09/15/18 15:45 09/15/18 15:54 Temperature Pulse Rate 55 L 60 Respiratory Rate 16 16 16 Blood Pressure 117/70 115/68 Pulse Oximetry 97 97 97 09/15/18 15:56 09/15/18 16:00 09/15/18 16:15 Temperature 98.5 F Pulse Rate 84 58 L 65 Respiratory Rate 19 16 16 Blood Pressure 136/74 130/73 Pulse Oximetry 99 97 09/15/18 16:30 09/15/18 16:45 09/15/18 17:00 Temperature Pulse Rate 54 L 58 L 57 L Respiratory Rate 15 16 16 Blood Pressure 121/67 120/69 135/78 Pulse Oximetry 97 97 98 09/15/18 17:15 09/15/18 17:30 09/15/18 17:45 Temperature Pulse Rate 57 L 73 74 Respiratory Rate 16 19 17 Blood Pressure 125/74 140/84 146/89 H Pulse Oximetry 97 98 98 09/15/18 18:00 09/15/18 18:15 09/15/18 18:30 Temperature Pulse Rate 54 L 57 L 56 L Respiratory Rate 18 16 16 Blood Pressure 124/75 107/61 90/54 L Pulse Oximetry 97 96 96 09/15/18 18:45 09/15/18 19:00 09/15/18 19:15 Temperature Pulse Rate 55 L 52 L 52 L Respiratory Rate 8 L 16 4 L Blood Pressure 90/55 L 93/57 L 92/57 L Pulse Oximetry 96 96 97 09/15/18 19:30 09/15/18 19:45 09/15/18 20:00 Temperature Pulse Rate 62 47 L 49 L Respiratory Rate 16 16 8 L Blood Pressure 137/74 124/72 108/64 Pulse Oximetry 99 100 97 09/15/18 20:15 09/15/18 20:30 09/15/18 20:45 Temperature Pulse Rate 49 L 48 L 49 L Respiratory Rate 9 L 9 L 6 L Blood Pressure 105/65 104/63 102/60 Pulse Oximetry 98 98 98 09/15/18 20:57 09/15/18 21:00 09/15/18 21:15 Temperature 98.4 F Pulse Rate 52 L 53 L 49 L Respiratory Rate 16 16 16 Blood Pressure 146/87 H 124/68 Pulse Oximetry 99 99 99 09/15/18 21:30 09/15/18 21:45 09/15/18 22:00 Temperature Pulse Rate 52 L 58 L 52 L Respiratory Rate 16 17 16 Blood Pressure 129/76 141/82 H 121/72 Pulse Oximetry 99 100 98 09/15/18 22:15 09/15/18 22:30 09/15/18 22:45 Temperature Pulse Rate 52 L 49 L 49 L Respiratory Rate 9 L 16 17 Blood Pressure 110/68 111/66 104/60 Pulse Oximetry 98 98 98 09/15/18 23:00 09/15/18 23:15 09/15/18 23:30 Temperature Pulse Rate 50 L 47 L 47 L Respiratory Rate 16 16 16 Blood Pressure 102/61 103/62 108/66 Pulse Oximetry 98 99 98 09/15/18 23:45 09/16/18 00:00 09/16/18 00:15 Temperature 98.4 F Pulse Rate 46 L 46 L 48 L Respiratory Rate 16 16 16 Blood Pressure 106/63 113/69 110/66 Pulse Oximetry 99 99 99 09/16/18 00:30 09/16/18 00:40 09/16/18 00:45 Temperature Pulse Rate 47 L 65 50 L Respiratory Rate 16 17 17 Blood Pressure 151/72 H 145/77 H Pulse Oximetry 100 100 100 09/16/18 01:00 09/16/18 01:15 09/16/18 01:30 Temperature Pulse Rate 50 L 53 L 50 L Respiratory Rate 17 17 17 Blood Pressure 143/82 H 135/80 139/77 Pulse Oximetry 100 100 100 09/16/18 01:45 09/16/18 02:00 09/16/18 02:15 Temperature Pulse Rate 67 66 68 Respiratory Rate 17 17 17 Blood Pressure 142/83 H 146/90 H 145/87 H Pulse Oximetry 99 99 99 09/16/18 02:30 09/16/18 02:45 09/16/18 03:00 Temperature Pulse Rate 59 L 51 L 50 L Respiratory Rate 20 16 17 Blood Pressure 139/81 135/78 142/84 H Pulse Oximetry 98 98 98 09/16/18 03:15 09/16/18 03:30 09/16/18 03:45 Temperature Pulse Rate 54 L 50 L 55 L Respiratory Rate 16 17 18 Blood Pressure 143/82 H 131/77 143/83 H Pulse Oximetry 98 98 98 09/16/18 04:00 09/16/18 04:15 09/16/18 04:30 Temperature 98.2 F Pulse Rate 56 L 59 L 56 L Respiratory Rate 17 17 14 Blood Pressure 144/83 H 145/85 H 149/87 H Pulse Oximetry 98 98 99 09/16/18 04:45 09/16/18 05:00 09/16/18 05:15 Temperature Pulse Rate 64 77 61 Respiratory Rate 19 18 19 Blood Pressure 150/89 H 154/92 H 146/89 H Pulse Oximetry 99 99 98 09/16/18 05:30 09/16/18 05:45 09/16/18 06:00 Temperature Pulse Rate 49 L 59 L 56 L Respiratory Rate 16 16 17 Blood Pressure 140/78 151/83 H 153/89 H Pulse Oximetry 98 99 99 09/16/18 06:15 09/16/18 06:30 09/16/18 06:45 Temperature Pulse Rate 53 L 53 L 57 L Respiratory Rate 17 16 21 Blood Pressure 153/89 H 152/86 H 159/92 H Pulse Oximetry 99 99 99 09/16/18 07:00 09/16/18 07:15 09/16/18 07:30 Temperature Pulse Rate 50 L 49 L 60 Respiratory Rate 17 17 22 Blood Pressure 147/72 H 146/77 H 157/84 H Pulse Oximetry 99 99 99 09/16/18 07:31 09/16/18 07:38 09/16/18 07:45 Temperature Pulse Rate 54 L 52 L Respiratory Rate 20 20 18 Blood Pressure 155/85 H Pulse Oximetry 99 99 09/16/18 08:00 09/16/18 08:15 09/16/18 08:30 Temperature 98.3 F Pulse Rate 55 L 48 L 47 L Respiratory Rate 16 16 16 Blood Pressure 135/75 131/72 141/74 H Pulse Oximetry 97 97 98 09/16/18 08:45 09/16/18 09:00 09/16/18 09:15 Temperature Pulse Rate 47 L 77 50 L Respiratory Rate 17 17 16 Blood Pressure 144/82 H 137/70 121/64 Pulse Oximetry 99 99 97 09/16/18 09:30 09/16/18 09:45 09/16/18 10:00 Temperature Pulse Rate 50 L 50 L 47 L Respiratory Rate 16 16 16 Blood Pressure 108/62 107/61 127/65 Pulse Oximetry 97 98 99 09/16/18 10:15 09/16/18 10:30 09/16/18 10:45 Temperature Pulse Rate 47 L 80 48 L Respiratory Rate 16 22 16 Blood Pressure 127/73 154/83 H 136/72 Pulse Oximetry 99 99 99 09/16/18 11:00 09/16/18 11:15 09/16/18 11:30 Temperature Pulse Rate 69 66 Respiratory Rate 21 20 Blood Pressure 145/89 H 152/70 H 136/65 Pulse Oximetry 99 100 98 09/16/18 11:45 09/16/18 11:53 09/16/18 12:00 Temperature 99.2 F Pulse Rate 61 76 63 Respiratory Rate 13 17 12 Blood Pressure 135/71 135/74 Pulse Oximetry 97 99 09/16/18 12:15 Temperature Pulse Rate 73 Respiratory Rate 9 L Blood Pressure 133/72 Pulse Oximetry 97 Intake & Output 09/15/18 09/16/18 09/16/18 18:59 06:59 18:59 Intake Total 1785 / 1785 1969 / 1969 200 / 200 Output Total 655 / 655 905 / 905 Balance 1130 / 1130 1065 / 1065 200 / 200 Weight 90 kg Intake: IV 1785 / 1785 1850 / 1850 200 / 200 NS + KCl 20 mEq Inj 1,000 ML @ 1000 / 1000 1000 / 1000 75 mls/hr IV.CONT .[id number] [facility] Rx#:[id number] Diprivan 1000 mg/100 ml Inj 1, 35 / 35 000 mg In 100 ml @ 5 MCG/KG/MIN 2.625 mls/hr IV.CONT TITRATE PRN Rx#:[id number] Maxipime Inj 2,000 MG In NS Inj 100 / 100 200 / 200 100 ML @ 200 mls/hr IV.SIG Q8H [facility] Rx#:[id number] Penicillin G Sodium Inj 4,000, 200 / 200 300 / 300 100 / 100 000 UNITS In NS Inj 100 ML @ 200 mls/hr IV.SIG Q4H [facility] Rx#: [id number] fentaNYL 10 mcg/mL Premix Drip 250 / 250 250 / 250 2,500 mcg In 250 ml @ 50 MCG/HR 5 mls/hr IV.SIG TITRATE PRN Rx #:[id number] Flagyl 500 MG Inj 100 ML @ 100 200 / 200 100 / 100 100 / 100 mls/hr IV.SIG Q8H [facility] Rx#: [id number] Oral 0 / 0 Water Bolus Amount 120 / 120 Output: Urine Amount (Catheter) 650 / 650 900 / 900 Condom 650 / 650 900 / 900 Gastric Drainage 0 / 0 0 / 0 Orogastric Tube 0 / 0 0 / 0 Wound Drainage 5 / 5 5 / 5 # 1 Left BONG Drain 5 / 5 5 / 5 Other: Date of Last Bowel Movement 09/11/18 09/11/18 # Bowel Movements 0 0 Result Diagrams: 09/16/18 10:36 09/16/18 10:36 Objective Remarks: GENERAL: 63-year-old male intubated sedated but wakes up easily NECK: Cervical collar and a drain in place. CARDIOVASCULAR: Regular rate and rhythm. Normotensive RESPIRATORY: PRVC. Air entry equal bilaterally no wheezes or crackles GASTROINTESTINAL: Abdomen soft, non-tender, nondistended. MUSCULOSKELETAL: No clubbing, cyanosis, or edema. No obvious deformities. R upper extremity more swollen than left (no DVT) NEUROLOGICAL: Patient wakes up easily follows commands x4. No significant weakness of the lower extremity by limited exam. Follows commands x4 Assessment and Plan - Assessment and Plan Plan: ASSESSMENT: Acute hypoxemic respiratory failure Aspiration pneumonia Inability to protect airway Metabolic encephalopathy Sepsis Acute discitis at C4/C5, epidural and retropharyngeal abscess s/p decompression and stabilization. History of COPD Underlying dementia PLAN: NEURO: -Propofol, and fentanyl for sedation and ventilator synchrony -Neuro exam improved today no focal deficits observed on sedation hold -Start sedating medication -Stat MRI of the C-spine 09/14- C4-5 with some residual soft tissue or complex fluid posterior to the disc interspace resulting in persistent moderate to severe focal canal stenosis and cord compression. No surgical intervention needed per Dr. Pereira -Decadron 4 mg IV every 6 hours, start tapering in 24 hours RESP: -Emergently intubated and placed on mechanical ventilation 09/14/18 -PRVC/AC, Ventilator bundle -DuoNeb every 6 hours scheduled and as needed -Chest x-ray showed small left pleural effusion but sputum culture negative today -IV Decadron as above -Start weaning trials with possible extubation -No vocal cord edema on intubation, no difficulty of passing ETT CV: -Hemodynamically stable, discontinue IV fluids GI: -N.p.o., IV famotidine -Hold tube feeds for possible extubation : -Monitor renal function closely. Guido catheter. ID: -Antibiotics vancomycin cefepime and Flagyl -Repeat blood and sputum culture follow-up, negative to date -ID Dr. Hanson is following HEME: -Monitor CBC, coags -Right upper extremity is more swollen compared to left, venous duplex ordered stat-negative for DVT ENDO: -Electrolyte replacement per protocol -Sliding scale insulin if needed PROPH: -Bilateral lower extremity SCDs. IV famotidine. Start Lovenox 40 mg sq daily, cleared by Dr. Pereira LINES: -Utilize peripheral IVs, left IJ central line placed 09/14/2018, will DC today Level 3
--- NOTE | 2018-09-16 12:51 | XR ---
EXAM DATE: 09/16/2018 12:23 PM EST AGE/SEX: 63 years / Male INDICATIONS: Respiratory failure. CLINICAL DATA: This is the patient's subsequent encounter. Patient reports that signs and symptoms h ave been present for 2 weeks and indicates a pain score of Nonresponsive. MEDICAL/SURGICAL HISTORY: Hypertension. Hip replacement. Fusion, cervical. COMPARISON: [facility], CHEST 1V SINGLE AP, 09/15/2018. . FINDINGS: The ET tube appears in satisfactory position. There is a nasogastric tube present. There are chronic interstitial changes in the pulmonary parenchyma with a left basilar effusion and l eft basilar atelectasis. These changes are similar to the previous of 09/15/2018. CONCLUSION: Support equipment in satisfactory position. Continued left basilar effusion and atelectasis. Electronically signed by: Yossi Dumont MD 09/16/2018 12:49 PM EST
[2018-09-16 13:06] LABS: ABG Base Excess 2.8 mmol/L (-2-2); ABG PCO2 46 mmHg (38-42); ABG PO2 109 mmHg (61-120)
[2018-09-16] MEDS ORDERED: Pharmacy Ordered Lab Info OTHER ONE (13:45)
--- NOTE | 2018-09-16 14:37 | P.PNNS ---
Subjective Interval history: intubated, awakens, follows commands <Stephanie Erwin - Last Filed: 09/19/18 10:48> Physical Exam Vital signs: Vital Signs 09/15/18 14:30 09/15/18 14:45 09/15/18 15:00 Temperature Pulse Rate 61 78 56 L Respiratory Rate 13 15 13 Blood Pressure 103/60 137/70 110/58 L Pulse Oximetry 96 99 97 09/15/18 15:15 09/15/18 15:30 09/15/18 15:45 Temperature Pulse Rate 81 55 L 60 Respiratory Rate 19 16 16 Blood Pressure 134/78 117/70 115/68 Pulse Oximetry 98 97 97 09/15/18 15:54 09/15/18 15:56 09/15/18 16:00 Temperature 98.5 F Pulse Rate 84 58 L Respiratory Rate 16 19 16 Blood Pressure 136/74 Pulse Oximetry 97 99 09/15/18 16:15 09/15/18 16:30 09/15/18 16:45 Temperature Pulse Rate 65 54 L 58 L Respiratory Rate 16 15 16 Blood Pressure 130/73 121/67 120/69 Pulse Oximetry 97 97 97 09/15/18 17:00 09/15/18 17:15 09/15/18 17:30 Temperature Pulse Rate 57 L 57 L 73 Respiratory Rate 16 16 19 Blood Pressure 135/78 125/74 140/84 Pulse Oximetry 98 97 98 09/15/18 17:45 09/15/18 18:00 09/15/18 18:15 Temperature Pulse Rate 74 54 L 57 L Respiratory Rate 17 18 16 Blood Pressure 146/89 H 124/75 107/61 Pulse Oximetry 98 97 96 09/15/18 18:30 09/15/18 18:45 09/15/18 19:00 Temperature Pulse Rate 56 L 55 L 52 L Respiratory Rate 16 8 L 16 Blood Pressure 90/54 L 90/55 L 93/57 L Pulse Oximetry 96 96 96 09/15/18 19:15 09/15/18 19:30 09/15/18 19:45 Temperature Pulse Rate 52 L 62 47 L Respiratory Rate 4 L 16 16 Blood Pressure 92/57 L 137/74 124/72 Pulse Oximetry 97 99 100 09/15/18 20:00 09/15/18 20:15 09/15/18 20:30 Temperature Pulse Rate 49 L 49 L 48 L Respiratory Rate 8 L 9 L 9 L Blood Pressure 108/64 105/65 104/63 Pulse Oximetry 97 98 98 09/15/18 20:45 09/15/18 20:57 09/15/18 21:00 Temperature 98.4 F Pulse Rate 49 L 52 L 53 L Respiratory Rate 6 L 16 16 Blood Pressure 102/60 146/87 H Pulse Oximetry 98 99 99 09/15/18 21:15 09/15/18 21:30 09/15/18 21:45 Temperature Pulse Rate 49 L 52 L 58 L Respiratory Rate 16 16 17 Blood Pressure 124/68 129/76 141/82 H Pulse Oximetry 99 99 100 09/15/18 22:00 09/15/18 22:15 09/15/18 22:30 Temperature Pulse Rate 52 L 52 L 49 L Respiratory Rate 16 9 L 16 Blood Pressure 121/72 110/68 111/66 Pulse Oximetry 98 98 98 09/15/18 22:45 09/15/18 23:00 09/15/18 23:15 Temperature Pulse Rate 49 L 50 L 47 L Respiratory Rate 17 16 16 Blood Pressure 104/60 102/61 103/62 Pulse Oximetry 98 98 99 09/15/18 23:30 09/15/18 23:45 09/16/18 00:00 Temperature 98.4 F Pulse Rate 47 L 46 L 46 L Respiratory Rate 16 16 16 Blood Pressure 108/66 106/63 113/69 Pulse Oximetry 98 99 99 09/16/18 00:15 09/16/18 00:30 09/16/18 00:40 Temperature Pulse Rate 48 L 47 L 65 Respiratory Rate 16 16 17 Blood Pressure 110/66 151/72 H Pulse Oximetry 99 100 100 09/16/18 00:45 09/16/18 01:00 09/16/18 01:15 Temperature Pulse Rate 50 L 50 L 53 L Respiratory Rate 17 17 17 Blood Pressure 145/77 H 143/82 H 135/80 Pulse Oximetry 100 100 100 09/16/18 01:30 09/16/18 01:45 09/16/18 02:00 Temperature Pulse Rate 50 L 67 66 Respiratory Rate 17 17 17 Blood Pressure 139/77 142/83 H 146/90 H Pulse Oximetry 100 99 99 09/16/18 02:15 09/16/18 02:30 09/16/18 02:45 Temperature Pulse Rate 68 59 L 51 L Respiratory Rate 17 20 16 Blood Pressure 145/87 H 139/81 135/78 Pulse Oximetry 99 98 98 09/16/18 03:00 09/16/18 03:15 09/16/18 03:30 Temperature Pulse Rate 50 L 54 L 50 L Respiratory Rate 17 16 17 Blood Pressure 142/84 H 143/82 H 131/77 Pulse Oximetry 98 98 98 09/16/18 03:45 09/16/18 04:00 09/16/18 04:15 Temperature 98.2 F Pulse Rate 55 L 56 L 59 L Respiratory Rate 18 17 17 Blood Pressure 143/83 H 144/83 H 145/85 H Pulse Oximetry 98 98 98 09/16/18 04:30 09/16/18 04:45 09/16/18 05:00 Temperature Pulse Rate 56 L 64 77 Respiratory Rate 14 19 18 Blood Pressure 149/87 H 150/89 H 154/92 H Pulse Oximetry 99 99 99 09/16/18 05:15 09/16/18 05:30 09/16/18 05:45 Temperature Pulse Rate 61 49 L 59 L Respiratory Rate 19 16 16 Blood Pressure 146/89 H 140/78 151/83 H Pulse Oximetry 98 98 99 09/16/18 06:00 09/16/18 06:15 09/16/18 06:30 Temperature Pulse Rate 56 L 53 L 53 L Respiratory Rate 17 17 16 Blood Pressure 153/89 H 153/89 H 152/86 H Pulse Oximetry 99 99 99 09/16/18 06:45 09/16/18 07:00 09/16/18 07:15 Temperature Pulse Rate 57 L 50 L 49 L Respiratory Rate 21 17 17 Blood Pressure 159/92 H 147/72 H 146/77 H Pulse Oximetry 99 99 99 09/16/18 07:30 09/16/18 07:31 09/16/18 07:38 Temperature Pulse Rate 60 54 L Respiratory Rate 22 20 20 Blood Pressure 157/84 H Pulse Oximetry 99 99 09/16/18 07:45 09/16/18 08:00 09/16/18 08:15 Temperature 98.3 F Pulse Rate 52 L 52 L 48 L Respiratory Rate 18 16 16 Blood Pressure 155/85 H 135/75 131/72 Pulse Oximetry 99 97 97 09/16/18 08:30 09/16/18 08:45 09/16/18 09:00 Temperature Pulse Rate 47 L 47 L 77 Respiratory Rate 16 17 17 Blood Pressure 141/74 H 144/82 H 137/70 Pulse Oximetry 98 99 99 09/16/18 09:15 09/16/18 09:30 09/16/18 09:45 Temperature Pulse Rate 50 L 50 L 50 L Respiratory Rate 16 16 16 Blood Pressure 121/64 108/62 107/61 Pulse Oximetry 97 97 98 09/16/18 10:00 09/16/18 10:15 09/16/18 10:30 Temperature Pulse Rate 47 L 47 L 80 Respiratory Rate 16 16 22 Blood Pressure 127/65 127/73 154/83 H Pulse Oximetry 99 99 99 09/16/18 10:45 09/16/18 11:00 09/16/18 11:15 Temperature Pulse Rate 48 L 69 Respiratory Rate 16 21 Blood Pressure 136/72 145/89 H 152/70 H Pulse Oximetry 99 99 100 09/16/18 11:30 09/16/18 11:45 09/16/18 11:53 Temperature Pulse Rate 66 61 76 Respiratory Rate 20 13 17 Blood Pressure 136/65 135/71 Pulse Oximetry 98 97 09/16/18 12:00 09/16/18 12:15 09/16/18 12:30 Temperature 99.2 F Pulse Rate 63 73 80 Respiratory Rate 12 9 L 13 Blood Pressure 135/74 133/72 138/74 Pulse Oximetry 99 97 98 09/16/18 12:45 09/16/18 13:00 09/16/18 13:15 Temperature Pulse Rate 97 H 100 H 85 Respiratory Rate 13 8 L 23 Blood Pressure 145/77 H 149/81 H 132/68 Pulse Oximetry 99 98 99 09/16/18 13:30 09/16/18 13:45 09/16/18 13:50 Temperature Pulse Rate 91 H 89 Respiratory Rate 17 16 Blood Pressure 141/77 H 148/98 H Pulse Oximetry 96 96 98 09/16/18 14:00 09/16/18 14:15 Temperature Pulse Rate 87 93 H Respiratory Rate 15 16 Blood Pressure 137/84 145/83 H Pulse Oximetry 96 96 Intake & Output 09/15/18 09/16/18 09/16/18 18:59 06:59 18:59 Intake Total 1785 / 1785 1970 / 1970 300 / 300 Output Total 655 / 655 905 / 905 Balance 1130 / 1130 1065 / 1065 300 / 300 Weight 90 kg Intake: IV 1785 / 1785 1850 / 1850 300 / 300 NS + KCl 20 mEq Inj 1,000 ML @ 1000 / 1000 1000 / 1000 75 mls/hr IV.CONT .[id number] JAZ Rx#:[id number] Diprivan 1000 mg/100 ml Inj 1, 35 / 35 000 mg In 100 ml @ 5 MCG/KG/MIN 2.625 mls/hr IV.CONT TITRATE PRN Rx#:[id number] Maxipime Inj 2,000 MG In NS Inj 100 / 100 200 / 200 100 ML @ 200 mls/hr IV.SIG Q8H JAZ Rx#:[id number] Penicillin G Sodium Inj 4,000, 200 / 200 300 / 300 200 / 200 000 UNITS In NS Inj 100 ML @ 200 mls/hr IV.SIG Q4H JAZ Rx#: [id number] fentaNYL 10 mcg/mL Premix Drip 250 / 250 250 / 250 2,500 mcg In 250 ml @ 50 MCG/HR 5 mls/hr IV.SIG TITRATE PRN Rx #:[id number] Flagyl 500 MG Inj 100 ML @ 100 200 / 200 100 / 100 100 / 100 mls/hr IV.SIG Q8H JAZ Rx#: [id number] Oral 0 / 0 Water Bolus Amount 120 / 120 Output: Urine Amount (Catheter) 650 / 650 900 / 900 Condom 650 / 650 900 / 900 Gastric Drainage 0 / 0 0 / 0 Orogastric Tube 0 / 0 0 / 0 Wound Drainage 5 / 5 5 / 5 # 1 Left BONG Drain 5 / 5 5 / 5 Other: Date of Last Bowel Movement 09/11/18 09/11/18 09/11/18 # Bowel Movements 0 0 Narrative: intubated, awake, follows commands drain in place Optifoam dressing clean and dry moves all extremities: gripped b/l, moves both upper and lower extremities off the bed to command with good strength c-spine immobilize by [facility] - Urinary Catheter Management Indwelling Urethral Catheter Cath placed during this visit: yes, but has since been removed by the nurse Urethral indwelling: Yes Reason for continuing: Acute urinary retention Insertion date: 09/12/18 Insertion time: 10:40 Removal date: 09/13/18 Removal time: 11:00 Condom Cath placed during this visit: no <Stephanie Erwin - Last Filed: 09/19/18 10:48> Vital signs: Vital Signs 09/20/18 20:41 09/20/18 21:00 09/20/18 22:00 Temperature Pulse Rate 53 L 88 51 L Respiratory Rate 18 30 H 17 Blood Pressure 134/103 H 121/69 Pulse Oximetry 98 98 90 L 09/20/18 23:00 09/21/18 00:00 09/21/18 00:31 Temperature 98.5 F Pulse Rate 53 L 57 L 57 L Respiratory Rate 21 17 18 Blood Pressure 130/77 112/66 Pulse Oximetry 99 99 09/21/18 01:00 09/21/18 02:00 09/21/18 03:00 Temperature 97.4 F L Pulse Rate 108 H 63 61 Respiratory Rate 20 16 15 Blood Pressure 97/59 L 92/59 L 114/64 Pulse Oximetry 94 L 97 99 09/21/18 03:49 09/21/18 04:00 09/21/18 04:41 Temperature 97.7 F Pulse Rate 78 76 Respiratory Rate 16 18 Blood Pressure 111/64 Pulse Oximetry 93 L 97 09/21/18 05:00 09/21/18 06:00 09/21/18 07:00 Temperature Pulse Rate 55 L 97 H 80 Respiratory Rate 13 26 H 27 H Blood Pressure 107/66 130/80 128/81 Pulse Oximetry 100 100 100 09/21/18 08:00 09/21/18 08:01 09/21/18 08:05 Temperature 97.3 F L Pulse Rate 71 84 Respiratory Rate 18 22 Blood Pressure 131/84 Pulse Oximetry 100 100 09/21/18 08:57 09/21/18 09:00 09/21/18 10:00 Temperature Pulse Rate 131 H 134 H 96 H Respiratory Rate 26 H 26 H 26 H Blood Pressure 124/82 123/85 153/85 H Pulse Oximetry 94 L 93 L 95 09/21/18 11:00 09/21/18 12:00 09/21/18 12:39 Temperature 98.6 F Pulse Rate 100 H 104 H 104 H Respiratory Rate 19 23 20 Blood Pressure 141/78 H 153/95 H Pulse Oximetry 94 L 96 09/21/18 13:00 09/21/18 14:00 09/21/18 15:00 Temperature Pulse Rate 74 73 62 Respiratory Rate 26 H 20 16 Blood Pressure 121/75 121/81 139/82 Pulse Oximetry 96 100 100 09/21/18 15:31 09/21/18 16:00 09/21/18 17:00 Temperature 98.2 F Pulse Rate 84 81 86 Respiratory Rate 23 19 32 H Blood Pressure 130/84 166/86 H Pulse Oximetry 100 98 09/21/18 18:00 09/21/18 19:00 Temperature Pulse Rate 76 74 Respiratory Rate 29 H 23 Blood Pressure 142/76 H 117/72 Pulse Oximetry 97 98 Intake & Output 09/21/18 09/21/18 09/22/18 06:59 18:59 06:59 Intake Total 750 / 750 400 / 400 Output Total 450 / 450 250 / 250 Balance 300 / 300 150 / 150 Intake: IV 750 / 750 400 / 400 Precedex Inj 200 MCG In NS Inj 150 / 150 200 / 200 48 ML @ 0.2 MCG/KG/HR 4.23 mls/ hr IV.CONT TITRATE PRN Rx#: [id number] Maxipime Inj 2,000 MG In NS Inj 200 / 200 100 ML @ 200 mls/hr IV.SIG Q8H JAZ Rx#:[id number] Pfizerpen-G Inj 4,000,000 UNIT 300 / 300 100 / 100 In NS Inj 100 ML @ 200 mls/hr IV.SIG Q4H JAZ Rx#:[id number] Flagyl 500 MG Inj 100 ML @ 100 100 / 100 100 / 100 mls/hr IV.SIG Q8H JAZ Rx#: [id number] Output: Urine 250 / 250 Urine Amount (Catheter) 450 / 450 Condom 450 / 450 Other: # Incontinent Voids 2 2 Date of Last Bowel Movement 09/11/18 09/11/18 - Urinary Catheter Management Indwelling Urethral Catheter Cath placed during this visit: no Condom Cath placed during this visit: no <Kit Pereira - Last Filed: 09/21/18 20:15> Assessment and Plan - Plan 63 year old male Acute discitis at C4/C5, with anterior subligamentous abscess and elongated retropharyngeal abscess, moderate to severe spinal stenosis at C4-C5, severe bilateral foraminal stenosis C4-5 instability and cord compression s/p C4-5 ACDF 11/9/18 wound cultures positive for Groub B strept cont neuro checks cont critical mgt - vent weaning keep BONG in can keep Optifoam dressing on until this saturday Dr. Pereira dw in room <Stephanie Erwin - Last Filed: 09/19/18 10:48> - Plan The exam, history, and the medical decision-making described in the above note were completed with the assistance of the mid-level provider. I reviewed and agree with the findings presented. I attest that I had a [id number] encounter with the patient on the same day, and personally performed and documented my assessment and findings in the medical record. <Kit Pereira - Last Filed: 09/21/18 20:15>
[2018-09-16] MEDS: traZODone 50 MG Tablet PO SCH (20:13)
[2018-09-17] MEDS: SODIUM CHLOR 0.9% IV.SIG SCH ×7 (01:14→23:55)
[2018-09-17] MEDS: PENICILLIN SODIUM IV.SIG SCH ×7 (01:14→23:55)
[2018-09-17] MEDS: Oral Hygiene Kit OROPHARYNG SCH ×5 (01:15→23:55)
[2018-09-17] MEDS: Enoxaparin Inj 40 MG/0.4 ML Syringe SQ SCH (08:04)
[2018-09-17] MEDS: Chlorhexidine 0.12% Oral Kit 15 ML UDC OROPHARYNG SCH ×2 (08:08→20:24)
[2018-09-17] MEDS: Famotidine PF Inj 20 MG/2 ML Vial IV.PUSH SCH ×2 (08:08→20:24)
[2018-09-17] MEDS: Senna/Docusate Sodium 8.6/50 MG Tablet PO SCH ×2 (09:12→20:24)
[2018-09-17] MEDS: Duloxetine 60 MG DR Capsule PO SCH (09:12)
[2018-09-17] MEDS: QUEtiapine 100 MG Tablet PO SCH ×2 (09:12→20:23)
[2018-09-17] MEDS: Propranolol 10 MG Tablet PO SCH ×2 (09:12→20:24)
--- NOTE | 2018-09-17 12:29 | P.PNNS ---
Subjective Interval history: extubated, NPO currently awaiting speech eval <Stephanie Erwin - Last Filed: 09/19/18 10:47> Physical Exam Vital signs: Vital Signs 09/16/18 12:30 09/16/18 12:45 09/16/18 13:00 Temperature Pulse Rate 80 97 H 100 H Respiratory Rate 13 13 8 L Blood Pressure 138/74 145/77 H 149/81 H Pulse Oximetry 98 99 98 09/16/18 13:15 09/16/18 13:30 09/16/18 13:45 Temperature Pulse Rate 85 91 H 89 Respiratory Rate 23 17 16 Blood Pressure 132/68 141/77 H 148/98 H Pulse Oximetry 99 96 96 09/16/18 13:50 09/16/18 14:00 09/16/18 14:15 Temperature Pulse Rate 87 93 H Respiratory Rate 15 16 Blood Pressure 137/84 145/83 H Pulse Oximetry 98 96 96 09/16/18 14:30 09/16/18 14:45 09/16/18 15:00 Temperature Pulse Rate 92 H 83 81 Respiratory Rate 17 19 15 Blood Pressure 137/78 138/68 146/77 H Pulse Oximetry 96 96 96 09/16/18 15:15 09/16/18 15:30 09/16/18 15:45 Temperature Pulse Rate 76 81 82 Respiratory Rate 20 15 15 Blood Pressure 150/81 H 132/72 138/76 Pulse Oximetry 97 96 96 09/16/18 16:00 09/16/18 16:02 09/16/18 16:15 Temperature 97.6 F Pulse Rate 77 79 78 Respiratory Rate 12 14 17 Blood Pressure 150/80 H 156/86 H Pulse Oximetry 97 100 09/16/18 16:30 09/16/18 16:45 09/16/18 17:00 Temperature Pulse Rate 84 83 85 Respiratory Rate 22 20 18 Blood Pressure 136/81 142/80 H 152/80 H Pulse Oximetry 96 96 95 09/16/18 17:15 09/16/18 17:30 09/16/18 17:45 Temperature Pulse Rate 79 90 81 Respiratory Rate 16 18 18 Blood Pressure 147/79 H 140/76 151/84 H Pulse Oximetry 95 95 95 09/16/18 18:00 09/16/18 18:15 09/16/18 19:00 Temperature 98.8 F Pulse Rate 84 78 71 Respiratory Rate 20 21 14 Blood Pressure 139/72 144/76 H 144/84 H Pulse Oximetry 96 97 100 09/16/18 19:59 09/16/18 20:00 09/16/18 21:00 Temperature Pulse Rate 75 89 83 Respiratory Rate 16 Blood Pressure Pulse Oximetry 09/16/18 22:00 09/16/18 23:00 09/17/18 00:00 Temperature Pulse Rate 83 86 82 Respiratory Rate Blood Pressure Pulse Oximetry 09/17/18 00:28 09/17/18 01:00 09/17/18 02:00 Temperature Pulse Rate 91 H 85 85 Respiratory Rate 20 Blood Pressure Pulse Oximetry 95 09/17/18 03:00 09/17/18 04:00 09/17/18 04:15 Temperature 98.8 F Pulse Rate 92 H 80 80 Respiratory Rate 23 16 Blood Pressure 138/70 Pulse Oximetry 96 09/17/18 05:00 09/17/18 06:00 09/17/18 07:00 Temperature Pulse Rate 82 80 77 Respiratory Rate 21 Blood Pressure 146/75 H Pulse Oximetry 97 09/17/18 08:00 09/17/18 09:00 09/17/18 09:28 Temperature 98.4 F Pulse Rate 74 81 87 Respiratory Rate 23 29 H 20 Blood Pressure 147/82 H 145/73 H Pulse Oximetry 96 96 99 09/17/18 10:00 09/17/18 11:00 Temperature Pulse Rate 75 68 Respiratory Rate 19 18 Blood Pressure 136/75 134/81 Pulse Oximetry 96 97 Intake & Output 09/16/18 09/17/18 09/17/18 18:59 06:59 18:59 Intake Total 1560 / 1560 500 / 500 300 / 300 Output Total 755 / 755 500 / 500 Balance 805 / 805 0 / 0 300 / 300 Weight 88.5 kg Intake: IV 1500 / 1500 500 / 500 300 / 300 NS + KCl 20 mEq Inj 1,000 ML @ 800 / 800 75 mls/hr IV.CONT .[id number] JAZ Rx#:[id number] Diprivan 1000 mg/100 ml Inj 1, 50 / 50 000 mg In 100 ml @ 5 MCG/KG/MIN 2.625 mls/hr IV.CONT TITRATE PRN Rx#:[id number] Maxipime Inj 2,000 MG In NS Inj 100 / 100 100 / 100 100 / 100 100 ML @ 200 mls/hr IV.SIG Q8H JAZ Rx#:[id number] Penicillin G Sodium Inj 4,000, 300 / 300 300 / 300 100 / 100 000 UNITS In NS Inj 100 ML @ 200 mls/hr IV.SIG Q4H JAZ Rx#: [id number] fentaNYL 10 mcg/mL Premix Drip 50 / 50 2,500 mcg In 250 ml @ 50 MCG/HR 5 mls/hr IV.SIG TITRATE PRN Rx #:[id number] Flagyl 500 MG Inj 100 ML @ 100 200 / 200 100 / 100 100 / 100 mls/hr IV.SIG Q8H JAZ Rx#: [id number] Tube Irrigant 60 / 60 Output: Stool 0 / 0 Urine Amount (Catheter) 750 / 750 500 / 500 Condom 750 / 750 500 / 500 Gastric Drainage 0 / 0 Orogastric Tube 0 / 0 Wound Drainage 5 / 5 # 1 Left BONG Drain 5 / 5 Other: Date of Last Bowel Movement 09/11/18 09/11/18 09/11/18 # Bowel Movements 0 Narrative: awake, follows commands Optifoam dressing clean and dry BONG drain with minimal drainage moves all extremities: gripped b/l, moves both upper and lower extremities off the bed to command with good strength c-spine immobilize by [place] collar - Urinary Catheter Management Indwelling Urethral Catheter Cath placed during this visit: yes, but has since been removed by the nurse Urethral indwelling: Yes Reason for continuing: Acute urinary retention Insertion date: 09/12/18 Insertion time: 10:40 Removal date: 09/13/18 Removal time: 11:00 Condom Cath placed during this visit: no <Stephanie Erwin - Last Filed: 09/19/18 10:47> Vital signs: Vital Signs 09/20/18 20:41 09/20/18 21:00 09/20/18 22:00 Temperature Pulse Rate 53 L 88 51 L Respiratory Rate 18 30 H 17 Blood Pressure 134/103 H 121/69 Pulse Oximetry 98 98 90 L 09/20/18 23:00 09/21/18 00:00 09/21/18 00:31 Temperature 98.5 F Pulse Rate 53 L 57 L 57 L Respiratory Rate 21 17 18 Blood Pressure 130/77 112/66 Pulse Oximetry 99 99 09/21/18 01:00 09/21/18 02:00 09/21/18 03:00 Temperature 97.4 F L Pulse Rate 108 H 63 61 Respiratory Rate 20 16 15 Blood Pressure 97/59 L 92/59 L 114/64 Pulse Oximetry 94 L 97 99 09/21/18 03:49 09/21/18 04:00 09/21/18 04:41 Temperature 97.7 F Pulse Rate 78 76 Respiratory Rate 16 18 Blood Pressure 111/64 Pulse Oximetry 93 L 97 09/21/18 05:00 09/21/18 06:00 09/21/18 07:00 Temperature Pulse Rate 55 L 97 H 80 Respiratory Rate 13 26 H 27 H Blood Pressure 107/66 130/80 128/81 Pulse Oximetry 100 100 100 09/21/18 08:00 09/21/18 08:01 09/21/18 08:05 Temperature 97.3 F L Pulse Rate 71 84 Respiratory Rate 18 22 Blood Pressure 131/84 Pulse Oximetry 100 100 09/21/18 08:57 09/21/18 09:00 09/21/18 10:00 Temperature Pulse Rate 131 H 134 H 96 H Respiratory Rate 26 H 26 H 26 H Blood Pressure 124/82 123/85 153/85 H Pulse Oximetry 94 L 93 L 95 09/21/18 11:00 09/21/18 12:00 09/21/18 12:39 Temperature 98.6 F Pulse Rate 100 H 104 H 104 H Respiratory Rate 19 23 20 Blood Pressure 141/78 H 153/95 H Pulse Oximetry 94 L 96 09/21/18 13:00 09/21/18 14:00 09/21/18 15:00 Temperature Pulse Rate 74 73 62 Respiratory Rate 26 H 20 16 Blood Pressure 121/75 121/81 139/82 Pulse Oximetry 96 100 100 09/21/18 15:31 09/21/18 16:00 09/21/18 17:00 Temperature 98.2 F Pulse Rate 84 81 86 Respiratory Rate 23 19 32 H Blood Pressure 130/84 166/86 H Pulse Oximetry 100 98 09/21/18 18:00 09/21/18 19:00 Temperature Pulse Rate 76 74 Respiratory Rate 29 H 23 Blood Pressure 142/76 H 117/72 Pulse Oximetry 97 98 Intake & Output 09/21/18 09/21/18 09/22/18 06:59 18:59 06:59 Intake Total 750 / 750 400 / 400 Output Total 450 / 450 250 / 250 Balance 300 / 300 150 / 150 Intake: IV 750 / 750 400 / 400 Precedex Inj 200 MCG In NS Inj 150 / 150 200 / 200 48 ML @ 0.2 MCG/KG/HR 4.23 mls/ hr IV.CONT TITRATE PRN Rx#: [id number] Maxipime Inj 2,000 MG In NS Inj 200 / 200 100 ML @ 200 mls/hr IV.SIG Q8H JAZ Rx#:[id number] Pfizerpen-G Inj 4,000,000 UNIT 300 / 300 100 / 100 In NS Inj 100 ML @ 200 mls/hr IV.SIG Q4H JAZ Rx#:[id number] Flagyl 500 MG Inj 100 ML @ 100 100 / 100 100 / 100 mls/hr IV.SIG Q8H JAZ Rx#: [id number] Output: Urine 250 / 250 Urine Amount (Catheter) 450 / 450 Condom 450 / 450 Other: # Incontinent Voids 2 2 Date of Last Bowel Movement 09/11/18 09/11/18 - Urinary Catheter Management Indwelling Urethral Catheter Cath placed during this visit: no Condom Cath placed during this visit: no <Kit Pereira - Last Filed: 09/21/18 20:17> Assessment and Plan - Plan 63 year old male Acute discitis at C4/C5, with anterior subligamentous abscess and elongated retropharyngeal abscess, moderate to severe spinal stenosis at C4-C5, severe bilateral foraminal stenosis C4-5 instability and cord compression s/p C4-5 ACDF 09/12/18 wound cultures positive for Groub B strept dw nursing pt may remove cervical collar with ST eval and with meals remove BOGN drain can keep Optifoam dressing on until this saturday ID following for abx management clear for lovenox for dvt prophylaxis <Stephanie Erwin - Last Filed: 09/19/18 10:47> - Plan The exam, history, and the medical decision-making described in the above note were completed with the assistance of the mid-level provider. I reviewed and agree with the findings presented. I attest that I had a [id number] encounter with the patient on the same day, and personally performed and documented my assessment and findings in the medical record. <Kit Pereira - Last Filed: 09/21/18 20:17>
[2018-09-17] MEDS: Morphine Sulfate Inj 2 MG/ML Vial IV.PUSH PRN (15:21)
--- NOTE | 2018-09-17 15:40 | P.PNCC ---
Subjective Subjective Remarks/Hospital Course: Patient is a 63-year-old male with past medical history significant for COPD, dementia, schizophrenia, who was admitted to the hospitalist service on 09/11/2018 with neck pain and extremity weakness and MRI showing acute discitis at C4/C5 with epidural abscess retropharyngeal abscess. Dr Pereira was consulted and on 09/12/18 underwent cervical decompression and evacuation of abscess (C4-5 anterior cervical discectomy with evacuation of epidural abscess, interbody arthrodesis using PEEK cage filled with autologous bone graft, Simplicity plate and screws). Patient was ready on IV cefepime Flagyl and vancomycin per ID Dr. Hanson. Patient was moved to the ICU by the hospitalist for concern of aspiration and increasing oxygen requirement. Today a.m. patient was noted to be on 50% Ventimask and chest x-ray showed a left lower lobe infiltrate. I was consulted emergently around 11:30 AM today as the patient was acutely desaturating, clearly aspirated. On my arrival to the bedside patient had an oxygen saturation of 75-76% on 100% nonrebreather. Significant gurgling sounds heard. Patient was more or less unresponsive struggling to breathe. I suctioned out a large amount of secretion from the oropharynx, which improved the saturation to 85%. Patient was emergently intubated with direct laryngoscopy and was placed on mechanical ventilation. Stat chest x-ray is pending. I will place him on scheduled Decadron for any airway edema. Stat MRI of the C-spine ordered with and without contrast to evaluate for retropharyngeal abscess expansion and also airway edema and C-spine injury. Discussed with Dr. Conway neurosurgery 09/15/18: Patient remains intubated sedation held good neuro exam. Follows commands good strength of the lower extremities and upper extremities. MRI yesterday showed there is interval fusion across C4-5 with some residual soft tissue or complex fluid posterior to the disc interspace resulting in persistent moderate to severe focal canal stenosis and cord compression. Minimal cord signal abnormality at the area of compression. Discussed with Dr. Pereira is no surgical indication at this time. Continue Decadron for possible upper airway swelling 09/16: Patient remains intubated but wakes up easily follows commands x4. Chest x-ray shows persistent small left effusion but sputum cultures negative to date. MRI reviewed with Dr. Randall no indication for surgery at this time adequately decompressed. 09/17: Tolerating extubation, protects airway well. Nauseated. Objective Vital Signs / I&O: Vital Signs 09/16/18 15:45 09/16/18 16:00 09/16/18 16:02 Temperature 97.6 F Pulse Rate 82 77 79 Respiratory Rate 15 12 14 Blood Pressure 138/76 150/80 H Pulse Oximetry 96 97 09/16/18 16:15 09/16/18 16:30 09/16/18 16:45 Temperature Pulse Rate 78 84 83 Respiratory Rate 17 22 20 Blood Pressure 156/86 H 136/81 142/80 H Pulse Oximetry 100 96 96 09/16/18 17:00 09/16/18 17:15 09/16/18 17:30 Temperature Pulse Rate 85 79 90 Respiratory Rate 18 16 18 Blood Pressure 152/80 H 147/79 H 140/76 Pulse Oximetry 95 95 95 09/16/18 17:45 09/16/18 18:00 09/16/18 18:15 Temperature Pulse Rate 81 84 78 Respiratory Rate 18 20 21 Blood Pressure 151/84 H 139/72 144/76 H Pulse Oximetry 95 96 97 09/16/18 19:00 09/16/18 19:59 09/16/18 20:00 Temperature 98.8 F Pulse Rate 71 75 89 Respiratory Rate 14 16 Blood Pressure 144/84 H Pulse Oximetry 100 09/16/18 21:00 09/16/18 22:00 09/16/18 23:00 Temperature Pulse Rate 83 83 86 Respiratory Rate Blood Pressure Pulse Oximetry 09/17/18 00:00 09/17/18 00:28 09/17/18 01:00 Temperature Pulse Rate 82 91 H 85 Respiratory Rate 20 Blood Pressure Pulse Oximetry 95 09/17/18 02:00 09/17/18 03:00 09/17/18 04:00 Temperature 98.8 F Pulse Rate 85 92 H 80 Respiratory Rate 23 Blood Pressure 138/70 Pulse Oximetry 96 09/17/18 04:15 09/17/18 05:00 09/17/18 06:00 Temperature Pulse Rate 80 82 80 Respiratory Rate 16 Blood Pressure Pulse Oximetry 09/17/18 07:00 09/17/18 08:00 09/17/18 09:00 Temperature 98.4 F Pulse Rate 77 74 81 Respiratory Rate 21 23 29 H Blood Pressure 146/75 H 147/82 H 145/73 H Pulse Oximetry 97 96 96 09/17/18 09:28 09/17/18 10:00 09/17/18 11:00 Temperature Pulse Rate 87 75 68 Respiratory Rate 20 19 18 Blood Pressure 136/75 134/81 Pulse Oximetry 99 96 97 Intake & Output 09/16/18 09/17/18 09/17/18 18:59 06:59 18:59 Intake Total 1560 / 1560 500 / 500 500 / 500 Output Total 755 / 755 500 / 500 Balance 805 / 805 0 / 0 500 / 500 Weight 88.5 kg Intake: IV 1500 / 1500 500 / 500 500 / 500 NS + KCl 20 mEq Inj 1,000 ML @ 800 / 800 75 mls/hr IV.CONT .[id number] JAZ Rx#:[id number] Diprivan 1000 mg/100 ml Inj 1, 50 / 50 000 mg In 100 ml @ 5 MCG/KG/MIN 2.625 mls/hr IV.CONT TITRATE PRN Rx#:[id number] Maxipime Inj 2,000 MG In NS Inj 100 / 100 100 / 100 200 / 200 100 ML @ 200 mls/hr IV.SIG Q8H JAZ Rx#:[id number] Penicillin G Sodium Inj 4,000, 300 / 300 300 / 300 200 / 200 000 UNITS In NS Inj 100 ML @ 200 mls/hr IV.SIG Q4H JAZ Rx#: [id number] fentaNYL 10 mcg/mL Premix Drip 50 / 50 2,500 mcg In 250 ml @ 50 MCG/HR 5 mls/hr IV.SIG TITRATE PRN Rx #:[id number] Flagyl 500 MG Inj 100 ML @ 100 200 / 200 100 / 100 100 / 100 mls/hr IV.SIG Q8H JAZ Rx#: [id number] Tube Irrigant 60 / 60 Output: Stool 0 / 0 Urine Amount (Catheter) 750 / 750 500 / 500 Condom 750 / 750 500 / 500 Gastric Drainage 0 / 0 Orogastric Tube 0 / 0 Wound Drainage 5 / 5 # 1 Left BONG Drain 5 / 5 Other: Date of Last Bowel Movement 09/11/18 09/11/18 09/11/18 # Bowel Movements 0 Result Diagrams: 09/16/18 10:36 09/16/18 10:36 Objective Remarks: GENERAL: 63-year-old male, extubated NECK: Cervical collar and a drain in place. CARDIOVASCULAR: Regular rate and rhythm. Normotensive. No JVD. RESPIRATORY: PRVC. Air entry equal bilaterally no wheezes or crackles GASTROINTESTINAL: Abdomen soft, non-tender, nondistended. No guarding. MUSCULOSKELETAL: No clubbing, cyanosis, or edema. No obvious deformities. R upper extremity more swollen than left (no DVT) NEUROLOGICAL: Patient wakes up easily follows commands x4. No significant weakness of the lower extremity by limited exam. Follows commands x4 Assessment and Plan - Assessment and Plan Plan: ASSESSMENT: Acute hypoxemic respiratory failure Aspiration pneumonia Inability to protect airway Metabolic encephalopathy Sepsis Acute discitis at C4/C5, epidural and retropharyngeal abscess s/p decompression and stabilization. History of COPD Underlying dementia PLAN: NEURO: -Propofol, and fentanyl for sedation and ventilator synchrony -Neuro exam improved today no focal deficits observed on sedation hold -Start sedating medication -Stat MRI of the C-spine 09/14- C4-5 with some residual soft tissue or complex fluid posterior to the disc interspace resulting in persistent moderate to severe focal canal stenosis and cord compression. No surgical intervention needed per Dr. Pereira -Decadron 4 mg IV every 6 hours, start tapering in 24 hours -Minimal sedation RESP: -Emergently intubated and placed on mechanical ventilation 09/14/18 -PRVC/AC, Ventilator bundle -DuoNeb every 6 hours scheduled and as needed -Chest x-ray showed small left pleural effusion but sputum culture negative today -IV Decadron as above -Start weaning trials with possible extubation -No vocal cord edema on intubation, no difficulty of passing ETT -Extubated now 09/17 CV: -Hemodynamically stable, discontinue IV fluids GI: -Swallow eval : -Monitor renal function closely. Guido catheter. ID: -Antibiotics vancomycin cefepime and Flagyl -Repeat blood and sputum culture follow-up, negative to date -ID Dr. Hanson is following HEME: -Monitor CBC, coags -Right upper extremity is more swollen compared to left, venous duplex negative for DVT ENDO: -Electrolyte replacement per protocol -Sliding scale insulin if needed PROPH: -Bilateral lower extremity SCDs. IV famotidine. Start Lovenox 40 mg sq daily, cleared by Dr. Pereira LINES: -Utilize peripheral IVs, left IJ central line placed 09/14/2018, will DC today Overall impression: Comfortable respiratory pattern. Protects airway well. Stable hemodynamics.
[2018-09-17] MEDS: traZODone 50 MG Tablet PO SCH (20:24)
[2018-09-18] MEDS ORDERED: Sodium Chloride 0.9% 2 ML Flush PRN IV.FLUSH (00:38)
[2018-09-18] MEDS: Oral Hygiene Kit OROPHARYNG SCH ×4 (04:29→23:37)
[2018-09-18] MEDS: PENICILLIN SODIUM IV.SIG SCH ×5 (04:41→20:59)
[2018-09-18] MEDS: SODIUM CHLOR 0.9% IV.SIG SCH ×5 (04:41→20:59)
[2018-09-18] MEDS: Senna/Docusate Sodium 8.6/50 MG Tablet PO SCH ×2 (08:38→21:53)
[2018-09-18] MEDS: Propranolol 10 MG Tablet PO SCH ×2 (08:39→21:54)
[2018-09-18] MEDS: clonazePAM 0.5 MG Tablet PO SCH ×2 (08:39→21:54)
[2018-09-18] MEDS: QUEtiapine 100 MG Tablet PO SCH ×3 (08:39→21:53)
[2018-09-18] MEDS: Enoxaparin Inj 40 MG/0.4 ML Syringe SQ SCH (08:40)
[2018-09-18] MEDS: Chlorhexidine 0.12% Oral Kit 15 ML UDC OROPHARYNG SCH ×2 (08:41→21:38)
[2018-09-18] MEDS: Sodium Chloride 0.9% 2 ML Flush BID IV.FLUSH SCH ×2 (08:41→21:00)
--- NOTE | 2018-09-18 09:48 | P.PNCC ---
Subjective Subjective Remarks/Hospital Course: Patient is a 63-year-old male with past medical history significant for COPD, dementia, schizophrenia, who was admitted to the hospitalist service on 09/11/2018 with neck pain and extremity weakness and MRI showing acute discitis at C4/C5 with epidural abscess retropharyngeal abscess. Dr Pereira was consulted and on 09/12/18 underwent cervical decompression and evacuation of abscess (C4-5 anterior cervical discectomy with evacuation of epidural abscess, interbody arthrodesis using PEEK cage filled with autologous bone graft, Simplicity plate and screws). Patient was ready on IV cefepime Flagyl and vancomycin per ID Dr. Hanson. Patient was moved to the ICU by the hospitalist for concern of aspiration and increasing oxygen requirement. Today a.m. patient was noted to be on 50% Ventimask and chest x-ray showed a left lower lobe infiltrate. I was consulted emergently around 11:30 AM today as the patient was acutely desaturating, clearly aspirated. On my arrival to the bedside patient had an oxygen saturation of 75-76% on 100% nonrebreather. Significant gurgling sounds heard. Patient was more or less unresponsive struggling to breathe. I suctioned out a large amount of secretion from the oropharynx, which improved the saturation to 85%. Patient was emergently intubated with direct laryngoscopy and was placed on mechanical ventilation. Stat chest x-ray is pending. I will place him on scheduled Decadron for any airway edema. Stat MRI of the C-spine ordered with and without contrast to evaluate for retropharyngeal abscess expansion and also airway edema and C-spine injury. Discussed with Dr. Conway neurosurgery 09/15/18: Patient remains intubated sedation held good neuro exam. Follows commands good strength of the lower extremities and upper extremities. MRI yesterday showed there is interval fusion across C4-5 with some residual soft tissue or complex fluid posterior to the disc interspace resulting in persistent moderate to severe focal canal stenosis and cord compression. Minimal cord signal abnormality at the area of compression. Discussed with Dr. Pereira is no surgical indication at this time. Continue Decadron for possible upper airway swelling 09/16: Patient remains intubated but wakes up easily follows commands x4. Chest x-ray shows persistent small left effusion but sputum cultures negative to date. MRI reviewed with Dr. Randall no indication for surgery at this time adequately decompressed. 09/17: Tolerating extubation, protects airway well. Nauseated. 09/18: Appears to be breathing comfortably following commands strength appears to be near normal in all 4 extremities. Restarting home psych meds Objective Vital Signs / I&O: Vital Signs 09/17/18 10:00 09/17/18 11:00 09/17/18 12:00 Temperature 97.3 F L Pulse Rate 75 68 65 Respiratory Rate 19 18 18 Blood Pressure 136/75 134/81 140/89 Pulse Oximetry 96 97 98 09/17/18 13:00 09/17/18 14:00 09/17/18 15:00 Temperature Pulse Rate 76 66 87 Respiratory Rate 22 19 31 H Blood Pressure 155/70 H 160/74 H 168/88 H Pulse Oximetry 97 97 97 09/17/18 16:00 09/17/18 17:00 09/17/18 17:01 Temperature 97.9 F Pulse Rate 66 65 Respiratory Rate 21 21 22 Blood Pressure 151/74 H 140/76 Pulse Oximetry 96 97 09/17/18 17:03 09/17/18 17:31 09/17/18 18:00 Temperature Pulse Rate 76 76 Respiratory Rate 17 20 23 Blood Pressure 162/73 H Pulse Oximetry 89 L 09/17/18 19:00 09/17/18 20:00 09/17/18 20:49 Temperature 98.4 F Pulse Rate 85 74 91 H Respiratory Rate 23 26 H 20 Blood Pressure 146/77 H 147/87 H Pulse Oximetry 90 L 95 94 L 09/17/18 21:00 09/17/18 21:15 09/17/18 22:00 Temperature Pulse Rate 80 86 88 Respiratory Rate 17 18 27 H Blood Pressure 155/109 H 149/71 H 149/76 H Pulse Oximetry 99 97 93 L 09/17/18 23:00 09/17/18 23:04 09/17/18 23:52 Temperature Pulse Rate 79 80 82 Respiratory Rate 25 H 22 24 Blood Pressure 154/104 H 142/86 H Pulse Oximetry 94 L 94 L 09/18/18 00:00 09/18/18 01:00 09/18/18 02:00 Temperature 98.1 F Pulse Rate 88 69 68 Respiratory Rate 25 H 17 25 H Blood Pressure 138/83 145/76 H 142/72 H Pulse Oximetry 94 L 97 96 09/18/18 03:00 09/18/18 04:00 09/18/18 05:00 Temperature 98.3 F Pulse Rate 69 76 85 Respiratory Rate 22 21 36 H Blood Pressure 138/81 143/83 H 147/80 H Pulse Oximetry 96 97 97 09/18/18 06:00 09/18/18 07:00 09/18/18 07:12 Temperature Pulse Rate 80 70 71 Respiratory Rate 21 24 Blood Pressure 147/74 H 139/69 Pulse Oximetry 98 95 95 09/18/18 08:00 09/18/18 08:55 09/18/18 08:56 Temperature 97.5 F L Pulse Rate 65 71 Respiratory Rate 26 H 24 Blood Pressure 152/73 H Pulse Oximetry 99 96 Intake & Output 09/17/18 09/18/18 09/18/18 18:59 06:59 18:59 Intake Total 700 / 700 600 / 600 100 / 100 Output Total 1250 / 1250 1600 / 1600 Balance -550 / -550 -1000 / -1000 100 / 100 Weight 84.6 kg Intake: IV 700 / 700 600 / 600 100 / 100 Maxipime Inj 2,000 MG In NS Inj 200 / 200 200 / 200 100 ML @ 200 mls/hr IV.SIG Q8H JAZ Rx#:[id number] Penicillin G Sodium Inj 4,000, 300 / 300 300 / 300 000 UNITS In NS Inj 100 ML @ 200 mls/hr IV.SIG Q4H JAZ Rx#: [id number] Flagyl 500 MG Inj 100 ML @ 100 200 / 200 100 / 100 100 / 100 mls/hr IV.SIG Q8H JAZ Rx#: [id number] Output: Urine 1600 / 1600 Urine Amount (Catheter) 1250 / 1250 Condom 1250 / 1250 Other: Date of Last Bowel Movement 09/11/18 09/11/18 Result Diagrams: 09/16/18 10:36 09/16/18 10:36 Objective Remarks: GENERAL: 63-year-old male, extubated, on nasal cannula NECK: Cervical collar and drain removed. CARDIOVASCULAR: Regular rate and rhythm. Normotensive. No JVD. RESPIRATORY: Air entry equal bilaterally no wheezes or crackles GASTROINTESTINAL: Abdomen soft, non-tender, nondistended. No guarding. MUSCULOSKELETAL: No clubbing, cyanosis, or edema. No obvious deformities. R upper extremity more swollen than left (no DVT) NEUROLOGICAL: Patient wakes up easily follows commands x4. No significant weakness of the extremities follows commands x4 Assessment and Plan - Assessment and Plan Plan: ASSESSMENT: Acute hypoxemic respiratory failure-resolved Aspiration pneumonia Metabolic encephalopathy Sepsis Acute discitis at C4/C5, epidural and retropharyngeal abscess s/p decompression and stabilization. COPD Underlying dementia Schizoaffective disorder/schizophrenia PLAN: NEURO: -Neuro exam improved today no focal deficits observed on sedation hold -Home antipsychotics and anxiolytics restarted along with antidepressants -MRI of the C-spine 09/14- C4-5 with some residual soft tissue or complex fluid posterior to the disc interspace resulting in persistent moderate to severe focal canal stenosis and cord compression. No surgical intervention needed per Dr. Pereira -Decadron 4 mg IV every 6 hours, reduce to IV every 8 hours RESP: -Emergently intubated and placed on mechanical ventilation 09/14/18 -Extubated now 09/16. Protecting airway at this time -DuoNeb every 6 hours scheduled and as needed -Chest x-ray showed small left pleural effusion but sputum culture negative today -IV Decadron as above -No vocal cord edema on intubation, no difficulty of passing ETT CV: -Hemodynamically stable, discontinue IV fluids GI: -Swallow eval. diet per speech : -Monitor renal function closely. Dc Guido catheter. ID: -Antibiotics vancomycin cefepime and Flagyl per ID -ID Dr. Hanson is following HEME: -Monitor CBC, coags -Right upper extremity is more swollen compared to left, venous duplex negative for DVT ENDO: -Electrolyte replacement per protocol -Sliding scale insulin if needed PROPH: -Bilateral lower extremity SCDs. IV famotidine. Lovenox 40 mg sq daily, cleared by Dr. Pereira LINES: -Utilize peripheral IVs, left IJ central line placed 09/14/2018-DCd Overall impression: Comfortable respiratory pattern. Protects airway well. Stable hemodynamics. Watch in ICU for another 24-48 hours because of re- adjustment of psych and sedating meds, risk of airway compromise Level 3
[2018-09-18] MEDS: Duloxetine 60 MG DR Capsule PO SCH (09:56)
[2018-09-18] MEDS: Famotidine PF Inj 20 MG/2 ML Vial IV.PUSH SCH ×2 (09:56→20:59)
[2018-09-18] MEDS: clonazePAM 1 MG Tablet PO SCH (09:57)
--- NOTE | 2018-09-18 10:34 | XR ---
EXAM DATE: 09/18/2018 10:28 AM EST AGE/SEX: 63 years / Male INDICATIONS: Short of breath, evaluate respiratory disease CLINICAL DATA: This is the patient's subsequent encounter. Patient reports that signs and symptoms h ave been present for 4 - 6 days and indicates a pain score of Nonresponsive. MEDICAL/SURGICAL HISTORY: Hypertension. . cervical fusion, hip replacement COMPARISON: [facility], CHEST 1V SINGLE AP, 09/16/2018. . FINDINGS: Single AP view the chest. Left lower lobe consolidation versus atelectasis unchanged. Small left pleu ral effusion unchanged. No evidence of pneumothorax. Cardiomediastinal silhouette unchanged. CONCLUSION: No significant interval change. Persistent left lower lobe consolidation versus atelectasis and small left pleural effusion. Electronically signed by: Hakeem Rosen MD 09/18/2018 10:33 AM EST
[2018-09-18] MEDS: Dexmedetomidine Inj 200 MCG in Sodium Chlor 0.9% Inj 48 ML IV.CONT PRN (16:17)
--- NOTE | 2018-09-18 16:27 | P.PNWCN ---
Wound Care Nurse Consult Description: Received pressure ulcer consult per protocol for a coccyx wound. Communicated with: RN Jaylene Sanabria and Doctor Kane Recommendation: Please put in wound care consults with physician order only. 1.Cleanse wounds to bilateral buttocks with normal saline or wound cleanser 2. Apply small pea sized amount of hydrogel to each wound bed and cover with optifoam gentle 4x4 3. Change dressing every 2 days or as needed if saturated or dislodged. 4. Please turn patient every 2 hours or as needed for offloading of pressure from baltazar prominences and from L side to R side, limiting time spent on back with p.t. and meals. 5. Place patient on low air loss bed/mattress when it arrives. Wound/Pressure Injury - Wound Right Buttocks Wound Staging: Stage II Wound Type: Pressure Injury Is This a Chronic Wound: Yes Requested from Provider a Wound Care Consult: Yes Length (cm): 2 Width (cm): 1 Depth (cm): 0.1 Wound Bed Appearance: [place] Wound Bed Appearance: 100% dry pink tissue Surrounding Tissue Appearance: [place] Surrounding Tissue Temperature: Cool Drainage Amount: None Drainage Odor: No Odor Dressing Status: Open to Air Wound Margin Description: Wound margins are well defined and open Left Buttocks Wound Staging: Stage II Wound Assessment: Ongoing Wound Type: Pressure Injury Requested from Provider a Wound Care Consult: Yes (Wound care has seen patient) Length (cm): 1 Width (cm): 1 Depth (cm): 0.1 Wound Bed Appearance: [place] Wound Bed Appearance: 100% dry pink tissue Surrounding Tissue Temperature: Cool Drainage Amount: None Drainage Odor: No Odor Dressing Status: Open to Air Wound Margin Description: Well defined and open - Additional Information Patient seen on for possible pressure injury to coccyx. Patient was turned toward the R side with the assistance of Jaylene Sanabria [facility] to reveal open partial thickness wounds to bilateral buttocks. Wounds present with 100% dry pink tissue. Periwound is slightly denuded, but dry. Wounds are classified as stage II pressure injuries, with mixed etiology of moisture, friction and pressure. Wounds were left open to air until recommended dressings can be obtained and applied. Wound measurements, full descriptions and recommendations are noted above.
--- NOTE | 2018-09-18 16:47 | P.PNNS ---
Subjective Interval history: on breathing treatment, remains NPO as he failed swallow evaluation <Stephanie Erwin - Last Filed: 09/19/18 10:47> Physical Exam Vital signs: Vital Signs 09/17/18 17:00 09/17/18 17:01 09/17/18 17:03 Temperature Pulse Rate 65 76 Respiratory Rate 21 22 17 Blood Pressure 140/76 Pulse Oximetry 97 09/17/18 17:31 09/17/18 18:00 09/17/18 19:00 Temperature Pulse Rate 76 85 Respiratory Rate 20 23 23 Blood Pressure 162/73 H 146/77 H Pulse Oximetry 89 L 90 L 09/17/18 20:00 09/17/18 20:49 09/17/18 21:00 Temperature 98.4 F Pulse Rate 74 91 H 80 Respiratory Rate 26 H 20 17 Blood Pressure 147/87 H 155/109 H Pulse Oximetry 95 94 L 99 09/17/18 21:15 09/17/18 22:00 09/17/18 23:00 Temperature Pulse Rate 86 88 79 Respiratory Rate 18 27 H 25 H Blood Pressure 149/71 H 149/76 H 154/104 H Pulse Oximetry 97 93 L 94 L 09/17/18 23:04 09/17/18 23:52 09/18/18 00:00 Temperature 98.1 F Pulse Rate 80 82 88 Respiratory Rate 22 24 25 H Blood Pressure 142/86 H 138/83 Pulse Oximetry 94 L 94 L 09/18/18 01:00 09/18/18 02:00 09/18/18 03:00 Temperature Pulse Rate 69 68 69 Respiratory Rate 17 25 H 22 Blood Pressure 145/76 H 142/72 H 138/81 Pulse Oximetry 97 96 96 09/18/18 04:00 09/18/18 05:00 09/18/18 06:00 Temperature 98.3 F Pulse Rate 76 85 80 Respiratory Rate 21 36 H Blood Pressure 143/83 H 147/80 H 147/74 H Pulse Oximetry 97 97 98 09/18/18 07:00 09/18/18 07:12 09/18/18 08:00 Temperature 97.5 F L Pulse Rate 70 71 75 Respiratory Rate 21 24 26 H Blood Pressure 139/69 152/73 H Pulse Oximetry 95 95 99 09/18/18 08:55 09/18/18 08:56 09/18/18 09:00 Temperature Pulse Rate 71 63 Respiratory Rate 24 26 H Blood Pressure 154/90 H Pulse Oximetry 96 100 09/18/18 10:00 09/18/18 10:15 09/18/18 11:00 Temperature Pulse Rate 70 89 58 L Respiratory Rate 17 24 13 Blood Pressure 126/73 111/59 L Pulse Oximetry 89 L 95 09/18/18 11:02 09/18/18 12:00 09/18/18 12:21 Temperature 97.9 F Pulse Rate 71 60 Respiratory Rate 28 H 18 Blood Pressure 142/71 H Pulse Oximetry 95 95 09/18/18 13:00 09/18/18 14:00 09/18/18 14:37 Temperature 98.1 F Pulse Rate 58 L 65 71 Respiratory Rate 11 L 24 25 H Blood Pressure 112/61 130/71 141/74 H Pulse Oximetry 93 L 97 96 09/18/18 15:00 09/18/18 16:07 Temperature Pulse Rate 77 Respiratory Rate 27 H Blood Pressure 130/73 Pulse Oximetry 94 L 89 L Intake & Output 09/17/18 09/18/18 09/18/18 18:59 06:59 18:59 Intake Total 700 / 700 600 / 600 600 / 600 Output Total 1250 / 1250 1600 / 1600 Balance -550 / -550 -1000 / -1000 600 / 600 Weight 84.6 kg Intake: IV 700 / 700 600 / 600 600 / 600 Maxipime Inj 2,000 MG In NS Inj 200 / 200 200 / 200 100 / 100 100 ML @ 200 mls/hr IV.SIG Q8H JAZ Rx#:[id number] Penicillin G Sodium Inj 4,000, 300 / 300 300 / 300 300 / 300 000 UNITS In NS Inj 100 ML @ 200 mls/hr IV.SIG Q4H JAZ Rx#: [id number] Flagyl 500 MG Inj 100 ML @ 100 200 / 200 100 / 100 200 / 200 mls/hr IV.SIG Q8H JAZ Rx#: [id number] Output: Urine 1600 / 1600 Urine Amount (Catheter) 1250 / 1250 Condom 1250 / 1250 Other: Date of Last Bowel Movement 09/11/18 09/11/18 09/11/18 Narrative: awake, follows commands Optifoam dressing clean and dry moves all extremities: gripped b/l, moves both upper and lower extremities off the bed to command with good strength c-spine immobilize by ailey collar on breathing tx - Urinary Catheter Management Indwelling Urethral Catheter Cath placed during this visit: yes, but has since been removed by the nurse Urethral indwelling: Yes Reason for continuing: Acute urinary retention Insertion date: 09/12/18 Insertion time: 10:40 Removal date: 09/13/18 Removal time: 11:00 Condom Cath placed during this visit: no <Stephanie Erwin - Last Filed: 09/19/18 10:47> Vital signs: Vital Signs 09/20/18 20:41 09/20/18 21:00 09/20/18 22:00 Temperature Pulse Rate 53 L 88 51 L Respiratory Rate 18 30 H 17 Blood Pressure 134/103 H 121/69 Pulse Oximetry 98 98 90 L 09/20/18 23:00 09/21/18 00:00 09/21/18 00:31 Temperature 98.5 F Pulse Rate 53 L 57 L 57 L Respiratory Rate 21 17 18 Blood Pressure 130/77 112/66 Pulse Oximetry 99 99 09/21/18 01:00 09/21/18 02:00 09/21/18 03:00 Temperature 97.4 F L Pulse Rate 108 H 63 61 Respiratory Rate 20 16 15 Blood Pressure 97/59 L 92/59 L 114/64 Pulse Oximetry 94 L 97 99 09/21/18 03:49 09/21/18 04:00 09/21/18 04:41 Temperature 97.7 F Pulse Rate 78 76 Respiratory Rate 16 18 Blood Pressure 111/64 Pulse Oximetry 93 L 97 09/21/18 05:00 09/21/18 06:00 09/21/18 07:00 Temperature Pulse Rate 55 L 97 H 80 Respiratory Rate 13 26 H 27 H Blood Pressure 107/66 130/80 128/81 Pulse Oximetry 100 100 100 09/21/18 08:00 09/21/18 08:01 09/21/18 08:05 Temperature 97.3 F L Pulse Rate 71 84 Respiratory Rate 18 22 Blood Pressure 131/84 Pulse Oximetry 100 100 09/21/18 08:57 09/21/18 09:00 09/21/18 10:00 Temperature Pulse Rate 131 H 134 H 96 H Respiratory Rate 26 H 26 H 26 H Blood Pressure 124/82 123/85 153/85 H Pulse Oximetry 94 L 93 L 95 09/21/18 11:00 09/21/18 12:00 09/21/18 12:39 Temperature 98.6 F Pulse Rate 100 H 104 H 104 H Respiratory Rate 19 23 20 Blood Pressure 141/78 H 153/95 H Pulse Oximetry 94 L 96 09/21/18 13:00 09/21/18 14:00 09/21/18 15:00 Temperature Pulse Rate 74 73 62 Respiratory Rate 26 H 20 16 Blood Pressure 121/75 121/81 139/82 Pulse Oximetry 96 100 100 09/21/18 15:31 09/21/18 16:00 09/21/18 17:00 Temperature 98.2 F Pulse Rate 84 81 86 Respiratory Rate 23 19 32 H Blood Pressure 130/84 166/86 H Pulse Oximetry 100 98 09/21/18 18:00 09/21/18 19:00 Temperature Pulse Rate 76 74 Respiratory Rate 29 H 23 Blood Pressure 142/76 H 117/72 Pulse Oximetry 97 98 Intake & Output 09/21/18 09/21/18 09/22/18 06:59 18:59 06:59 Intake Total 750 / 750 400 / 400 Output Total 450 / 450 250 / 250 Balance 300 / 300 150 / 150 Intake: IV 750 / 750 400 / 400 Precedex Inj 200 MCG In NS Inj 150 / 150 200 / 200 48 ML @ 0.2 MCG/KG/HR 4.23 mls/ hr IV.CONT TITRATE PRN Rx#: [id number] Maxipime Inj 2,000 MG In NS Inj 200 / 200 100 ML @ 200 mls/hr IV.SIG Q8H JAZ Rx#:[id number] Pfizerpen-G Inj 4,000,000 UNIT 300 / 300 100 / 100 In NS Inj 100 ML @ 200 mls/hr IV.SIG Q4H JAZ Rx#:[id number] Flagyl 500 MG Inj 100 ML @ 100 100 / 100 100 / 100 mls/hr IV.SIG Q8H JAZ Rx#: [id number] Output: Urine 250 / 250 Urine Amount (Catheter) 450 / 450 Condom 450 / 450 Other: # Incontinent Voids 2 2 Date of Last Bowel Movement 09/11/18 09/11/18 - Urinary Catheter Management Indwelling Urethral Catheter Cath placed during this visit: no Condom Cath placed during this visit: no <Kit Pereira - Last Filed: 09/21/18 20:16> Assessment and Plan - Plan 63 year old male Acute discitis at C4/C5, with anterior subligamentous abscess and elongated retropharyngeal abscess, moderate to severe spinal stenosis at C4-C5, severe bilateral foraminal stenosis C4-5 instability and cord compression s/p C4-5 ACDF 09/12/18 wound cultures positive for Groub B strept dw nursing pt may remove cervical collar with ST eval and with meals can keep Optifoam dressing on until this saturday ID following for abx management clear for lovenox for dvt prophylaxis <Stephanie Erwin - Last Filed: 09/19/18 10:47> - Plan The exam, history, and the medical decision-making described in the above note were completed with the assistance of the mid-level provider. I reviewed and agree with the findings presented. I attest that I had a [id number] encounter with the patient on the same day, and personally performed and documented my assessment and findings in the medical record. <Kit Pereira - Last Filed: 09/21/18 20:16>
[2018-09-18] MEDS: traZODone 50 MG Tablet PO SCH (21:53)
[2018-09-19] MEDS: PENICILLIN SODIUM IV.SIG SCH ×2 (00:24→04:32)
[2018-09-19] MEDS: SODIUM CHLOR 0.9% IV.SIG SCH ×6 (00:24→20:04)
[2018-09-19] MEDS: Oral Hygiene Kit OROPHARYNG SCH ×3 (03:44→17:15)
--- NOTE | 2018-09-19 03:44 | XR ---
EXAM DATE: 09/19/2018 3:15 AM EST AGE/SEX: 63 years / Male INDICATIONS: Respiratory disease. CLINICAL DATA: This is the patient's subsequent encounter. Patient reports that signs and symptoms h ave been present for 1 week and indicates a pain score of Nonresponsive. MEDICAL/SURGICAL HISTORY: . Hypertension. . Cervical fusion, hip replacement COMPARISON: [facility], CHEST 1V SINGLE AP, 09/18/2018. . FINDINGS: Small effusion and mild consolidation again seen left base without significant change. Right lung rem ains essentially clear. No pneumothorax seen. Heart size within normal limits. CONCLUSION: Small effusion and mild consolidation at the left base without significant change. Electronically signed by: Kane Cooper MD 09/19/2018 3:43 AM EST
[2018-09-19] MEDS: QUEtiapine 100 MG Tablet PO SCH ×2 (05:55→22:11)
[2018-09-19 06:47] LABS: Hematocrit 41.1 % (39.0-51.0); Hemoglobin 13.8 gm/dL (13.0-17.0); Mean Corpuscular HGB Conc 33.7 % (32.0-36.0); Mean Corpuscular Hemoglobin 32.3 pg (27.0-34.0); Mean Corpuscular Volume 95.7 fL (80.0-100.0); Platelet Count 240 th/mm3 (150-450); Red Blood Count 4.29 mil/mm3 (4.50-5.90); Red Cell Distribution Width 13.7 % (11.6-17.2); White Blood Count 11.2 th/mm3 (4.0-11.0)
[2018-09-19 07:22] LABS: Chloride 100 meq/L (98-107); Potassium 4.9 meq/L (3.5-5.1)
[2018-09-19 07:23] LABS: Alanine Aminotransferase 27 U/L (12-78); Albumin 2.5 g/dL (3.4-5.0); Alkaline Phosphatase 63 U/L (45-117); Anion Gap 12 meq/L (5-15); Aspartate Aminotransferase 31 U/L (15-37); Blood Urea Nitrogen 22 mg/dL (7-18); Carbon Dioxide 27.2 meq/L (21.0-32.0); Glomerular Filtration Rate Greater Than 89 mL/min (>89); Glucose,Random 103 mg/dL (74-106); Magnesium 2.2 mg/dL (1.5-2.5); Sodium 139 meq/L (136-145); Total Protein 6.6 g/dL (6.4-8.2)
[2018-09-19] MEDS: PENICILLIN POTASSIUM IV.SIG SCH ×4 (08:30→20:04)
[2018-09-19] MEDS: Duloxetine 60 MG DR Capsule PO SCH (08:32)
[2018-09-19] MEDS: Famotidine PF Inj 20 MG/2 ML Vial IV.PUSH SCH ×2 (08:32→21:11)
[2018-09-19] MEDS: Senna/Docusate Sodium 8.6/50 MG Tablet PO SCH ×2 (08:33→22:11)
[2018-09-19] MEDS: Propranolol 10 MG Tablet PO SCH ×2 (08:33→22:11)
[2018-09-19] MEDS: Enoxaparin Inj 40 MG/0.4 ML Syringe SQ SCH (08:33)
--- NOTE | 2018-09-19 10:47 | P.PNNS ---
Subjective Interval history: remains NPO as he failed swallow, awake, confused but follows commands <Stephanie Erwin - Last Filed: 09/19/18 10:41> Physical Exam Vital signs: Vital Signs 09/18/18 11:00 09/18/18 11:02 09/18/18 12:00 Temperature 97.9 F Pulse Rate 58 L 71 Respiratory Rate 13 28 H Blood Pressure 111/59 L 142/71 H Pulse Oximetry 95 95 95 09/18/18 12:21 09/18/18 13:00 09/18/18 14:00 Temperature 98.1 F Pulse Rate 60 58 L 65 Respiratory Rate 18 11 L 24 Blood Pressure 112/61 130/71 Pulse Oximetry 93 L 97 09/18/18 14:37 09/18/18 15:00 09/18/18 16:00 Temperature Pulse Rate 71 77 97 H Respiratory Rate 25 H 27 H 30 H Blood Pressure 141/74 H 130/73 132/100 H Pulse Oximetry 96 94 L 90 L 09/18/18 16:07 09/18/18 16:25 09/18/18 16:46 Temperature Pulse Rate 92 H 99 H Respiratory Rate 32 H 37 H Blood Pressure 143/90 H 151/94 H Pulse Oximetry 89 L 92 L 91 L 09/18/18 17:00 09/18/18 17:33 09/18/18 17:45 Temperature Pulse Rate 90 83 90 Respiratory Rate 37 H 29 H 45 H Blood Pressure 140/83 152/91 H Pulse Oximetry 92 L 93 L 92 L 09/18/18 18:00 09/18/18 18:15 09/18/18 18:38 Temperature 98.9 F Pulse Rate 81 80 52 L Respiratory Rate 36 H 32 H 37 H Blood Pressure 152/79 H 142/69 H 165/85 H Pulse Oximetry 93 L 95 92 L 09/18/18 18:45 09/18/18 19:00 09/18/18 19:15 Temperature Pulse Rate 58 L 47 L 60 Respiratory Rate 39 H 23 38 H Blood Pressure 156/78 H 136/71 153/76 H Pulse Oximetry 89 L 90 L 90 L 09/18/18 20:00 09/18/18 20:44 09/18/18 21:00 Temperature 98.4 F Pulse Rate 65 56 L 54 L Respiratory Rate 28 H 13 13 Blood Pressure 130/71 150/71 H Pulse Oximetry 98 86 L 88 L 09/18/18 21:28 09/18/18 21:35 09/18/18 21:50 Temperature Pulse Rate 78 55 L Respiratory Rate 28 H 24 Blood Pressure 150/71 H Pulse Oximetry 92 L 92 L 95 09/18/18 22:00 09/18/18 22:31 09/18/18 23:00 Temperature Pulse Rate 58 L 78 71 Respiratory Rate 25 H 24 20 Blood Pressure 113/59 L 135/73 113/59 L Pulse Oximetry 91 L 96 95 09/19/18 00:00 09/19/18 00:42 09/19/18 01:00 Temperature 98.8 F Pulse Rate 61 50 L 69 Respiratory Rate 14 22 18 Blood Pressure 110/58 L 150/82 H Pulse Oximetry 97 98 09/19/18 02:00 09/19/18 03:00 09/19/18 04:00 Temperature 98.1 F Pulse Rate 75 76 73 Respiratory Rate 26 H 31 H 38 H Blood Pressure 153/74 H 151/88 H 148/84 H Pulse Oximetry 98 91 L 92 L 09/19/18 04:20 09/19/18 05:00 09/19/18 06:00 Temperature Pulse Rate 82 81 87 Respiratory Rate 22 40 H 32 H Blood Pressure 154/79 H 169/76 H Pulse Oximetry 80 L 97 09/19/18 06:19 09/19/18 07:00 09/19/18 08:00 Temperature Pulse Rate 82 79 85 Respiratory Rate 29 H 23 29 H Blood Pressure 138/73 132/81 143/87 H Pulse Oximetry 72 L 90 L 92 L 09/19/18 08:38 09/19/18 08:41 09/19/18 09:00 Temperature 97.3 F L Pulse Rate 78 84 77 Respiratory Rate 24 29 H 27 H Blood Pressure 141/84 H 152/109 H Pulse Oximetry 93 L 94 L 97 09/19/18 09:02 Temperature Pulse Rate 91 H Respiratory Rate 38 H Blood Pressure 156/83 H Pulse Oximetry 97 Intake & Output 09/18/18 09/19/18 09/19/18 18:59 06:59 18:59 Intake Total 600 / 600 650 / 650 100 / 100 Output Total 600 / 600 1725 / 1725 Balance 0 / 0 -1075 / -1075 100 / 100 Weight 84.7 kg Intake: IV 600 / 600 650 / 650 100 / 100 Precedex Inj 200 MCG In NS Inj 50 / 50 48 ML @ 0.2 MCG/KG/HR 4.23 mls/ hr IV.CONT TITRATE PRN Rx#: [id number] Maxipime Inj 2,000 MG In NS Inj 100 / 100 200 / 200 100 ML @ 200 mls/hr IV.SIG Q8H JAZ Rx#:[id number] Penicillin G Sodium Inj 4,000, 300 / 300 300 / 300 000 UNITS In NS Inj 100 ML @ 200 mls/hr IV.SIG Q4H JAZ Rx#: [id number] Flagyl 500 MG Inj 100 ML @ 100 200 / 200 100 / 100 100 / 100 mls/hr IV.SIG Q8H JAZ Rx#: [id number] Oral 0 / 0 Output: Urine 600 / 600 475 / 475 Urine Amount (Catheter) 1250 / 1250 Condom 1250 / 1250 Other: # Incontinent Voids 3 Date of Last Bowel Movement 09/11/18 # Bowel Movements 0 Narrative: awake, confused, follows commands cervical wound healing well, clean and dry moves all extremities 4-5/5 c-spine immobilize by [place] collar - Urinary Catheter Management Indwelling Urethral Catheter Cath placed during this visit: yes, but has since been removed by the nurse Urethral indwelling: Yes Reason for continuing: Acute urinary retention Insertion date: 09/12/18 Insertion time: 10:40 Removal date: 09/13/18 Removal time: 11:00 Condom Cath placed during this visit: no <Stephanie Erwin - Last Filed: 09/19/18 10:41> Vital signs: Vital Signs 09/20/18 20:41 09/20/18 21:00 09/20/18 22:00 Temperature Pulse Rate 53 L 88 51 L Respiratory Rate 18 30 H 17 Blood Pressure 134/103 H 121/69 Pulse Oximetry 98 98 90 L 09/20/18 23:00 09/21/18 00:00 09/21/18 00:31 Temperature 98.5 F Pulse Rate 53 L 57 L 57 L Respiratory Rate 21 17 18 Blood Pressure 130/77 112/66 Pulse Oximetry 99 99 09/21/18 01:00 09/21/18 02:00 09/21/18 03:00 Temperature 97.4 F L Pulse Rate 108 H 63 61 Respiratory Rate 20 16 15 Blood Pressure 97/59 L 92/59 L 114/64 Pulse Oximetry 94 L 97 99 09/21/18 03:49 09/21/18 04:00 09/21/18 04:41 Temperature 97.7 F Pulse Rate 78 76 Respiratory Rate 16 18 Blood Pressure 111/64 Pulse Oximetry 93 L 97 09/21/18 05:00 09/21/18 06:00 09/21/18 07:00 Temperature Pulse Rate 55 L 97 H 80 Respiratory Rate 13 26 H 27 H Blood Pressure 107/66 130/80 128/81 Pulse Oximetry 100 100 100 09/21/18 08:00 09/21/18 08:01 09/21/18 08:05 Temperature 97.3 F L Pulse Rate 71 84 Respiratory Rate 18 22 Blood Pressure 131/84 Pulse Oximetry 100 100 09/21/18 08:57 09/21/18 09:00 09/21/18 10:00 Temperature Pulse Rate 131 H 134 H 96 H Respiratory Rate 26 H 26 H 26 H Blood Pressure 124/82 123/85 153/85 H Pulse Oximetry 94 L 93 L 95 09/21/18 11:00 09/21/18 12:00 09/21/18 12:39 Temperature 98.6 F Pulse Rate 100 H 104 H 104 H Respiratory Rate 19 23 20 Blood Pressure 141/78 H 153/95 H Pulse Oximetry 94 L 96 09/21/18 13:00 09/21/18 14:00 09/21/18 15:00 Temperature Pulse Rate 74 73 62 Respiratory Rate 26 H 20 16 Blood Pressure 121/75 121/81 139/82 Pulse Oximetry 96 100 100 09/21/18 15:31 09/21/18 16:00 09/21/18 17:00 Temperature 98.2 F Pulse Rate 84 81 86 Respiratory Rate 23 19 32 H Blood Pressure 130/84 166/86 H Pulse Oximetry 100 98 09/21/18 18:00 09/21/18 19:00 Temperature Pulse Rate 76 74 Respiratory Rate 29 H 23 Blood Pressure 142/76 H 117/72 Pulse Oximetry 97 98 Intake & Output 09/21/18 09/21/18 09/22/18 06:59 18:59 06:59 Intake Total 750 / 750 400 / 400 Output Total 450 / 450 250 / 250 Balance 300 / 300 150 / 150 Intake: IV 750 / 750 400 / 400 Precedex Inj 200 MCG In NS Inj 150 / 150 200 / 200 48 ML @ 0.2 MCG/KG/HR 4.23 mls/ hr IV.CONT TITRATE PRN Rx#: [id number] Maxipime Inj 2,000 MG In NS Inj 200 / 200 100 ML @ 200 mls/hr IV.SIG Q8H JAZ Rx#:[id number] Pfizerpen-G Inj 4,000,000 UNIT 300 / 300 100 / 100 In NS Inj 100 ML @ 200 mls/hr IV.SIG Q4H JAZ Rx#:[id number] Flagyl 500 MG Inj 100 ML @ 100 100 / 100 100 / 100 mls/hr IV.SIG Q8H JAZ Rx#: [id number] Output: Urine 250 / 250 Urine Amount (Catheter) 450 / 450 Condom 450 / 450 Other: # Incontinent Voids 2 2 Date of Last Bowel Movement 09/11/18 09/11/18 - Urinary Catheter Management Indwelling Urethral Catheter Cath placed during this visit: no Condom Cath placed during this visit: no <Kit Pereira - Last Filed: 09/21/18 20:17> Assessment and Plan - Plan 63 year old male Acute discitis at C4/C5, with anterior subligamentous abscess and elongated retropharyngeal abscess, moderate to severe spinal stenosis at C4-C5, severe bilateral foraminal stenosis C4-5 instability and cord compression s/p C4-5 ACDF 09/12/18 wound cultures positive for Groub B strept dw nursing pt may remove cervical collar with ST eval and with meals may need temporary NG tube vs PEG tube feedings? wound may be kept open to air cont abx tx per ID <Stephanie Erwin - Last Filed: 09/19/18 10:41> - Plan The exam, history, and the medical decision-making described in the above note were completed with the assistance of the mid-level provider. I reviewed and agree with the findings presented. I attest that I had a [id number] encounter with the patient on the same day, and personally performed and documented my assessment and findings in the medical record. <Kit Pereira - Last Filed: 09/21/18 20:17>
[2018-09-19] MEDS: Chlorhexidine 0.12% Oral Kit 15 ML UDC OROPHARYNG SCH ×2 (11:05→20:50)
[2018-09-19] MEDS: Sodium Chloride 0.9% 2 ML Flush BID IV.FLUSH SCH ×2 (11:06→21:11)
[2018-09-19] MEDS: clonazePAM 0.5 MG Tablet PO SCH (11:06)
--- NOTE | 2018-09-19 14:03 | P.PNCC ---
Subjective Subjective Remarks/Hospital Course: Patient is a 63-year-old male with past medical history significant for COPD, dementia, schizophrenia, who was admitted to the hospitalist service on 09/11/2018 with neck pain and extremity weakness and MRI showing acute discitis at C4/C5 with epidural abscess retropharyngeal abscess. Dr Pereira was consulted and on 09/12/18 underwent cervical decompression and evacuation of abscess (C4-5 anterior cervical discectomy with evacuation of epidural abscess, interbody arthrodesis using PEEK cage filled with autologous bone graft, Simplicity plate and screws). Patient was ready on IV cefepime Flagyl and vancomycin per ID Dr. Hanson. Patient was moved to the ICU by the hospitalist for concern of aspiration and increasing oxygen requirement. Today a.m. patient was noted to be on 50% Ventimask and chest x-ray showed a left lower lobe infiltrate. I was consulted emergently around 11:30 AM today as the patient was acutely desaturating, clearly aspirated. On my arrival to the bedside patient had an oxygen saturation of 75-76% on 100% nonrebreather. Significant gurgling sounds heard. Patient was more or less unresponsive struggling to breathe. I suctioned out a large amount of secretion from the oropharynx, which improved the saturation to 85%. Patient was emergently intubated with direct laryngoscopy and was placed on mechanical ventilation. Stat chest x-ray is pending. I will place him on scheduled Decadron for any airway edema. Stat MRI of the C-spine ordered with and without contrast to evaluate for retropharyngeal abscess expansion and also airway edema and C-spine injury. Discussed with Dr. Conway neurosurgery 09/15/18: Patient remains intubated sedation held good neuro exam. Follows commands good strength of the lower extremities and upper extremities. MRI yesterday showed there is interval fusion across C4-5 with some residual soft tissue or complex fluid posterior to the disc interspace resulting in persistent moderate to severe focal canal stenosis and cord compression. Minimal cord signal abnormality at the area of compression. Discussed with Dr. Pereira is no surgical indication at this time. Continue Decadron for possible upper airway swelling 09/16: Patient remains intubated but wakes up easily follows commands x4. Chest x-ray shows persistent small left effusion but sputum cultures negative to date. MRI reviewed with Dr. Randall no indication for surgery at this time adequately decompressed. 09/17: Tolerating extubation, protects airway well. Nauseated. 09/18: Appears to be breathing comfortably following commands strength appears to be near normal in all 4 extremities. Restarting home psych meds 09/19: Patient remains severely agitated. He is on a chronic regimen of psychiatric medications including 600 mg of Seroquel each night. Also included are Cymbalta, Abilify, trazodone, and Klonopin. This regimen was arrived at after long-term care under a specific psychiatrist and per the sisters implication this is the only regimen that has successfully kept him functional. It was necessary to stop the medications for a while during the immediate perioperative period and we are having some difficulty getting his thought process back in a calm state. Objective Vital Signs / I&O: Vital Signs 09/18/18 14:00 09/18/18 14:37 09/18/18 15:00 Temperature 98.1 F Pulse Rate 65 71 77 Respiratory Rate 24 25 H 27 H Blood Pressure 130/71 141/74 H 130/73 Pulse Oximetry 97 96 94 L 09/18/18 16:00 09/18/18 16:07 09/18/18 16:25 Temperature Pulse Rate 97 H 92 H Respiratory Rate 30 H 32 H Blood Pressure 132/100 H 143/90 H Pulse Oximetry 90 L 89 L 92 L 09/18/18 16:46 09/18/18 17:00 09/18/18 17:33 Temperature Pulse Rate 99 H 90 83 Respiratory Rate 37 H 37 H 29 H Blood Pressure 151/94 H 140/83 Pulse Oximetry 91 L 92 L 93 L 09/18/18 17:45 09/18/18 18:00 09/18/18 18:15 Temperature Pulse Rate 90 81 80 Respiratory Rate 45 H 36 H 32 H Blood Pressure 152/91 H 152/79 H 142/69 H Pulse Oximetry 92 L 93 L 95 09/18/18 18:38 09/18/18 18:45 09/18/18 19:00 Temperature 98.9 F Pulse Rate 52 L 58 L 47 L Respiratory Rate 37 H 39 H 23 Blood Pressure 165/85 H 156/78 H 136/71 Pulse Oximetry 92 L 89 L 90 L 09/18/18 19:15 09/18/18 20:00 09/18/18 20:44 Temperature 98.4 F Pulse Rate 60 65 56 L Respiratory Rate 38 H 28 H 13 Blood Pressure 153/76 H 130/71 Pulse Oximetry 90 L 98 86 L 09/18/18 21:00 09/18/18 21:28 09/18/18 21:35 Temperature Pulse Rate 54 L 78 55 L Respiratory Rate 13 28 H 24 Blood Pressure 150/71 H 150/71 H Pulse Oximetry 88 L 92 L 92 L 09/18/18 21:50 09/18/18 22:00 09/18/18 22:31 Temperature Pulse Rate 58 L 78 Respiratory Rate 25 H 24 Blood Pressure 113/59 L 135/73 Pulse Oximetry 95 91 L 96 09/18/18 23:00 09/19/18 00:00 09/19/18 00:42 Temperature 98.8 F Pulse Rate 71 61 50 L Respiratory Rate 20 14 22 Blood Pressure 113/59 L 110/58 L Pulse Oximetry 95 97 09/19/18 01:00 09/19/18 02:00 09/19/18 03:00 Temperature Pulse Rate 69 75 76 Respiratory Rate 18 26 H 31 H Blood Pressure 150/82 H 153/74 H 151/88 H Pulse Oximetry 98 98 91 L 09/19/18 04:00 09/19/18 04:20 09/19/18 05:00 Temperature 98.1 F Pulse Rate 73 82 81 Respiratory Rate 38 H 22 40 H Blood Pressure 148/84 H 154/79 H Pulse Oximetry 92 L 80 L 09/19/18 06:00 09/19/18 06:19 09/19/18 07:00 Temperature Pulse Rate 87 82 79 Respiratory Rate 32 H 29 H 23 Blood Pressure 169/76 H 138/73 132/81 Pulse Oximetry 97 72 L 90 L 09/19/18 08:00 09/19/18 08:38 09/19/18 08:41 Temperature 97.3 F L Pulse Rate 80 78 84 Respiratory Rate 29 H 24 29 H Blood Pressure 143/87 H 141/84 H Pulse Oximetry 92 L 93 L 94 L 09/19/18 09:00 09/19/18 09:02 09/19/18 10:00 Temperature Pulse Rate 77 91 H 77 Respiratory Rate 27 H 38 H Blood Pressure 152/109 H 156/83 H 158/124 H Pulse Oximetry 97 97 93 L 09/19/18 10:17 09/19/18 11:00 09/19/18 11:30 Temperature Pulse Rate 73 Respiratory Rate Blood Pressure 161/76 H 138/97 H Pulse Oximetry 94 L 96 95 09/19/18 12:00 09/19/18 12:30 09/19/18 13:13 Temperature Pulse Rate 80 79 101 H Respiratory Rate 21 17 Blood Pressure 149/95 H 151/79 H Pulse Oximetry 99 94 L Intake & Output 09/18/18 09/19/18 09/19/18 18:59 06:59 18:59 Intake Total 600 / 600 650 / 650 200 / 200 Output Total 600 / 600 1725 / 1725 Balance 0 / 0 -1075 / -1075 200 / 200 Weight 84.7 kg Intake: IV 600 / 600 650 / 650 200 / 200 Precedex Inj 200 MCG In NS Inj 50 / 50 48 ML @ 0.2 MCG/KG/HR 4.23 mls/ hr IV.CONT TITRATE PRN Rx#: [id number] Maxipime Inj 2,000 MG In NS Inj 100 / 100 200 / 200 100 ML @ 200 mls/hr IV.SIG Q8H JAZ Rx#:[id number] Pfizerpen-G Inj 4,000,000 UNIT 100 / 100 In NS Inj 100 ML @ 200 mls/hr IV.SIG Q4H JAZ Rx#:[id number] Penicillin G Sodium Inj 4,000, 300 / 300 300 / 300 000 UNITS In NS Inj 100 ML @ 200 mls/hr IV.SIG Q4H JAZ Rx#: [id number] Flagyl 500 MG Inj 100 ML @ 100 200 / 200 100 / 100 100 / 100 mls/hr IV.SIG Q8H JAZ Rx#: [id number] Oral 0 / 0 Output: Urine 600 / 600 475 / 475 Urine Amount (Catheter) 1250 / 1250 Condom 1250 / 1250 Other: # Incontinent Voids 3 Date of Last Bowel Movement 09/11/18 09/11/18 # Bowel Movements 0 Result Diagrams: 09/19/18 05:42 09/19/18 05:42 Objective Remarks: GENERAL: 63-year-old male, extubated, on nasal cannula NECK: Cervical collar and drain removed. CARDIOVASCULAR: Regular rate and rhythm. Normotensive. No JVD. RESPIRATORY: Air entry equal bilaterally no wheezes or crackles GASTROINTESTINAL: Abdomen soft, non-tender, nondistended. No guarding. Bowel sounds active. MUSCULOSKELETAL: No clubbing, cyanosis, or edema. No obvious deformities. R upper extremity more swollen than left (no DVT) NEUROLOGICAL: Patient is severely agitated and hurling 4 extremities wildly. No significant weakness of the extremities. Yelling loudly but not following commands. Assessment and Plan - Assessment and Plan Plan: ASSESSMENT: Acute hypoxemic respiratory failure-resolved Aspiration pneumonia Metabolic encephalopathy Sepsis Acute discitis at C4/C5, epidural and retropharyngeal abscess s/p decompression and stabilization. COPD Underlying dementia Schizoaffective disorder/schizophrenia PLAN: NEURO: -Neuro exam improved today no focal deficits observed on sedation hold -Home antipsychotics and anxiolytics restarted along with antidepressants -MRI of the C-spine 09/14- C4-5 with some residual soft tissue or complex fluid posterior to the disc interspace resulting in persistent moderate to severe focal canal stenosis and cord compression. -C4-5 anterior cervical discectomy with evacuation of epidural abscess, interbody arthrodesis using PEEK cage filled with autologous bone graft, Simplicity plate and screws 09/12 -Continued sedation protocol required for severe agitation RESP: -Emergently intubated and placed on mechanical ventilation 09/14/18 -Extubated now 09/16. Protecting airway at this time -DuoNeb every 6 hours scheduled and as needed -Chest x-ray showed small left pleural effusion but sputum culture negative today -IV Decadron as above -No vocal cord edema on intubation, no difficulty of passing ETT CV: -Hemodynamically stable, discontinue IV fluids GI: -Swallow eval. diet per speech : -Monitor renal function closely. Dc Guido catheter. ID: -Antibiotics vancomycin cefepime and Flagyl per ID -ID Dr. Hanson is following HEME: -Monitor CBC, coags -Right upper extremity is more swollen compared to left, venous duplex negative for DVT ENDO: -Electrolyte replacement per protocol -Sliding scale insulin if needed PROPH: -Bilateral lower extremity SCDs. IV famotidine. Lovenox 40 mg sq daily, cleared by Dr. Pereira LINES: -Utilize peripheral IVs, left IJ central line placed 09/14/2018-DCd Overall impression: Comfortable respiratory pattern. Protects airway well. Stable hemodynamics. Watch in ICU for another 24-48 hours because of re- adjustment of psych and sedating meds, risk of airway compromise. He remains severely agitated and requiring a sedation protocol. All of his prehospital antipsychotic medications have been restarted.
--- NOTE | 2018-09-19 14:36 | P.PNID ---
Subjective Remarks: extubated psychotic agressive comabtive he is afebrile Antibiotics: cefepime flagyl vancomycin Allergies/Adverse Reactions: Allergies No Known Allergies Allergy (Verified 09/11/18 16:49) Objective Vital Signs 09/18/18 14:37 09/18/18 15:00 09/18/18 16:00 Temperature Pulse Rate 71 77 97 H Respiratory Rate 25 H 27 H 30 H Blood Pressure 141/74 H 130/73 132/100 H Pulse Oximetry 96 94 L 90 L 09/18/18 16:07 09/18/18 16:25 09/18/18 16:46 Temperature Pulse Rate 92 H 99 H Respiratory Rate 32 H 37 H Blood Pressure 143/90 H 151/94 H Pulse Oximetry 89 L 92 L 91 L 09/18/18 17:00 09/18/18 17:33 09/18/18 17:45 Temperature Pulse Rate 90 83 90 Respiratory Rate 37 H 29 H 45 H Blood Pressure 140/83 152/91 H Pulse Oximetry 92 L 93 L 92 L 09/18/18 18:00 09/18/18 18:15 09/18/18 18:38 Temperature 98.9 F Pulse Rate 81 80 52 L Respiratory Rate 36 H 32 H 37 H Blood Pressure 152/79 H 142/69 H 165/85 H Pulse Oximetry 93 L 95 92 L 09/18/18 18:45 09/18/18 19:00 09/18/18 19:15 Temperature Pulse Rate 58 L 47 L 60 Respiratory Rate 39 H 23 38 H Blood Pressure 156/78 H 136/71 153/76 H Pulse Oximetry 89 L 90 L 90 L 09/18/18 20:00 09/18/18 20:44 09/18/18 21:00 Temperature 98.4 F Pulse Rate 65 56 L 54 L Respiratory Rate 28 H 13 13 Blood Pressure 130/71 150/71 H Pulse Oximetry 98 86 L 88 L 09/18/18 21:28 09/18/18 21:35 09/18/18 21:50 Temperature Pulse Rate 78 55 L Respiratory Rate 28 H 24 Blood Pressure 150/71 H Pulse Oximetry 92 L 92 L 95 09/18/18 22:00 09/18/18 22:31 09/18/18 23:00 Temperature Pulse Rate 58 L 78 71 Respiratory Rate 25 H 24 20 Blood Pressure 113/59 L 135/73 113/59 L Pulse Oximetry 91 L 96 95 09/19/18 00:00 09/19/18 00:42 09/19/18 01:00 Temperature 98.8 F Pulse Rate 61 50 L 69 Respiratory Rate 14 22 18 Blood Pressure 110/58 L 150/82 H Pulse Oximetry 97 98 09/19/18 02:00 09/19/18 03:00 09/19/18 04:00 Temperature 98.1 F Pulse Rate 75 76 73 Respiratory Rate 26 H 31 H 38 H Blood Pressure 153/74 H 151/88 H 148/84 H Pulse Oximetry 98 91 L 92 L 09/19/18 04:20 09/19/18 05:00 09/19/18 06:00 Temperature Pulse Rate 82 81 87 Respiratory Rate 22 40 H 32 H Blood Pressure 154/79 H 169/76 H Pulse Oximetry 80 L 97 09/19/18 06:19 09/19/18 07:00 09/19/18 08:00 Temperature Pulse Rate 82 79 80 Respiratory Rate 29 H 23 29 H Blood Pressure 138/73 132/81 143/87 H Pulse Oximetry 72 L 90 L 92 L 09/19/18 08:38 09/19/18 08:41 09/19/18 09:00 Temperature 97.3 F L Pulse Rate 78 84 77 Respiratory Rate 24 29 H 27 H Blood Pressure 141/84 H 152/109 H Pulse Oximetry 93 L 94 L 97 09/19/18 09:02 09/19/18 10:00 09/19/18 10:17 Temperature Pulse Rate 91 H 77 Respiratory Rate 38 H Blood Pressure 156/83 H 158/124 H 161/76 H Pulse Oximetry 97 93 L 94 L 09/19/18 11:00 09/19/18 11:30 09/19/18 12:00 Temperature Pulse Rate 73 80 Respiratory Rate Blood Pressure 138/97 H 149/95 H Pulse Oximetry 96 95 99 09/19/18 12:30 09/19/18 13:13 Temperature Pulse Rate 79 101 H Respiratory Rate 21 17 Blood Pressure 151/79 H Pulse Oximetry 94 L Intake & Output 09/18/18 09/19/18 09/19/18 18:59 06:59 18:59 Intake Total 600 / 600 650 / 650 200 / 200 Output Total 600 / 600 1725 / 1725 Balance 0 / 0 -1075 / -1075 200 / 200 Weight 84.7 kg Intake: IV 600 / 600 650 / 650 200 / 200 Precedex Inj 200 MCG In NS Inj 50 / 50 48 ML @ 0.2 MCG/KG/HR 4.23 mls/ hr IV.CONT TITRATE PRN Rx#: [id number] Maxipime Inj 2,000 MG In NS Inj 100 / 100 200 / 200 100 ML @ 200 mls/hr IV.SIG Q8H JAZ Rx#:[id number] Pfizerpen-G Inj 4,000,000 UNIT 100 / 100 In NS Inj 100 ML @ 200 mls/hr IV.SIG Q4H JAZ Rx#:[id number] Penicillin G Sodium Inj 4,000, 300 / 300 300 / 300 000 UNITS In NS Inj 100 ML @ 200 mls/hr IV.SIG Q4H JAZ Rx#: [id number] Flagyl 500 MG Inj 100 ML @ 100 200 / 200 100 / 100 100 / 100 mls/hr IV.SIG Q8H JAZ Rx#: [id number] Oral 0 / 0 Output: Urine 600 / 600 475 / 475 Urine Amount (Catheter) 1250 / 1250 Condom 1250 / 1250 Other: # Incontinent Voids 3 Date of Last Bowel Movement 09/11/18 09/11/18 # Bowel Movements 0 09/12/18 17:30 Abscess - Other Fungal Smear - Final No fungal elements seen 09/12/18 17:30 Abscess - Other Fungal Culture - Preliminary No growth in 1 week 09/12/18 17:30 Abscess - Other Acid Fast Bacilli Smear - Final No acid fast bacilli seen 09/12/18 17:30 Abscess - Other Mycobacterial Culture - Preliminary No growth in 1 week 09/12/18 17:18 Abscess - Other Fungal Smear - Final No fungal elements seen 09/12/18 17:18 Abscess - Other Fungal Culture - Preliminary No growth in 1 week 09/12/18 17:18 Abscess - Other Acid Fast Bacilli Smear - Final No acid fast bacilli seen 09/12/18 17:18 Abscess - Other Mycobacterial Culture - Preliminary No growth in 1 week 09/12/18 17:06 Abscess - Other Fungal Smear - Final No fungal elements seen 09/12/18 17:06 Abscess - Other Fungal Culture - Preliminary No growth in 1 week 09/12/18 17:06 Abscess - Other Acid Fast Bacilli Smear - Final No acid fast bacilli seen 09/12/18 17:06 Abscess - Other Mycobacterial Culture - Preliminary No growth in 1 week 09/14/18 15:27 Blood - Peripheral Aerobic Blood Culture - Final No growth in 5 days 09/14/18 15:27 Blood - Peripheral Anaerobic Blood Culture - Final No growth in 5 days 09/14/18 15:27 Blood - Peripheral Aerobic Blood Culture - Final No growth in 5 days 09/14/18 15:27 Blood - Peripheral Anaerobic Blood Culture - Final No growth in 5 days 09/11/18 20:05 Blood - Peripheral Aerobic Blood Culture - Final No growth in 5 days 09/11/18 20:05 Blood - Peripheral Anaerobic Blood Culture - Final Group B beta Strep Lab - Hematology Results 09/19/18 05:42 WBC 11.2 H RBC 4.29 L Hgb 13.8 Hct 41.1 MCV 95.7 MCH 32.3 MCHC 33.7 RDW 13.7 Plt Count 240 MPV 9.0 Lab - Chemistry Results 09/19/18 05:42 Sodium 139 Potassium 4.9 Chloride 100 Carbon Dioxide 27.2 Anion Gap 12 BUN 22 H Creatinine 0.80 Estimated GFR Greater than 89 Random Glucose 103 Calcium 8.0 L Magnesium 2.2 Total Bilirubin 0.9 AST 31 ALT 27 Alkaline Phosphatase 63 Total Protein 6.6 D Albumin 2.5 L Imaging: ITS Impressions Lumbar Spine MRI 09/11/18 20:09 CONCLUSION: 1. Moderate bilateral foraminal narrowing at L5-S1. 2. Grade I retrolisthesis of L5 in relation to S1. 3. Minimal bilateral foraminal narrowing at L2-3, L3-4 and L4-5. 4. Hemangiomas at L2 and L3. 5. Severe degenerative disc disease at L5-S1. Thoracic Spine MRI 09/11/18 20:09 CONCLUSION: 1. No fracture or subluxation of the thoracic spine. 2. Mild diffuse degenerative changes as described. These findings all appear chronic but there is a less age determinate Schmorl's node of the T8/T9 disc. Cervical Spine X-Ray 09/12/18 00:00 CONCLUSION: Expected intraoperative appearance of discectomy and fusion procedure at C4/C5. Cervical Spine MRI 09/14/18 00:00 CONCLUSION: 1. There is interval fusion across C4-5 with some residual soft tissue or complex fluid posterior to the disc interspace resulting in persistent moderate to severe focal canal stenosis and cord compression. Minimal cord signal abnormality at the area of compression. 2. Stable retrolisthesis of C3 on C4 with moderate stenosis and mild cord compression. 3. Worsening prevertebral soft tissue edema and swelling. Postcontrast images reveal enhancement in the anterior epidural space between C3 and C7, nonspecific but possibly related to postsurgical changes. No loculated enhancing fluid collection is seen within the spinal canal. There is also abnormal edema and enhancement in the prevertebral soft tissues. Differential diagnosis includes postoperative change. Cannot exclude infection. Venous Doppler Study 09/15/18 10:09 CONCLUSION: 1. No DVT identified. Chest X-Ray 09/19/18 06:00 CONCLUSION: Small effusion and mild consolidation at the left base without significant change. Physical Exam: GENERAL: a2ake, alert SKIN: Warm and dry. no rash HEAD: Atraumatic. Normocephalic. EYES: Pupils equal and round. No scleral icterus. No injection or drainage. ENT: No nasal bleeding or discharge. Mucous membranes pink and moist. NECK: c collar in place. CARDIOVASCULAR: Regular rate and rhythm. NO murmurs RESPIRATORY: No accessory muscle use. Clear to auscultation. Breath sounds equal bilaterally. GASTROINTESTINAL: Abdomen soft, non-tender, moderately distended. Hepatic and splenic margins not palpable. MUSCULOSKELETAL: Extremities without clubbing, cyanosis, + some edema. No obvious deformities. NEUROLOGICAL: awake. alert PSYCHIATRIC: psychotic, combative aggressive Assessment and Plan - Plan Retropharingeal abscess, C4-5 discitis, epidural abscess sp C4-5 anterior cervical discectomy with evacuation of epidural abscess, interbody arthrodesis using PEEK cage filled with autologous bone graft, Simplicity plate and screws on 09/12/[address] Randall MD aspiration PNA cont PCN x 8 weeks complete cefepime, flagyl for 1 week total (thru 09/21) dw sister @ b/s
[2018-09-19] MEDS: Dexmedetomidine Inj 200 MCG in Sodium Chlor 0.9% Inj 48 ML IV.CONT PRN ×2 (17:33→22:48)
[2018-09-19] MEDS: traZODone 50 MG Tablet PO SCH (22:10)
[2018-09-19] MEDS: clonazePAM 1 MG Tablet PO SCH (22:11)
[2018-09-20] MEDS: Oral Hygiene Kit OROPHARYNG SCH ×4 (00:13→15:11)
[2018-09-20] MEDS: PENICILLIN POTASSIUM IV.SIG SCH ×6 (00:17→20:58)
[2018-09-20] MEDS: SODIUM CHLOR 0.9% IV.SIG SCH ×6 (00:17→20:58)
[2018-09-20] MEDS: Dexmedetomidine Inj 200 MCG in Sodium Chlor 0.9% Inj 48 ML IV.CONT PRN ×6 (05:15→21:53)
[2018-09-20] MEDS: Chlorhexidine 0.12% Oral Kit 15 ML UDC OROPHARYNG SCH ×2 (07:47→20:34)
[2018-09-20] MEDS: clonazePAM 0.5 MG Tablet PO SCH (09:01)
[2018-09-20] MEDS: Duloxetine 60 MG DR Capsule PO SCH (09:01)
[2018-09-20] MEDS: Famotidine PF Inj 20 MG/2 ML Vial IV.PUSH SCH ×2 (09:01→21:02)
[2018-09-20] MEDS: Enoxaparin Inj 40 MG/0.4 ML Syringe SQ SCH (09:01)
[2018-09-20] MEDS: Senna/Docusate Sodium 8.6/50 MG Tablet PO SCH ×2 (09:01→21:02)
[2018-09-20] MEDS: Sodium Chloride 0.9% 2 ML Flush BID IV.FLUSH SCH ×2 (09:02→21:02)
[2018-09-20] MEDS: Propranolol 10 MG Tablet PO SCH ×2 (09:02→21:01)
--- NOTE | 2018-09-20 09:50 | P.PNCC ---
Subjective Subjective Remarks/Hospital Course: Patient is a 63-year-old male with past medical history significant for COPD, dementia, schizophrenia, who was admitted to the hospitalist service on 09/11/2018 with neck pain and extremity weakness and MRI showing acute discitis at C4/C5 with epidural abscess retropharyngeal abscess. Dr Pereira was consulted and on 09/12/18 underwent cervical decompression and evacuation of abscess (C4-5 anterior cervical discectomy with evacuation of epidural abscess, interbody arthrodesis using PEEK cage filled with autologous bone graft, Simplicity plate and screws). Patient was ready on IV cefepime Flagyl and vancomycin per ID Dr. Hanson. Patient was moved to the ICU by the hospitalist for concern of aspiration and increasing oxygen requirement. Today a.m. patient was noted to be on 50% Ventimask and chest x-ray showed a left lower lobe infiltrate. I was consulted emergently around 11:30 AM today as the patient was acutely desaturating, clearly aspirated. On my arrival to the bedside patient had an oxygen saturation of 75-76% on 100% nonrebreather. Significant gurgling sounds heard. Patient was more or less unresponsive struggling to breathe. I suctioned out a large amount of secretion from the oropharynx, which improved the saturation to 85%. Patient was emergently intubated with direct laryngoscopy and was placed on mechanical ventilation. Stat chest x-ray is pending. I will place him on scheduled Decadron for any airway edema. Stat MRI of the C-spine ordered with and without contrast to evaluate for retropharyngeal abscess expansion and also airway edema and C-spine injury. Discussed with Dr. Conway neurosurgery 09/15/18: Patient remains intubated sedation held good neuro exam. Follows commands good strength of the lower extremities and upper extremities. MRI yesterday showed there is interval fusion across C4-5 with some residual soft tissue or complex fluid posterior to the disc interspace resulting in persistent moderate to severe focal canal stenosis and cord compression. Minimal cord signal abnormality at the area of compression. Discussed with Dr. Pereira is no surgical indication at this time. Continue Decadron for possible upper airway swelling 09/16: Patient remains intubated but wakes up easily follows commands x4. Chest x-ray shows persistent small left effusion but sputum cultures negative to date. MRI reviewed with Dr. Randall no indication for surgery at this time adequately decompressed. 09/17: Tolerating extubation, protects airway well. Nauseated. 09/18: Appears to be breathing comfortably following commands strength appears to be near normal in all 4 extremities. Restarting home psych meds 09/19: Patient remains severely agitated. He is on a chronic regimen of psychiatric medications including 600 mg of Seroquel each night. Also included are Cymbalta, Abilify, trazodone, and Klonopin. This regimen was arrived at after long-term care under a specific psychiatrist and per the sisters implication this is the only regimen that has successfully kept him functional. It was necessary to stop the medications for a while during the immediate perioperative period and we are having some difficulty getting his thought process back in a calm state. 09/20: We are having great difficulty controlling his agitation. His chronic schizophrenia is being agitated by something we are not covering. At this juncture am forced to stop his steroids as we have manipulated all other medications. Objective Vital Signs / I&O: Vital Signs 09/19/18 10:00 09/19/18 10:17 09/19/18 11:00 Temperature Pulse Rate 77 Respiratory Rate Blood Pressure 158/124 H 161/76 H Pulse Oximetry 93 L 94 L 96 09/19/18 11:30 09/19/18 12:00 09/19/18 12:30 Temperature Pulse Rate 73 80 79 Respiratory Rate 21 Blood Pressure 138/97 H 149/95 H 151/79 H Pulse Oximetry 95 99 94 L 09/19/18 13:00 09/19/18 13:13 09/19/18 13:21 Temperature Pulse Rate 97 H 101 H 75 Respiratory Rate 40 H 17 25 H Blood Pressure 150/95 H 146/83 H Pulse Oximetry 96 95 09/19/18 13:30 09/19/18 13:39 09/19/18 14:00 Temperature Pulse Rate 76 83 79 Respiratory Rate 28 H 31 H 30 H Blood Pressure 170/94 H 147/84 H Pulse Oximetry 96 94 L 99 09/19/18 14:21 09/19/18 14:37 09/19/18 14:57 Temperature Pulse Rate 73 65 53 L Respiratory Rate 26 H 19 17 Blood Pressure 145/88 H 133/70 136/71 Pulse Oximetry 98 93 L 91 L 09/19/18 15:00 09/19/18 15:17 09/19/18 15:37 Temperature Pulse Rate 52 L 55 L 52 L Respiratory Rate 16 15 15 Blood Pressure 119/70 136/72 Pulse Oximetry 91 L 92 L 92 L 09/19/18 15:57 09/19/18 16:00 09/19/18 16:17 Temperature Pulse Rate 53 L 83 51 L Respiratory Rate 20 17 16 Blood Pressure 129/69 141/70 H Pulse Oximetry 95 95 97 09/19/18 16:37 09/19/18 16:47 09/19/18 17:00 Temperature Pulse Rate 52 L 80 82 Respiratory Rate 19 20 26 H Blood Pressure 145/77 H Pulse Oximetry 97 09/19/18 17:02 09/19/18 17:17 09/19/18 17:37 Temperature 97.8 F Pulse Rate 81 78 86 Respiratory Rate 35 H 33 H 36 H Blood Pressure 169/83 H 150/97 H 151/99 H Pulse Oximetry 95 83 L 09/19/18 17:57 09/19/18 18:00 09/19/18 19:00 Temperature Pulse Rate 70 71 64 Respiratory Rate 34 H 30 H 28 H Blood Pressure 150/86 H 153/77 H Pulse Oximetry 93 L 95 97 09/19/18 19:36 09/19/18 20:00 09/19/18 21:00 Temperature 99.1 F Pulse Rate 53 L 59 L 50 L Respiratory Rate 22 21 24 Blood Pressure 170/76 H 155/85 H Pulse Oximetry 96 95 97 09/19/18 22:00 09/19/18 23:00 09/20/18 00:00 Temperature 98.5 F Pulse Rate 47 L 46 L 47 L Respiratory Rate 30 H 15 17 Blood Pressure 154/78 H 150/78 H 157/86 H Pulse Oximetry 100 98 98 09/20/18 00:11 09/20/18 01:00 09/20/18 02:00 Temperature Pulse Rate 48 L 48 L 41 L Respiratory Rate 16 14 14 Blood Pressure 145/81 H 159/83 H Pulse Oximetry 99 99 09/20/18 03:00 09/20/18 03:24 09/20/18 04:00 Temperature 97.6 F Pulse Rate 59 L 55 L 71 Respiratory Rate 23 22 29 H Blood Pressure 160/93 H 152/89 H Pulse Oximetry 85 L 97 09/20/18 05:00 09/20/18 06:00 09/20/18 07:00 Temperature Pulse Rate 54 L 59 L 42 L Respiratory Rate 30 H 31 H 18 Blood Pressure 166/85 H 162/88 H 171/97 H Pulse Oximetry 99 99 99 Intake & Output 09/19/18 09/20/18 09/20/18 18:59 06:59 18:59 Intake Total 600 / 600 650 / 650 150 / 150 Balance 600 / 600 650 / 650 150 / 150 Weight 100.698 kg Intake: IV 600 / 600 650 / 650 150 / 150 Precedex Inj 200 MCG In NS Inj 50 / 50 50 / 50 48 ML @ 0.2 MCG/KG/HR 4.23 mls/ hr IV.CONT TITRATE PRN Rx#: [id number] Maxipime Inj 2,000 MG In NS Inj 100 / 100 200 / 200 100 ML @ 200 mls/hr IV.SIG Q8H JAZ Rx#:[id number] Pfizerpen-G Inj 4,000,000 UNIT 300 / 300 300 / 300 In NS Inj 100 ML @ 200 mls/hr IV.SIG Q4H JAZ Rx#:[id number] Flagyl 500 MG Inj 100 ML @ 100 200 / 200 100 / 100 100 / 100 mls/hr IV.SIG Q8H JAZ Rx#: [id number] Other: # Voids 2 # Incontinent Voids 1 # Urine Diapers 1 Date of Last Bowel Movement 09/11/18 09/11/18 Result Diagrams: 09/19/18 05:42 09/19/18 05:42 Objective Remarks: GENERAL: 63-year-old male, combative, active NECK: Cervical collar, drain has been removed. CARDIOVASCULAR: Regular rate and rhythm. Normotensive. No JVD. RESPIRATORY: Air entry equal bilaterally no wheezes or crackles. Tachypnea during agitation. GASTROINTESTINAL: Abdomen soft, non-tender, nondistended. No guarding. Bowel sounds active. MUSCULOSKELETAL: No clubbing, cyanosis, or edema. No obvious deformities. R upper extremity remains more swollen than left (no DVT) NEUROLOGICAL: Patient remains intermittently severely agitated, hurling 4 extremities wildly. Four-point restraints are necessary. No significant weakness of the extremities. Assessment and Plan - Assessment and Plan Plan: ASSESSMENT: Acute hypoxemic respiratory failure-resolved Aspiration pneumonia Metabolic encephalopathy Sepsis Acute discitis at C4/C5, epidural and retropharyngeal abscess s/p decompression and stabilization. COPD Underlying dementia Schizoaffective disorder/schizophrenia PLAN: NEURO: -Neuro exam improved today no focal deficits observed on sedation hold -Home antipsychotics and anxiolytics restarted along with antidepressants -MRI of the C-spine 09/14- C4-5 with some residual soft tissue or complex fluid posterior to the disc interspace resulting in persistent moderate to severe focal canal stenosis and cord compression. -C4-5 anterior cervical discectomy with evacuation of epidural abscess, interbody arthrodesis using PEEK cage filled with autologous bone graft, Simplicity plate and screws 09/12 -Continued sedation protocol required for severe agitation -Discontinue Decadron RESP: -Emergently intubated and placed on mechanical ventilation 09/14/18 -Extubated now 09/16. Protecting airway at this time -DuoNeb every 6 hours scheduled and as needed -Chest x-ray showed small left pleural effusion but sputum culture negative today -IV Decadron discontinued. -No vocal cord edema on intubation, no difficulty of passing ETT CV: -Hemodynamically stable, discontinue IV fluids GI: -Swallow eval. diet per speech : -Monitor renal function closely. Dc Guido catheter. ID: -Antibiotics vancomycin cefepime and Flagyl per ID -ID Dr. Hanson is following HEME: -Monitor CBC, coags -Right upper extremity is more swollen compared to left, venous duplex negative for DVT ENDO: -Electrolyte replacement per protocol -Sliding scale insulin if needed PROPH: -Bilateral lower extremity SCDs. IV famotidine. Lovenox 40 mg sq daily, cleared by Dr. Pereira LINES: -Utilize peripheral IVs, left IJ central line placed 09/14/2018-now DCd Overall impression: Comfortable respiratory pattern. Protects airway well. All of his prehospital antipsychotic medications have been restarted. Steroids have been stopped.
[2018-09-20] MEDS: clonazePAM 1 MG Tablet PO SCH (21:01)
[2018-09-20] MEDS: QUEtiapine 100 MG Tablet PO SCH (21:02)
[2018-09-20] MEDS: traZODone 50 MG Tablet PO SCH (21:03)
[2018-09-21] MEDS: Oral Hygiene Kit OROPHARYNG SCH ×4 (00:26→15:57)
[2018-09-21] MEDS: PENICILLIN POTASSIUM IV.SIG SCH ×6 (00:26→21:55)
[2018-09-21] MEDS: SODIUM CHLOR 0.9% IV.SIG SCH ×6 (00:26→21:55)
[2018-09-21] MEDS: Dexmedetomidine Inj 200 MCG in Sodium Chlor 0.9% Inj 48 ML IV.CONT PRN ×7 (01:00→22:17)
[2018-09-21] MEDS: Enoxaparin Inj 40 MG/0.4 ML Syringe SQ SCH (09:03)
[2018-09-21] MEDS: clonazePAM 0.5 MG Tablet PO SCH (09:03)
[2018-09-21] MEDS: Propranolol 10 MG Tablet PO SCH ×2 (09:04→21:56)
[2018-09-21] MEDS: Famotidine PF Inj 20 MG/2 ML Vial IV.PUSH SCH ×2 (09:06→21:56)
[2018-09-21] MEDS: Sodium Chloride 0.9% 2 ML Flush BID IV.FLUSH SCH ×2 (09:06→23:10)
[2018-09-21] MEDS: Senna/Docusate Sodium 8.6/50 MG Tablet PO SCH ×2 (09:06→21:56)
[2018-09-21] MEDS: Chlorhexidine 0.12% Oral Kit 15 ML UDC OROPHARYNG SCH ×2 (09:29→21:55)
--- NOTE | 2018-09-21 11:01 | P.PNCC ---
Subjective Subjective Remarks/Hospital Course: Patient is a 63-year-old male with past medical history significant for COPD, dementia, schizophrenia, who was admitted to the hospitalist service on 09/11/2018 with neck pain and extremity weakness and MRI showing acute discitis at C4/C5 with epidural abscess retropharyngeal abscess. Dr Pereira was consulted and on 09/12/18 underwent cervical decompression and evacuation of abscess (C4-5 anterior cervical discectomy with evacuation of epidural abscess, interbody arthrodesis using PEEK cage filled with autologous bone graft, Simplicity plate and screws). Patient was ready on IV cefepime Flagyl and vancomycin per ID Dr. Hanson. Patient was moved to the ICU by the hospitalist for concern of aspiration and increasing oxygen requirement. Today a.m. patient was noted to be on 50% Ventimask and chest x-ray showed a left lower lobe infiltrate. I was consulted emergently around 11:30 AM today as the patient was acutely desaturating, clearly aspirated. On my arrival to the bedside patient had an oxygen saturation of 75-76% on 100% nonrebreather. Significant gurgling sounds heard. Patient was more or less unresponsive struggling to breathe. I suctioned out a large amount of secretion from the oropharynx, which improved the saturation to 85%. Patient was emergently intubated with direct laryngoscopy and was placed on mechanical ventilation. Stat chest x-ray is pending. I will place him on scheduled Decadron for any airway edema. Stat MRI of the C-spine ordered with and without contrast to evaluate for retropharyngeal abscess expansion and also airway edema and C-spine injury. Discussed with Dr. Conway neurosurgery 09/15/18: Patient remains intubated sedation held good neuro exam. Follows commands good strength of the lower extremities and upper extremities. MRI yesterday showed there is interval fusion across C4-5 with some residual soft tissue or complex fluid posterior to the disc interspace resulting in persistent moderate to severe focal canal stenosis and cord compression. Minimal cord signal abnormality at the area of compression. Discussed with Dr. Pereira is no surgical indication at this time. Continue Decadron for possible upper airway swelling 09/16: Patient remains intubated but wakes up easily follows commands x4. Chest x-ray shows persistent small left effusion but sputum cultures negative to date. MRI reviewed with Dr. Randall no indication for surgery at this time adequately decompressed. 09/17: Tolerating extubation, protects airway well. Nauseated. 09/18: Appears to be breathing comfortably following commands strength appears to be near normal in all 4 extremities. Restarting home psych meds 09/19: Patient remains severely agitated. He is on a chronic regimen of psychiatric medications including 600 mg of Seroquel each night. Also included are Cymbalta, Abilify, trazodone, and Klonopin. This regimen was arrived at after long-term care under a specific psychiatrist and per the sisters implication this is the only regimen that has successfully kept him functional. It was necessary to stop the medications for a while during the immediate perioperative period and we are having some difficulty getting his thought process back in a calm state. 09/20: We are having great difficulty controlling his agitation. His chronic schizophrenia is being agitated by something we are not covering. At this juncture am forced to stop his steroids as we have manipulated all other medications. 09/21: Continued problems adjusting his psychiatric medications. His sister who is at the bedside continually is basically dictating what medications we can and cannot used. This is severely limiting our ability to treat this patient. Objective Vital Signs / I&O: Vital Signs 09/20/18 11:00 09/20/18 11:56 09/20/18 12:00 Temperature 99 F Pulse Rate 81 56 L 52 L Respiratory Rate 22 22 22 Blood Pressure 158/88 H 168/84 H Pulse Oximetry 96 100 09/20/18 13:00 09/20/18 14:00 09/20/18 15:00 Temperature Pulse Rate 63 74 50 L Respiratory Rate 24 20 22 Blood Pressure 156/80 H 155/94 H 162/99 H Pulse Oximetry 98 98 100 09/20/18 16:00 09/20/18 17:00 09/20/18 18:00 Temperature 99.1 F Pulse Rate 64 54 L 58 L Respiratory Rate 20 19 22 Blood Pressure 152/90 H 152/83 H 168/81 H Pulse Oximetry 98 98 99 09/20/18 19:00 09/20/18 20:00 09/20/18 20:41 Temperature 98.7 F Pulse Rate 57 L 52 L 53 L Respiratory Rate 22 22 18 Blood Pressure 166/82 H 174/99 H Pulse Oximetry 99 98 98 09/20/18 21:00 09/20/18 22:00 09/20/18 23:00 Temperature Pulse Rate 88 51 L 53 L Respiratory Rate 30 H 17 21 Blood Pressure 134/103 H 121/69 130/77 Pulse Oximetry 98 90 L 99 09/21/18 00:00 09/21/18 00:31 09/21/18 01:00 Temperature 98.5 F 97.4 F L Pulse Rate 57 L 57 L 108 H Respiratory Rate 17 18 20 Blood Pressure 112/66 97/59 L Pulse Oximetry 99 94 L 09/21/18 02:00 09/21/18 03:00 09/21/18 03:49 Temperature Pulse Rate 63 61 78 Respiratory Rate 16 15 16 Blood Pressure 92/59 L 114/64 Pulse Oximetry 97 99 09/21/18 04:00 09/21/18 04:41 09/21/18 05:00 Temperature 97.7 F Pulse Rate 76 55 L Respiratory Rate 18 13 Blood Pressure 111/64 107/66 Pulse Oximetry 93 L 97 100 09/21/18 06:00 09/21/18 08:01 09/21/18 08:05 Temperature Pulse Rate 97 H 84 Respiratory Rate 26 H 22 Blood Pressure 130/80 Pulse Oximetry 100 100 Intake & Output 09/20/18 09/21/18 09/21/18 18:59 06:59 18:59 Intake Total 800 / 800 750 / 750 150 / 150 Output Total 1400 / 1400 450 / 450 Balance -600 / -600 300 / 300 150 / 150 Intake: IV 800 / 800 750 / 750 150 / 150 Precedex Inj 200 MCG In NS Inj 200 / 200 150 / 150 50 / 50 48 ML @ 0.2 MCG/KG/HR 4.23 mls/ hr IV.CONT TITRATE PRN Rx#: [id number] Maxipime Inj 2,000 MG In NS Inj 100 / 100 200 / 200 100 ML @ 200 mls/hr IV.SIG Q8H JAZ Rx#:[id number] Pfizerpen-G Inj 4,000,000 UNIT 300 / 300 300 / 300 In NS Inj 100 ML @ 200 mls/hr IV.SIG Q4H JAZ Rx#:[id number] Flagyl 500 MG Inj 100 ML @ 100 200 / 200 100 / 100 100 / 100 mls/hr IV.SIG Q8H JAZ Rx#: [id number] Oral 0 / 0 Output: Urine Amount (Catheter) 1400 / 1400 450 / 450 Condom 1400 / 1400 450 / 450 Other: # Incontinent Voids 2 Date of Last Bowel Movement 09/11/18 09/11/18 # Bowel Movements 0 Result Diagrams: 09/19/18 05:42 09/19/18 05:42 Objective Remarks: GENERAL: 63-year-old male, combative, active NECK: Cervical collar, drain has been removed. CARDIOVASCULAR: Regular rate and rhythm. Normotensive. No JVD. RESPIRATORY: Air entry equal bilaterally no wheezes or crackles. Tachypnea during agitation. GASTROINTESTINAL: Abdomen soft, non-tender, nondistended. No guarding. Bowel sounds active. MUSCULOSKELETAL: No clubbing, cyanosis, or edema. No obvious deformities. R upper extremity remains more swollen than left (no DVT) NEUROLOGICAL: Patient remains agitated and combative. Uses all 4 extremities with 5/5 strength. Four-point restraints are necessary. No significant weakness of the extremities. He controls his airway well and is breathing without labor. Assessment and Plan - Assessment and Plan Plan: ASSESSMENT: Acute hypoxemic respiratory failure-resolved Aspiration pneumonia Metabolic encephalopathy Sepsis Acute discitis at C4/C5, epidural and retropharyngeal abscess s/p decompression and stabilization. COPD Underlying dementia Schizoaffective disorder/schizophrenia PLAN: NEURO: -Neuro exam improved today no focal deficits observed on sedation hold -Home antipsychotics and anxiolytics restarted along with antidepressants -MRI of the C-spine 09/14- C4-5 with some residual soft tissue or complex fluid posterior to the disc interspace resulting in persistent moderate to severe focal canal stenosis and cord compression. -C4-5 anterior cervical discectomy with evacuation of epidural abscess, interbody arthrodesis using PEEK cage filled with autologous bone graft, Simplicity plate and screws 09/12 -Continued sedation protocol required for severe agitation -Discontinue Decadron -Substitute Geodon intramuscular because he will not take his oral medication Seroquel RESP: -Emergently intubated and placed on mechanical ventilation 09/14/18 -Extubated now 09/16. Protecting airway at this time -DuoNeb every 6 hours scheduled and as needed -Chest x-ray showed small left pleural effusion but sputum culture negative today -IV Decadron discontinued. CV: -Hemodynamically stable, discontinue IV fluids GI: -Swallow eval. diet per speech : -Monitor renal function closely. Dc Guido catheter. ID: -Antibiotics vancomycin cefepime and Flagyl per ID -ID Dr. Hanson is following HEME: -Monitor CBC, coags -Right upper extremity is more swollen compared to left, venous duplex negative for DVT ENDO: -Electrolyte replacement per protocol -Sliding scale insulin if needed PROPH: -Bilateral lower extremity SCDs. IV famotidine. Lovenox 40 mg sq daily, cleared by Dr. Pereira LINES: -Utilize peripheral IVs, left IJ central line placed 09/14/2018-now DCd Overall impression: Comfortable respiratory pattern. Protects airway well. All of his prehospital antipsychotic medications have been restarted. Steroids have been stopped. Continued difficulty with severe agitation. His sister will not allow us to substitute any medications even though he will not take medicine by mouth now.
[2018-09-21 11:51] LABS: Baso % (Auto) 0.4 % (0.0-2.0); Eos # (Auto) 0.1 th/mm3 (0.0-0.4); Eos % (Auto) 1.2 % (0.0-4.0); Hematocrit 46.4 % (39.0-51.0); Hemoglobin 15.4 gm/dL (13.0-17.0); Lymph # (Auto) 0.5 th/mm3 (1.0-4.8); Mean Corpuscular HGB Conc 33.2 % (32.0-36.0); Mean Corpuscular Volume 96.3 fL (80.0-100.0); Mean Platelet Volume 9.8 fL (7.0-11.0); Mono # (Auto) 0.9 th/mm3 (0.0-0.9); Mono % (Auto) 10.1 % (0.0-8.0); Neut # (Auto) 7.1 th/mm3 (1.8-7.7); Neut % (Auto) 82.3 % (16.0-70.0); Platelet Count 178 th/mm3 (150-450); Red Blood Count 4.82 mil/mm3 (4.50-5.90); Red Cell Distribution Width 13.9 % (11.6-17.2); White Blood Count 8.7 th/mm3 (4.0-11.0)
[2018-09-21 12:15] LABS: Anion Gap 11 meq/L (5-15); Blood Urea Nitrogen 21 mg/dL (7-18); Calcium 8.1 mg/dL (8.5-10.1); Carbon Dioxide 25.3 meq/L (21.0-32.0); Chloride 99 meq/L (98-107); Glomerular Filtration Rate Greater Than 89 mL/min (>89); Glucose,Random 104 mg/dL (74-106); Potassium 4.3 meq/L (3.5-5.1); Sodium 135 meq/L (136-145)
[2018-09-21 12:40] LABS: Eosinophils 2 % (0-4); Lymphocytes 2 % (9-44); Metamyelocytes 1 % (0-1); Monocytes 9 % (0-8); Myelocytes 1 % (0-0); Platelet Estimate Normal (Normal); Platelet Morphology Normal (Normal)
[2018-09-21 12:41] LABS: RBC Morphology Normal (Normal)
--- NOTE | 2018-09-21 12:51 | P.DIET ---
Nutritional Evaluation Type of nutrition evaluation: initial Nutrition consult regarding: Diet Evaluation Nutrition screening: MDC (Wound) Objective - Diagnosis cervical spine discitis w/ abscess - Objective Body Mass Index: 34.3 % IBW: 147 (IBW= 151lb) Body Weight Used for Calculations: IBW Energy Needs - Lower Range (kCal/kg): 22 Energy Needs - Upper Range (kCal/kg): 28 Lower Limit kCal/kg (kCals): 1,510 Upper Limit kCal/kg (kCals): 1,922 Lower Limit Protein Factor (Grams per Kg): 1.2 Upper Limit Protein Factor (Grams per Kg): 1.5 Lower Protein Needs (Protein): 82 Upper Protein Needs (Protein): 103 Dietitian Reviewed in Medical Record: Current diet, Curent medications, Intake & Output, Labs, Medical history Diet Order: Clear liquid diet Speech Therapy Recommendations: Yes (Clear liquids w/ honey consistency thickened liquids) Wound Care Note: Coccyx/buttocks pressure ulcer wound stage II Objective Comments: PMH: COPD, Dementia, Hx fx pelvis, schizo affective schizophrenia Assessment Assessment: Pt [facility] for wound received on 09/19. Pt currently has stage 2 pressure injuries on coccyx and buttocks. ST notes reviewed, pt currently allowed a clear liquid diet w/ honey consistency thickened liquids. RD will recommend Ashvin BID when pts wounds become stage III or higher. Will continue to monitor wound status and PO intake. Labs reviewed, dietitian following. Recommendations: 1. ST notes reviewed, pt currently allowed a clear liquid diet w/ honey consistency thickened liquids 2. RD will recommend Ashvin BID when pts wounds become stage III or higher 3. Will continue to monitor wound status and PO intake 4. Dietitian following Dietitian to Monitor: Lab values, Intake & Output, PO Intake, Wound/skin status , Medical course
[2018-09-21] MEDS: Duloxetine 60 MG DR Capsule PO SCH (15:56)
[2018-09-21] MEDS: clonazePAM 1 MG Tablet PO SCH (21:56)
[2018-09-21] MEDS: QUEtiapine 100 MG Tablet PO SCH (21:56)
[2018-09-21] MEDS: traZODone 50 MG Tablet PO SCH (21:56)
[2018-09-22] MEDS: Oral Hygiene Kit OROPHARYNG SCH ×4 (01:00→15:05)
[2018-09-22] MEDS: PENICILLIN POTASSIUM IV.SIG SCH ×6 (01:00→20:12)
[2018-09-22] MEDS: SODIUM CHLOR 0.9% IV.SIG SCH ×6 (01:00→20:12)
[2018-09-22] MEDS: Dexmedetomidine Inj 200 MCG in Sodium Chlor 0.9% Inj 48 ML IV.CONT PRN ×6 (01:38→22:36)
[2018-09-22] MEDS: Chlorhexidine 0.12% Oral Kit 15 ML UDC OROPHARYNG SCH ×2 (07:58→20:13)
[2018-09-22] MEDS: Famotidine PF Inj 20 MG/2 ML Vial IV.PUSH SCH ×2 (08:35→20:48)
[2018-09-22] MEDS: Enoxaparin Inj 40 MG/0.4 ML Syringe SQ SCH (08:35)
[2018-09-22] MEDS: Propranolol 10 MG Tablet PO SCH ×2 (08:36→20:49)
[2018-09-22] MEDS: Duloxetine 60 MG DR Capsule PO SCH (08:36)
[2018-09-22] MEDS: Sodium Chloride 0.9% 2 ML Flush BID IV.FLUSH SCH ×2 (08:36→20:48)
[2018-09-22] MEDS: Senna/Docusate Sodium 8.6/50 MG Tablet PO SCH ×2 (08:36→20:48)
[2018-09-22] MEDS: clonazePAM 0.5 MG Tablet PO SCH (08:36)
--- NOTE | 2018-09-22 12:42 | P.PNCC ---
Subjective Subjective Remarks/Hospital Course: Patient is a 63-year-old male with past medical history significant for COPD, dementia, schizophrenia, who was admitted to the hospitalist service on 09/11/2018 with neck pain and extremity weakness and MRI showing acute discitis at C4/C5 with epidural abscess retropharyngeal abscess. Dr Pereira was consulted and on 09/12/18 underwent cervical decompression and evacuation of abscess (C4-5 anterior cervical discectomy with evacuation of epidural abscess, interbody arthrodesis using PEEK cage filled with autologous bone graft, Simplicity plate and screws). Patient was ready on IV cefepime Flagyl and vancomycin per ID Dr. Hanson. Patient was moved to the ICU by the hospitalist for concern of aspiration and increasing oxygen requirement. Today a.m. patient was noted to be on 50% Ventimask and chest x-ray showed a left lower lobe infiltrate. I was consulted emergently around 11:30 AM today as the patient was acutely desaturating, clearly aspirated. On my arrival to the bedside patient had an oxygen saturation of 75-76% on 100% nonrebreather. Significant gurgling sounds heard. Patient was more or less unresponsive struggling to breathe. I suctioned out a large amount of secretion from the oropharynx, which improved the saturation to 85%. Patient was emergently intubated with direct laryngoscopy and was placed on mechanical ventilation. Stat chest x-ray is pending. I will place him on scheduled Decadron for any airway edema. Stat MRI of the C-spine ordered with and without contrast to evaluate for retropharyngeal abscess expansion and also airway edema and C-spine injury. Discussed with Dr. Conway neurosurgery 09/15/18: Patient remains intubated sedation held good neuro exam. Follows commands good strength of the lower extremities and upper extremities. MRI yesterday showed there is interval fusion across C4-5 with some residual soft tissue or complex fluid posterior to the disc interspace resulting in persistent moderate to severe focal canal stenosis and cord compression. Minimal cord signal abnormality at the area of compression. Discussed with Dr. Pereira is no surgical indication at this time. Continue Decadron for possible upper airway swelling 09/16: Patient remains intubated but wakes up easily follows commands x4. Chest x-ray shows persistent small left effusion but sputum cultures negative to date. MRI reviewed with Dr. Randall no indication for surgery at this time adequately decompressed. 09/17: Tolerating extubation, protects airway well. Nauseated. 09/18: Appears to be breathing comfortably following commands strength appears to be near normal in all 4 extremities. Restarting home psych meds 09/19: Patient remains severely agitated. He is on a chronic regimen of psychiatric medications including 600 mg of Seroquel each night. Also included are Cymbalta, Abilify, trazodone, and Klonopin. This regimen was arrived at after long-term care under a specific psychiatrist and per the sisters implication this is the only regimen that has successfully kept him functional. It was necessary to stop the medications for a while during the immediate perioperative period and we are having some difficulty getting his thought process back in a calm state. 09/20: We are having great difficulty controlling his agitation. His chronic schizophrenia is being agitated by something we are not covering. At this juncture am forced to stop his steroids as we have manipulated all other medications. 09/21: Continued problems adjusting his psychiatric medications. His sister who is at the bedside continually is basically dictating what medications we can and cannot use. This is severely limiting our ability to treat this patient. 09/22: Continued agitation. Fine from neurological standpoint. Objective Vital Signs / I&O: Vital Signs 09/21/18 13:00 09/21/18 14:00 09/21/18 15:00 Temperature Pulse Rate 74 73 62 Respiratory Rate 26 H 20 16 Blood Pressure 121/75 121/81 139/82 Pulse Oximetry 96 100 100 09/21/18 15:31 09/21/18 16:00 09/21/18 17:00 Temperature 98.2 F Pulse Rate 84 81 86 Respiratory Rate 23 19 32 H Blood Pressure 130/84 166/86 H Pulse Oximetry 100 98 09/21/18 18:00 09/21/18 19:00 09/21/18 20:00 Temperature 97.7 F Pulse Rate 76 74 81 Respiratory Rate 29 H 23 23 Blood Pressure 142/76 H 117/72 145/88 H Pulse Oximetry 97 98 90 L 09/21/18 20:36 09/21/18 21:00 09/21/18 22:00 Temperature Pulse Rate 84 78 96 H Respiratory Rate 24 18 23 Blood Pressure 146/90 H 146/92 H Pulse Oximetry 98 100 98 09/21/18 23:00 09/21/18 23:32 09/22/18 00:00 Temperature 98 F Pulse Rate 104 H 107 H 75 Respiratory Rate 20 18 23 Blood Pressure 131/84 73/50 L Pulse Oximetry 98 99 99 09/22/18 00:09 09/22/18 00:11 09/22/18 00:35 Temperature Pulse Rate 83 107 H 109 H Respiratory Rate 38 H 27 H 26 H Blood Pressure 70/49 L 102/78 130/80 Pulse Oximetry 96 96 94 L 09/22/18 01:00 09/22/18 01:05 09/22/18 01:35 Temperature Pulse Rate 114 H 105 H 113 H Respiratory Rate 30 H 20 24 Blood Pressure 145/84 H 133/86 Pulse Oximetry 96 97 96 09/22/18 02:00 09/22/18 02:05 09/22/18 03:00 Temperature Pulse Rate 108 H 107 H 106 H Respiratory Rate 30 H 30 H 33 H Blood Pressure 130/85 Pulse Oximetry 98 98 96 09/22/18 03:05 09/22/18 03:35 09/22/18 03:39 Temperature Pulse Rate 111 H 108 H 101 H Respiratory Rate 39 H 30 H 22 Blood Pressure 167/77 H 172/94 H Pulse Oximetry 98 97 09/22/18 04:00 09/22/18 04:05 09/22/18 04:35 Temperature 98.3 F Pulse Rate 90 77 72 Respiratory Rate 35 H 30 H 34 H Blood Pressure 96/59 L 67/48 L Pulse Oximetry 97 96 93 L 09/22/18 04:36 09/22/18 05:00 09/22/18 05:11 Temperature Pulse Rate 73 92 H 97 H Respiratory Rate 32 H 32 H 28 H Blood Pressure 90/55 L 113/66 Pulse Oximetry 93 L 95 94 L 09/22/18 05:35 09/22/18 06:00 09/22/18 06:05 Temperature Pulse Rate 91 H 105 H 101 H Respiratory Rate 28 H 33 H 27 H Blood Pressure 101/73 137/88 Pulse Oximetry 95 94 L 95 09/22/18 07:00 09/22/18 07:05 09/22/18 07:35 Temperature Pulse Rate 119 H 119 H 112 H Respiratory Rate 34 H 36 H 32 H Blood Pressure 164/79 H 147/78 H Pulse Oximetry 97 98 98 09/22/18 08:00 09/22/18 08:05 09/22/18 08:35 Temperature 98.3 F Pulse Rate 115 H 111 H 89 Respiratory Rate 26 H 31 H 19 Blood Pressure 137/81 137/81 107/60 Pulse Oximetry 98 98 94 L 09/22/18 09:00 09/22/18 09:05 09/22/18 09:35 Temperature Pulse Rate 108 H 105 H 106 H Respiratory Rate 20 24 33 H Blood Pressure 119/85 137/85 Pulse Oximetry 93 L 95 92 L 09/22/18 09:41 09/22/18 10:00 09/22/18 10:05 Temperature Pulse Rate 101 H 88 91 H Respiratory Rate 17 23 30 H Blood Pressure 125/78 Pulse Oximetry 94 L 98 97 09/22/18 10:35 09/22/18 11:00 09/22/18 11:05 Temperature Pulse Rate 87 107 H 81 Respiratory Rate 21 19 25 H Blood Pressure 111/62 100/64 Pulse Oximetry 91 L 93 L 89 L 09/22/18 11:42 09/22/18 12:00 Temperature Pulse Rate 88 Respiratory Rate 18 Blood Pressure Pulse Oximetry Intake & Output 09/21/18 09/22/18 09/22/18 18:59 06:59 18:59 Intake Total 700 / 700 750 / 750 400 / 400 Output Total 250 / 250 300 / 300 Balance 450 / 450 450 / 450 400 / 400 Weight 79.6 kg Intake: IV 700 / 700 750 / 750 400 / 400 Precedex Inj 200 MCG In NS Inj 200 / 200 150 / 150 100 / 100 48 ML @ 0.2 MCG/KG/HR 4.23 mls/ hr IV.CONT TITRATE PRN Rx#: [id number] Maxipime Inj 2,000 MG In NS Inj 100 / 100 200 / 200 100 ML @ 200 mls/hr IV.SIG Q8H JAZ Rx#:[id number] Pfizerpen-G Inj 4,000,000 UNIT 200 / 200 300 / 300 200 / 200 In NS Inj 100 ML @ 200 mls/hr IV.SIG Q4H JAZ Rx#:[id number] Flagyl 500 MG Inj 100 ML @ 100 200 / 200 100 / 100 100 / 100 mls/hr IV.SIG Q8H JAZ Rx#: [id number] Output: Urine 250 / 250 Urine Amount (Catheter) 300 / 300 Condom 300 / 300 Other: # Incontinent Voids 2 3 # Urine Diapers 5 Date of Last Bowel Movement 09/11/18 09/11/18 09/11/18 Result Diagrams: 09/21/18 09:00 09/21/18 09:00 Objective Remarks: GENERAL: 63-year-old male, combative, active NECK: Cervical collar, drain has been removed. CARDIOVASCULAR: Regular rate and rhythm. Normotensive. No JVD. RESPIRATORY: Air entry equal bilaterally no wheezes or crackles. Tachypnea during agitation. GASTROINTESTINAL: Abdomen soft, non-tender, nondistended. No guarding. Bowel sounds active. MUSCULOSKELETAL: No clubbing, cyanosis, or edema. No obvious deformities. R upper extremity remains more swollen than left (no DVT) NEUROLOGICAL: Patient remains agitated and combative. Uses all 4 extremities with 5/5 strength. Four-point restraints are necessary. No significant weakness of the extremities. He controls his airway well and is breathing without labor. Assessment and Plan - Assessment and Plan Plan: ASSESSMENT: Acute hypoxemic respiratory failure-resolved Aspiration pneumonia Metabolic encephalopathy Sepsis Acute discitis at C4/C5, epidural and retropharyngeal abscess s/p decompression and stabilization. COPD Underlying dementia Schizoaffective disorder/schizophrenia PLAN: NEURO: -Neuro exam improved today no focal deficits observed on sedation hold -Home antipsychotics and anxiolytics restarted along with antidepressants -MRI of the C-spine 09/14- C4-5 with some residual soft tissue or complex fluid posterior to the disc interspace resulting in persistent moderate to severe focal canal stenosis and cord compression. -C4-5 anterior cervical discectomy with evacuation of epidural abscess, interbody arthrodesis using PEEK cage filled with autologous bone graft, Simplicity plate and screws 09/12 -Continued sedation protocol required for severe agitation -Discontinue Decadron -Substitute Geodon intramuscular because he will not take his oral medication Seroquel RESP: -Emergently intubated and placed on mechanical ventilation 09/14/18 -Extubated now 09/16. Protecting airway at this time -DuoNeb every 6 hours scheduled and as needed -Chest x-ray showed small left pleural effusion but sputum culture negative today -IV Decadron discontinued. CV: -Hemodynamically stable, discontinue IV fluids GI: -Swallow eval. diet per speech : -Monitor renal function closely. Dc Guido catheter. ID: -Antibiotics vancomycin cefepime and Flagyl per ID -ID Dr. Hanson is following HEME: -Monitor CBC, coags -Right upper extremity is more swollen compared to left, venous duplex negative for DVT ENDO: -Electrolyte replacement per protocol -Sliding scale insulin if needed PROPH: -Bilateral lower extremity SCDs. IV famotidine. Lovenox 40 mg sq daily, cleared by Dr. Pereira LINES: -Utilize peripheral IVs Overall impression: Comfortable respiratory pattern. Protects airway well. All of his prehospital sedative and antipsychotic medications have been restarted. Steroids were stopped 2 days ago. Continued difficulty with severe agitation. His sister will not allow us to substitute any intramuscular medications even though he will not take medicine by mouth now.
[2018-09-22] MEDS: clonazePAM 1 MG Tablet PO SCH (20:47)
[2018-09-22] MEDS: traZODone 50 MG Tablet PO SCH (20:49)
[2018-09-22] MEDS: QUEtiapine 100 MG Tablet PO SCH (20:49)
[2018-09-23] MEDS: Oral Hygiene Kit OROPHARYNG SCH ×4 (00:25→15:54)
[2018-09-23] MEDS: PENICILLIN POTASSIUM IV.SIG SCH ×6 (00:44→20:31)
[2018-09-23] MEDS: SODIUM CHLOR 0.9% IV.SIG SCH ×6 (00:44→20:31)
[2018-09-23] MEDS: Dexmedetomidine Inj 200 MCG in Sodium Chlor 0.9% Inj 48 ML IV.CONT PRN ×2 (02:33→09:28)
[2018-09-23] MEDS: Sodium Chloride 0.9% 2 ML Flush BID IV.FLUSH SCH ×2 (09:18→20:50)
[2018-09-23] MEDS: Chlorhexidine 0.12% Oral Kit 15 ML UDC OROPHARYNG SCH ×2 (09:18→20:31)
[2018-09-23] MEDS: Enoxaparin Inj 40 MG/0.4 ML Syringe SQ SCH (09:18)
[2018-09-23] MEDS: Famotidine PF Inj 20 MG/2 ML Vial IV.PUSH SCH ×2 (09:18→20:51)
[2018-09-23] MEDS: Propranolol 10 MG Tablet PO SCH ×3 (09:19→20:49)
[2018-09-23] MEDS: Duloxetine 60 MG DR Capsule PO SCH (09:19)
[2018-09-23] MEDS: Senna/Docusate Sodium 8.6/50 MG Tablet PO SCH ×2 (09:19→20:50)
[2018-09-23] MEDS: clonazePAM 0.5 MG Tablet PO SCH (09:19)
--- NOTE | 2018-09-23 11:28 | P.DIET ---
Nutritional Evaluation Type of nutrition evaluation: follow-up Nutrition consult regarding: Tube Feeding (NEW TF 09/23), Diet Evaluation Nutrition screening: [facility] [place] (Wound) Objective - Diagnosis cervical spine discitis w/ abscess - Objective % IBW: 116 (IBW= 151#) Body Weight Used for Calculations: Actual (79.6 kg) Energy Needs - Lower Range (kCal/kg): 25 Energy Needs - Upper Range (kCal/kg): 30 Lower Limit kCal/kg (kCals): 1,990 Upper Limit kCal/kg (kCals): 2,388 Lower Limit Protein Factor (Grams per Kg): 1.0 Upper Limit Protein Factor (Grams per Kg): 1.5 Lower Protein Needs (Protein): 80 Upper Protein Needs (Protein): 119 Fluid Factor (ml/kg): 30 Estimated Fluid Needs (ml): 2,388 Dietitian Reviewed in Medical Record: Current diet, Curent medications, Intake & Output, Labs, Medical history, Tube feeding Diet Order: NPO Speech Therapy Recommendations: Yes Wound Care Note: Coccyx/buttocks pressure ulcer wound stage II See WOCN dated 09/18 Objective Comments: PMH: COPD, Dementia, Hx fx pelvis, schizo affective schizophrenia Assessment Assessment: Pt is at high nutrition risk 2' to pressure injury and his need for TFing. Agree with current TF order for Jevity 1.5 @ 60 mls/hr goal. This will provide 2160 kcals, 92 gms protein and 1094 mls of free water. Recommendations: 1. Jevity 1.5 @ 60 mls/hr goal 2. RD will recommend Ashvin BID when pts wounds become stage III or higher Dietitian to Monitor: Lab values, Intake & Output, Tube feeding tolerance, Weight change, Wound/skin status, Medical course
--- NOTE | 2018-09-23 12:04 | XR ---
EXAM DATE: 09/23/2018 11:57 AM EST AGE/SEX: 63 years / Male INDICATIONS: Nasogastric tube placement. CLINICAL DATA: This is the patient's initial encounter. Patient reports that signs and symptoms have been present for 1 week and indicates a pain score of 0/10. MEDICAL/SURGICAL HISTORY: Hypertension. . cervical fusion, hip replacement. COMPARISON: No prior exams available for comparison. FINDINGS: Tip of the Dobbhoff catheter lies within the fundus of the stomach. CONCLUSION: Tip of Dobbhoff catheter is within the fundus of the stomach. Electronically signed by: Vlad Stack MD 09/23/2018 12:03 PM EST
--- NOTE | 2018-09-23 12:44 | P.PNID ---
Subjective Remarks: extubated less confused he is afebrile Antibiotics: cefepime flagyl vancomycin Allergies/Adverse Reactions: Allergies No Known Allergies Allergy (Verified 09/11/18 16:49) Objective Vital Signs 09/22/18 13:00 09/22/18 13:05 09/22/18 14:00 Temperature Pulse Rate 88 85 108 H Respiratory Rate 23 25 H 21 Blood Pressure 118/70 Pulse Oximetry 95 94 L 96 09/22/18 14:05 09/22/18 14:54 09/22/18 15:00 Temperature Pulse Rate 113 H 110 H 104 H Respiratory Rate 23 28 H 30 H Blood Pressure 129/72 132/84 Pulse Oximetry 96 95 97 09/22/18 15:05 09/22/18 15:35 09/22/18 16:00 Temperature 98.3 F Pulse Rate 101 H 82 76 Respiratory Rate 28 H 11 L 24 Blood Pressure 130/81 113/71 113/71 Pulse Oximetry 96 95 96 09/22/18 16:05 09/22/18 17:00 09/22/18 17:05 Temperature Pulse Rate 75 95 H 97 H Respiratory Rate 13 19 32 H Blood Pressure 85/60 L 141/79 H Pulse Oximetry 96 97 97 09/22/18 17:35 09/22/18 18:00 09/22/18 18:05 Temperature Pulse Rate 96 H 101 H 97 H Respiratory Rate 25 H 23 36 H Blood Pressure 151/92 H 170/92 H Pulse Oximetry 97 96 97 09/22/18 18:23 09/22/18 19:00 09/22/18 20:00 Temperature 97.5 F L Pulse Rate 97 H 101 H 101 H Respiratory Rate 21 17 Blood Pressure 113/71 149/87 H Pulse Oximetry 98 97 09/22/18 21:00 09/22/18 22:00 09/22/18 23:00 Temperature Pulse Rate 97 H 91 H 89 Respiratory Rate 27 H 26 H 20 Blood Pressure 149/96 H 126/79 142/88 H Pulse Oximetry 97 95 98 09/23/18 00:00 09/23/18 01:00 09/23/18 02:00 Temperature 97.6 F Pulse Rate 77 77 72 Respiratory Rate 28 H 15 27 H Blood Pressure 98/61 L 96/56 L 98/59 L Pulse Oximetry 99 99 90 L 09/23/18 03:00 09/23/18 04:00 09/23/18 05:00 Temperature 97.8 F Pulse Rate 97 H 83 94 H Respiratory Rate 27 H 29 H 25 H Blood Pressure 138/85 123/80 131/77 Pulse Oximetry 100 100 94 L 09/23/18 06:00 09/23/18 06:30 09/23/18 06:35 Temperature Pulse Rate 103 H 63 80 Respiratory Rate 26 H 15 26 H Blood Pressure 139/85 131/78 Pulse Oximetry 95 100 98 09/23/18 07:00 09/23/18 07:05 09/23/18 07:30 Temperature Pulse Rate 67 67 68 Respiratory Rate 24 13 12 Blood Pressure 92/59 L Pulse Oximetry 95 94 L 97 09/23/18 07:35 09/23/18 08:00 09/23/18 08:05 Temperature 98 F Pulse Rate 66 69 79 Respiratory Rate 12 14 17 Blood Pressure 116/66 140/82 Pulse Oximetry 96 97 97 09/23/18 08:30 09/23/18 08:35 09/23/18 09:00 Temperature Pulse Rate 60 63 71 Respiratory Rate 17 18 25 H Blood Pressure 147/72 H Pulse Oximetry 100 99 97 09/23/18 09:05 09/23/18 09:17 09/23/18 09:30 Temperature Pulse Rate 73 62 74 Respiratory Rate 24 17 24 Blood Pressure 107/69 Pulse Oximetry 96 99 09/23/18 09:35 09/23/18 10:00 09/23/18 10:05 Temperature Pulse Rate 84 103 H 96 H Respiratory Rate 24 26 H 22 Blood Pressure 112/84 146/87 H Pulse Oximetry 99 95 95 09/23/18 10:30 09/23/18 10:35 09/23/18 11:00 Temperature Pulse Rate 97 H 93 H Respiratory Rate 23 34 H 30 H Blood Pressure 151/84 H Pulse Oximetry 99 98 98 09/23/18 11:05 09/23/18 11:30 09/23/18 11:35 Temperature Pulse Rate 96 H 73 84 Respiratory Rate 29 H 15 21 Blood Pressure 131/74 123/70 Pulse Oximetry 98 96 97 09/23/18 12:00 09/23/18 12:05 09/23/18 12:30 Temperature 97.8 F Pulse Rate 69 69 67 Respiratory Rate 12 25 H 23 Blood Pressure 102/59 L Pulse Oximetry 94 L 94 L 95 Intake & Output 09/22/18 09/23/18 09/23/18 18:59 06:59 18:59 Intake Total 750 / 750 700 / 700 220 / 220 Output Total 300 / 300 Balance 450 / 450 700 / 700 220 / 220 Weight 79.6 kg Intake: IV 750 / 750 700 / 700 220 / 220 Precedex Inj 200 MCG In NS Inj 150 / 150 100 / 100 20 / 20 48 ML @ 0.2 MCG/KG/HR 4.23 mls/ hr IV.CONT TITRATE PRN Rx#: [id number] Maxipime Inj 2,000 MG In NS Inj 100 / 100 200 / 200 100 ML @ 200 mls/hr IV.SIG Q8H JAZ Rx#:[id number] Pfizerpen-G Inj 4,000,000 UNIT 300 / 300 300 / 300 100 / 100 In NS Inj 100 ML @ 200 mls/hr IV.SIG Q4H JAZ Rx#:[id number] Flagyl 500 MG Inj 100 ML @ 100 200 / 200 100 / 100 100 / 100 mls/hr IV.SIG Q8H JAZ Rx#: [id number] Output: Urine Amount (Catheter) 300 / 300 Condom 300 / 300 Other: # Voids 3 # Incontinent Voids 2 3 # Urine Diapers 2 Date of Last Bowel Movement 09/11/18 09/11/18 09/11/18 Imaging: ITS Impressions Lumbar Spine MRI 09/11/18 20:09 CONCLUSION: 1. Moderate bilateral foraminal narrowing at L5-S1. 2. Grade I retrolisthesis of L5 in relation to S1. 3. Minimal bilateral foraminal narrowing at L2-3, L3-4 and L4-5. 4. Hemangiomas at L2 and L3. 5. Severe degenerative disc disease at L5-S1. Thoracic Spine MRI 09/11/18 20:09 CONCLUSION: 1. No fracture or subluxation of the thoracic spine. 2. Mild diffuse degenerative changes as described. These findings all appear chronic but there is a less age determinate Schmorl's node of the T8/T9 disc. Cervical Spine X-Ray 09/12/18 00:00 CONCLUSION: Expected intraoperative appearance of discectomy and fusion procedure at C4/C5. Cervical Spine MRI 09/14/18 00:00 CONCLUSION: 1. There is interval fusion across C4-5 with some residual soft tissue or complex fluid posterior to the disc interspace resulting in persistent moderate to severe focal canal stenosis and cord compression. Minimal cord signal abnormality at the area of compression. 2. Stable retrolisthesis of C3 on C4 with moderate stenosis and mild cord compression. 3. Worsening prevertebral soft tissue edema and swelling. Postcontrast images reveal enhancement in the anterior epidural space between C3 and C7, nonspecific but possibly related to postsurgical changes. No loculated enhancing fluid collection is seen within the spinal canal. There is also abnormal edema and enhancement in the prevertebral soft tissues. Differential diagnosis includes postoperative change. Cannot exclude infection. Venous Doppler Study 09/15/18 10:09 CONCLUSION: 1. No DVT identified. Chest X-Ray 09/19/18 06:00 CONCLUSION: Small effusion and mild consolidation at the left base without significant change. Abdomen X-Ray 09/23/18 00:00 CONCLUSION: Tip of Dobbhoff catheter is within the fundus of the stomach. Physical Exam: GENERAL: awake, alert SKIN: Warm and dry. no rash HEAD: Atraumatic. Normocephalic. EYES: Pupils equal and round. No scleral icterus. No injection or drainage. ENT: No nasal bleeding or discharge. Mucous membranes pink and moist. NECK: c collar in place. CARDIOVASCULAR: Regular rate and rhythm. NO murmurs RESPIRATORY: No accessory muscle use. Clear to auscultation. Breath sounds equal bilaterally. GASTROINTESTINAL: Abdomen soft, non-tender, moderately distended. Hepatic and splenic margins not palpable. MUSCULOSKELETAL: Extremities without clubbing, cyanosis, + some edema. No obvious deformities. NEUROLOGICAL: awake. alert confused PSYCHIATRIC: psychotic, combative aggressive Assessment and Plan - Plan Retropharingeal abscess, C4-5 discitis, epidural abscess sp C4-5 anterior cervical discectomy with evacuation of epidural abscess, interbody arthrodesis using PEEK cage filled with autologous bone graft, Simplicity plate and screws on 09/12/[address] Randall MD case was dw Dr Pereira aspiration PNA cont PCN x 8 - 12 weeks OK to dc from [facility] once other issues resolve Fu CRP ESR
--- NOTE | 2018-09-23 12:46 | P.DCO ---
Post Hospital Infusion Therapy - Infusion Therapy Location of Infusion Therapy: [facility] Infusion Therapy Order - Patient Information Patient Weight: 79.6 kg - Diagnosis (1) Cervical discitis Code(s): M46.42 - Discitis, unspecified, cervical region - Administer Medication Penicillin G Potassium Dose: 20 million units IV Directions: Continuous with pump Start Treatment: 09/23/18 Stop Treatment: 11/19/18 - Additional Information Venous Access: PICC Line Additional Instructions: [x] Peripheral flush and dressing changes per protocol [x] Implanted port and central splash line operator: * Implanted port: 10 ml Normal Saline followed by 5 ml Heparin 100 units/ml Heparin flush after each use and monthly to maintain. [] May leave port accessed during therapy. [] May leave peripheral site accessed for duration of therapy. [x] If patient has SOB or respiratory distress, check oxygen saturation. If less than 90% or clinical signs of respiratory distress, administer oxygen at 2 L/min. via nasal cannula and notify physician. [x] Anaphylaxis/Reaction orders: * Stop infusion. * Keep IV line open with saline flush. * Notify physician. * Monitor vital signs every 15 minutes until symptoms resolve. * Check Oxygen saturation; Oxygen at 2 L/min. via nasal cannula if less than 90% or clinical signs of respiratory distress. * Administer diphenhydramine (Benadryl) 25 mg IV STAT, (unless patient has received as pre-med). May repeat once, if necessary. * Solu-Cortef 250 mg IVP over 30-60 seconds, use 100 mg vials for each dissolution. * Epinephrine (1mg/1 ml) 0.3 mg subcutaneously or IVP now with any signs of respiratory distress. * Check with physician for new additional pre-med orders if patient is re- challenged or re-treated. [x] May remove PICC line when treatment complete, after confirming with Physician. [x] If the patient is admitted to the hospital, the ED, or transferred via [facility] , complete transfer form including medication reconciliation order sheet. Weekly Labs: CBC w/diff, CMP, CRP, SED Rate - Case Management Consult Case Management Consult-IVF: Yes - Patient Information Allergies No Known Allergies Allergy (Verified 09/11/18 16:49)
--- NOTE | 2018-09-23 14:41 | P.CONPSY ---
Provisional Diagnosis Admission Date: September 11, 2018 22:53 [place] I.: Schizoaffective disorder, bipolar type History of Present Illness Service: Medicine Primary Care Provider: Zachery Paris MD Chief Complaint: Severe hypoxia aspiration History of Present Illness: Patient is a 63-year-old man, domiciled with his sister in [place], single, no kids, supported by Social Security with an extensive psychiatric history of schizoaffective disorder, dementia, multiple psychiatric hospitalizations, no previous suicide attempts, outpatient care in [facility], the patient is in Seroquel 600 mg at bedtime, trazodone 50 mg, Cymbalta 60 mg, donepezil 10 mg, clonazepam 0.5 mg the morning 2 mg at night, Abilify 20 mg, he has been in this psychotropic medication for several years, with good response, no significant side effects past medical history significant for COPD, who was admitted to the hospitalist service on 09/11/2018 with neck pain and extremity weakness and MRI showing acute discitis at C4/C5 with epidural abscess retropharyngeal abscess. Patient was moved to the ICU by the hospitalist for concern of aspiration and increasing oxygen requirement. She was intubated for several days, finally extubated, consulted to psychiatry to addressed psychotropic regimen. Chart was reviewed. On my psychiatric evaluation today patient is known cooperative, sedated, unable to provide any meaningful information for the psychiatric assessment at the moment. I got collateral information from his sister, Jasmyn Anderson, , who reported that the patient has a long history of schizoaffective disorder, with multiple psychiatric hospitalizations, he has been his psychotropic regimen for about 9 years, with no relapse, and no hospitalizations since then. She reports that the patient has been fully compliant with medications and follow-ups. She points that the reason the patient has been a little bit agitated lately is because he has not been taking his medications, but when he is taking the medication he is usually really calm and cooperative. PPHx: schizoaffective disorder, dementia, multiple psychiatric hospitalizations , no previous suicide attempts, outpatient care in [facility], the patient is in Seroquel 600 mg at bedtime, trazodone 50 mg, Cymbalta 60 mg, donepezil 10 mg, clonazepam 0.5 mg the morning 2 mg at night, Abilify 20 mg, he has been in this psychotropic medication for several years, with good response, PMHx: COPD Substance Hx: No use of illegal drugs and Social Hx: The patient was born and raised in [place], he lives in [place] with his sister, single, no kids, supported by [facility] - History History Provided By: Patient, Family Member - Medical History Medical History: Medical History (Last Reviewed 09/22/18 @ 08:04 by [facility]) COPD (chronic obstructive pulmonary disease) Dementia History of fractured pelvis Schizo affective schizophrenia - Surgical History Surgical History: Surgical History (Last Reviewed 09/22/18 @ 08:04 by [facility]) History of eye surgery History of hip replacement - Family History Family History: Family History (Last Reviewed 09/12/18 @ 12:43 by Miguelina Hanson MD) Father CAD (coronary artery disease) Mother Diabetes mellitus Mother Stroke - Tobacco History Second Hand Smoke Exposure: No Tobacco Use In Past 30 Days: No Smoking Status: Former smoker Tobacco Type: Cigarettes - Alcohol History How Often Do You Have a Drink Containing Alcohol: Never - Substance Use History Substance History: No History of Abuse - Travel History Recent Travel in the [place] Within the Last 8 Weeks: No Recent Travel Out of the Country Within the Last 8 Weeks: No - Immunization History Tetanus Immunization: Unsure Hx Influenza Vaccine This Season: No Medications and Allergies Active Medications: Active Medications Hydrocodone Bitart/Acetaminophen ([place] 10/325) 2 tab PO Q4H PRN PRN Reason: PAIN SCALE 6 TO 10 Last Admin: 09/22/18 10:21 Dose: 2 tab Al Hydroxide/Mg Hydroxide (Milk Of [place] Liq) 30 ml PO Q12H PRN PRN Reason: Mild Constipation Albuterol (Duoneb Neb (Prn)) 1 ampul NEB Q2HR NEB PRN PRN Reason: SHORTNESS OF BREATH/WHEEZING Last Admin: 09/23/18 09:15 Dose: 1 ampul Aripiprazole (Abilify) 20 mg PO DAILY [facility] Last Admin: 09/23/18 11:16 Dose: 20 mg Bisacodyl (Dulcolax Supp) 10 mg RECTAL DAILY PRN PRN Reason: SEVERE CONSITIPATION Chlorhexidine Gluconate (Peridex 0.12% Oral Kit) 15 ml OROPHARYNG BID@0800, 2000 [facility] Last Admin: 09/23/18 09:18 Dose: 15 ml Clonazepam (Klonopin) 2 mg PO HS [facility] Last Admin: 09/22/18 20:47 Dose: 2 mg Clonazepam (Klonopin) 0.5 mg PO DAILY [facility] Last Admin: 09/23/18 09:19 Dose: Not Given Donepezil HCl (Aricept) 10 mg PO DAILY [facility] Last Admin: 09/23/18 11:16 Dose: 10 mg Duloxetine HCl (Cymbalta) 60 mg PO DAILY [facility] Last Admin: 09/23/18 09:19 Dose: Not Given Enoxaparin Sodium (Lovenox Inj) 40 mg SQ DAILY [facility] Last Admin: 09/23/18 09:18 Dose: 40 mg Famotidine (Pepcid Pf Inj) 20 mg IV.PUSH Q12HR [facility] Last Admin: 09/23/18 09:18 Dose: 20 mg Hyoscyamine (Levsin) 0.125 mg PO Q4H PRN PRN Reason: SECRETIONS Metronidazole/Sodium Chloride (Flagyl 500 Mg Inj) 100 mls @ 100 mls/hr IV.SIG Q8H [facility] Last Infusion: 09/23/18 09:06 Dose: Infused Cefepime HCl 2,000 mg/ Sodium (Chloride) 100 mls @ 200 mls/hr IV.SIG Q8H [facility] Last Admin: 09/23/18 12:39 Dose: 200 mls/hr Dexmedetomidine HCl 200 mcg/ (Sodium Chloride) 50 mls @ 4.23 mls/hr IV.CONT TITRATE PRN; Protocol PRN Reason: Per Protocol Last Titration: 09/23/18 09:28 Dose: 0 mcg/kg/hr, 0 mls/hr Penicillin G Potassium 4,000, (000 unit/ Sodium Chloride) 100 mls @ 200 mls/hr IV.SIG Q4H [facility] Last Admin: 09/23/18 12:38 Dose: 200 mls/hr Lactulose (Lactulose Liq) 30 ml PO DAILY PRN PRN Reason: SEVERE CONSITIPATION Lorazepam (Ativan Inj) 1 mg IM Q4H PRN PRN Reason: SEVERE AGITATION Miscellaneous Medication () 1 each OROPHARYNG 0000,0400,1200,1600 [facility] Last Admin: 09/23/18 12:38 Dose: 1 each Morphine Sulfate (Morphine Inj) 2 mg IV.PUSH Q2H PRN PRN Reason: Pain Scale 1 to 5 Last Admin: 09/17/18 15:21 Dose: 2 mg Ondansetron HCl (Zofran Inj) 4 mg IV.PUSH Q6H PRN PRN Reason: NAUSEA Last Admin: 09/17/18 15:48 Dose: 4 mg Pravastatin Sodium (Pravachol) 40 mg PO [facility] Last Admin: 09/22/18 20:48 Dose: 40 mg Propranolol HCl (Inderal) 10 mg PO BID [facility] Last Admin: 09/23/18 11:16 Dose: 10 mg Quetiapine Fumarate (Seroquel) 600 mg PO [facility] Last Admin: 09/22/18 20:49 Dose: 600 mg Senna/Docusate Sodium (Jodie-Colace) 1 tab PO BID [facility] Last Admin: 09/23/18 09:19 Dose: Not Given Sennosides (Senokot) 17.2 mg PO Q12H PRN PRN Reason: Moderate Constipation Sodium Chloride (Ns Flush) 2 ml IV.FLUSH BID [facility] Last Admin: 09/23/18 09:18 Dose: 2 ml Sodium Chloride (Ns Flush) 2 ml IV.FLUSH PRN PRN PRN Reason: FLUSH AFTER USING IV ACCESS Terbutaline Sulfate (Brethine Inj) 1 mg SQ UNSCH PRN PRN Reason: For Extravasation Trazodone HCl (Desyrel) 50 mg PO [facility] Last Admin: 09/22/18 20:49 Dose: 50 mg Allergies Allergy/AdvReac Type Severity Reaction Status Date / Time No Known Allergies Allergy Verified 09/11/18 16:49 Home Medications Medication Instructions Recorded Confirmed Type aripiprazole 20 mg PO DAILY 08/31/18 09/11/18 History clonazepam 0.5 mg PO TID 08/31/18 09/11/18 History donepezil [Aricept] 10 mg PO DAILY 08/31/18 09/11/18 History duloxetine 60 mg PO DAILY 08/31/18 09/11/18 History omeprazole 20 mg PO DAILY 08/31/18 09/11/18 History propranolol 10 mg PO BID 08/31/18 09/11/18 History quetiapine 600 mg PO QPM 08/31/18 09/11/18 History trazodone 50 mg PO DAILY 08/31/18 09/11/18 History clonazepam PO DAILY 09/12/18 History simvastatin PO DAILY 09/12/18 History Exam Vital signs: Vital Signs 09/22/18 14:54 09/22/18 15:00 09/22/18 15:05 Temperature Pulse Rate 110 H 104 H 101 H Respiratory Rate 28 H 30 H 28 H Blood Pressure 132/84 130/81 Pulse Oximetry 95 97 96 09/22/18 15:35 09/22/18 16:00 09/22/18 16:05 Temperature 98.3 F Pulse Rate 82 76 75 Respiratory Rate 11 L 24 13 Blood Pressure 113/71 113/71 85/60 L Pulse Oximetry 95 96 96 09/22/18 17:00 09/22/18 17:05 09/22/18 17:35 Temperature Pulse Rate 95 H 97 H 96 H Respiratory Rate 19 32 H 25 H Blood Pressure 141/79 H 151/92 H Pulse Oximetry 97 97 97 09/22/18 18:00 09/22/18 18:05 09/22/18 18:23 Temperature Pulse Rate 101 H 97 H 97 H Respiratory Rate 23 36 H Blood Pressure 170/92 H Pulse Oximetry 96 97 09/22/18 19:00 09/22/18 20:00 09/22/18 21:00 Temperature 97.5 F L Pulse Rate 101 H 101 H 97 H Respiratory Rate 21 17 27 H Blood Pressure 113/71 149/87 H 149/96 H Pulse Oximetry 98 97 97 09/22/18 22:00 09/22/18 23:00 09/23/18 00:00 Temperature 97.6 F Pulse Rate 91 H 89 77 Respiratory Rate 26 H 20 28 H Blood Pressure 126/79 142/88 H 98/61 L Pulse Oximetry 95 98 99 09/23/18 01:00 09/23/18 02:00 09/23/18 03:00 Temperature Pulse Rate 77 72 97 H Respiratory Rate 15 27 H 27 H Blood Pressure 96/56 L 98/59 L 138/85 Pulse Oximetry 99 90 L 100 09/23/18 04:00 09/23/18 05:00 09/23/18 06:00 Temperature 97.8 F Pulse Rate 83 94 H 103 H Respiratory Rate 29 H 25 H 26 H Blood Pressure 123/80 131/77 139/85 Pulse Oximetry 100 94 L 95 09/23/18 06:30 09/23/18 06:35 09/23/18 07:00 Temperature Pulse Rate 63 80 67 Respiratory Rate 15 26 H 24 Blood Pressure 131/78 Pulse Oximetry 100 98 95 09/23/18 07:05 09/23/18 07:30 09/23/18 07:35 Temperature Pulse Rate 67 68 66 Respiratory Rate 13 12 12 Blood Pressure 92/59 L 116/66 Pulse Oximetry 94 L 97 96 09/23/18 08:00 09/23/18 08:05 09/23/18 08:30 Temperature 98 F Pulse Rate 69 79 60 Respiratory Rate 14 17 17 Blood Pressure 140/82 Pulse Oximetry 97 97 100 09/23/18 08:35 09/23/18 09:00 09/23/18 09:05 Temperature Pulse Rate 63 71 73 Respiratory Rate 18 25 H 24 Blood Pressure 147/72 H 107/69 Pulse Oximetry 99 97 96 09/23/18 09:17 09/23/18 09:30 09/23/18 09:35 Temperature Pulse Rate 62 74 84 Respiratory Rate 17 24 24 Blood Pressure 112/84 Pulse Oximetry 99 99 09/23/18 10:00 09/23/18 10:05 09/23/18 10:30 Temperature Pulse Rate 103 H 96 H 97 H Respiratory Rate 26 H 22 23 Blood Pressure 146/87 H Pulse Oximetry 95 95 99 09/23/18 10:35 09/23/18 11:00 09/23/18 11:05 Temperature Pulse Rate 93 H 96 H Respiratory Rate 34 H 30 H 29 H Blood Pressure 151/84 H 131/74 Pulse Oximetry 98 98 98 09/23/18 11:30 09/23/18 11:35 09/23/18 12:00 Temperature Pulse Rate 73 84 69 Respiratory Rate 15 21 12 Blood Pressure 123/70 Pulse Oximetry 96 97 94 L 09/23/18 12:05 09/23/18 12:30 Temperature 97.8 F Pulse Rate 69 67 Respiratory Rate 25 H 23 Blood Pressure 102/59 L Pulse Oximetry 94 L 95 Intake & Output 09/22/18 09/23/18 09/23/18 18:59 06:59 18:59 Intake Total 750 / 750 700 / 700 220 / 220 Output Total 300 / 300 Balance 450 / 450 700 / 700 220 / 220 Weight 79.6 kg 79.6 kg Intake: IV 750 / 750 700 / 700 220 / 220 Precedex Inj 200 MCG In NS Inj 150 / 150 100 / 100 20 / 20 48 ML @ 0.2 MCG/KG/HR 4.23 mls/ hr IV.CONT TITRATE PRN Rx#: [id number] Maxipime Inj 2,000 MG In NS Inj 100 / 100 200 / 200 100 ML @ 200 mls/hr IV.SIG Q8H [facility] Rx#:[id number] Pfizerpen-G Inj 4,000,000 UNIT 300 / 300 300 / 300 100 / 100 In NS Inj 100 ML @ 200 mls/hr IV.SIG Q4H [facility]AZ Rx#:[id number] Flagyl 500 MG Inj 100 ML @ 100 200 / 200 100 / 100 100 / 100 mls/hr IV.SIG Q8H JAZ Rx#: [id number] Output: Urine Amount (Catheter) 300 / 300 Condom 300 / 300 Other: # Voids 3 # Incontinent Voids 2 3 # Urine Diapers 2 Date of Last Bowel Movement 09/11/18 09/11/18 09/11/18 Mental Status Examination Appearance: Appropriate Consciousness: Lethargic Orientation: Person Mental Status Exam Remarks: Limited because the patient is sedated at this moment Assessment and Plan - Assessment (1) Schizoaffective disorder Code(s): F25.9 - Schizoaffective disorder, unspecified Status: Acute - Plan Plan: On psychiatric evaluation today the patient is quite sedated, unable to participate in the psychiatric assessment, but information about psychiatric history, baseline, medical and social history and current medications are gathered through his sister. I will go ahead and restart all his psychotropics : Seroquel 600 mg at bedtime, trazodone 50 mg at bedtime, Cymbalta 60 mg, donepezil 10 mg, clonazepam 0.5 mg in the morning 2 mg p.m., Abilify 20 mg, as the patient has been in the psychotropic regimen for many years with good results and no significant side effects. I will follow-up. Justification for Continued Inpatient Stay: No admission indicated at this moment.
--- NOTE | 2018-09-23 17:30 | P.PNCC ---
Subjective Subjective Remarks/Hospital Course: Patient is a 63-year-old male with past medical history significant for COPD, dementia, schizophrenia, who was admitted to the hospitalist service on 09/11/2018 with neck pain and extremity weakness and MRI showing acute discitis at C4/C5 with epidural abscess retropharyngeal abscess. Dr Pereira was consulted and on 09/12/18 underwent cervical decompression and evacuation of abscess (C4-5 anterior cervical discectomy with evacuation of epidural abscess, interbody arthrodesis using PEEK cage filled with autologous bone graft, Simplicity plate and screws). Patient was ready on IV cefepime Flagyl and vancomycin per ID Dr. Hanson. Patient was moved to the ICU by the hospitalist for concern of aspiration and increasing oxygen requirement. Today a.m. patient was noted to be on 50% Ventimask and chest x-ray showed a left lower lobe infiltrate. I was consulted emergently around 11:30 AM today as the patient was acutely desaturating, clearly aspirated. On my arrival to the bedside patient had an oxygen saturation of 75-76% on 100% nonrebreather. Significant gurgling sounds heard. Patient was more or less unresponsive struggling to breathe. I suctioned out a large amount of secretion from the oropharynx, which improved the saturation to 85%. Patient was emergently intubated with direct laryngoscopy and was placed on mechanical ventilation. Stat chest x-ray is pending. I will place him on scheduled Decadron for any airway edema. Stat MRI of the C-spine ordered with and without contrast to evaluate for retropharyngeal abscess expansion and also airway edema and C-spine injury. Discussed with Dr. Conway neurosurgery 09/15/18: Patient remains intubated sedation held good neuro exam. Follows commands good strength of the lower extremities and upper extremities. MRI yesterday showed there is interval fusion across C4-5 with some residual soft tissue or complex fluid posterior to the disc interspace resulting in persistent moderate to severe focal canal stenosis and cord compression. Minimal cord signal abnormality at the area of compression. Discussed with Dr. Pereira is no surgical indication at this time. Continue Decadron for possible upper airway swelling 09/16: Patient remains intubated but wakes up easily follows commands x4. Chest x-ray shows persistent small left effusion but sputum cultures negative to date. MRI reviewed with Dr. Randall no indication for surgery at this time adequately decompressed. 09/17: Tolerating extubation, protects airway well. Nauseated. 09/18: Appears to be breathing comfortably following commands strength appears to be near normal in all 4 extremities. Restarting home psych meds 09/19: Patient remains severely agitated. He is on a chronic regimen of psychiatric medications including 600 mg of Seroquel each night. Also included are Cymbalta, Abilify, trazodone, and Klonopin. This regimen was arrived at after long-term care under a specific psychiatrist and per the sisters implication this is the only regimen that has successfully kept him functional. It was necessary to stop the medications for a while during the immediate perioperative period and we are having some difficulty getting his thought process back in a calm state. 09/20: We are having great difficulty controlling his agitation. His chronic schizophrenia is being agitated by something we are not covering. At this juncture am forced to stop his steroids as we have manipulated all other medications. 09/21: Continued problems adjusting his psychiatric medications. His sister who is at the bedside continually is basically dictating what medications we can and cannot use. This is severely limiting our ability to treat this patient. 09/22, 09/23: Continued agitation. Fine from neurological standpoint. Objective Vital Signs / I&O: Vital Signs 09/22/18 17:35 09/22/18 18:00 09/22/18 18:05 Temperature Pulse Rate 96 H 101 H 97 H Respiratory Rate 25 H 23 36 H Blood Pressure 151/92 H 170/92 H Pulse Oximetry 97 96 97 09/22/18 18:23 09/22/18 19:00 09/22/18 20:00 Temperature 97.5 F L Pulse Rate 97 H 101 H 101 H Respiratory Rate 21 17 Blood Pressure 113/71 149/87 H Pulse Oximetry 98 97 09/22/18 21:00 09/22/18 22:00 09/22/18 23:00 Temperature Pulse Rate 97 H 91 H 89 Respiratory Rate 27 H 26 H 20 Blood Pressure 149/96 H 126/79 142/88 H Pulse Oximetry 97 95 98 09/23/18 00:00 09/23/18 01:00 09/23/18 02:00 Temperature 97.6 F Pulse Rate 77 77 72 Respiratory Rate 28 H 15 27 H Blood Pressure 98/61 L 96/56 L 98/59 L Pulse Oximetry 99 99 90 L 09/23/18 03:00 09/23/18 04:00 09/23/18 05:00 Temperature 97.8 F Pulse Rate 97 H 83 94 H Respiratory Rate 27 H 29 H 25 H Blood Pressure 138/85 123/80 131/77 Pulse Oximetry 100 100 94 L 09/23/18 06:00 09/23/18 06:30 09/23/18 06:35 Temperature Pulse Rate 103 H 63 80 Respiratory Rate 26 H 15 26 H Blood Pressure 139/85 131/78 Pulse Oximetry 95 100 98 09/23/18 07:00 09/23/18 07:05 09/23/18 07:30 Temperature Pulse Rate 67 67 68 Respiratory Rate 24 13 12 Blood Pressure 92/59 L Pulse Oximetry 95 94 L 97 09/23/18 07:35 09/23/18 08:00 09/23/18 08:05 Temperature 98 F Pulse Rate 66 69 79 Respiratory Rate 12 14 17 Blood Pressure 116/66 140/82 Pulse Oximetry 96 97 97 09/23/18 08:30 09/23/18 08:35 09/23/18 09:00 Temperature Pulse Rate 60 63 71 Respiratory Rate 17 18 25 H Blood Pressure 147/72 H Pulse Oximetry 100 99 97 09/23/18 09:05 09/23/18 09:17 09/23/18 09:30 Temperature Pulse Rate 73 62 74 Respiratory Rate 24 17 24 Blood Pressure 107/69 Pulse Oximetry 96 99 09/23/18 09:35 09/23/18 10:00 09/23/18 10:05 Temperature Pulse Rate 84 103 H 96 H Respiratory Rate 24 26 H 22 Blood Pressure 112/84 146/87 H Pulse Oximetry 99 95 95 09/23/18 10:30 09/23/18 10:35 09/23/18 11:00 Temperature Pulse Rate 97 H 93 H Respiratory Rate 23 34 H 30 H Blood Pressure 151/84 H Pulse Oximetry 99 98 98 09/23/18 11:05 09/23/18 11:30 09/23/18 11:35 Temperature Pulse Rate 96 H 73 84 Respiratory Rate 29 H 15 21 Blood Pressure 131/74 123/70 Pulse Oximetry 98 96 97 09/23/18 12:00 09/23/18 12:05 09/23/18 12:30 Temperature 97.8 F Pulse Rate 69 69 67 Respiratory Rate 12 25 H 23 Blood Pressure 102/59 L Pulse Oximetry 94 L 94 L 95 09/23/18 12:35 09/23/18 13:00 09/23/18 13:05 Temperature Pulse Rate 71 87 85 Respiratory Rate 21 24 26 H Blood Pressure 143/68 H 154/80 H Pulse Oximetry 94 L 100 100 09/23/18 13:30 09/23/18 13:35 09/23/18 14:00 Temperature Pulse Rate 86 89 84 Respiratory Rate 22 25 H Blood Pressure 128/82 Pulse Oximetry 96 96 09/23/18 14:15 09/23/18 14:17 09/23/18 14:30 Temperature Pulse Rate 83 Respiratory Rate 30 H Blood Pressure 152/83 H Pulse Oximetry 98 97 98 09/23/18 14:35 09/23/18 15:00 09/23/18 15:05 Temperature Pulse Rate 82 82 79 Respiratory Rate 37 H 21 28 H Blood Pressure 153/78 H 148/79 H Pulse Oximetry 98 99 99 09/23/18 15:30 09/23/18 15:35 09/23/18 16:00 Temperature 98.1 F Pulse Rate 85 82 82 Respiratory Rate 28 H 27 H 24 Blood Pressure 152/74 H Pulse Oximetry 100 99 99 09/23/18 16:05 09/23/18 16:30 09/23/18 16:35 Temperature Pulse Rate 92 H 93 H 87 Respiratory Rate 22 28 H 30 H Blood Pressure 156/82 H 143/77 H Pulse Oximetry 100 99 99 09/23/18 17:00 09/23/18 17:05 Temperature Pulse Rate 85 96 H Respiratory Rate 26 H 29 H Blood Pressure 147/81 H Pulse Oximetry 98 98 Intake & Output 09/22/18 09/23/18 09/23/18 18:59 06:59 18:59 Intake Total 750 / 750 700 / 700 620 / 620 Output Total 300 / 300 Balance 450 / 450 700 / 700 620 / 620 Weight 79.6 kg 79.6 kg Intake: IV 750 / 750 700 / 700 620 / 620 Precedex Inj 200 MCG In NS Inj 150 / 150 100 / 100 20 / 20 48 ML @ 0.2 MCG/KG/HR 4.23 mls/ hr IV.CONT TITRATE PRN Rx#: [id number] Maxipime Inj 2,000 MG In NS Inj 100 / 100 200 / 200 100 / 100 100 ML @ 200 mls/hr IV.SIG Q8H JAZ Rx#:[id number] Pfizerpen-G Inj 4,000,000 UNIT 300 / 300 300 / 300 300 / 300 In NS Inj 100 ML @ 200 mls/hr IV.SIG Q4H JAZ Rx#:[id number] Flagyl 500 MG Inj 100 ML @ 100 200 / 200 100 / 100 200 / 200 mls/hr IV.SIG Q8H JAZ Rx#: [id number] Output: Urine Amount (Catheter) 300 / 300 Condom 300 / 300 Other: # Voids 3 # Incontinent Voids 2 3 # Urine Diapers 2 Date of Last Bowel Movement 09/11/18 09/11/18 09/11/18 Result Diagrams: 09/21/18 09:00 09/21/18 09:00 Objective Remarks: GENERAL: 63-year-old male, resting in bed in no acute distress NECK: Cervical collar, drain has been removed. CARDIOVASCULAR: Regular rate and rhythm. Normotensive. No JVD. RESPIRATORY: Air entry equal bilaterally no wheezes or crackles. Tachypnea during agitation. GASTROINTESTINAL: Abdomen soft, non-tender, nondistended. No guarding. Bowel sounds active. MUSCULOSKELETAL: No clubbing, cyanosis, or edema. No obvious deformities. R upper extremity remains more swollen than left (no DVT) NEUROLOGICAL: Drowsy, arousable easily. Uses all 4 extremities with 5/5 strength. No significant weakness of the extremities. He controls his airway well and is breathing without labor. Assessment and Plan - Assessment and Plan Plan: ASSESSMENT: Acute hypoxemic respiratory failure-resolved Aspiration pneumonia Metabolic encephalopathy Sepsis Acute discitis at C4/C5, epidural and retropharyngeal abscess s/p decompression and stabilization. COPD Underlying dementia Schizoaffective disorder/schizophrenia PLAN: NEURO: -Neuro exam improved today no focal deficits observed on sedation hold -Home antipsychotics and anxiolytics restarted along with antidepressants -MRI of the C-spine 09/14- C4-5 with some residual soft tissue or complex fluid posterior to the disc interspace resulting in persistent moderate to severe focal canal stenosis and cord compression. -C4-5 anterior cervical discectomy with evacuation of epidural abscess, interbody arthrodesis using PEEK cage filled with autologous bone graft, Simplicity plate and screws 09/12 -Continued sedation protocol required for severe agitation -Discontinue Decadron -Substitute Geodon intramuscular because he will not take his oral medication Seroquel RESP: -Emergently intubated and placed on mechanical ventilation 09/14/18 -Extubated now 09/16. Protecting airway at this time -DuoNeb every 6 hours scheduled and as needed -Chest x-ray showed small left pleural effusion but sputum culture negative today -IV Decadron discontinued. CV: -Hemodynamically stable, discontinue IV fluids GI: -Swallow eval. diet per speech : -Monitor renal function closely. Dc Guido catheter. ID: -Antibiotics vancomycin cefepime and Flagyl per ID -ID Dr. Hanson is following HEME: -Monitor CBC, coags -Right upper extremity is more swollen compared to left, venous duplex negative for DVT ENDO: -Electrolyte replacement per protocol -Sliding scale insulin if needed PROPH: -Bilateral lower extremity SCDs. IV famotidine. Lovenox 40 mg sq daily, cleared by Dr. Pereira LINES: -Utilize peripheral IVs Overall impression: Comfortable respiratory pattern. Protects airway well. All of his prehospital sedative and antipsychotic medications have been restarted. Steroids were stopped 2 days ago. Continued difficulty with severe agitation. Psych consulted and is resuming all his psychotropic medications via Dobbhoff
[2018-09-23] MEDS: QUEtiapine 100 MG Tablet PO SCH (20:49)
[2018-09-23] MEDS: traZODone 50 MG Tablet PO SCH (20:49)
[2018-09-23] MEDS: clonazePAM 1 MG Tablet PO SCH (20:50)
[2018-09-24] MEDS: PENICILLIN POTASSIUM IV.SIG SCH ×6 (01:08→20:41)
[2018-09-24] MEDS: Oral Hygiene Kit OROPHARYNG SCH ×4 (01:08→16:18)
[2018-09-24] MEDS: SODIUM CHLOR 0.9% IV.SIG SCH ×6 (01:08→20:41)
[2018-09-24] MEDS: Morphine Sulfate Inj 2 MG/ML Vial IV.PUSH PRN (05:20)
[2018-09-24] MEDS: Chlorhexidine 0.12% Oral Kit 15 ML UDC OROPHARYNG SCH ×2 (08:36→20:41)
[2018-09-24] MEDS: Famotidine PF Inj 20 MG/2 ML Vial IV.PUSH SCH ×2 (08:37→20:43)
[2018-09-24] MEDS: Enoxaparin Inj 40 MG/0.4 ML Syringe SQ SCH (08:37)
[2018-09-24] MEDS: Duloxetine 60 MG DR Capsule PO SCH (08:37)
[2018-09-24] MEDS: Senna/Docusate Sodium 8.6/50 MG Tablet PO SCH ×2 (08:38→20:43)
[2018-09-24] MEDS: Propranolol 10 MG Tablet PO SCH ×2 (08:38→20:43)
[2018-09-24] MEDS: Sodium Chloride 0.9% 2 ML Flush BID IV.FLUSH SCH ×2 (08:38→23:53)
[2018-09-24] MEDS: clonazePAM 0.5 MG Tablet PO SCH (08:38)
--- NOTE | 2018-09-24 11:12 | P.PNIM ---
Subjective Interval history: Patient is more cooperative and follow commands today. Somnolent. RUE swelling. Physical Exam Vital signs: Vital Signs 09/23/18 11:30 09/23/18 11:35 09/23/18 12:00 Temperature Pulse Rate 73 84 69 Respiratory Rate 15 21 12 Blood Pressure 123/70 Pulse Oximetry 96 97 94 L 09/23/18 12:05 09/23/18 12:30 09/23/18 12:35 Temperature 97.8 F Pulse Rate 69 67 71 Respiratory Rate 25 H 23 21 Blood Pressure 102/59 L 143/68 H Pulse Oximetry 94 L 95 94 L 09/23/18 13:00 09/23/18 13:05 09/23/18 13:30 Temperature Pulse Rate 87 85 86 Respiratory Rate 24 26 H 22 Blood Pressure 154/80 H Pulse Oximetry 100 100 96 09/23/18 13:35 09/23/18 14:00 09/23/18 14:15 Temperature Pulse Rate 89 84 Respiratory Rate 25 H Blood Pressure 128/82 Pulse Oximetry 96 98 09/23/18 14:17 09/23/18 14:30 09/23/18 14:35 Temperature Pulse Rate 83 82 Respiratory Rate 30 H 37 H Blood Pressure 152/83 H 153/78 H Pulse Oximetry 97 98 98 09/23/18 15:00 09/23/18 15:05 09/23/18 15:30 Temperature Pulse Rate 82 79 85 Respiratory Rate 21 28 H 28 H Blood Pressure 148/79 H Pulse Oximetry 99 99 100 09/23/18 15:35 09/23/18 16:00 09/23/18 16:05 Temperature 98.1 F Pulse Rate 82 82 92 H Respiratory Rate 27 H 24 22 Blood Pressure 152/74 H 156/82 H Pulse Oximetry 99 99 100 09/23/18 16:30 09/23/18 16:35 09/23/18 17:00 Temperature Pulse Rate 93 H 87 85 Respiratory Rate 28 H 30 H 26 H Blood Pressure 143/77 H Pulse Oximetry 99 99 98 09/23/18 17:05 09/23/18 17:30 09/23/18 17:35 Temperature Pulse Rate 96 H 95 H 89 Respiratory Rate 29 H 28 H 25 H Blood Pressure 147/81 H 157/79 H Pulse Oximetry 98 98 97 09/23/18 17:46 09/23/18 18:00 09/23/18 18:05 Temperature Pulse Rate 84 83 85 Respiratory Rate 30 H 24 Blood Pressure 161/79 H Pulse Oximetry 98 98 09/23/18 19:00 09/23/18 19:05 09/23/18 19:30 Temperature Pulse Rate 86 89 88 Respiratory Rate 25 H 30 H 24 Blood Pressure 153/82 H Pulse Oximetry 98 98 98 09/23/18 19:35 09/23/18 20:00 09/23/18 20:05 Temperature 97.7 F Pulse Rate 88 89 91 H Respiratory Rate 24 29 H 25 H Blood Pressure 145/80 H 142/85 H Pulse Oximetry 97 99 98 09/23/18 20:30 09/23/18 20:35 09/23/18 21:00 Temperature Pulse Rate 93 H 90 93 H Respiratory Rate 36 H 27 H 32 H Blood Pressure 145/82 H Pulse Oximetry 98 98 98 09/23/18 21:05 09/23/18 21:30 09/23/18 21:35 Temperature Pulse Rate 91 H 111 H 107 H Respiratory Rate 35 H 20 24 Blood Pressure 144/79 H 110/68 Pulse Oximetry 97 95 94 L 09/23/18 22:00 09/23/18 22:05 09/23/18 22:22 Temperature Pulse Rate 106 H 110 H Respiratory Rate 19 24 Blood Pressure 113/67 Pulse Oximetry 91 L 91 L 95 09/23/18 22:30 09/23/18 22:35 09/23/18 23:00 Temperature Pulse Rate 114 H 117 H 117 H Respiratory Rate 26 H 25 H 32 H Blood Pressure 111/80 Pulse Oximetry 94 L 95 94 L 09/23/18 23:05 09/23/18 23:30 09/23/18 23:35 Temperature Pulse Rate 115 H 112 H 112 H Respiratory Rate 29 H 26 H 28 H Blood Pressure 119/74 114/66 Pulse Oximetry 94 L 94 L 94 L 09/24/18 00:00 09/24/18 00:05 09/24/18 00:30 Temperature 97.9 F Pulse Rate 107 H 106 H 108 H Respiratory Rate 31 H 23 28 H Blood Pressure 102/69 Pulse Oximetry 93 L 93 L 94 L 09/24/18 00:35 09/24/18 01:00 09/24/18 01:05 Temperature Pulse Rate 110 H 93 H 94 H Respiratory Rate 27 H 31 H 30 H Blood Pressure 101/65 111/65 Pulse Oximetry 95 92 L 90 L 09/24/18 01:30 09/24/18 01:35 09/24/18 01:40 Temperature Pulse Rate 106 H 108 H 102 H Respiratory Rate 31 H 28 H 24 Blood Pressure 119/71 Pulse Oximetry 89 L 86 L 09/24/18 02:00 09/24/18 02:05 09/24/18 02:30 Temperature Pulse Rate 88 100 H 83 Respiratory Rate 29 H 21 27 H Blood Pressure 118/72 Pulse Oximetry 96 95 99 09/24/18 02:35 09/24/18 03:00 09/24/18 03:05 Temperature Pulse Rate 81 117 H 123 H Respiratory Rate 26 H 29 H 29 H Blood Pressure 131/76 138/87 Pulse Oximetry 98 97 95 09/24/18 03:30 09/24/18 03:35 09/24/18 03:37 Temperature Pulse Rate 132 H 130 H 131 H Respiratory Rate 36 H 34 H 27 H Blood Pressure 156/123 H 146/65 H Pulse Oximetry 92 L 92 L 92 L 09/24/18 04:00 09/24/18 04:08 09/24/18 04:30 Temperature 98 F Pulse Rate 120 H 122 H 124 H Respiratory Rate 29 H 21 28 H Blood Pressure 123/97 H Pulse Oximetry 94 L 94 L 93 L 09/24/18 04:35 09/24/18 05:00 09/24/18 05:05 Temperature Pulse Rate 123 H 120 H Respiratory Rate 24 28 H Blood Pressure 119/79 151/81 H Pulse Oximetry 95 93 L 09/24/18 05:30 09/24/18 05:35 09/24/18 06:00 Temperature Pulse Rate 120 H 114 H 93 H Respiratory Rate 29 H 24 16 Blood Pressure 109/64 Pulse Oximetry 94 L 95 94 L 09/24/18 06:05 09/24/18 06:30 09/24/18 06:35 Temperature Pulse Rate 91 H 85 88 Respiratory Rate 15 23 23 Blood Pressure 97/59 L 148/71 H Pulse Oximetry 94 L 95 96 09/24/18 07:00 09/24/18 07:04 09/24/18 07:30 Temperature Pulse Rate 86 85 88 Respiratory Rate 26 H 25 H 27 H Blood Pressure 146/74 H Pulse Oximetry 95 95 96 09/24/18 07:35 09/24/18 08:00 09/24/18 08:05 Temperature Pulse Rate 90 106 H 119 H Respiratory Rate 24 17 39 H Blood Pressure 117/64 116/70 Pulse Oximetry 96 99 100 09/24/18 08:30 09/24/18 08:35 09/24/18 09:00 Temperature 97.4 F L Pulse Rate 126 H 121 H 121 H Respiratory Rate 24 19 37 H Blood Pressure 136/69 Pulse Oximetry 99 99 99 09/24/18 09:05 09/24/18 09:13 09/24/18 09:24 Temperature Pulse Rate 119 H 116 H Respiratory Rate 35 H 20 Blood Pressure 130/66 Pulse Oximetry 98 95 97 09/24/18 09:30 09/24/18 09:35 09/24/18 10:00 Temperature Pulse Rate 111 H 108 H 110 H Respiratory Rate 32 H 31 H 28 H Blood Pressure 123/76 Pulse Oximetry 97 97 97 09/24/18 10:05 09/24/18 10:30 09/24/18 10:35 Temperature Pulse Rate 101 H 100 H 107 H Respiratory Rate 22 26 H 29 H Blood Pressure 129/85 148/94 H Pulse Oximetry 96 97 97 Intake & Output 09/23/18 09/24/18 09/24/18 18:59 06:59 18:59 Intake Total 841 / 841 1046 / 1046 200 / 200 Output Total 1100 / 1100 Balance 841 / 841 -54 / -54 200 / 200 Weight 79.6 kg 79.6 kg Intake: IV 620 / 620 600 / 600 200 / 200 Precedex Inj 200 MCG In NS Inj / 20 48 ML @ 0.2 MCG/KG/HR 4.23 mls/ hr IV.CONT TITRATE PRN Rx#: [id number] Maxipime Inj 2,000 MG In NS Inj 100 / 100 200 / 200 100 ML @ 200 mls/hr IV.SIG Q8H JAZ Rx#:[id number] Pfizerpen-G Inj 4,000,000 UNIT 300 / 300 300 / 300 100 / 100 In NS Inj 100 ML @ 200 mls/hr IV.SIG Q4H JAZ Rx#:[id number] Flagyl 500 MG Inj 100 ML @ 100 200 / 200 100 / 100 100 / 100 mls/hr IV.SIG Q8H JAZ Rx#: [id number] Oral 0 / 0 Tube Feeding 121 / 121 326 / 326 Tube Irrigant 100 / 100 Water Bolus Amount 120 / 120 Output: Urine Amount (Catheter) 1100 / 1100 Condom 1100 / 1100 Other: # Voids 3 Date of Last Bowel Movement 09/11/18 09/24/18 09/24/18 # Bowel Movements 1 Narrative: GENERAL: Elderly male in no acute distress CARDIOVASCULAR: Normal rate and regular rhythm without murmurs, gallops, or rubs. RESPIRATORY: Upper airway congestion sounds in diffuse rhonchi. GASTROINTESTINAL: Abdomen soft, non-tender, non-distended. Normal active bowel sounds NEURO: C-spine immobilized by a collar. Somnolent but able to follow commands. Moves both upper and lower extremities equally. PSYCH: Calm - Urinary Catheter Management Indwelling Urethral Catheter Cath placed during this visit: yes, but has since been removed by the nurse Urethral indwelling: Yes Reason for continuing: Acute urinary retention Insertion date: 09/12/18 Insertion time: 10:40 Removal date: 09/13/18 Removal time: 11:00 Condom Cath placed during this visit: no Results - Labs CBC & Chem 7: 09/21/18 09:00 09/21/18 09:00 - Imaging Impressions Abdomen X-Ray 09/23/18 00:00 CONCLUSION: Tip of Dobbhoff catheter is within the fundus of the stomach. Assessment and Plan - Plan 63-year-old male with multiple comorbid conditions including COPD, dementia, schizophrenia who was admitted to the hospitalist service on 09/11/2018 with neck pain and extremity weakness and MRI showing acute discitis at C4/C5 with epidural abscess retropharyngeal abscess. Dr Pereira was consulted and on underwent cervical decompression and evacuation of abscess (C4-5 anterior cervical discectomy with evacuation of epidural abscess, interbody arthrodesis using PEEK cage filled with autologous bone graft, Simplicity plate and screws) . Patient has had a complicated course over 4 due to respiratory failure requiring intubation. He has been extubated and stabilized. He has been agitated and psychiatry has been assisting with antipsychotic management. Care transferred back to the hospitalist service. Neurosurgery following. Acute hypoxemic respiratory failure, Aspiration pneumonia-: Improving -Emergently intubated and placed on mechanical ventilation 09/14/18 -Extubated now 09/16. Protecting airway at this time -DuoNeb every 6 hours scheduled and as needed -Chest x-ray showed small left pleural effusion but sputum culture negative today -IV Decadron discontinued. -Antibiotics vancomycin cefepime and Flagyl per ID -ID Dr. Hanson is following Sepsis Acute discitis at C4/C5, epidural and retropharyngeal abscess s/p decompression and stabilization. Antibiotics include vancomycin cefepime and Flagyl per ID Neurosurgery following and aware of repeat imaging findings. Continue conservative management with antibiotics. Metabolic encephalopathy/h/o schizophrenia, Underlying dementia: -Neuro exam improved today, no focal deficits observed -Home antipsychotics and anxiolytics restarted along with antidepressants -MRI of the C-spine 09/14- C4-5 with some residual soft tissue or complex fluid posterior to the disc interspace resulting in persistent moderate to severe focal canal stenosis and cord compression. -C4-5 anterior cervical discectomy with evacuation of epidural abscess, interbody arthrodesis using PEEK cage filled with autologous bone graft, Simplicity plate and screws 09/12 GI/aspiration: -Currently has Dobbhoff. Speech therapy following to advance diet as tolerated as he become more awake. -Continue tube feeding. Right upper extremity is more swollen compared to left - Venous Doppler negative for DVT PROPH: -Bilateral lower extremity SCDs. IV famotidine. Lovenox 40 mg sq daily, cleared by Dr. Pereira Discharge Planning: Continue care in the ICU.
--- NOTE | 2018-09-24 12:06 | US ---
EXAM DATE: 09/24/2018 11:55 AM EST AGE/SEX: 63 years / Male INDICATIONS: Edema in right arm. CLINICAL DATA: This is the patient's subsequent encounter. Patient reports that signs and symptoms h ave been present for 1 day and indicates a pain score of 0/10. MEDICAL/SURGICAL HISTORY: . Hypertension. . Fusion, cervical. Hip replacement. COMPARISON: [facility] [place] VENOUS DOPPLER ARM RIGHT, 09/15/2018. . FINDINGS: The cephalic vein is noncompressible and contains intraluminal filling defect. The venous structures of the right upper extremity are otherwise easily compressible and free of thro mbus. Normal Doppler flow is noted. Other: None. CONCLUSION: 1. Superficial venous thrombosis involving the mid cephalic vein. 2. No evidence of DVT. Electronically signed by: Vlad Stack MD 09/24/2018 12:05 PM EST
[2018-09-24] MEDS: traZODone 50 MG Tablet PO SCH (20:42)
[2018-09-24] MEDS: QUEtiapine 100 MG Tablet PO SCH (20:42)
[2018-09-24] MEDS: clonazePAM 1 MG Tablet PO SCH (20:43)
[2018-09-25] MEDS: PENICILLIN POTASSIUM IV.SIG SCH ×6 (00:30→20:26)
[2018-09-25] MEDS: SODIUM CHLOR 0.9% IV.SIG SCH ×6 (00:30→20:26)
[2018-09-25] MEDS: Oral Hygiene Kit OROPHARYNG SCH ×3 (02:10→16:10)
[2018-09-25 06:45] LABS: Anion Gap 5 meq/L (5-15); Blood Urea Nitrogen 15 mg/dL (7-18); Calcium 8.1 mg/dL (8.5-10.1); Carbon Dioxide 30.9 meq/L (21.0-32.0); Chloride 102 meq/L (98-107); Glomerular Filtration Rate Greater Than 89 mL/min (>89); Glucose,Random 145 mg/dL (74-106); Potassium 5.1 meq/L (3.5-5.1); Sodium 138 meq/L (136-145)
[2018-09-25 07:53] LABS: Hematocrit 39.7 % (39.0-51.0); Hemoglobin 13.1 gm/dL (13.0-17.0); Mean Corpuscular HGB Conc 33.1 % (32.0-36.0); Mean Corpuscular Hemoglobin 32.4 pg (27.0-34.0); Mean Platelet Volume 9.1 fL (7.0-11.0); Platelet Count 148 th/mm3 (150-450); Red Blood Count 4.05 mil/mm3 (4.50-5.90); Red Cell Distribution Width 14.6 % (11.6-17.2); White Blood Count 15.3 th/mm3 (4.0-11.0)
[2018-09-25] MEDS: Chlorhexidine 0.12% Oral Kit 15 ML UDC OROPHARYNG SCH ×2 (09:37→20:27)
[2018-09-25] MEDS: Senna/Docusate Sodium 8.6/50 MG Tablet PO SCH ×2 (09:38→20:26)
[2018-09-25] MEDS: Propranolol 10 MG Tablet PO SCH ×2 (09:38→20:26)
[2018-09-25] MEDS: clonazePAM 0.5 MG Tablet PO SCH (09:38)
[2018-09-25] MEDS: Famotidine PF Inj 20 MG/2 ML Vial IV.PUSH SCH ×2 (09:38→20:28)
[2018-09-25] MEDS: Sodium Chloride 0.9% 2 ML Flush BID IV.FLUSH SCH ×2 (09:39→20:27)
[2018-09-25] MEDS: Enoxaparin Inj 40 MG/0.4 ML Syringe SQ SCH (09:39)
[2018-09-25] MEDS: Duloxetine 60 MG DR Capsule PO SCH (09:43)
--- NOTE | 2018-09-25 10:16 | P.PNIM ---
Subjective Interval history: Discussed with RN. No acute changes overnight. Patient seems more appropriate and following commands. Physical Exam Vital signs: Vital Signs 09/24/18 10:30 09/24/18 10:35 09/24/18 11:00 Temperature Pulse Rate 100 H 107 H 109 H Respiratory Rate 26 H 29 H 30 H Blood Pressure 148/94 H Pulse Oximetry 97 97 97 09/24/18 11:05 09/24/18 11:30 09/24/18 11:35 Temperature Pulse Rate 111 H 102 H 100 H Respiratory Rate 34 H 21 21 Blood Pressure 152/85 H 132/73 Pulse Oximetry 97 96 96 09/24/18 12:00 09/24/18 12:05 09/24/18 12:30 Temperature 98.2 F Pulse Rate 111 H 98 H 104 H Respiratory Rate 35 H 24 27 H Blood Pressure 127/78 Pulse Oximetry 96 97 91 L 09/24/18 12:35 09/24/18 13:00 09/24/18 13:05 Temperature Pulse Rate 109 H 99 H 99 H Respiratory Rate 33 H 27 H 23 Blood Pressure 161/80 H 139/86 Pulse Oximetry 89 L 95 95 09/24/18 13:30 09/24/18 13:35 09/24/18 14:00 Temperature Pulse Rate 102 H 102 H 100 H Respiratory Rate 20 23 27 H Blood Pressure 158/83 H Pulse Oximetry 91 L 90 L 91 L 09/24/18 14:05 09/24/18 14:37 09/24/18 14:44 Temperature Pulse Rate 104 H 114 H 100 H Respiratory Rate 31 H 42 H 40 H Blood Pressure 151/74 H 138/88 Pulse Oximetry 91 L 95 09/24/18 15:00 09/24/18 15:05 09/24/18 15:30 Temperature Pulse Rate 106 H 103 H 108 H Respiratory Rate 28 H 27 H 27 H Blood Pressure 153/79 H Pulse Oximetry 95 95 93 L 09/24/18 15:35 09/24/18 16:00 09/24/18 16:05 Temperature 98.7 F Pulse Rate 105 H 107 H 105 H Respiratory Rate 28 H 32 H 31 H Blood Pressure 146/73 H 151/79 H Pulse Oximetry 94 L 93 L 93 L 09/24/18 16:30 09/24/18 16:35 09/24/18 17:00 Temperature Pulse Rate 108 H 107 H 106 H Respiratory Rate 26 H 26 H 21 Blood Pressure 147/81 H Pulse Oximetry 92 L 92 L 91 L 09/24/18 17:05 09/24/18 17:30 09/24/18 17:35 Temperature Pulse Rate 109 H 112 H Respiratory Rate 25 H 25 H Blood Pressure 162/83 H 159/108 H Pulse Oximetry 90 L 89 L 89 L 09/24/18 17:43 09/24/18 18:00 09/24/18 18:05 Temperature Pulse Rate 105 H 111 H 102 H Respiratory Rate 25 H 29 H 27 H Blood Pressure 141/83 H 156/80 H Pulse Oximetry 89 L 87 L 89 L 09/24/18 19:00 09/24/18 19:05 09/24/18 19:30 Temperature 101 F H Pulse Rate 108 H 109 H 108 H Respiratory Rate 29 H 23 27 H Blood Pressure 182/93 H Pulse Oximetry 94 L 94 L 93 L 09/24/18 19:35 09/24/18 19:57 09/24/18 20:00 Temperature Pulse Rate 113 H 112 H 113 H Respiratory Rate 29 H 33 H 35 H Blood Pressure 184/94 H 204/102 H Pulse Oximetry 92 L 93 L 93 L 09/24/18 20:06 09/24/18 20:30 09/24/18 20:35 Temperature Pulse Rate 109 H 113 H 109 H Respiratory Rate 30 H 31 H 30 H Blood Pressure 166/82 H 158/76 H Pulse Oximetry 94 L 95 95 09/24/18 21:00 09/24/18 21:05 09/24/18 21:30 Temperature Pulse Rate 111 H 122 H 128 H Respiratory Rate 30 H 37 H Blood Pressure 167/75 H Pulse Oximetry 96 97 93 L 09/24/18 21:35 09/24/18 22:00 09/24/18 22:05 Temperature Pulse Rate 126 H 102 H 101 H Respiratory Rate 30 H 23 24 Blood Pressure 127/59 L 86/51 L Pulse Oximetry 93 L 92 L 92 L 09/24/18 22:30 09/24/18 22:35 09/24/18 22:37 Temperature Pulse Rate 94 H 93 H 95 H Respiratory Rate 24 24 24 Blood Pressure 69/50 L 130/61 Pulse Oximetry 92 L 92 L 92 L 09/24/18 23:00 09/24/18 23:05 09/24/18 23:30 Temperature Pulse Rate 92 H 110 H 102 H Respiratory Rate 22 35 H 26 H Blood Pressure 118/63 Pulse Oximetry 92 L 90 L 92 L 09/24/18 23:35 09/25/18 00:00 09/25/18 00:05 Temperature Pulse Rate 102 H 109 H 93 H Respiratory Rate 26 H 33 H 24 Blood Pressure 124/67 96/52 L Pulse Oximetry 90 L 94 L 92 L 09/25/18 00:30 09/25/18 00:35 09/25/18 01:00 Temperature 98.1 F Pulse Rate 85 83 82 Respiratory Rate 21 23 24 Blood Pressure 100/57 L Pulse Oximetry 95 95 96 09/25/18 01:05 09/25/18 01:30 09/25/18 01:35 Temperature Pulse Rate 82 82 80 Respiratory Rate 21 21 22 Blood Pressure 88/54 L 79/53 L Pulse Oximetry 96 96 96 09/25/18 01:49 09/25/18 02:00 09/25/18 02:05 Temperature Pulse Rate 82 80 80 Respiratory Rate 20 21 20 Blood Pressure 105/55 L 123/57 L Pulse Oximetry 96 96 96 09/25/18 02:30 09/25/18 02:35 09/25/18 03:00 Temperature Pulse Rate 79 79 83 Respiratory Rate 21 21 22 Blood Pressure 123/56 L Pulse Oximetry 97 97 96 09/25/18 03:05 09/25/18 03:30 09/25/18 03:35 Temperature Pulse Rate 80 80 79 Respiratory Rate 21 21 22 Blood Pressure 116/56 L 122/59 L Pulse Oximetry 96 96 96 09/25/18 04:00 09/25/18 04:05 09/25/18 04:30 Temperature 97.1 F L Pulse Rate 80 79 80 Respiratory Rate 21 20 20 Blood Pressure 119/58 L Pulse Oximetry 96 97 97 09/25/18 04:35 09/25/18 05:00 09/25/18 05:05 Temperature Pulse Rate 81 81 80 Respiratory Rate 20 20 21 Blood Pressure 120/56 L 121/56 L Pulse Oximetry 97 98 98 09/25/18 05:30 09/25/18 05:35 09/25/18 06:00 Temperature Pulse Rate 81 82 81 Respiratory Rate 21 21 11 L Blood Pressure 111/64 Pulse Oximetry 98 97 98 09/25/18 06:05 11/22/18 06:30 09/25/18 06:35 Temperature Pulse Rate 80 105 H 92 H Respiratory Rate 20 21 12 Blood Pressure 132/64 149/68 H Pulse Oximetry 99 98 97 09/25/18 07:00 09/25/18 07:05 09/25/18 07:30 Temperature Pulse Rate 126 H 125 H 126 H Respiratory Rate 26 H 26 H 22 Blood Pressure 154/69 H Pulse Oximetry 95 94 L 96 09/25/18 07:35 09/25/18 08:00 09/25/18 09:39 Temperature Pulse Rate 119 H 120 H Respiratory Rate 19 21 24 Blood Pressure 149/70 H Pulse Oximetry 95 95 Intake & Output 09/24/18 09/25/18 09/25/18 18:59 06:59 18:59 Intake Total 1209 / 1209 1112 / 1112 100 / 100 Output Total 50 / 50 Balance 1209 / 1209 1062 / 1062 100 / 100 Weight 78.8 kg Intake: IV 600 / 600 500 / 500 100 / 100 Maxipime Inj 2,000 MG In NS Inj 100 / 100 100 / 100 100 / 100 100 ML @ 200 mls/hr IV.SIG Q8H JAZ Rx#:[id number] Pfizerpen-G Inj 4,000,000 UNIT 300 / 300 300 / 300 In NS Inj 100 ML @ 200 mls/hr IV.SIG Q4H JAZ Rx#:[id number] Flagyl 500 MG Inj 100 ML @ 100 200 / 200 100 / 100 mls/hr IV.SIG Q8H JAZ Rx#: [id number] Oral 0 / 0 0 / 0 Tube Feeding 449 / 449 492 / 492 Tube Irrigant 100 / 100 120 / 120 Water Bolus Amount 60 / 60 Output: Estimated Blood Loss 50 / 50 Gastric Drainage 0 / 0 Orogastric Tube 0 / 0 Other: # Voids 4 3 # Incontinent Voids 4 3 # Urine Diapers 4 Date of Last Bowel Movement 09/24/18 09/24/18 # Bowel Movements 1 0 Narrative: GENERAL: Elderly male in no acute distress CARDIOVASCULAR: Normal rate and regular rhythm without murmurs, gallops, or rubs. RESPIRATORY: Upper airway congestion sounds in diffuse rhonchi. GASTROINTESTINAL: Abdomen soft, non-tender, non-distended. Normal active bowel sounds NEURO: C-spine immobilized by a collar. Moves both upper and lower extremities equally. PSYCH: Calm - Urinary Catheter Management Indwelling Urethral Catheter Cath placed during this visit: yes, but has since been removed by the nurse Urethral indwelling: Yes Reason for continuing: Acute urinary retention Insertion date: 09/12/18 Insertion time: 10:40 Removal date: 09/13/18 Removal time: 11:00 Condom Cath placed during this visit: no Results - Labs CBC & Chem 7: 09/25/18 07:42 09/25/18 05:23 Laboratory Results - last 24 hr 09/25/18 09/25/18 05:23 07:42 WBC 15.3 H RBC 4.05 L Hgb 13.1 Hct 39.7 MCV 98.0 MCH 32.4 MCHC 33.1 RDW 14.6 Plt Count 148 L MPV 9.1 Sodium 138 Potassium 5.1 Chloride 102 Carbon Dioxide 30.9 Anion Gap 5 BUN 15 Creatinine 0.73 Estimated GFR Greater than 89 Random Glucose 145 H Calcium 8.1 L - Imaging Impressions Venous Doppler Study 09/24/18 00:00 CONCLUSION: 1. Superficial venous thrombosis involving the mid cephalic vein. 2. No evidence of DVT. Assessment and Plan - Plan 63-year-old male with multiple comorbid conditions including COPD, dementia, schizophrenia who was admitted to the hospitalist service on 09/11/2018 with neck pain and extremity weakness and MRI showing acute discitis at C4/C5 with epidural abscess retropharyngeal abscess. Dr Pereira was consulted and on underwent cervical decompression and evacuation of abscess (C4-5 anterior cervical discectomy with evacuation of epidural abscess, interbody arthrodesis using PEEK cage filled with autologous bone graft, Simplicity plate and screws) . Patient has had a complicated course over 4 due to respiratory failure requiring intubation. He has been extubated and stabilized. He has been agitated and psychiatry has been assisting with antipsychotic management. Care transferred back to the hospitalist service. Neurosurgery following. Acute hypoxemic respiratory failure, Aspiration pneumonia-: Improving -Emergently intubated and placed on mechanical ventilation 09/14/18 -Extubated now 09/16. -DuoNeb every 6 hours scheduled and as needed -Chest x-ray showed small left pleural effusion but sputum culture negative today -IV Decadron discontinued. -Antibiotics vancomycin cefepime and Flagyl per ID -ID Dr. Hanson is following -Speech to reevaluate. Need to ensure he can protect his airway. Sepsis Acute discitis at C4/C5, epidural and retropharyngeal abscess s/p decompression and stabilization. Antibiotics include vancomycin cefepime and Flagyl per ID Neurosurgery following and aware of repeat imaging findings. Continue conservative management with antibiotics. Metabolic encephalopathy/h/o schizophrenia, Underlying dementia: -Neuro exam improved today, no focal deficits observed -Home antipsychotics and anxiolytics restarted along with antidepressants -MRI of the C-spine 09/14- C4-5 with some residual soft tissue or complex fluid posterior to the disc interspace resulting in persistent moderate to severe focal canal stenosis and cord compression. -C4-5 anterior cervical discectomy with evacuation of epidural abscess, interbody arthrodesis using PEEK cage filled with autologous bone graft, Simplicity plate and screws 09/12 GI/aspiration: -Currently has Dobbhoff. Speech therapy to reevaluate as the patient is more awake. -Continue tube feeding. Right upper extremity is more swollen compared to left - Venous Doppler negative for DVT PROPH: -Bilateral lower extremity SCDs. IV famotidine. Lovenox 40 mg sq daily, cleared by Dr. Pereira Discharge Planning: Continue care in the ICU. Possible transfer to floor tomorrow
[2018-09-25] MEDS: traZODone 50 MG Tablet PO SCH (20:26)
[2018-09-25] MEDS: QUEtiapine 100 MG Tablet PO SCH (20:26)
[2018-09-25] MEDS: clonazePAM 1 MG Tablet PO SCH (20:26)
[2018-09-26] MEDS: PENICILLIN POTASSIUM IV.SIG SCH ×6 (00:17→21:08)
[2018-09-26] MEDS: SODIUM CHLOR 0.9% IV.SIG SCH ×6 (00:17→21:08)
[2018-09-26] MEDS: Oral Hygiene Kit OROPHARYNG SCH ×4 (00:18→15:36)
[2018-09-26 05:45] LABS: Hematocrit 37.9 % (39.0-51.0); Hemoglobin 12.7 gm/dL (13.0-17.0); Mean Corpuscular HGB Conc 33.5 % (32.0-36.0); Mean Corpuscular Hemoglobin 32.2 pg (27.0-34.0); Mean Corpuscular Volume 96.1 fL (80.0-100.0); Mean Platelet Volume 9.5 fL (7.0-11.0); Platelet Count 142 th/mm3 (150-450); Red Blood Count 3.94 mil/mm3 (4.50-5.90); Red Cell Distribution Width 14.3 % (11.6-17.2)
[2018-09-26 06:09] LABS: Anion Gap 3 meq/L (5-15); Blood Urea Nitrogen 12 mg/dL (7-18); Calcium 8.1 mg/dL (8.5-10.1); Carbon Dioxide 34.1 meq/L (21.0-32.0); Chloride 100 meq/L (98-107); Glomerular Filtration Rate Greater Than 89 mL/min (>89); Glucose,Random 168 mg/dL (74-106); Potassium 4.1 meq/L (3.5-5.1); Sodium 137 meq/L (136-145)
[2018-09-26] MEDS: Enoxaparin Inj 40 MG/0.4 ML Syringe SQ SCH (08:11)
[2018-09-26] MEDS: Propranolol 10 MG Tablet PO SCH ×2 (08:12→21:09)
[2018-09-26] MEDS: Sodium Chloride 0.9% 2 ML Flush BID IV.FLUSH SCH ×2 (08:12→21:10)
[2018-09-26] MEDS: clonazePAM 0.5 MG Tablet PO SCH (08:12)
[2018-09-26] MEDS: Senna/Docusate Sodium 8.6/50 MG Tablet PO SCH ×2 (08:12→21:09)
[2018-09-26] MEDS: Chlorhexidine 0.12% Oral Kit 15 ML UDC OROPHARYNG SCH ×2 (08:12→21:08)
[2018-09-26] MEDS: Duloxetine 60 MG DR Capsule PO SCH (08:22)
[2018-09-26] MEDS: Famotidine PF Inj 20 MG/2 ML Vial IV.PUSH SCH ×2 (08:22→21:10)
--- NOTE | 2018-09-26 14:06 | P.PNIM ---
Subjective Interval history: Patient still having a lot of issues with secretions and requiring suctioning. Discussed with RN. He is not able to cough up the secretions. He complains of a sore throat. Physical Exam Vital signs: Vital Signs 09/25/18 14:35 09/25/18 15:00 09/25/18 15:05 Temperature Pulse Rate 99 H 82 80 Respiratory Rate 22 11 L 12 Blood Pressure 135/65 129/61 129/61 Pulse Oximetry 95 93 L 93 L 09/25/18 15:35 09/25/18 16:00 09/25/18 16:05 Temperature Pulse Rate 84 96 H 100 H Respiratory Rate 15 15 23 Blood Pressure 170/80 H 159/71 H Pulse Oximetry 94 L 95 94 L 09/25/18 16:35 09/25/18 17:00 09/25/18 17:05 Temperature Pulse Rate 101 H 102 H 91 H Respiratory Rate 25 H 23 22 Blood Pressure 142/80 H 186/84 H Pulse Oximetry 94 L 92 L 92 L 09/25/18 17:14 09/25/18 17:35 09/25/18 18:00 Temperature 98.6 F Pulse Rate 96 H 98 H 109 H Respiratory Rate 23 26 H 23 Blood Pressure 166/64 H 170/74 H 171/79 H Pulse Oximetry 92 L 93 L 93 L 09/25/18 18:05 09/25/18 18:32 09/25/18 18:35 Temperature Pulse Rate 111 H 102 H 106 H Respiratory Rate 27 H 26 H 24 Blood Pressure 171/79 H 180/90 H 183/82 H Pulse Oximetry 94 L 93 L 93 L 09/25/18 18:38 09/25/18 19:00 09/25/18 19:05 Temperature Pulse Rate 101 H 104 H 99 H Respiratory Rate 30 H 28 H 23 Blood Pressure 170/79 H 170/77 H Pulse Oximetry 94 L 94 L 95 09/25/18 19:30 09/25/18 19:35 09/25/18 19:47 Temperature Pulse Rate 102 H 101 H 103 H Respiratory Rate 23 25 H 23 Blood Pressure 191/82 H 169/76 H Pulse Oximetry 93 L 93 L 94 L 09/25/18 20:00 09/25/18 20:05 09/25/18 20:30 Temperature 98.3 F Pulse Rate 104 H 108 H 100 H Respiratory Rate 24 21 23 Blood Pressure 167/73 H 167/73 H Pulse Oximetry 94 L 94 L 95 09/25/18 20:35 09/25/18 21:00 09/25/18 21:05 Temperature Pulse Rate 105 H 109 H 98 H Respiratory Rate 23 19 14 Blood Pressure 172/76 H 113/56 L Pulse Oximetry 93 L 88 L 92 L 09/25/18 21:23 09/25/18 21:30 09/25/18 21:35 Temperature Pulse Rate 88 93 H Respiratory Rate 12 14 Blood Pressure 113/54 L Pulse Oximetry 94 L 95 95 09/25/18 22:00 09/25/18 22:05 09/25/18 22:30 Temperature Pulse Rate 102 H 98 H 90 Respiratory Rate 18 17 15 Blood Pressure 122/58 L Pulse Oximetry 96 95 96 09/25/18 22:35 09/25/18 23:00 09/25/18 23:05 Temperature Pulse Rate 86 84 83 Respiratory Rate 15 13 13 Blood Pressure 130/59 L 134/61 Pulse Oximetry 96 97 97 09/25/18 23:30 09/25/18 23:35 09/26/18 00:00 Temperature 97.3 F L Pulse Rate 82 80 81 Respiratory Rate 12 12 11 L Blood Pressure 119/58 L 116/59 L Pulse Oximetry 97 98 98 09/26/18 00:05 09/26/18 00:30 09/26/18 00:35 Temperature Pulse Rate 79 117 H 120 H Respiratory Rate 11 L 20 21 Blood Pressure 116/59 L 163/78 H Pulse Oximetry 99 97 96 09/26/18 01:00 09/26/18 01:05 09/26/18 01:30 Temperature Pulse Rate 119 H 118 H 119 H Respiratory Rate 20 21 22 Blood Pressure 172/79 H Pulse Oximetry 95 94 L 94 L 09/26/18 01:35 09/26/18 02:00 09/26/18 02:05 Temperature Pulse Rate 120 H 115 H 116 H Respiratory Rate 23 23 21 Blood Pressure 173/80 H 158/73 H Pulse Oximetry 94 L 95 94 L 09/26/18 02:30 09/26/18 02:35 09/26/18 03:00 Temperature Pulse Rate 116 H 103 H 117 H Respiratory Rate 22 19 22 Blood Pressure 168/67 H Pulse Oximetry 96 95 95 09/26/18 03:05 09/26/18 03:30 09/26/18 03:35 Temperature Pulse Rate 113 H 115 H 116 H Respiratory Rate 23 26 H 23 Blood Pressure 133/63 120/63 Pulse Oximetry 95 95 95 09/26/18 04:00 09/26/18 04:05 09/26/18 04:30 Temperature 98.6 F Pulse Rate 116 H 118 H 92 H Respiratory Rate 29 H 36 H 17 Blood Pressure 159/76 H 159/76 H Pulse Oximetry 88 L 90 L 94 L 09/26/18 04:35 09/26/18 05:00 09/26/18 05:05 Temperature Pulse Rate 93 H 112 H 111 H Respiratory Rate 18 24 24 Blood Pressure 142/64 H 148/75 H Pulse Oximetry 94 L 92 L 90 L 09/26/18 05:30 09/26/18 05:35 09/26/18 06:00 Temperature Pulse Rate 92 H 90 88 Respiratory Rate 17 15 15 Blood Pressure 159/70 H Pulse Oximetry 96 95 97 09/26/18 06:05 09/26/18 07:05 09/26/18 07:30 Temperature Pulse Rate 91 H 84 111 H Respiratory Rate 16 13 17 Blood Pressure 157/70 H 147/61 H Pulse Oximetry 97 98 96 09/26/18 07:35 09/26/18 07:42 09/26/18 08:00 Temperature 98.7 F Pulse Rate 110 H 85 91 H Respiratory Rate 20 13 15 Blood Pressure 183/81 H 153/68 H Pulse Oximetry 97 96 97 09/26/18 08:01 09/26/18 08:25 09/26/18 08:30 Temperature Pulse Rate 88 108 H 108 H Respiratory Rate 13 19 19 Blood Pressure 149/67 H 163/76 H Pulse Oximetry 96 96 95 09/26/18 09:00 09/26/18 09:01 09/26/18 09:25 Temperature Pulse Rate 84 94 H Respiratory Rate 14 25 H Blood Pressure 183/87 H Pulse Oximetry 99 99 97 09/26/18 09:27 09/26/18 09:30 09/26/18 10:00 Temperature Pulse Rate 98 H 96 H 75 Respiratory Rate 27 H 26 H 15 Blood Pressure 143/77 H Pulse Oximetry 96 96 95 09/26/18 10:25 09/26/18 10:30 09/26/18 11:00 Temperature Pulse Rate 93 H 102 H 89 Respiratory Rate 16 25 H 24 Blood Pressure 145/80 H Pulse Oximetry 94 L 95 96 09/26/18 11:25 09/26/18 11:30 09/26/18 11:38 Temperature Pulse Rate 101 H 98 H 94 H Respiratory Rate 29 H 27 H 23 Blood Pressure 161/87 H 148/66 H Pulse Oximetry 96 96 96 09/26/18 12:00 Temperature 98.4 F Pulse Rate 94 H Respiratory Rate 35 H Blood Pressure Pulse Oximetry 96 Intake & Output 09/25/18 09/26/18 09/26/18 18:59 06:59 18:59 Intake Total 1406 / 1406 1376 / 1376 300 / 300 Output Total 700 / 700 Balance 1406 / 1406 676 / 676 300 / 300 Weight 79.3 kg Intake: IV 700 / 700 700 / 700 300 / 300 Maxipime Inj 2,000 MG In NS Inj 200 / 200 200 / 200 100 / 100 100 ML @ 200 mls/hr IV.SIG Q8H JAZ Rx#:[id number] Pfizerpen-G Inj 4,000,000 UNIT 300 / 300 300 / 300 200 / 200 In NS Inj 100 ML @ 200 mls/hr IV.SIG Q4H JAZ Rx#:[id number] Flagyl 500 MG Inj 100 ML @ 100 200 / 200 200 / 200 mls/hr IV.SIG Q8H JAZ Rx#: [id number] Tube Feeding 586 / 586 556 / 556 Tube Irrigant 120 / 120 Water Bolus Amount 120 / 120 Output: Urine Amount (Catheter) 700 / 700 Condom 700 / 700 Other: # Incontinent Voids 4 Date of Last Bowel Movement 09/24/18 09/24/18 09/26/18 # Bowel Movements 0 Narrative: GENERAL: Elderly male in no acute distress CARDIOVASCULAR: Normal rate and regular rhythm without murmurs, gallops, or rubs. RESPIRATORY: Upper airway congestion sounds with diffuse rhonchi. GASTROINTESTINAL: Abdomen soft, non-tender, non-distended. Normal active bowel sounds NEURO: C-spine immobilized by a collar. Moves both upper and lower extremities equally. PSYCH: Calm - Urinary Catheter Management Indwelling Urethral Catheter Cath placed during this visit: yes, but has since been removed by the nurse Urethral indwelling: Yes Reason for continuing: Acute urinary retention Insertion date: 09/12/18 Insertion time: 10:40 Removal date: 09/13/18 Removal time: 11:00 Condom Cath placed during this visit: no Results - Labs CBC & Chem 7: 09/26/18 04:53 09/26/18 04:53 Laboratory Results - last 24 hr 09/26/18 09/26/18 04:53 04:53 WBC 16.0 H RBC 3.94 L Hgb 12.7 L Hct 37.9 L MCV 96.1 MCH 32.2 MCHC 33.5 RDW 14.3 Plt Count 142 L MPV 9.5 Sodium 137 Potassium 4.1 D Chloride 100 Carbon Dioxide 34.1 H Anion Gap 3 L BUN 12 Creatinine 0.62 Estimated GFR Greater than 89 Random Glucose 168 H Calcium 8.1 L Microbiology 09/12/18 17:30 Abscess - Other Fungal Smear - Final No fungal elements seen 09/12/18 17:30 Abscess - Other Fungal Culture - Preliminary No growth in 2 weeks 09/12/18 17:30 Abscess - Other Acid Fast Bacilli Smear - Final No acid fast bacilli seen 09/12/18 17:30 Abscess - Other Mycobacterial Culture - Preliminary No growth in 2 weeks 09/12/18 17:18 Abscess - Other Fungal Smear - Final No fungal elements seen 09/12/18 17:18 Abscess - Other Fungal Culture - Preliminary No growth in 2 weeks 09/12/18 17:18 Abscess - Other Acid Fast Bacilli Smear - Final No acid fast bacilli seen 09/12/18 17:18 Abscess - Other Mycobacterial Culture - Preliminary No growth in 2 weeks 09/12/18 17:06 Abscess - Other Fungal Smear - Final No fungal elements seen 09/12/18 17:06 Abscess - Other Fungal Culture - Preliminary No growth in 2 weeks 09/12/18 17:06 Abscess - Other Acid Fast Bacilli Smear - Final No acid fast bacilli seen 09/12/18 17:06 Abscess - Other Mycobacterial Culture - Preliminary No growth in 2 weeks Assessment and Plan - Plan 63-year-old male with multiple comorbid conditions including COPD, dementia, schizophrenia who was admitted to the hospitalist service on 09/11/2018 with neck pain and extremity weakness and MRI showing acute discitis at C4/C5 with epidural abscess retropharyngeal abscess. Dr Pereira was consulted and on underwent cervical decompression and evacuation of abscess (C4-5 anterior cervical discectomy with evacuation of epidural abscess, interbody arthrodesis using PEEK cage filled with autologous bone graft, Simplicity plate and screws) . Patient has had a complicated course over 4 due to respiratory failure requiring intubation. He has been extubated and stabilized. He has been agitated and psychiatry has been assisting with antipsychotic management. Care transferred back to the hospitalist service. Neurosurgery following. Acute hypoxemic respiratory failure, Aspiration pneumonia-: Improving -Emergently intubated and placed on mechanical ventilation 09/14/18 -Extubated now 09/16. -DuoNeb every 6 hours scheduled and as needed -Chest x-ray showed small left pleural effusion but sputum culture negative today -IV Decadron discontinued. -Antibiotics vancomycin cefepime and Flagyl per ID -ID Dr. Hanson is following -Speech to reevaluate. Patient has not proven that he can protect his airway. Sepsis Acute discitis at C4/C5, epidural and retropharyngeal abscess s/p decompression and stabilization. Antibiotics include vancomycin cefepime and Flagyl per ID Neurosurgery following and aware of repeat imaging findings. Continue conservative management with antibiotics. Metabolic encephalopathy/h/o schizophrenia, Underlying dementia: -Neuro exam improved today, no focal deficits observed -Home antipsychotics and anxiolytics restarted along with antidepressants -MRI of the C-spine 09/14- C4-5 with some residual soft tissue or complex fluid posterior to the disc interspace resulting in persistent moderate to severe focal canal stenosis and cord compression. -C4-5 anterior cervical discectomy with evacuation of epidural abscess, interbody arthrodesis using PEEK cage filled with autologous bone graft, Simplicity plate and screws 09/12 GI/aspiration: -Currently has Dobbhoff. Speech therapy to reevaluate as the patient is more awake. -Continue tube feeding. Right upper extremity is more swollen compared to left: Likely secondary to IV infiltrate. - Venous Doppler negative for DVT PROPH: -Bilateral lower extremity SCDs. IV famotidine. Lovenox 40 mg sq daily, cleared by Dr. Pereira Discharge Planning: Continue care in the ICU. Patient unable to adequately protect his airway. Needs frequent suctioning.
[2018-09-26] MEDS: clonazePAM 1 MG Tablet PO SCH (21:09)
[2018-09-26] MEDS: traZODone 50 MG Tablet PO SCH (21:09)
[2018-09-26] MEDS: QUEtiapine 100 MG Tablet PO SCH (21:13)
[2018-09-27] MEDS: Senna/Docusate Sodium 8.6/50 MG Tablet PO SCH ×3 (00:06→21:45)
[2018-09-27] MEDS: SODIUM CHLOR 0.9% IV.SIG SCH ×6 (00:58→21:42)
[2018-09-27] MEDS: Oral Hygiene Kit OROPHARYNG SCH ×4 (00:58→19:59)
[2018-09-27] MEDS: PENICILLIN POTASSIUM IV.SIG SCH ×6 (00:58→21:42)
[2018-09-27 05:01] LABS: Hematocrit 38.5 % (39.0-51.0); Hemoglobin 12.6 gm/dL (13.0-17.0); Mean Corpuscular HGB Conc 32.7 % (32.0-36.0); Platelet Count 152 th/mm3 (150-450); Red Blood Count 3.93 mil/mm3 (4.50-5.90); Red Cell Distribution Width 14.5 % (11.6-17.2); White Blood Count 11.5 th/mm3 (4.0-11.0)
[2018-09-27 05:25] LABS: Anion Gap 3 meq/L (5-15); Blood Urea Nitrogen 10 mg/dL (7-18); Calcium 8.2 mg/dL (8.5-10.1); Carbon Dioxide 33.7 meq/L (21.0-32.0); Chloride 101 meq/L (98-107); Glomerular Filtration Rate Greater Than 89 mL/min (>89); Glucose,Random 154 mg/dL (74-106); Potassium 4.5 meq/L (3.5-5.1); Sodium 138 meq/L (136-145)
[2018-09-27] MEDS: Enoxaparin Inj 40 MG/0.4 ML Syringe SQ SCH (08:14)
[2018-09-27] MEDS: Sodium Chloride 0.9% 2 ML Flush BID IV.FLUSH SCH ×2 (08:15→21:44)
[2018-09-27] MEDS: Famotidine PF Inj 20 MG/2 ML Vial IV.PUSH SCH ×2 (08:15→21:45)
[2018-09-27] MEDS: clonazePAM 0.5 MG Tablet PO SCH (08:16)
[2018-09-27] MEDS: Propranolol 10 MG Tablet PO SCH ×2 (08:16→21:42)
[2018-09-27] MEDS: Chlorhexidine 0.12% Oral Kit 15 ML UDC OROPHARYNG SCH ×2 (08:16→21:43)
[2018-09-27] MEDS: Duloxetine 60 MG DR Capsule PO SCH (08:16)
--- NOTE | 2018-09-27 10:44 | P.PNIM ---
Subjective Interval history: Patient continues to have copious amount of secretions requiring frequent suctioning. DW RN and family member at bedside. Mental status getting close to baseline. Physical Exam Vital signs: Vital Signs 09/26/18 11:00 09/26/18 11:25 09/26/18 11:30 Temperature Pulse Rate 89 101 H 98 H Respiratory Rate 24 29 H 27 H Blood Pressure 161/87 H Pulse Oximetry 96 96 96 09/26/18 11:38 09/26/18 12:00 09/26/18 12:25 Temperature 98.4 F Pulse Rate 94 H 94 H 95 H Respiratory Rate 23 35 H 21 Blood Pressure 148/66 H 138/72 Pulse Oximetry 96 96 94 L 09/26/18 12:30 09/26/18 13:00 09/26/18 13:25 Temperature Pulse Rate 94 H 75 77 Respiratory Rate 26 H 15 14 Blood Pressure 113/59 L Pulse Oximetry 94 L 93 L 92 L 09/26/18 13:30 09/26/18 14:00 09/26/18 14:25 Temperature Pulse Rate 76 75 77 Respiratory Rate 14 13 14 Blood Pressure 131/63 Pulse Oximetry 92 L 96 96 09/26/18 14:30 09/26/18 15:00 09/26/18 15:25 Temperature Pulse Rate 80 77 80 Respiratory Rate 15 15 14 Blood Pressure 120/70 Pulse Oximetry 95 96 96 09/26/18 15:30 09/26/18 16:00 09/26/18 16:25 Temperature 98.8 F Pulse Rate 83 81 79 Respiratory Rate 14 15 14 Blood Pressure 115/62 Pulse Oximetry 95 93 L 91 L 09/26/18 16:30 09/26/18 17:00 09/26/18 17:25 Temperature Pulse Rate 79 64 74 Respiratory Rate 14 12 14 Blood Pressure 123/69 Pulse Oximetry 91 L 95 98 09/26/18 17:30 09/26/18 18:00 09/26/18 19:00 Temperature Pulse Rate 74 80 104 H Respiratory Rate 14 13 18 Blood Pressure Pulse Oximetry 97 95 93 L 09/26/18 19:25 09/26/18 20:00 09/26/18 20:25 Temperature 99.2 F Pulse Rate 109 H 109 H 108 H Respiratory Rate 20 24 24 Blood Pressure 143/82 H 135/73 Pulse Oximetry 94 L 93 L 93 L 09/26/18 21:00 09/26/18 21:25 09/26/18 22:00 Temperature Pulse Rate 115 H 110 H 113 H Respiratory Rate 24 22 20 Blood Pressure 143/104 H Pulse Oximetry 94 L 93 L 88 L 09/26/18 22:25 09/26/18 23:00 09/26/18 23:25 Temperature Pulse Rate 103 H 100 H 105 H Respiratory Rate 20 19 23 Blood Pressure 135/60 132/59 L Pulse Oximetry 96 97 97 09/27/18 00:00 09/27/18 00:25 09/27/18 01:00 Temperature 98.6 F Pulse Rate 98 H 92 H 80 Respiratory Rate 21 22 14 Blood Pressure 107/60 Pulse Oximetry 96 98 100 09/27/18 01:25 09/27/18 02:00 09/27/18 02:25 Temperature Pulse Rate 80 102 H 102 H Respiratory Rate 14 17 18 Blood Pressure 109/57 L 97/67 L Pulse Oximetry 100 99 97 09/27/18 03:00 09/27/18 03:25 09/27/18 04:00 Temperature 98.3 F Pulse Rate 111 H 80 115 H Respiratory Rate 26 H 16 22 Blood Pressure 108/59 L Pulse Oximetry 97 97 98 09/27/18 04:25 09/27/18 05:00 09/27/18 05:25 Temperature Pulse Rate 118 H 113 H 107 H Respiratory Rate 24 22 19 Blood Pressure 116/66 119/64 Pulse Oximetry 96 96 96 09/27/18 06:00 09/27/18 06:25 09/27/18 07:00 Temperature Pulse Rate 105 H 82 83 Respiratory Rate 19 15 25 H Blood Pressure 127/63 Pulse Oximetry 95 97 93 L 09/27/18 07:25 Temperature Pulse Rate 81 Respiratory Rate 14 Blood Pressure 105/60 Pulse Oximetry 90 L Intake & Output 09/26/18 09/27/18 09/27/18 18:59 06:59 18:59 Intake Total 1187 / 1187 1251 / 1251 Output Total 2550 / 2550 1100 / 1100 Balance -1363 / -1363 151 / 151 Weight 80.3 kg Intake: IV 500 / 500 500 / 500 Maxipime Inj 2,000 MG In NS Inj 100 / 100 100 / 100 100 ML @ 200 mls/hr IV.SIG Q8H [facility] [place] Rx#:[id number] Pfizerpen-G Inj 4,000,000 UNIT 300 / 300 300 / 300 In NS Inj 100 ML @ 200 mls/hr IV.SIG Q4H [facility] [place] Rx#:[id number] Flagyl 500 MG Inj 100 ML @ 100 100 / 100 100 / 100 mls/hr IV.SIG Q8H [facility] [place] Rx#: [id number] Oral 0 / 0 0 / 0 Tube Feeding 437 / 437 631 / 631 Tube Irrigant 120 / 120 Water Bolus Amount 250 / 250 Output: Urine 1275 / 1275 Stool 0 / 0 Urine Amount (Catheter) 1275 / 1275 1100 / 1100 Condom 1275 / 1275 1100 / 1100 Other: Date of Last Bowel Movement 09/26/18 09/27/18 # Bowel Movements 2 3 Narrative: GENERAL: Elderly male in no acute distress CARDIOVASCULAR: Normal rate and regular rhythm without murmurs, gallops, or rubs. RESPIRATORY: Upper airway congestion sounds with diffuse rhonchi. GASTROINTESTINAL: Abdomen soft, non-tender, non-distended. Normal active bowel sounds NEURO: C-spine immobilized by a collar. Moves both upper and lower extremities equally. PSYCH: Calm - Urinary Catheter Management Indwelling Urethral Catheter Cath placed during this visit: yes, but has since been removed by the nurse Urethral indwelling: Yes Reason for continuing: Acute urinary retention Insertion date: 09/12/18 Insertion time: 10:40 Removal date: 09/13/18 Removal time: 11:00 Condom Cath placed during this visit: no Results - Labs CBC & Chem 7: 09/27/18 04:38 09/27/18 04:38 Laboratory Results - last 24 hr 09/27/18 09/27/18 04:38 04:38 WBC 11.5 H RBC 3.93 L Hgb 12.6 L Hct 38.5 L MCV 98.0 MCH 32.0 MCHC 32.7 RDW 14.5 Plt Count 152 MPV 9.0 Sodium 138 Potassium 4.5 Chloride 101 Carbon Dioxide 33.7 H Anion Gap 3 L BUN 10 Creatinine 0.58 L Estimated GFR Greater than 89 Random Glucose 154 H Calcium 8.2 L Microbiology 09/12/18 17:30 Abscess - Other Fungal Smear - Final No fungal elements seen 09/12/18 17:30 Abscess - Other Fungal Culture - Preliminary No growth in 2 weeks 09/12/18 17:30 Abscess - Other Acid Fast Bacilli Smear - Final No acid fast bacilli seen 09/12/18 17:30 Abscess - Other Mycobacterial Culture - Preliminary No growth in 2 weeks 09/12/18 17:18 Abscess - Other Fungal Smear - Final No fungal elements seen 09/12/18 17:18 Abscess - Other Fungal Culture - Preliminary No growth in 2 weeks 09/12/18 17:18 Abscess - Other Acid Fast Bacilli Smear - Final No acid fast bacilli seen 09/12/18 17:18 Abscess - Other Mycobacterial Culture - Preliminary No growth in 2 weeks 09/12/18 17:06 Abscess - Other Fungal Smear - Final No fungal elements seen 09/12/18 17:06 Abscess - Other Fungal Culture - Preliminary No growth in 2 weeks 09/12/18 17:06 Abscess - Other Acid Fast Bacilli Smear - Final No acid fast bacilli seen 09/12/18 17:06 Abscess - Other Mycobacterial Culture - Preliminary No growth in 2 weeks Assessment and Plan - Plan 63-year-old male with multiple comorbid conditions including COPD, dementia, schizophrenia who was admitted to the hospitalist service on 09/11/2018 with neck pain and extremity weakness and MRI showing acute discitis at C4/C5 with epidural abscess retropharyngeal abscess. Dr Pereira was consulted and on underwent cervical decompression and evacuation of abscess (C4-5 anterior cervical discectomy with evacuation of epidural abscess, interbody arthrodesis using PEEK cage filled with autologous bone graft, Simplicity plate and screws) . Patient has had a complicated course over 4 due to respiratory failure requiring intubation. He has been extubated and stabilized. He has been agitated and psychiatry has been assisting with antipsychotic management. Patient transferred back to the hospitalist service. Neurosurgery following. Acute hypoxemic respiratory failure, Aspiration pneumonia-: Improving -Emergently intubated and placed on mechanical ventilation 09/14/18 -Extubated now 09/16. -DuoNeb every 6 hours scheduled and as needed -Chest x-ray showed small left pleural effusion but sputum culture negative today -IV Decadron discontinued. -Antibiotics vancomycin cefepime and Flagyl per ID -ID Dr. Hanson is following -Patient still having copious amount of secretions, weak cough and cannot protect his airway. - Check sputum culture. Continue Levsin. Suction PRN. Sepsis Acute discitis at C4/C5, epidural and retropharyngeal abscess s/p decompression and stabilization. Antibiotics include vancomycin cefepime and Flagyl per ID Neurosurgery following and aware of repeat imaging findings. Continue conservative management with antibiotics. Metabolic encephalopathy/h/o schizophrenia, Underlying dementia: -Neuro exam improved today, no focal deficits observed -Home antipsychotics and anxiolytics restarted along with antidepressants -MRI of the C-spine 09/14- C4-5 with some residual soft tissue or complex fluid posterior to the disc interspace resulting in persistent moderate to severe focal canal stenosis and cord compression. -C4-5 anterior cervical discectomy with evacuation of epidural abscess, interbody arthrodesis using PEEK cage filled with autologous bone graft, Simplicity plate and screws 09/12 GI/aspiration: -Currently has Dobbhoff. Speech therapy following but secretions remain an issue. -Continue tube feeding. Right upper extremity is more swollen compared to left: Likely secondary to IV infiltrate. - Venous Doppler negative for DVT PROPH: -Bilateral lower extremity SCDs. IV famotidine. Lovenox 40 mg sq daily Discharge Planning: Continue care in the ICU. Patient unable to adequately protect his airway. Needs frequent suctioning.
[2018-09-27] MEDS: traZODone 50 MG Tablet PO SCH (21:41)
[2018-09-27] MEDS: QUEtiapine 100 MG Tablet PO SCH (21:41)
[2018-09-27] MEDS: clonazePAM 1 MG Tablet PO SCH (21:42)
[2018-09-28] MEDS: Oral Hygiene Kit OROPHARYNG SCH ×4 (00:17→17:53)
[2018-09-28] MEDS: PENICILLIN POTASSIUM IV.SIG SCH ×6 (01:53→20:35)
[2018-09-28] MEDS: SODIUM CHLOR 0.9% IV.SIG SCH ×6 (01:53→20:35)
[2018-09-28 05:41] LABS: Hematocrit 36.8 % (39.0-51.0); Hemoglobin 12.2 gm/dL (13.0-17.0); Mean Corpuscular HGB Conc 33.2 % (32.0-36.0); Mean Corpuscular Hemoglobin 32.4 pg (27.0-34.0); Mean Corpuscular Volume 97.7 fL (80.0-100.0); Mean Platelet Volume 9.2 fL (7.0-11.0); Platelet Count 171 th/mm3 (150-450); Red Blood Count 3.77 mil/mm3 (4.50-5.90); Red Cell Distribution Width 15.2 % (11.6-17.2); White Blood Count 9.2 th/mm3 (4.0-11.0)
[2018-09-28 05:59] LABS: Anion Gap 2 meq/L (5-15); Blood Urea Nitrogen 12 mg/dL (7-18); Calcium 8.2 mg/dL (8.5-10.1); Carbon Dioxide 34.6 meq/L (21.0-32.0); Chloride 101 meq/L (98-107); Glomerular Filtration Rate Greater Than 89 mL/min (>89); Glucose,Random 173 mg/dL (74-106); Potassium 4.6 meq/L (3.5-5.1); Sodium 138 meq/L (136-145)
--- NOTE | 2018-09-28 08:51 | XR ---
EXAM DATE: 09/28/2018 8:40 AM EST AGE/SEX: 63 years / Male INDICATIONS: Cough. Copious secretions. CLINICAL DATA: This is the patient's subsequent encounter. Patient reports that signs and symptoms h ave been present for 2 days and indicates a pain score of Nonresponsive. MEDICAL/SURGICAL HISTORY: . Hypertension. . Fusion, cervical. Hip replacement. . COMPARISON: [facility], CHEST 1V SINGLE AP, 09/19/2018. . FINDINGS: There appears to be an NG tube or feeding tube seen in the esophagus with tip directed into the stoma ch. The heart size is normal. This increased density at the left base with silhouetting the left ernestine diaphragm. The right lung is clear. There is an anterior cervical fusion plate present. CONCLUSION: Increased density at the left base consistent with consolidation/atelectasis and suspected effusion. Electronically signed by: Kane Dey MD 09/28/2018 8:50 AM EST
--- NOTE | 2018-09-28 08:52 | XR ---
EXAM DATE: 09/28/2018 8:36 AM EST AGE/SEX: 63 years / Male INDICATIONS: Distention. CLINICAL DATA: This is the patient's subsequent encounter. Patient reports that signs and symptoms h ave been present for 2 days and indicates a pain score of Nonresponsive. MEDICAL/SURGICAL HISTORY: . Hypertension. . Fusion, cervical. Hip replacement. . COMPARISON: [facility] [place] ABDOMEN SINGLE VIEW, 09/23/2018. . FINDINGS: The abdominal bowel gas pattern is normal. No abnormal masses, calcifications, or organomegaly is s een. There is degenerative change at the lumbosacral junction. There is a left hip prosthesis present . There is increased density at the left lung base fully described in the chest x-ray report. CONCLUSION: Significantly dilated bowel is not seen. Electronically signed by: Kane Dey MD 09/28/2018 8:51 AM EST
[2018-09-28] MEDS: clonazePAM 0.5 MG Tablet PO SCH (09:47)
[2018-09-28] MEDS: Famotidine PF Inj 20 MG/2 ML Vial IV.PUSH SCH ×2 (09:48→21:39)
[2018-09-28] MEDS: Chlorhexidine 0.12% Oral Kit 15 ML UDC OROPHARYNG SCH ×2 (09:48→20:36)
[2018-09-28] MEDS: Duloxetine 60 MG DR Capsule PO SCH (09:48)
[2018-09-28] MEDS: Senna/Docusate Sodium 8.6/50 MG Tablet PO SCH ×2 (09:48→20:36)
[2018-09-28] MEDS: Propranolol 10 MG Tablet PO SCH ×2 (09:48→20:36)
[2018-09-28] MEDS: Sodium Chloride 0.9% 2 ML Flush BID IV.FLUSH SCH ×2 (09:49→20:36)
[2018-09-28] MEDS: Enoxaparin Inj 40 MG/0.4 ML Syringe SQ SCH (09:49)
--- NOTE | 2018-09-28 10:52 | P.PNIM ---
Subjective Interval history: Patient is still having copious amount of secretions. Weak cough. Discussed with RN. He remains confused as baseline. Physical Exam Vital signs: Vital Signs 09/27/18 11:00 09/27/18 11:25 09/27/18 12:00 Temperature 98.0 F Pulse Rate 100 H 98 H 93 H Respiratory Rate 23 34 H 24 Blood Pressure 133/81 Pulse Oximetry 97 96 97 09/27/18 12:25 09/27/18 12:34 09/27/18 13:00 Temperature Pulse Rate 93 H 89 89 Respiratory Rate 22 18 21 Blood Pressure 132/82 Pulse Oximetry 98 100 09/27/18 13:25 09/27/18 13:30 09/27/18 14:00 Temperature Pulse Rate 100 H 98 H 95 H Respiratory Rate 22 23 21 Blood Pressure 139/73 Pulse Oximetry 97 97 97 09/27/18 14:25 09/27/18 14:30 09/27/18 15:00 Temperature Pulse Rate 96 H 100 H 91 H Respiratory Rate 19 24 25 H Blood Pressure 143/84 H Pulse Oximetry 96 96 97 09/27/18 15:25 09/27/18 15:30 09/27/18 16:00 Temperature 98.5 F Pulse Rate 87 88 93 H Respiratory Rate 26 H 22 17 Blood Pressure 145/77 H Pulse Oximetry 95 94 L 98 09/27/18 16:25 09/27/18 16:30 09/27/18 17:00 Temperature Pulse Rate 93 H 93 H 88 Respiratory Rate 28 H 23 18 Blood Pressure 144/62 H Pulse Oximetry 97 96 98 09/27/18 17:25 09/27/18 17:30 09/27/18 18:00 Temperature Pulse Rate 88 91 H 98 H Respiratory Rate 23 20 28 H Blood Pressure 139/81 Pulse Oximetry 98 96 97 09/27/18 18:25 09/27/18 18:30 09/27/18 19:00 Temperature Pulse Rate 106 H 87 96 H Respiratory Rate 28 H 23 27 H Blood Pressure 140/77 Pulse Oximetry 96 97 96 09/27/18 19:25 09/27/18 19:30 09/27/18 20:00 Temperature 99.2 F Pulse Rate 90 94 H 94 H Respiratory Rate 23 23 20 Blood Pressure 159/71 H 168/74 H Pulse Oximetry 96 93 L 92 L 09/27/18 20:25 09/27/18 20:30 09/27/18 21:00 Temperature Pulse Rate 104 H 102 H 105 H Respiratory Rate 22 21 27 H Blood Pressure 168/74 H Pulse Oximetry 93 L 92 L 98 09/27/18 21:25 09/27/18 21:30 09/27/18 22:00 Temperature Pulse Rate 100 H 88 109 H Respiratory Rate 29 H 22 23 Blood Pressure 143/65 H Pulse Oximetry 99 97 97 09/27/18 22:25 09/27/18 22:30 09/27/18 23:00 Temperature Pulse Rate 102 H 115 H 102 H Respiratory Rate 24 31 H 23 Blood Pressure 114/59 L Pulse Oximetry 94 L 94 L 91 L 09/27/18 23:25 09/27/18 23:30 09/27/18 23:43 Temperature Pulse Rate 97 H 95 H 91 H Respiratory Rate 21 17 18 Blood Pressure 107/65 Pulse Oximetry 92 L 91 L 09/28/18 00:00 09/28/18 00:25 09/28/18 00:30 Temperature 98.3 F Pulse Rate 90 99 H 109 H Respiratory Rate 14 19 23 Blood Pressure 111/60 Pulse Oximetry 98 100 99 09/28/18 01:00 09/28/18 01:25 09/28/18 01:30 Temperature Pulse Rate 110 H 106 H 98 H Respiratory Rate 18 26 H 12 Blood Pressure 108/57 L Pulse Oximetry 98 99 98 09/28/18 02:00 09/28/18 02:25 09/28/18 02:30 Temperature Pulse Rate 92 H 92 H 95 H Respiratory Rate 12 12 12 Blood Pressure 109/63 Pulse Oximetry 98 99 99 09/28/18 03:00 09/28/18 03:25 09/28/18 03:30 Temperature Pulse Rate 93 H 116 H 114 H Respiratory Rate 12 16 16 Blood Pressure 137/85 Pulse Oximetry 100 99 99 09/28/18 03:33 09/28/18 04:00 09/28/18 04:25 Temperature 99.1 F Pulse Rate 109 H 104 H 120 H Respiratory Rate 18 14 23 Blood Pressure 162/74 H Pulse Oximetry 99 97 09/28/18 04:30 09/28/18 05:00 09/28/18 05:25 Temperature Pulse Rate 105 H 124 H 111 H Respiratory Rate 15 25 H 21 Blood Pressure 136/70 Pulse Oximetry 98 96 93 L 09/28/18 05:30 09/28/18 06:00 09/28/18 06:30 Temperature Pulse Rate 105 H 121 H 124 H Respiratory Rate 32 H 27 H 30 H Blood Pressure Pulse Oximetry 88 L 98 98 Intake & Output 09/27/18 09/28/18 09/28/18 18:59 06:59 18:59 Intake Total 400 / 400 2307 / 2307 Output Total 550 / 550 350 / 350 Balance -150 / -150 1958 / 1956 Weight 100.9 kg Intake: IV 400 / 400 800 / 800 Maxipime Inj 2,000 MG In NS Inj 300 / 300 100 ML @ 200 mls/hr IV.SIG Q8H [facility] Rx#:[id number] Pfizerpen-G Inj 4,000,000 UNIT 300 / 300 300 / 300 In NS Inj 100 ML @ 200 mls/hr IV.SIG Q4H [facility] Rx#:[id number] Flagyl 500 MG Inj 100 ML @ 100 100 / 100 200 / 200 mls/hr IV.SIG Q8H [facility] Rx#: [id number] Oral 0 / 0 Tube Feeding 1207 / 1207 Tube Irrigant 300 / 300 Output: Stool 0 / 0 Urine Amount (Catheter) 550 / 550 350 / 350 Condom 550 / 550 350 / 350 Gastric Drainage 0 / 0 Orogastric Tube 0 / 0 Other: # Incontinent Voids 1 Date of Last Bowel Movement 09/27/18 09/28/18 # Bowel Movements 2 Narrative: GENERAL: Elderly male in no acute distress CARDIOVASCULAR: Normal rate and regular rhythm without murmurs, gallops, or rubs. RESPIRATORY: Upper airway congestion sounds with diffuse rhonchi. GASTROINTESTINAL: Abdomen soft, non-tender, non-distended. Normal active bowel sounds NEURO: C-spine immobilized by a collar. Moves both upper and lower extremities equally. PSYCH: Calm, confused. - Urinary Catheter Management Indwelling Urethral Catheter Cath placed during this visit: yes, but has since been removed by the nurse Urethral indwelling: Yes Reason for continuing: Acute urinary retention Insertion date: 09/12/18 Insertion time: 10:40 Removal date: 09/13/18 Removal time: 11:00 Condom Cath placed during this visit: no Results - Labs CBC & Chem 7: 09/28/18 04:17 09/28/18 04:17 Laboratory Results - last 24 hr 11/25/18 11/25/18 04:17 04:17 WBC 9.2 RBC 3.77 L Hgb 12.2 L Hct 36.8 L MCV 97.7 MCH 32.4 MCHC 33.2 RDW 15.2 Plt Count 171 MPV 9.2 Sodium 138 Potassium 4.6 Chloride 101 Carbon Dioxide 34.6 H Anion Gap 2 L BUN 12 Creatinine 0.59 L Estimated GFR Greater than 89 Random Glucose 173 H Calcium 8.2 L Microbiology 09/27/18 11:15 Sputum - Expectorated Sputum Gram Stain - Final - Imaging Impressions Abdomen X-Ray 09/28/18 00:00 CONCLUSION: Significantly dilated bowel is not seen. Chest X-Ray 09/28/18 00:00 CONCLUSION: Increased density at the left base consistent with consolidation/atelectasis and suspected effusion. Assessment and Plan - Plan 63-year-old male with multiple comorbid conditions including COPD, dementia, schizophrenia who was admitted to the hospitalist service on 09/11/2018 with neck pain and extremity weakness and MRI showing acute discitis at C4/C5 with epidural abscess retropharyngeal abscess. Dr Pereira was consulted and on underwent cervical decompression and evacuation of abscess (C4-5 anterior cervical discectomy with evacuation of epidural abscess, interbody arthrodesis using PEEK cage filled with autologous bone graft, Simplicity plate and screws) . Patient has had a complicated course over 4 due to respiratory failure requiring intubation. He has been extubated and stabilized. He has been agitated and psychiatry has been assisting with antipsychotic management. Patient transferred back to the hospitalist service. Neurosurgery following. Acute hypoxemic respiratory failure, Aspiration pneumonia-: Improving -Emergently intubated and placed on mechanical ventilation 09/14/18 -Extubated now 09/16. -DuoNeb every 6 hours scheduled and as needed -Chest x-ray showed small left pleural effusion but sputum culture negative today -IV Decadron discontinued. -Antibiotics vancomycin cefepime and Flagyl per ID -ID Dr. Hanson is following -Patient still having copious amount of secretions, weak cough and cannot protect his airway. -Try Mucomyst. Sputum culture is pending. Suction as needed. Sepsis Acute discitis at C4/C5, epidural and retropharyngeal abscess s/p decompression and stabilization. Antibiotics include vancomycin cefepime and Flagyl per ID Neurosurgery following and aware of repeat imaging findings. Continue conservative management with antibiotics. Metabolic encephalopathy/h/o schizophrenia, Underlying dementia: -Neuro exam improved today, no focal deficits observed -Home antipsychotics and anxiolytics restarted along with antidepressants -MRI of the C-spine 09/14- C4-5 with some residual soft tissue or complex fluid posterior to the disc interspace resulting in persistent moderate to severe focal canal stenosis and cord compression. -C4-5 anterior cervical discectomy with evacuation of epidural abscess, interbody arthrodesis using PEEK cage filled with autologous bone graft, Simplicity plate and screws 09/12 GI/aspiration: -Currently has Dobbhoff. Speech therapy following but secretions remain an issue. -Continue tube feeding. Right upper extremity is more swollen compared to left: Likely secondary to IV infiltrate. - Venous Doppler negative for DVT PROPH: -Bilateral lower extremity SCDs. IV famotidine. Lovenox 40 mg sq daily Discharge Planning: Continue care in the ICU. Patient unable to adequately protect his airway. Needs frequent suctioning.
[2018-09-28] MEDS: RESP: Acetylcysteine 10% 4 ML Neb NEB SCH ×4 (17:04→23:52)
[2018-09-28] MEDS: clonazePAM 1 MG Tablet PO SCH (20:35)
[2018-09-28] MEDS: QUEtiapine 100 MG Tablet PO SCH (20:36)
[2018-09-28] MEDS: traZODone 50 MG Tablet PO SCH (20:36)
[2018-09-29] MEDS: Oral Hygiene Kit OROPHARYNG SCH ×4 (01:50→18:02)
[2018-09-29] MEDS: PENICILLIN POTASSIUM IV.SIG SCH ×6 (01:54→20:19)
[2018-09-29] MEDS: SODIUM CHLOR 0.9% IV.SIG SCH ×6 (01:54→20:19)
[2018-09-29] MEDS: RESP: Acetylcysteine 10% 4 ML Neb NEB SCH ×6 (03:26→23:35)
--- NOTE | 2018-09-29 04:43 | XR ---
EXAM DATE: 09/29/2018 4:17 AM EST AGE/SEX: 63 years / Male INDICATIONS: Pneumonia. CLINICAL DATA: This is the patient's subsequent encounter. Patient reports that signs and symptoms h ave been present for 2 weeks and indicates a pain score of Nonresponsive. MEDICAL/SURGICAL HISTORY: Dementia. Chronic obstructive pulmonary disease. Schizophrenia. . E ye Surgery. Hip replacement. COMPARISON: [facility] [place], CHEST 1V SINGLE AP, 09/28/2018. . FINDINGS: Feeding tube is seen traversing the esophagus. Basilar airspace disease, left greater than right with left pleural effusion. No pneumothorax. CONCLUSION: Relatively stable appearance of left basilar airspace disease and pleural effusion compared with Nove mber 25. Electronically signed by: Lauri Escobar MD 09/29/2018 4:42 AM EST
[2018-09-29 06:18] LABS: Hematocrit 39.4 % (39.0-51.0); Hemoglobin 12.9 gm/dL (13.0-17.0); Mean Corpuscular HGB Conc 32.7 % (32.0-36.0); Mean Corpuscular Hemoglobin 32.2 pg (27.0-34.0); Mean Corpuscular Volume 98.6 fL (80.0-100.0); Mean Platelet Volume 8.2 fL (7.0-11.0); Platelet Count 197 th/mm3 (150-450); Red Cell Distribution Width 14.9 % (11.6-17.2); White Blood Count 7.9 th/mm3 (4.0-11.0)
[2018-09-29 06:42] LABS: Anion Gap 5 meq/L (5-15); Blood Urea Nitrogen 13 mg/dL (7-18); Calcium 8.2 mg/dL (8.5-10.1); Carbon Dioxide 33.7 meq/L (21.0-32.0); Chloride 99 meq/L (98-107); Glomerular Filtration Rate Greater Than 89 mL/min (>89); Glucose,Random 223 mg/dL (74-106); Potassium 4.5 meq/L (3.5-5.1); Sodium 138 meq/L (136-145)
[2018-09-29] MEDS: Chlorhexidine 0.12% Oral Kit 15 ML UDC OROPHARYNG SCH ×2 (08:37→20:19)
[2018-09-29] MEDS: Enoxaparin Inj 40 MG/0.4 ML Syringe SQ SCH (09:19)
[2018-09-29] MEDS: Famotidine PF Inj 20 MG/2 ML Vial IV.PUSH SCH ×2 (09:19→20:21)
[2018-09-29] MEDS: Sodium Chloride 0.9% 2 ML Flush BID IV.FLUSH SCH ×2 (09:20→20:20)
[2018-09-29] MEDS: clonazePAM 0.5 MG Tablet PO SCH (11:18)
[2018-09-29] MEDS: Senna/Docusate Sodium 8.6/50 MG Tablet PO SCH ×2 (11:18→20:21)
[2018-09-29] MEDS: Propranolol 10 MG Tablet PO SCH ×3 (11:18→19:28)
[2018-09-29] MEDS: Duloxetine 60 MG DR Capsule PO SCH (11:18)
[2018-09-29] MEDS ORDERED: Metoprolol Inj 5 MG/5 ML Vial IV.PUSH ONE (12:45)
--- NOTE | 2018-09-29 12:45 | P.PNIM ---
Subjective Interval history: Patient looks a little better today. He is sitting up in the stretcher chair. More calm and cooperative. Physical Exam Vital signs: Vital Signs 09/28/18 13:00 09/28/18 14:00 09/28/18 14:17 Temperature 98.6 F 98.9 F Pulse Rate 98 H 104 H 98 H Respiratory Rate 24 24 35 H Blood Pressure 147/98 H Pulse Oximetry 94 L 93 L 98 09/28/18 15:00 09/28/18 16:00 09/28/18 17:00 Temperature 97.9 F 98.3 F 98.6 F Pulse Rate 76 79 104 H Respiratory Rate 14 14 17 Blood Pressure Pulse Oximetry 97 99 98 09/28/18 17:04 09/28/18 17:30 09/28/18 17:43 Temperature Pulse Rate 108 H 108 H 114 H Respiratory Rate 21 19 45 H Blood Pressure 152/92 H Pulse Oximetry 95 98 09/28/18 18:00 09/28/18 18:30 09/28/18 19:00 Temperature Pulse Rate 113 H 84 108 H Respiratory Rate 32 H 18 32 H Blood Pressure Pulse Oximetry 95 94 L 96 09/28/18 19:30 09/28/18 19:55 09/28/18 20:00 Temperature 98.3 F Pulse Rate 100 H 104 H 98 H Respiratory Rate 24 18 19 Blood Pressure Pulse Oximetry 99 96 98 09/28/18 20:30 09/28/18 21:00 09/28/18 21:30 Temperature Pulse Rate 90 99 H 93 H Respiratory Rate 14 19 20 Blood Pressure Pulse Oximetry 100 96 98 09/28/18 21:37 09/28/18 22:00 09/28/18 22:30 Temperature Pulse Rate 90 87 99 H Respiratory Rate 14 14 15 Blood Pressure 105/63 107/66 Pulse Oximetry 97 96 99 09/28/18 23:00 09/28/18 23:30 09/28/18 23:53 Temperature Pulse Rate 88 86 79 Respiratory Rate 13 14 16 Blood Pressure 106/61 Pulse Oximetry 97 98 09/29/18 00:00 09/29/18 00:30 09/29/18 01:00 Temperature 98.2 F Pulse Rate 72 85 80 Respiratory Rate 11 L 13 12 Blood Pressure 105/69 107/61 Pulse Oximetry 100 98 97 09/29/18 01:30 09/29/18 02:00 09/29/18 02:30 Temperature Pulse Rate 81 78 81 Respiratory Rate 24 11 L 10 L Blood Pressure 115/55 L Pulse Oximetry 98 98 97 09/29/18 03:00 09/29/18 03:27 09/29/18 03:30 Temperature Pulse Rate 87 80 74 Respiratory Rate 10 L 14 12 Blood Pressure 95/57 L Pulse Oximetry 98 98 09/29/18 04:00 09/29/18 04:30 09/29/18 05:00 Temperature 98.4 F Pulse Rate 75 94 H 100 H Respiratory Rate 11 L 11 L 20 Blood Pressure 120/57 L 119/69 Pulse Oximetry 96 97 95 09/29/18 05:30 09/29/18 06:00 09/29/18 06:30 Temperature Pulse Rate 113 H 108 H 121 H Respiratory Rate 23 18 24 Blood Pressure 129/74 Pulse Oximetry 94 L 92 L 94 L 09/29/18 08:11 09/29/18 12:20 Temperature Pulse Rate 120 H 144 H Respiratory Rate 24 20 Blood Pressure Pulse Oximetry 95 Intake & Output 09/28/18 09/29/18 09/29/18 18:59 06:59 18:59 Intake Total 3057 / 3057 2158 / 2158 Output Total 1675 / 1675 50 / 50 Balance 1382 / 1382 2108 / 2108 Weight 100.9 kg Intake: IV 300 / 300 800 / 800 Maxipime Inj 2,000 MG In NS Inj 300 / 300 100 ML @ 200 mls/hr IV.SIG Q8H JAZ Rx#:[id number] Pfizerpen-G Inj 4,000,000 UNIT 300 / 300 300 / 300 In NS Inj 100 ML @ 200 mls/hr IV.SIG Q4H JAZ Rx#:[id number] Flagyl 500 MG Inj 100 ML @ 100 200 / 200 mls/hr IV.SIG Q8H JAZ Rx#: [id number] Oral 0 / 0 0 / 0 Tube Feeding 1207 / 1207 1158 / 1158 Tube Irrigant 300 / 300 200 / 200 Water Bolus Amount 250 / 250 Anesthesia Amount 1000 / 1000 Output: Urine 1275 / 1275 Stool 0 / 0 0 / 0 Estimated Blood Loss 50 / 50 50 / 50 Urine Amount (Catheter) 350 / 350 Condom 350 / 350 Gastric Drainage 0 / 0 0 / 0 Orogastric Tube 0 / 0 0 / 0 Other: # Voids 3 # Incontinent Voids 1 8 # Urine Diapers 4 Date of Last Bowel Movement 09/28/18 09/28/18 # Bowel Movements 2 Narrative: GENERAL: Elderly male in no acute distress CARDIOVASCULAR: Normal rate and regular rhythm without murmurs, gallops, or rubs. RESPIRATORY: Upper airway congestion sounds with diffuse rhonchi. GASTROINTESTINAL: Abdomen soft, non-tender, non-distended. Normal active bowel sounds NEURO: C-spine immobilized by a collar. Moves both upper and lower extremities equally. PSYCH: Calm, cooperative. Baseline confusion. - Urinary Catheter Management Indwelling Urethral Catheter Cath placed during this visit: yes, but has since been removed by the nurse Urethral indwelling: Yes Reason for continuing: Acute urinary retention Insertion date: 09/12/18 Insertion time: 10:40 Removal date: 09/13/18 Removal time: 11:00 Condom Cath placed during this visit: no Results - Labs CBC & Chem 7: 09/29/18 06:02 09/29/18 06:02 Laboratory Results - last 24 hr 09/29/18 09/29/18 06:02 06:02 WBC 7.9 RBC 4.00 L Hgb 12.9 L Hct 39.4 MCV 98.6 MCH 32.2 MCHC 32.7 RDW 14.9 Plt Count 197 MPV 8.2 Sodium 138 Potassium 4.5 Chloride 99 Carbon Dioxide 33.7 H Anion Gap 5 BUN 13 Creatinine 0.69 Estimated GFR Greater than 89 Random Glucose 223 H Calcium 8.2 L Microbiology 09/27/18 11:15 Sputum - Expectorated Sputum Gram Stain - Final 09/27/18 11:15 Sputum - Expectorated Sputum Sputum Culture - Final Heavy growth normal respiratory simon - Imaging Impressions Chest X-Ray 09/29/18 06:00 CONCLUSION: Relatively stable appearance of left basilar airspace disease and pleural effusion compared with September 28. Assessment and Plan - Plan 63-year-old male with multiple comorbid conditions including COPD, dementia, schizophrenia who was admitted to the hospitalist service on 09/11/2018 with neck pain and extremity weakness and MRI showing acute discitis at C4/C5 with epidural abscess retropharyngeal abscess. Dr Pereira was consulted and on underwent cervical decompression and evacuation of abscess (C4-5 anterior cervical discectomy with evacuation of epidural abscess, interbody arthrodesis using PEEK cage filled with autologous bone graft, Simplicity plate and screws) . Patient has had a complicated course over 4 due to respiratory failure requiring intubation. He has been extubated and stabilized. He has been agitated and psychiatry has been assisting with antipsychotic management. Patient transferred back to the hospitalist service. Neurosurgery following. Acute hypoxemic respiratory failure, Aspiration pneumonia-: Improving -Emergently intubated and placed on mechanical ventilation 09/14/18 -Extubated now 09/16. -DuoNeb every 6 hours scheduled and as needed -Chest x-ray showed small left pleural effusion but sputum culture negative today -IV Decadron discontinued. -Antibiotics vancomycin cefepime and Flagyl per ID -ID Dr. Hanson is following -Secretions better. Continue Mucomyst. If he continues to improve, will consider transfer out of the ICU in the next couple of days. Not yet convincing that he can protect his airway. - Suction as needed. Sepsis Acute discitis at C4/C5, epidural and retropharyngeal abscess s/p decompression and stabilization. Antibiotics include vancomycin cefepime and Flagyl per ID Neurosurgery following and aware of repeat imaging findings. Continue conservative management with antibiotics. Metabolic encephalopathy/h/o schizophrenia, Underlying dementia: -Neuro exam improved today, no focal deficits observed -Home antipsychotics and anxiolytics restarted along with antidepressants -MRI of the C-spine 09/14- C4-5 with some residual soft tissue or complex fluid posterior to the disc interspace resulting in persistent moderate to severe focal canal stenosis and cord compression. -C4-5 anterior cervical discectomy with evacuation of epidural abscess, interbody arthrodesis using PEEK cage filled with autologous bone graft, Simplicity plate and screws 09/12 GI/aspiration: -Currently has Dobbhoff. Speech therapy following but secretions remain an issue. -Continue tube feeding. Sinus tachycardia: Give 1 dose of IV Lopressor. Continue propranolol. Increase to 3 times daily dosing. Continue to monitor on telemetry. Right upper extremity is more swollen compared to left: Likely secondary to IV infiltrate. - Venous Doppler negative for DVT PROPH: -Bilateral lower extremity SCDs. IV famotidine. Lovenox 40 mg sq daily Discharge Planning: Continue care in the ICU. Patient unable to adequately protect his airway. Needs frequent suctioning. He is improving and may be able to get out of the ICU in the next couple of days.
--- NOTE | 2018-09-29 17:49 | XR ---
EXAM DATE: 09/29/2018 5:46 PM EST AGE/SEX: 63 years / Male INDICATIONS: Dobhoff placement, nausea. CLINICAL DATA: This is the patient's subsequent encounter. Patient reports that signs and symptoms h ave been present for 3 days and indicates a pain score of 0/10. MEDICAL/SURGICAL HISTORY: Non-responsive. Non-responsive. [place] [facility] [place] [facility]. . FINDINGS: The Dobbhoff tube has its tip in the expected region of the distal duodenum or proximal jejunum. The abdominal bowel gas pattern is normal. No abnormal masses, calcifications, or organomegaly is seen. The osseous structures are unremarkable. Left hip replacement is noted. Degenerative changes are not ed throughout the lumbar spine and right hip. CONCLUSION: Dobbhoff tube tip appears to be in good position in the distal duodenum or proximal jejunum. Electronically signed by: Cliff Christian MD 09/29/2018 5:48 PM EST
[2018-09-29] MEDS: traZODone 50 MG Tablet PO SCH (20:20)
[2018-09-29] MEDS: clonazePAM 1 MG Tablet PO SCH (20:20)
[2018-09-29] MEDS: QUEtiapine 100 MG Tablet PO SCH (20:21)
[2018-09-30] MEDS: SODIUM CHLOR 0.9% IV.SIG SCH ×7 (00:08→23:46)
[2018-09-30] MEDS: PENICILLIN POTASSIUM IV.SIG SCH ×7 (00:08→23:46)
[2018-09-30] MEDS: Oral Hygiene Kit OROPHARYNG SCH ×5 (00:08→23:43)
[2018-09-30] MEDS: RESP: Acetylcysteine 10% 4 ML Neb NEB SCH ×6 (03:57→23:24)
[2018-09-30 06:21] LABS: Hemoglobin 12.5 gm/dL (13.0-17.0); Mean Corpuscular HGB Conc 32.8 % (32.0-36.0); Mean Corpuscular Hemoglobin 32.3 pg (27.0-34.0); Mean Corpuscular Volume 98.5 fL (80.0-100.0); Mean Platelet Volume 8.5 fL (7.0-11.0); Platelet Count 211 th/mm3 (150-450); Red Blood Count 3.86 mil/mm3 (4.50-5.90); White Blood Count 7.9 th/mm3 (4.0-11.0)
[2018-09-30 06:50] LABS: Anion Gap 4 meq/L (5-15); Blood Urea Nitrogen 21 mg/dL (7-18); Calcium 8.5 mg/dL (8.5-10.1); Carbon Dioxide 34.8 meq/L (21.0-32.0); Chloride 100 meq/L (98-107); Glomerular Filtration Rate Greater Than 89 mL/min (>89); Glucose,Random 153 mg/dL (74-106); Potassium 4.2 meq/L (3.5-5.1); Sodium 139 meq/L (136-145)
[2018-09-30] MEDS: Chlorhexidine 0.12% Oral Kit 15 ML UDC OROPHARYNG SCH ×2 (08:16→19:48)
[2018-09-30] MEDS: Enoxaparin Inj 40 MG/0.4 ML Syringe SQ SCH (08:17)
[2018-09-30] MEDS: Duloxetine 60 MG DR Capsule PO SCH (08:17)
[2018-09-30] MEDS: Sodium Chloride 0.9% 2 ML Flush BID IV.FLUSH SCH ×2 (08:17→20:44)
[2018-09-30] MEDS: Senna/Docusate Sodium 8.6/50 MG Tablet PO SCH ×2 (08:17→20:12)
[2018-09-30] MEDS: clonazePAM 0.5 MG Tablet PO SCH (08:17)
[2018-09-30] MEDS: Famotidine PF Inj 20 MG/2 ML Vial IV.PUSH SCH ×2 (08:18→20:14)
[2018-09-30] MEDS: Propranolol 10 MG Tablet PO SCH ×3 (09:55→18:32)
--- NOTE | 2018-09-30 15:33 | P.DIET ---
Nutritional Evaluation Type of nutrition evaluation: follow-up Nutrition consult regarding: Tube Feeding (NEW TF 09/23), Diet Evaluation Nutrition screening: [facility] [place] Objective - Diagnosis cervical spine discitis w/ abscess - Objective % IBW: 116 (IBW= 151#) Body Weight Used for Calculations: Actual (79.6 kg) Energy Needs - Lower Range (kCal/kg): 25 Energy Needs - Upper Range (kCal/kg): 30 Lower Limit kCal/kg (kCals): 1,990 Upper Limit kCal/kg (kCals): 2,388 Lower Limit Protein Factor (Grams per Kg): 1.0 Upper Limit Protein Factor (Grams per Kg): 1.5 Lower Protein Needs (Protein): 80 Upper Protein Needs (Protein): 119 Fluid Factor (ml/kg): 30 Estimated Fluid Needs (ml): 2,388 Dietitian Reviewed in Medical Record: Current diet, Curent medications, Intake & Output, Labs, Medical history, Tube feeding Diet Order: NPO Speech Therapy Recommendations: Yes (NPO (09/30)) Wound Care Note: Coccyx/buttocks pressure ulcer wound stage II See WOCN dated 09/18 Objective Comments: PMH: COPD, Dementia, Hx fx pelvis, schizo affective schizophrenia Assessment Assessment: Pt remains at high nutrition risk 2' to pressure injury and his need for TFing. Agree with current TF order for Jevity 1.5 @ 60 mls/hr goal. This will provide 2160 kcals, 92 gms protein and 1094 mls of free water. Labs, wts and clinical course reviewed. Erratic wts noted. Recommendations: Continue Jevity 1.5 @ 60 mls/hr goal Dietitian to Monitor: Lab values, Intake & Output, Tube feeding tolerance, Weight change, Wound/skin status, Medical course
--- NOTE | 2018-09-30 17:19 | P.PNIM ---
Subjective Interval history: Doboff tube accidently taken out yesterday afternoon. He failed the swallow eval again and tube reinserted. He is improving from a respiratory standpoint. Less secretions and protecting his airway better. Physical Exam Vital signs: Vital Signs 09/29/18 17:30 09/29/18 18:00 09/29/18 18:30 Temperature Pulse Rate 110 H 104 H 100 H Respiratory Rate 18 20 24 Blood Pressure 125/86 Pulse Oximetry 91 L 91 L 94 L 09/29/18 19:00 09/29/18 20:00 09/29/18 21:00 Temperature 99.7 F H Pulse Rate 87 79 104 H Respiratory Rate 20 14 17 Blood Pressure 113/67 116/68 83/52 L Pulse Oximetry 94 L 95 95 09/29/18 21:03 09/29/18 21:59 09/29/18 22:00 Temperature Pulse Rate 102 H 81 Respiratory Rate 18 14 Blood Pressure 109/68 Pulse Oximetry 82 L 93 L 98 09/29/18 23:00 09/29/18 23:36 09/30/18 00:00 Temperature 98.9 F Pulse Rate 81 79 83 Respiratory Rate 13 16 12 Blood Pressure 96/54 L 89/52 L Pulse Oximetry 100 98 09/30/18 00:07 09/30/18 01:00 09/30/18 01:01 Temperature Pulse Rate 77 77 Respiratory Rate 12 Blood Pressure 114/55 L Pulse Oximetry 94 L 100 09/30/18 02:00 09/30/18 03:00 09/30/18 03:57 Temperature Pulse Rate 83 79 108 H Respiratory Rate 23 12 18 Blood Pressure 115/56 L 105/60 Pulse Oximetry 92 L 98 92 L 09/30/18 04:00 09/30/18 05:00 09/30/18 06:00 Temperature 97.6 F Pulse Rate 106 H 103 H 86 Respiratory Rate 24 23 15 Blood Pressure 131/71 133/77 132/65 Pulse Oximetry 95 95 97 09/30/18 08:18 09/30/18 11:44 09/30/18 15:31 Temperature Pulse Rate 94 H 88 86 Respiratory Rate 20 24 24 Blood Pressure Pulse Oximetry 95 Intake & Output 09/29/18 09/30/18 09/30/18 18:59 06:59 18:59 Intake Total 1175 / 1175 1650 / 1650 300 / 300 Output Total 0 / 0 Balance 1175 / 1175 1650 / 1650 300 / 300 Weight 78.1 kg Intake: IV 600 / 600 700 / 700 300 / 300 Maxipime Inj 2,000 MG In NS Inj 100 / 100 200 / 200 100 / 100 100 ML @ 200 mls/hr IV.SIG Q8H JAZ Rx#:[id number] Pfizerpen-G Inj 4,000,000 UNIT 300 / 300 300 / 300 200 / 200 In NS Inj 100 ML @ 200 mls/hr IV.SIG Q4H JAZ Rx#:[id number] Flagyl 500 MG Inj 100 ML @ 100 200 / 200 200 / 200 mls/hr IV.SIG Q8H JAZ Rx#: [id number] Oral 0 / 0 0 / 0 Tube Feeding 325 / 325 700 / 700 Water Bolus Amount 250 / 250 250 / 250 Output: Stool 0 / 0 Gastric Drainage 0 / 0 Orogastric Tube 0 / 0 Other: # Urine Diapers 5 3 Date of Last Bowel Movement 09/28/18 09/30/18 Narrative: GENERAL: Elderly male in no acute distress CARDIOVASCULAR: Normal rate and regular rhythm without murmurs, gallops, or rubs. RESPIRATORY: Upper airway congestion sounds with diffuse rhonchi. GASTROINTESTINAL: Abdomen soft, non-tender, non-distended. Normal active bowel sounds NEURO: C-spine immobilized by a collar. Moves both upper and lower extremities equally. PSYCH: Calm, cooperative. Baseline confusion. - Urinary Catheter Management Indwelling Urethral Catheter Cath placed during this visit: yes, but has since been removed by the nurse Urethral indwelling: Yes Reason for continuing: Acute urinary retention Insertion date: 09/12/18 Insertion time: 10:40 Removal date: 09/13/18 Removal time: 11:00 Condom Cath placed during this visit: no Results - Labs CBC & Chem 7: 09/30/18 05:53 09/30/18 05:53 Laboratory Results - last 24 hr 09/30/18 09/30/18 05:53 05:53 WBC 7.9 RBC 3.86 L Hgb 12.5 L Hct 38.0 L MCV 98.5 MCH 32.3 MCHC 32.8 RDW 15.0 Plt Count 211 MPV 8.5 Sodium 139 Potassium 4.2 Chloride 100 Carbon Dioxide 34.8 H Anion Gap 4 L BUN 21 H Creatinine 0.77 Estimated GFR Greater than 89 Random Glucose 153 H Calcium 8.5 - Imaging Impressions Abdomen X-Ray 09/29/18 17:04 CONCLUSION: Dobbhoff tube tip appears to be in good position in the distal duodenum or proximal jejunum. Assessment and Plan - Plan 63-year-old male with multiple comorbid conditions including COPD, dementia, schizophrenia who was admitted to the hospitalist service on 09/11/2018 with neck pain and extremity weakness and MRI showing acute discitis at C4/C5 with epidural abscess retropharyngeal abscess. Dr Pereira was consulted and on underwent cervical decompression and evacuation of abscess (C4-5 anterior cervical discectomy with evacuation of epidural abscess, interbody arthrodesis using PEEK cage filled with autologous bone graft, Simplicity plate and screws) . Patient has had a complicated course due to respiratory failure requiring intubation. He has been extubated and stabilized. He has been agitated and psychiatry has been assisting with antipsychotic management. Patient transferred back to the hospitalist service. Neurosurgery following. He has not been able to pass a swallow evaluation, still having issues with clearing his secretions but improving overall. Acute hypoxemic respiratory failure, Aspiration pneumonia-: Improving -Emergently intubated and placed on mechanical ventilation 09/14/18 -Extubated now 09/16. -DuoNeb every 6 hours scheduled and as needed -Chest x-ray showed small left pleural effusion but sputum culture negative today -IV Decadron discontinued. -Antibiotics vancomycin cefepime and Flagyl per ID -ID Dr. Hasnon is following -Secretions better. Continue Mucomyst. - Suction as needed. Sepsis Acute discitis at C4/C5, epidural and retropharyngeal abscess s/p decompression and stabilization. Antibiotics include vancomycin cefepime and Flagyl per ID Neurosurgery following and aware of repeat imaging findings. Continue conservative management with antibiotics. Metabolic encephalopathy/h/o schizophrenia, Underlying dementia: -Neuro exam improved today, no focal deficits observed -Home antipsychotics and anxiolytics restarted along with antidepressants -MRI of the C-spine 09/14- C4-5 with some residual soft tissue or complex fluid posterior to the disc interspace resulting in persistent moderate to severe focal canal stenosis and cord compression. -C4-5 anterior cervical discectomy with evacuation of epidural abscess, interbody arthrodesis using PEEK cage filled with autologous bone graft, Simplicity plate and screws 09/12 GI/aspiration: -Currently has Dobbhoff. Speech therapy following but secretions remain an issue. -Continue tube feeding. Sinus tachycardia: Better with increased dosing of propranolol. Continue to monitor on telemetry. Right upper extremity is more swollen compared to left: Likely secondary to IV infiltrate. - Venous Doppler negative for DVT PROPH: -Bilateral lower extremity SCDs. IV famotidine. Lovenox 40 mg sq daily Discharge Planning: Notified by CM that [facility] would accept tomorrow. Med rec partially completed. Will need final recs for IV antibiotics from ID and clearance from neurosurgery.
[2018-09-30] MEDS: traZODone 50 MG Tablet PO SCH (20:12)
[2018-09-30] MEDS: clonazePAM 1 MG Tablet PO SCH (20:13)
[2018-09-30] MEDS: QUEtiapine 100 MG Tablet PO SCH (20:13)
[2018-10-01] MEDS: RESP: Acetylcysteine 10% 4 ML Neb NEB SCH ×3 (03:10→11:49)
[2018-10-01] MEDS: SODIUM CHLOR 0.9% IV.SIG SCH ×3 (03:36→11:03)
[2018-10-01] MEDS: PENICILLIN POTASSIUM IV.SIG SCH ×3 (03:36→11:03)
[2018-10-01] MEDS: Oral Hygiene Kit OROPHARYNG SCH ×2 (03:36→11:02)
[2018-10-01 06:49] LABS: Hematocrit 37.5 % (39.0-51.0); Hemoglobin 12.3 gm/dL (13.0-17.0); Mean Corpuscular HGB Conc 32.8 % (32.0-36.0); Mean Corpuscular Volume 97.7 fL (80.0-100.0); Mean Platelet Volume 8.6 fL (7.0-11.0); Platelet Count 191 th/mm3 (150-450); Red Blood Count 3.84 mil/mm3 (4.50-5.90); Red Cell Distribution Width 14.7 % (11.6-17.2); White Blood Count 6.5 th/mm3 (4.0-11.0)
[2018-10-01 07:10] LABS: Anion Gap 6 meq/L (5-15); Blood Urea Nitrogen 15 mg/dL (7-18); Calcium 8.2 mg/dL (8.5-10.1); Carbon Dioxide 31.4 meq/L (21.0-32.0); Chloride 103 meq/L (98-107); Glomerular Filtration Rate Greater Than 89 mL/min (>89); Glucose,Random 148 mg/dL (74-106); Potassium 4.3 meq/L (3.5-5.1); Sodium 140 meq/L (136-145)
[2018-10-01] MEDS: Chlorhexidine 0.12% Oral Kit 15 ML UDC OROPHARYNG SCH (10:43)
[2018-10-01] MEDS: Senna/Docusate Sodium 8.6/50 MG Tablet PO SCH (10:43)
[2018-10-01] MEDS: Sodium Chloride 0.9% 2 ML Flush BID IV.FLUSH SCH (10:53)
[2018-10-01] MEDS: Famotidine PF Inj 20 MG/2 ML Vial IV.PUSH SCH (10:53)
[2018-10-01] MEDS: Enoxaparin Inj 40 MG/0.4 ML Syringe SQ SCH (10:53)
[2018-10-01] MEDS: clonazePAM 0.5 MG Tablet PO SCH (10:54)
[2018-10-01] MEDS: Propranolol 10 MG Tablet PO SCH (10:54)
[2018-10-01] MEDS: Duloxetine 60 MG DR Capsule PO SCH (11:02)
--- NOTE | 2018-10-01 11:12 | P.PNIM ---
Subjective Interval history: Patient sleeping, wakes up for exam. Indicates he is without pain. Denies any shortness of breath. Disoriented however reoriented upon family prompting at bedside. Physical Exam Vital signs: Vital Signs 09/30/18 11:31 09/30/18 11:44 09/30/18 12:00 Temperature 97.9 F Pulse Rate 78 88 88 Respiratory Rate 12 24 15 Blood Pressure 123/70 Pulse Oximetry 96 99 09/30/18 12:01 09/30/18 12:31 09/30/18 13:00 Temperature Pulse Rate 70 97 H 98 H Respiratory Rate 13 26 H 25 H Blood Pressure 121/72 128/61 Pulse Oximetry 99 95 94 L 09/30/18 13:01 09/30/18 13:37 09/30/18 14:00 Temperature Pulse Rate 92 H 95 H 82 Respiratory Rate 18 18 17 Blood Pressure 124/66 127/76 Pulse Oximetry 94 L 94 L 94 L 09/30/18 14:01 09/30/18 14:31 09/30/18 15:00 Temperature Pulse Rate 88 91 H 89 Respiratory Rate 17 19 21 Blood Pressure 132/88 144/84 H Pulse Oximetry 94 L 95 94 L 09/30/18 15:01 09/30/18 15:31 09/30/18 16:00 Temperature 97.9 F Pulse Rate 84 87 86 Respiratory Rate 20 18 26 H Blood Pressure 136/81 127/88 Pulse Oximetry 93 L 94 L 91 L 09/30/18 16:01 09/30/18 16:31 09/30/18 17:00 Temperature Pulse Rate 84 87 91 H Respiratory Rate 23 27 H 25 H Blood Pressure 121/71 135/85 Pulse Oximetry 91 L 96 94 L 09/30/18 17:01 09/30/18 17:31 09/30/18 18:00 Temperature Pulse Rate 90 92 H 88 Respiratory Rate 21 26 H 20 Blood Pressure 140/72 146/72 H Pulse Oximetry 93 L 90 L 92 L 09/30/18 18:01 09/30/18 18:30 09/30/18 18:31 Temperature Pulse Rate 76 101 H 102 H Respiratory Rate 19 31 H 30 H Blood Pressure 134/74 139/79 Pulse Oximetry 91 L 94 L 92 L 09/30/18 19:00 09/30/18 19:01 11/27/18 19:44 Temperature Pulse Rate 90 84 82 Respiratory Rate 24 21 22 Blood Pressure 129/72 137/68 Pulse Oximetry 95 94 L 95 09/30/18 20:00 09/30/18 20:11 09/30/18 20:29 Temperature 97.7 F Pulse Rate 87 82 87 Respiratory Rate 23 23 20 Blood Pressure 135/75 Pulse Oximetry 96 95 95 09/30/18 20:30 09/30/18 20:39 09/30/18 21:00 Temperature Pulse Rate 81 80 86 Respiratory Rate 23 18 15 Blood Pressure 111/62 Pulse Oximetry 95 96 94 L 09/30/18 21:30 09/30/18 21:39 09/30/18 22:00 Temperature Pulse Rate 87 85 81 Respiratory Rate 16 15 13 Blood Pressure 105/59 L Pulse Oximetry 96 96 98 09/30/18 22:30 09/30/18 22:39 09/30/18 23:00 Temperature Pulse Rate 80 77 86 Respiratory Rate 13 12 13 Blood Pressure 118/62 Pulse Oximetry 100 98 99 09/30/18 23:24 09/30/18 23:30 09/30/18 23:39 Temperature Pulse Rate 90 91 H Respiratory Rate 16 15 Blood Pressure 123/74 Pulse Oximetry 96 99 10/01/18 00:00 10/01/18 00:30 10/01/18 00:39 Temperature 97.6 F Pulse Rate 82 79 80 Respiratory Rate 20 13 12 Blood Pressure 117/66 Pulse Oximetry 98 99 96 10/01/18 01:00 10/01/18 01:30 10/01/18 01:39 Temperature Pulse Rate 78 85 87 Respiratory Rate 13 25 H 13 Blood Pressure 133/67 Pulse Oximetry 100 99 98 10/01/18 02:00 10/01/18 02:30 10/01/18 02:39 Temperature Pulse Rate 83 91 H 79 Respiratory Rate 25 H 18 14 Blood Pressure 133/73 Pulse Oximetry 98 98 99 10/01/18 03:00 10/01/18 03:11 10/01/18 03:30 Temperature Pulse Rate 125 H 118 H 123 H Respiratory Rate 18 20 23 Blood Pressure Pulse Oximetry 93 L 94 L 10/01/18 03:39 10/01/18 04:00 10/01/18 04:30 Temperature 97.7 F Pulse Rate 101 H 115 H 108 H Respiratory Rate 21 24 23 Blood Pressure 123/73 Pulse Oximetry 97 94 L 96 10/01/18 04:39 10/01/18 05:00 10/01/18 05:30 Temperature Pulse Rate 100 H 117 H 103 H Respiratory Rate 15 18 18 Blood Pressure 127/62 Pulse Oximetry 96 97 97 10/01/18 05:39 10/01/18 06:00 10/01/18 08:26 Temperature Pulse Rate 106 H 115 H 120 H Respiratory Rate 20 24 17 Blood Pressure 135/81 Pulse Oximetry 99 98 92 L Intake & Output 09/30/18 10/01/18 10/01/18 18:59 06:59 18:59 Intake Total 1114 / 1114 1439 / 1439 100 / 100 Output Total 750 / 750 400 / 400 Balance 364 / 364 1039 / 1039 100 / 100 Weight 78.9 kg 79.6 kg Intake: IV 500 / 500 600 / 600 100 / 100 Maxipime Inj 2,000 MG In NS Inj 100 / 100 200 / 200 100 ML @ 200 mls/hr IV.SIG Q8H [facility] Rx#:[id number] Pfizerpen-G Inj 4,000,000 UNIT 300 / 300 300 / 300 In NS Inj 100 ML @ 200 mls/hr IV.SIG Q4H [facility] Rx#:[id number] Flagyl 500 MG Inj 100 ML @ 100 100 / 100 100 / 100 100 / 100 mls/hr IV.SIG Q8H [facility] Rx#: [id number] Oral 0 / 0 Tube Feeding 614 / 614 589 / 589 Water Bolus Amount 250 / 250 Output: Urine Amount (Catheter) 750 / 750 400 / 400 Condom 750 / 750 400 / 400 Gastric Drainage 0 / 0 Orogastric Tube 0 / 0 Other: # Voids 2 # Incontinent Voids 5 # Urine Diapers 5 Date of Last Bowel Movement 09/30/18 # Bowel Movements 2 Narrative: GENERAL: Patient sitting up in bed sleeping. Wakes up for exam. In cervical collar. SKIN: Warm and dry. HEAD: Normocephalic. EYES: No scleral icterus. No injection or drainage. NECK: Supple, trachea midline. No JVD. Dobbhoff tube in place. CARDIOVASCULAR: Regular rate and rhythm without murmurs, gallops, or rubs. RESPIRATORY: Breath sounds equal bilaterally. No accessory muscle use. GASTROINTESTINAL: Abdomen soft, non-tender, nondistended. MUSCULOSKELETAL: No cyanosis, or edema. She moves bilateral upper and lower extremities. - Urinary Catheter Management Indwelling Urethral Catheter Cath placed during this visit: yes, but has since been removed by the nurse Urethral indwelling: Yes Reason for continuing: Acute urinary retention Insertion date: 09/12/18 Insertion time: 10:40 Removal date: 09/13/18 Removal time: 11:00 Condom Cath placed during this visit: no Results - Labs CBC & Chem 7: 10/01/18 05:53 10/01/18 05:53 Laboratory Results - last 24 hr 10/01/18 10/01/18 05:53 05:53 WBC 6.5 RBC 3.84 L Hgb 12.3 L Hct 37.5 L MCV 97.7 MCH 32.0 MCHC 32.8 RDW 14.7 Plt Count 191 MPV 8.6 Sodium 140 Potassium 4.3 Chloride 103 Carbon Dioxide 31.4 Anion Gap 6 BUN 15 Creatinine 0.60 Estimated GFR Greater than 89 Random Glucose 148 H Calcium 8.2 L Assessment and Plan - Plan 63-year-old male with multiple comorbid conditions including COPD, dementia, schizophrenia who was admitted to the hospitalist service on 09/11/2018 with neck pain and extremity weakness and MRI showing acute discitis at C4/C5 with epidural abscess retropharyngeal abscess. Dr Pereira was consulted and on underwent cervical decompression and evacuation of abscess (C4-5 anterior cervical discectomy with evacuation of epidural abscess, interbody arthrodesis using PEEK cage filled with autologous bone graft, Simplicity plate and screws) . Patient has had a complicated course due to respiratory failure requiring intubation. He has been extubated and stabilized. He has been agitated and psychiatry has been assisting with antipsychotic management. Patient transferred back to the hospitalist service. Neurosurgery following. He has not been able to pass a swallow evaluation, still having issues with clearing his secretions but improving overall. //Acute hypoxemic respiratory failure, Aspiration pneumonia-: Improving -Emergently intubated and placed on mechanical ventilation 09/14/18 -Extubated now 09/16. -DuoNeb every 6 hours scheduled and as needed -Chest x-ray showed small left pleural effusion but sputum culture negative today -IV Decadron discontinued. -Antibiotics vancomycin cefepime and Flagyl per ID -ID Dr. Hanson is following -Secretions better. Continue Mucomyst. - Suction as needed. = 10/01. Oxygenation improving. Currently on 5 L nasal cannula. Continue to monitor. //Sepsis Acute discitis at C4/C5, epidural and retropharyngeal abscess s/p decompression and stabilization. Antibiotics include vancomycin cefepime and Flagyl per ID Neurosurgery following and aware of repeat imaging findings. Continue conservative management with antibiotics. = 10/01. Discussed with infectious disease. Will continue on antibiotics as per infectious disease. //Metabolic encephalopathy/h/o schizophrenia, Underlying dementia: -Neuro exam improved today, no focal deficits observed -Home antipsychotics and anxiolytics restarted along with antidepressants -MRI of the C-spine 09/14- C4-5 with some residual soft tissue or complex fluid posterior to the disc interspace resulting in persistent moderate to severe focal canal stenosis and cord compression. -C4-5 anterior cervical discectomy with evacuation of epidural abscess, interbody arthrodesis using PEEK cage filled with autologous bone graft, Simplicity plate and screws 09/12 = To follow with neurosurgery as outpatient //GI/aspiration: -Currently has Dobbhoff. Speech therapy following but secretions remain an issue. -Continue tube feeding. //Sinus tachycardia: Better with increased dosing of propranolol. Continue to monitor on telemetry. //Right upper extremity is more swollen compared to left: Likely secondary to IV infiltrate. - Venous Doppler negative for DVT PROPH: -Bilateral lower extremity SCDs. IV famotidine. 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 Med rec completed. Will need final recs for IV antibiotics from ID and clearance from neurosurgery. I discussed with infectious disease who will see the patient. Appreciate nursing assistance..
--- NOTE | 2018-10-01 12:53 | P.PNID ---
Subjective Remarks: confused at baseline not orineted to place, time not combative any more he is afebrile Antibiotics: cefepime flagyl vancomycin Allergies/Adverse Reactions: Allergies No Known Allergies Allergy (Verified 09/11/18 16:49) Objective Vital Signs 09/30/18 13:00 09/30/18 13:01 09/30/18 13:37 Temperature Pulse Rate 98 H 92 H 95 H Respiratory Rate 25 H 18 18 Blood Pressure 124/66 127/76 Pulse Oximetry 94 L 94 L 94 L 09/30/18 14:00 09/30/18 14:01 09/30/18 14:31 Temperature Pulse Rate 82 88 91 H Respiratory Rate 17 17 19 Blood Pressure 132/88 144/84 H Pulse Oximetry 94 L 94 L 95 09/30/18 15:00 09/30/18 15:01 09/30/18 15:31 Temperature Pulse Rate 89 84 87 Respiratory Rate 21 20 18 Blood Pressure 136/81 127/88 Pulse Oximetry 94 L 93 L 94 L 09/30/18 16:00 09/30/18 16:01 09/30/18 16:31 Temperature 97.9 F Pulse Rate 86 84 87 Respiratory Rate 26 H 23 27 H Blood Pressure 121/71 135/85 Pulse Oximetry 91 L 91 L 96 09/30/18 17:00 09/30/18 17:01 09/30/18 17:31 Temperature Pulse Rate 91 H 90 92 H Respiratory Rate 25 H 21 26 H Blood Pressure 140/72 146/72 H Pulse Oximetry 94 L 93 L 90 L 09/30/18 18:00 09/30/18 18:01 09/30/18 18:30 Temperature Pulse Rate 88 76 101 H Respiratory Rate 20 19 31 H Blood Pressure 134/74 Pulse Oximetry 92 L 91 L 94 L 09/30/18 18:31 09/30/18 19:00 09/30/18 19:01 Temperature Pulse Rate 102 H 90 84 Respiratory Rate 30 H 24 21 Blood Pressure 139/79 129/72 Pulse Oximetry 92 L 95 94 L 09/30/18 19:44 09/30/18 20:00 09/30/18 20:11 Temperature 97.7 F Pulse Rate 82 87 82 Respiratory Rate 22 23 23 Blood Pressure 137/68 135/75 Pulse Oximetry 95 96 95 09/30/18 20:29 09/30/18 20:30 09/30/18 20:39 Temperature Pulse Rate 87 81 80 Respiratory Rate 20 23 18 Blood Pressure 111/62 Pulse Oximetry 95 95 96 09/30/18 21:00 09/30/18 21:30 09/30/18 21:39 Temperature Pulse Rate 86 87 85 Respiratory Rate 15 16 15 Blood Pressure 105/59 L Pulse Oximetry 94 L 96 96 09/30/18 22:00 09/30/18 22:30 09/30/18 22:39 Temperature Pulse Rate 81 80 77 Respiratory Rate 13 13 12 Blood Pressure 118/62 Pulse Oximetry 98 100 98 09/30/18 23:00 09/30/18 23:24 09/30/18 23:30 Temperature Pulse Rate 86 90 Respiratory Rate 13 16 Blood Pressure Pulse Oximetry 99 96 09/30/18 23:39 10/01/18 00:00 10/01/18 00:30 Temperature 97.6 F Pulse Rate 91 H 82 79 Respiratory Rate 15 20 13 Blood Pressure 123/74 117/66 Pulse Oximetry 99 98 99 10/01/18 00:39 10/01/18 01:00 10/01/18 01:30 Temperature Pulse Rate 80 78 85 Respiratory Rate 12 13 25 H Blood Pressure Pulse Oximetry 96 100 99 10/01/18 01:39 10/01/18 02:00 10/01/18 02:30 Temperature Pulse Rate 87 83 91 H Respiratory Rate 13 25 H 18 Blood Pressure 133/67 Pulse Oximetry 98 98 98 10/01/18 02:39 10/01/18 03:00 10/01/18 03:11 Temperature Pulse Rate 79 125 H 118 H Respiratory Rate 14 18 20 Blood Pressure 133/73 Pulse Oximetry 99 93 L 10/01/18 03:30 10/01/18 03:39 10/01/18 04:00 Temperature 97.7 F Pulse Rate 123 H 101 H 115 H Respiratory Rate 23 21 24 Blood Pressure 123/73 Pulse Oximetry 94 L 97 94 L 10/01/18 04:30 10/01/18 04:39 10/01/18 05:00 Temperature Pulse Rate 108 H 100 H 117 H Respiratory Rate 23 15 18 Blood Pressure 127/62 Pulse Oximetry 96 96 97 10/01/18 05:30 10/01/18 05:39 10/01/18 06:00 Temperature Pulse Rate 103 H 106 H 115 H Respiratory Rate 18 20 24 Blood Pressure 135/81 Pulse Oximetry 97 99 98 10/01/18 06:30 10/01/18 06:39 10/01/18 07:00 Temperature Pulse Rate 117 H 127 H Respiratory Rate 22 25 H Blood Pressure 113/92 H Pulse Oximetry 93 L 92 L 93 L 10/01/18 07:30 10/01/18 07:39 10/01/18 08:00 Temperature 98.3 F Pulse Rate 123 H 122 H 122 H Respiratory Rate 30 H 30 H 28 H Blood Pressure 141/80 H Pulse Oximetry 93 L 92 L 93 L 10/01/18 08:26 10/01/18 08:30 10/01/18 08:39 Temperature Pulse Rate 120 H 126 H 126 H Respiratory Rate 17 33 H 32 H Blood Pressure 144/86 H Pulse Oximetry 92 L 93 L 94 L 10/01/18 09:00 10/01/18 09:30 10/01/18 09:39 Temperature Pulse Rate 132 H 107 H 106 H Respiratory Rate 34 H 17 15 Blood Pressure 156/83 H Pulse Oximetry 92 L 89 L 90 L 10/01/18 10:00 10/01/18 10:30 10/01/18 10:39 Temperature Pulse Rate 126 H 130 H 130 H Respiratory Rate 27 H 28 H 44 H Blood Pressure 144/97 H Pulse Oximetry 88 L 94 L 92 L 10/01/18 11:00 10/01/18 11:30 10/01/18 11:39 Temperature Pulse Rate 126 H 107 H 99 H Respiratory Rate 36 H 23 33 H Blood Pressure 130/79 Pulse Oximetry 93 L 92 L 91 L 10/01/18 11:50 10/01/18 12:00 Temperature 98.4 F Pulse Rate 90 86 Respiratory Rate 17 19 Blood Pressure Pulse Oximetry 93 L Intake & Output 09/30/18 10/01/18 10/01/18 18:59 06:59 18:59 Intake Total 1114 / 1114 1439 / 1439 200 / 200 Output Total 750 / 750 400 / 400 Balance 364 / 364 1039 / 1039 200 / 200 Weight 78.9 kg 79.6 kg Intake: IV 500 / 500 600 / 600 200 / 200 Maxipime Inj 2,000 MG In NS Inj 100 / 100 200 / 200 100 ML @ 200 mls/hr IV.SIG Q8H [facility] Rx#:[id number] Pfizerpen-G Inj 4,000,000 UNIT 300 / 300 300 / 300 100 / 100 In NS Inj 100 ML @ 200 mls/hr IV.SIG Q4H [facility] Rx#:[id number] Flagyl 500 MG Inj 100 ML @ 100 100 / 100 100 / 100 100 / 100 mls/hr IV.SIG Q8H [facility] Rx#: [id number] Oral 0 / 0 Tube Feeding 614 / 614 589 / 589 Water Bolus Amount 250 / 250 Output: Urine Amount (Catheter) 750 / 750 400 / 400 Condom 750 / 750 400 / 400 Gastric Drainage 0 / 0 Orogastric Tube 0 / 0 Other: # Voids 2 # Incontinent Voids 5 # Urine Diapers 5 Date of Last Bowel Movement 09/30/18 10/01/18 # Bowel Movements 2 09/27/18 11:15 Sputum - Expectorated Sputum Gram Stain - Final 09/27/18 11:15 Sputum - Expectorated Sputum Sputum Culture - Final Heavy growth normal respiratory [facility] - Hematology Results 09/30/18 10/01/18 05:53 05:53 WBC 7.9 6.5 RBC 3.86 L 3.84 L Hgb 12.5 L 12.3 L Hct 38.0 L 37.5 L MCV 98.5 97.7 MCH 32.3 32.0 MCHC 32.8 32.8 RDW 15.0 14.7 Plt Count 211 191 MPV 8.5 8.6 Lab - Chemistry Results 09/30/18 10/01/18 05:53 05:53 Sodium 139 140 Potassium 4.2 4.3 Chloride 100 103 Carbon Dioxide 34.8 H 31.4 Anion Gap 4 L 6 BUN 21 H 15 Creatinine 0.77 0.60 Estimated GFR Greater than 89 Greater than 89 Random Glucose 153 H 148 H Calcium 8.5 8.2 L Imaging: ITS Impressions Lumbar Spine MRI 09/11/18 20:09 CONCLUSION: 1. Moderate bilateral foraminal narrowing at L5-S1. 2. Grade I retrolisthesis of L5 in relation to S1. 3. Minimal bilateral foraminal narrowing at L2-3, L3-4 and L4-5. 4. Hemangiomas at L2 and L3. 5. Severe degenerative disc disease at L5-S1. Thoracic Spine MRI 09/11/18 20:09 CONCLUSION: 1. No fracture or subluxation of the thoracic spine. 2. Mild diffuse degenerative changes as described. These findings all appear chronic but there is a less age determinate Schmorl's node of the T8/T9 disc. Cervical Spine X-Ray 09/12/18 00:00 CONCLUSION: Expected intraoperative appearance of discectomy and fusion procedure at C4/C5. Cervical Spine MRI 09/14/18 00:00 CONCLUSION: 1. There is interval fusion across C4-5 with some residual soft tissue or complex fluid posterior to the disc interspace resulting in persistent moderate to severe focal canal stenosis and cord compression. Minimal cord signal abnormality at the area of compression. 2. Stable retrolisthesis of C3 on C4 with moderate stenosis and mild cord compression. 3. Worsening prevertebral soft tissue edema and swelling. Postcontrast images reveal enhancement in the anterior epidural space between C3 and C7, nonspecific but possibly related to postsurgical changes. No loculated enhancing fluid collection is seen within the spinal canal. There is also abnormal edema and enhancement in the prevertebral soft tissues. Differential diagnosis includes postoperative change. Cannot exclude infection. Venous Doppler Study 09/24/18 00:00 CONCLUSION: 1. Superficial venous thrombosis involving the mid cephalic vein. 2. No evidence of DVT. Chest X-Ray 09/29/18 06:00 CONCLUSION: Relatively stable appearance of left basilar airspace disease and pleural effusion compared with September 28. Abdomen X-Ray 09/29/18 17:04 CONCLUSION: Dobbhoff tube tip appears to be in good position in the distal duodenum or proximal jejunum. Physical Exam: GENERAL: awake, alert SKIN: Warm and dry. no rash HEAD: Atraumatic. Normocephalic. EYES: Pupils equal and round. No scleral icterus. No injection or drainage. ENT: No nasal bleeding or discharge. Mucous membranes pink and moist. NECK: c collar in place. CARDIOVASCULAR: Regular rate and rhythm. NO murmurs RESPIRATORY: No accessory muscle use. Clear to auscultation. Breath sounds equal bilaterally. GASTROINTESTINAL: Abdomen soft, non-tender, moderately distended. Hepatic and splenic margins not palpable. MUSCULOSKELETAL: Extremities without clubbing, cyanosis, + some edema. No obvious deformities. NEUROLOGICAL: awake. alert confused PSYCHIATRIC: calm, flat affect Assessment and Plan (1) Cervical discitis Status: Acute Code(s): M46.42 - Discitis, unspecified, cervical region - Plan Retropharingeal abscess, C4-5 discitis, epidural abscess sp C4-5 anterior cervical discectomy with evacuation of epidural abscess, interbody arthrodesis using PEEK cage filled with autologous bone graft, Simplicity plate and screws on 09/12/[address] Randall MD case was dw Dr Pereira aspiration PNA: clinically resolved cont PCN x 8 - 12 weeks OK to dc from ID [facility] Fu CRP ESR dc cefepime, flagyl la RN la Penaloza
--- NOTE | 2018-10-01 13:16 | P.PNPSY ---
Subjective Remarks: The patient was seen today for psychiatric reevaluation. Brother was at bedside. Patient was superficially cooperative, irritable, but reports feeling better, denies pain, denies depressive symptoms, he reports good sleep at night. The patient is fully oriented x3 at this moment, but, as per brother the patient has fluctuating level of cognition as well as agitation. At this moment no agitation, no aggressive behavior present. The patient is compliant medications, no significant side effects. Mental Status Examination Appearance: Appropriate Consciousness: Lethargic Orientation: x4 Speech: Unremarkable Fund of Knowledge: Adequate Memory: Unremarkable Mood: Irritable Affect: Irritable Thought Process & Associations: Logical Thought Content: Appropriate Hallucination Type: None Delusion Type: None Suicidal Ideation: No Suicidal Plan: No Suicidal Intention: No Homicidal Ideation: No Homicidal Plan: No Homicidal Intention: No Insight: Fair Judgment: Impulsive Assessment and Plan - Assessment (1) Schizoaffective disorder Code(s): F25.9 - Schizoaffective disorder, unspecified Status: Acute - Plan Plan: On psychiatric evaluation today the patient is irritable, superficially cooperative, but he is oriented x3 and reports good sleep and good mood. The patient has been compliant medications, no significant side effects reported. Seems to be at baseline at this moment. Continue current psychotropic regimen. Justification for Continued Inpatient Stay: No admission is indicated.
--- NOTE | 2018-10-01 13:25 | P.DS ---
Date of admission: 09/11/18 22:53 Primary care physician: Zachery Paris MD Brief History from admission: 63-year-old male with a history of COPD, schizophrenia who was brought in by his sister (who is a nurse, and identifies herself as power of clerical administrative assistant) due to a 2-week history of progressively worsening intense posterior neck and back pain , low-grade fevers, diaphoresis, as well as progressively worsening bilateral lower extremity weakness, numbness and tingling in the feet, to the point where he was unable to walk yesterday 09/11.. A week ago patient was noted to have some blood in the urine, however no dysuria or urinary hesitancy, and this hematuria has resolved. Patient reportedly had a colonoscopy on Saturday. Uncertain if he had an EGD DS: Summary Hospital Course: 63-year-old male with multiple comorbid conditions including COPD, dementia, schizophrenia who was admitted to the hospitalist service on 09/11/2018 with neck pain and extremity weakness and MRI showing acute discitis at C4/C5 with epidural abscess retropharyngeal abscess. Dr Pereira was consulted and on underwent cervical decompression and evacuation of abscess (C4-5 anterior cervical discectomy with evacuation of epidural abscess, interbody arthrodesis using PEEK cage filled with autologous bone graft, Simplicity plate and screws) . Patient has had a complicated course due to respiratory failure requiring intubation. He has been extubated and stabilized. He has been agitated and psychiatry has been assisting with antipsychotic management. Patient transferred back to the hospitalist service. Neurosurgery following. He has not been able to pass a swallow evaluation, still having issues with clearing his secretions but improving overall. //Acute hypoxemic respiratory failure, Aspiration pneumonia-: Improving -Emergently intubated and placed on mechanical ventilation 09/14/18 -Extubated now 09/16. -DuoNeb every 6 hours scheduled and as needed -Chest x-ray showed small left pleural effusion but sputum culture negative today -IV Decadron discontinued. -Antibiotics vancomycin cefepime and Flagyl per ID -ID Dr. Hanson is following -Secretions better. Continue Mucomyst. - Suction as needed. = 10/01. Oxygenation improving. Currently on 5 L nasal cannula. Continue to monitor. //Sepsis Acute discitis at C4/C5, epidural and retropharyngeal abscess s/p decompression and stabilization. Antibiotics include vancomycin cefepime and Flagyl per ID Neurosurgery following and aware of repeat imaging findings. Continue conservative management with antibiotics. = 10/01. Discussed with infectious disease. Will continue on antibiotics as per infectious disease. //Metabolic encephalopathy/h/o schizophrenia, Underlying dementia: -Neuro exam improved today, no focal deficits observed -Home antipsychotics and anxiolytics restarted along with antidepressants -MRI of the C-spine 09/14- C4-5 with some residual soft tissue or complex fluid posterior to the disc interspace resulting in persistent moderate to severe focal canal stenosis and cord compression. -C4-5 anterior cervical discectomy with evacuation of epidural abscess, interbody arthrodesis using PEEK cage filled with autologous bone graft, Simplicity plate and screws 09/12 = To follow with neurosurgery as outpatient //GI/aspiration: -Currently has Dobbhoff. Speech therapy following but secretions remain an issue. -Continue tube feeding. //Sinus tachycardia: Better with increased dosing of propranolol. Continue to monitor on telemetry. //Right upper extremity is more swollen compared to left: Likely secondary to IV infiltrate. - Venous Doppler negative for DVT PROPH: -Bilateral lower extremity SCDs. IV famotidine. Lovenox 40 mg sq daily Discussed Condition With: Patient, nurse, case management specialist Discharge Planning: [facility]. Med rec completed. Will need final recs for IV antibiotics from ID and clearance from neurosurgery. I discussed with infectious disease who will see the patient. Appreciate nursing assistance.. - Time Spent with Patient Total time spent providing and/or coordinating discharge services: Greater than 30 minutes - Quality: VTE Deep Vein Thrombosis/Pulmonary Embolism Present on Admission: No Exam Vital signs: Vital Signs 09/30/18 13:37 09/30/18 14:00 09/30/18 14:01 Temperature Pulse Rate 95 H 82 88 Respiratory Rate 18 17 17 Blood Pressure 127/76 132/88 Pulse Oximetry 94 L 94 L 94 L 09/30/18 14:31 09/30/18 15:00 09/30/18 15:01 Temperature Pulse Rate 91 H 89 84 Respiratory Rate 19 21 20 Blood Pressure 144/84 H 136/81 Pulse Oximetry 95 94 L 93 L 09/30/18 15:31 09/30/18 16:00 09/30/18 16:01 Temperature 97.9 F Pulse Rate 87 86 84 Respiratory Rate 18 26 H 23 Blood Pressure 127/88 121/71 Pulse Oximetry 94 L 91 L 91 L 09/30/18 16:31 09/30/18 17:00 09/30/18 17:01 Temperature Pulse Rate 87 91 H 90 Respiratory Rate 27 H 25 H 21 Blood Pressure 135/85 140/72 Pulse Oximetry 96 94 L 93 L 09/30/18 17:31 09/30/18 18:00 09/30/18 18:01 Temperature Pulse Rate 92 H 88 76 Respiratory Rate 26 H 20 19 Blood Pressure 146/72 H 134/74 Pulse Oximetry 90 L 92 L 91 L 09/30/18 18:30 09/30/18 18:31 09/30/18 19:00 Temperature Pulse Rate 101 H 102 H 90 Respiratory Rate 31 H 30 H 24 Blood Pressure 139/79 Pulse Oximetry 94 L 92 L 95 09/30/18 19:01 09/30/18 19:44 09/30/18 20:00 Temperature 97.7 F Pulse Rate 84 82 87 Respiratory Rate 21 22 23 Blood Pressure 129/72 137/68 135/75 Pulse Oximetry 94 L 95 96 09/30/18 20:11 09/30/18 20:29 09/30/18 20:30 Temperature Pulse Rate 82 87 81 Respiratory Rate 23 20 23 Blood Pressure Pulse Oximetry 95 95 95 09/30/18 20:39 09/30/18 21:00 09/30/18 21:30 Temperature Pulse Rate 80 86 87 Respiratory Rate 18 15 16 Blood Pressure 111/62 Pulse Oximetry 96 94 L 96 09/30/18 21:39 09/30/18 22:00 09/30/18 22:30 Temperature Pulse Rate 85 81 80 Respiratory Rate 15 13 13 Blood Pressure 105/59 L Pulse Oximetry 96 98 100 09/30/18 22:39 09/30/18 23:00 09/30/18 23:24 Temperature Pulse Rate 77 86 90 Respiratory Rate 12 13 16 Blood Pressure 118/62 Pulse Oximetry 98 99 09/30/18 23:30 09/30/18 23:39 10/01/18 00:00 Temperature 97.6 F Pulse Rate 91 H 82 Respiratory Rate 15 20 Blood Pressure 123/74 117/66 Pulse Oximetry 96 99 98 10/01/18 00:30 10/01/18 00:39 10/01/18 01:00 Temperature Pulse Rate 79 80 78 Respiratory Rate 13 12 13 Blood Pressure Pulse Oximetry 99 96 100 10/01/18 01:30 10/01/18 01:39 10/01/18 02:00 Temperature Pulse Rate 85 87 83 Respiratory Rate 25 H 13 25 H Blood Pressure 133/67 Pulse Oximetry 99 98 98 10/01/18 02:30 10/01/18 02:39 10/01/18 03:00 Temperature Pulse Rate 91 H 79 125 H Respiratory Rate 18 14 18 Blood Pressure 133/73 Pulse Oximetry 98 99 93 L 10/01/18 03:11 10/01/18 03:30 10/01/18 03:39 Temperature Pulse Rate 118 H 123 H 101 H Respiratory Rate 20 23 21 Blood Pressure Pulse Oximetry 94 L 97 10/01/18 04:00 10/01/18 04:30 10/01/18 04:39 Temperature 97.7 F Pulse Rate 115 H 108 H 100 H Respiratory Rate 24 23 15 Blood Pressure 123/73 127/62 Pulse Oximetry 94 L 96 96 10/01/18 05:00 10/01/18 05:30 10/01/18 05:39 Temperature Pulse Rate 117 H 103 H 106 H Respiratory Rate 18 18 20 Blood Pressure 135/81 Pulse Oximetry 97 97 99 10/01/18 06:00 10/01/18 06:30 10/01/18 06:39 Temperature Pulse Rate 115 H 117 H 127 H Respiratory Rate 24 22 25 H Blood Pressure 113/92 H Pulse Oximetry 98 93 L 92 L 10/01/18 07:00 10/01/18 07:30 10/01/18 07:39 Temperature Pulse Rate 123 H 122 H Respiratory Rate 30 H 30 H Blood Pressure 141/80 H Pulse Oximetry 93 L 93 L 92 L 10/01/18 08:00 10/01/18 08:26 10/01/18 08:30 Temperature 98.3 F Pulse Rate 122 H 120 H 126 H Respiratory Rate 28 H 17 33 H Blood Pressure Pulse Oximetry 93 L 92 L 93 L 10/01/18 08:39 10/01/18 09:00 10/01/18 09:30 Temperature Pulse Rate 126 H 132 H 107 H Respiratory Rate 32 H 34 H 17 Blood Pressure 144/86 H Pulse Oximetry 94 L 92 L 89 L 10/01/18 09:39 10/01/18 10:00 10/01/18 10:30 Temperature Pulse Rate 106 H 126 H 130 H Respiratory Rate 15 27 H 28 H Blood Pressure 156/83 H Pulse Oximetry 90 L 88 L 94 L 10/01/18 10:39 10/01/18 11:00 10/01/18 11:30 Temperature Pulse Rate 130 H 126 H 107 H Respiratory Rate 44 H 36 H 23 Blood Pressure 144/97 H Pulse Oximetry 92 L 93 L 92 L 10/01/18 11:39 10/01/18 11:50 10/01/18 12:00 Temperature 98.4 F Pulse Rate 99 H 90 86 Respiratory Rate 33 H 17 19 Blood Pressure 130/79 Pulse Oximetry 91 L 93 L Intake & Output 09/30/18 10/01/18 10/01/18 18:59 06:59 18:59 Intake Total 1114 / 1114 1439 / 1439 200 / 200 Output Total 750 / 750 400 / 400 Balance 364 / 364 1039 / 1039 200 / 200 Weight 78.9 kg 79.6 kg Intake: IV 500 / 500 600 / 600 200 / 200 Maxipime Inj 2,000 MG In NS Inj 100 / 100 200 / 200 100 ML @ 200 mls/hr IV.SIG Q8H JAZ Rx#:[id number] Pfizerpen-G Inj 4,000,000 UNIT 300 / 300 300 / 300 100 / 100 In NS Inj 100 ML @ 200 mls/hr IV.SIG Q4H JAZ Rx#:[id number] Flagyl 500 MG Inj 100 ML @ 100 100 / 100 100 / 100 100 / 100 mls/hr IV.SIG Q8H JAZ Rx#: [id number] Oral 0 / 0 Tube Feeding 614 / 614 589 / 589 Water Bolus Amount 250 / 250 Output: Urine Amount (Catheter) 750 / 750 400 / 400 Condom 750 / 750 400 / 400 Gastric Drainage 0 / 0 Orogastric Tube 0 / 0 Other: # Voids 2 # Incontinent Voids 5 # Urine Diapers 5 Date of Last Bowel Movement 09/30/18 10/01/18 # Bowel Movements 2 Results Completed studies during hospitalization: Pending at discharge 09/12/18 09:00 Surgical [PTH] Routine Labs on day of discharge: Labs from last 24 hours 10/01/18 10/01/18 05:53 05:53 WBC 6.5 RBC 3.84 L Hgb 12.3 L Hct 37.5 L MCV 97.7 MCH 32.0 MCHC 32.8 RDW 14.7 Plt Count 191 MPV 8.6 Sodium 140 Potassium 4.3 Chloride 103 Carbon Dioxide 31.4 Anion Gap 6 BUN 15 Creatinine 0.60 Estimated GFR Greater than 89 Random Glucose 148 H Calcium 8.2 L Preliminary micro results at discharge 09/12/18 17:30 Fungal Culture - Preliminary Abscess - Other No growth in 2 weeks 09/12/18 17:30 Mycobacterial Culture - Preliminary Abscess - Other No growth in 2 weeks 09/12/18 17:18 Fungal Culture - Preliminary Abscess - Other No growth in 2 weeks 09/12/18 17:18 Mycobacterial Culture - Preliminary Abscess - Other No growth in 2 weeks 09/12/18 17:06 Fungal Culture - Preliminary Abscess - Other No growth in 2 weeks 09/12/18 17:06 Mycobacterial Culture - Preliminary Abscess - Other No growth in 2 weeks - Impressions ITS Impressions Lumbar Spine MRI 09/11/18 20:09 CONCLUSION: 1. Moderate bilateral foraminal narrowing at L5-S1. 2. Grade I retrolisthesis of L5 in relation to S1. 3. Minimal bilateral foraminal narrowing at L2-3, L3-4 and L4-5. 4. Hemangiomas at L2 and L3. 5. Severe degenerative disc disease at L5-S1. Thoracic Spine MRI 09/11/18 20:09 CONCLUSION: 1. No fracture or subluxation of the thoracic spine. 2. Mild diffuse degenerative changes as described. These findings all appear chronic but there is a less age determinate Schmorl's node of the T8/T9 disc. Cervical Spine X-Ray 09/12/18 00:00 CONCLUSION: Expected intraoperative appearance of discectomy and fusion procedure at C4/C5. Cervical Spine MRI 09/14/18 00:00 CONCLUSION: 1. There is interval fusion across C4-5 with some residual soft tissue or complex fluid posterior to the disc interspace resulting in persistent moderate to severe focal canal stenosis and cord compression. Minimal cord signal abnormality at the area of compression. 2. Stable retrolisthesis of C3 on C4 with moderate stenosis and mild cord compression. 3. Worsening prevertebral soft tissue edema and swelling. Postcontrast images reveal enhancement in the anterior epidural space between C3 and C7, nonspecific but possibly related to postsurgical changes. No loculated enhancing fluid collection is seen within the spinal canal. There is also abnormal edema and enhancement in the prevertebral soft tissues. Differential diagnosis includes postoperative change. Cannot exclude infection. Venous Doppler Study 09/24/18 00:00 CONCLUSION: 1. Superficial venous thrombosis involving the mid cephalic vein. 2. No evidence of DVT. Chest X-Ray 09/29/18 06:00 CONCLUSION: Relatively stable appearance of left basilar airspace disease and pleural effusion compared with September 28. Abdomen X-Ray 09/29/18 17:04 CONCLUSION: Dobbhoff tube tip appears to be in good position in the distal duodenum or proximal jejunum. Discharge Plan - Discharge Disposition Patient Disposition: Discharge to SNF - Discharge Condition Condition: Stable - Discharge Order Discharge Orders: Discharge Order (Routine); Ordered 10/01/18 Ordered By: Alejandro Penaloza - Discharge Details Anticipated Discharge Date: 10/01/18 - Physicians Team Primary Care Provider: Zachery Paris Attending Provider: Alejandro Penaloza Other Providers: Kit Pereira MD ; Miguelina Hanson MD ; Caryl Middleton MD ; [facility] ; Devon Vasquez MD
== END 2018-10-01 14:27 ==
LOC: NEPD 16:32 → NEDA 22:53 → NEPHCDU 23:58 → N05 09-12 17:14 → N03 09-12 18:44
PROVIDERS: ADMIT Internal Medicine; ATTEND Internal Medicine